=== PATIENT | female | born 1940 | race Two or more races ===

== ENCOUNTER → 2019-11-26 | Outpatient (CLI) | payer OTHER ==
[2019-11-26 07:41] LABS: Basophils # (auto) 0.1 10 ^3/uL (0-0.2); Basophils % (auto) 1.1 % (0.0-2.0); Eosinophils # (auto) 0.2 10 ^3/uL (0-0.8); Eosinophils % (auto) 2.4 % (0.0-7.0); Hematocrit 38.1 % (36.0-46.0); Hemoglobin 12.7 g/dL (12.2-16.2); Lymphocytes # (auto) 1.8 10 ^3/uL (0.4-5.4); Lymphocytes % (auto) 18.4 % (10.0-50.0); Mean Corpuscular Hemoglobin 31.4 pg (28.0-32.0); Mean Corpuscular Hgb Conc. 33.3 g/dL (32.0-36.0); Mean Corpuscular Volume 94.5 fL (80.0-100.0); Monocytes # (auto) 0.5 10 ^3/uL (0-1.3); Monocytes % (auto) 4.9 % (0.0-12.0); Neutrophils # (auto) 7.2 10 ^3/uL (1.6-8.6); Neutrophils % (auto) 73.2 % (37.0-80.0); Platelet Count (auto) 343 10^3/uL (140-450); Red Blood Cells 4.03 10^6/uL (4.0-5.20); Red Cell Distribution Width 13.4 % (11.8-14.3); White Blood Cell 9.9 10^3/uL (4.4-10.8)
[2019-11-26 08:39] LABS: Albumin 3.1 g/dL (3.4-5.0); Potassium 3.8 mmol/L (3.5-5.1)
[2019-11-26 08:46] LABS: BUN/Creatinine Ratio 20.6; Bilirubin, Total 0.3 mg/dL (0.2-1.0); Calcium 9.1 mg/dL (8.5-10.1); Total Protein 6.8 g/dL (6.4-8.2)
== END | disposition home or self-care (01) ==
LOC: LAB 07:09
PROVIDERS: ATTEND Internal Medicine
DX: Z00.00 Encounter for general adult medical examination without abnormal findings (principal); Z12.11 Encounter for screening for malignant neoplasm of colon; I10 Essential (primary) hypertension; E78.5 Hyperlipidemia, unspecified
CPT/HCPCS: 36415; 80053; 80061; 82043; 84439; 84443; 85025

== ENCOUNTER → 2020-10-31 | Outpatient (CLI) | payer OTHER ==
[2020-10-31 08:09] LABS: Basophils # (auto) 0.1 10 ^3/uL (0-0.2); Basophils % (auto) 0.9 % (0.0-2.0); Eosinophils # (auto) 0.5 10 ^3/uL (0-0.8); Eosinophils % (auto) 4.4 % (0.0-7.0); Hematocrit 38.8 % (36.0-46.0); Hemoglobin 12.8 g/dL (12.2-16.2); Lymphocytes # (auto) 2.3 10 ^3/uL (0.4-5.4); Lymphocytes % (auto) 20.1 % (10.0-50.0); Mean Corpuscular Hemoglobin 30.9 pg (28.0-32.0); Mean Corpuscular Volume 93.8 fL (80.0-100.0); Monocytes # (auto) 0.5 10 ^3/uL (0-1.3); Monocytes % (auto) 4.6 % (0.0-12.0); Neutrophils # (auto) 8.1 10 ^3/uL (1.6-8.6); Platelet Count (auto) 383 10^3/uL (140-450); Red Blood Cells 4.14 10^6/uL (4.0-5.20); Red Cell Distribution Width 14.3 % (11.8-14.3); White Blood Cell 11.6 10^3/uL (4.4-10.8)
[2020-10-31 09:30] LABS: Albumin 3.8 g/dL (3.4-5.0); Potassium 4.3 mmol/L (3.5-5.1)
[2020-10-31 09:37] LABS: BUN/Creatinine Ratio 24.2; Bilirubin, Total 0.4 mg/dL (0.2-1.0); Total Protein 7.6 g/dL (6.4-8.2)
== END | disposition home or self-care (01) ==
LOC: LAB 07:07
PROVIDERS: ATTEND Internal Medicine
DX: Z00.00 Encounter for general adult medical examination without abnormal findings (principal); Z12.11 Encounter for screening for malignant neoplasm of colon; I10 Essential (primary) hypertension; E78.5 Hyperlipidemia, unspecified; E55.9 Vitamin D deficiency, unspecified; R73.03 Prediabetes
CPT/HCPCS: 36415; 80053; 80061; 82306; 83036; 84439; 84443; 85025

== ENCOUNTER → 2020-11-22 | Outpatient (CLI) | payer OTHER ==
[~2020-11-22] MED LIST: ALBUTEROL SULF 2.5 MG/0.5ML(0.5%) NEB SOLN ONE
== END | disposition home or self-care (01) ==
LOC: RT 08:29
PROVIDERS: ATTEND Internal Medicine Pulmonary Disease
DX: Z01.812 Encounter for preprocedural laboratory examination (principal); Z20.822 Contact with and (suspected) exposure to COVID-19; J44.9 Chronic obstructive pulmonary disease, unspecified; J98.4 Other disorders of lung
CPT/HCPCS: 36415; 87426; 94060; 94727; 94729

== ENCOUNTER → 2020-12-14 | Outpatient (CLI) | payer OTHER ==
[2020-12-14 09:58] LABS: Basophils # (auto) 0.1 10 ^3/uL (0-0.2); Basophils % (auto) 1.1 % (0.0-2.0); Eosinophils # (auto) 0.9 10 ^3/uL (0-0.8); Eosinophils % (auto) 7.4 % (0.0-7.0); Hematocrit 38.4 % (36.0-46.0); Hemoglobin 12.9 g/dL (12.2-16.2); Lymphocytes # (auto) 2.5 10 ^3/uL (0.4-5.4); Lymphocytes % (auto) 21.6 % (10.0-50.0); Mean Corpuscular Hemoglobin 31.3 pg (28.0-32.0); Mean Corpuscular Hgb Conc. 33.7 g/dL (32.0-36.0); Mean Corpuscular Volume 93.1 fL (80.0-100.0); Monocytes # (auto) 0.6 10 ^3/uL (0-1.3); Monocytes % (auto) 5.4 % (0.0-12.0); Neutrophils # (auto) 7.6 10 ^3/uL (1.6-8.6); Neutrophils % (auto) 64.5 % (37.0-80.0); Platelet Count (auto) 386 10^3/uL (140-450); Red Blood Cells 4.13 10^6/uL (4.0-5.20); Red Cell Distribution Width 13.9 % (11.8-14.3); White Blood Cell 11.8 10^3/uL (4.4-10.8)
== END | disposition home or self-care (01) ==
LOC: LAB 09:31
PROVIDERS: ATTEND Internal Medicine
DX: Z12.11 Encounter for screening for malignant neoplasm of colon (principal); D72.829 Elevated white blood cell count, unspecified
CPT/HCPCS: 36415; 85025

== ENCOUNTER → 2021-01-11 | Outpatient (CLI) | payer OTHER ==
[2021-01-11 08:29] LABS: Albumin 3.4 g/dL (3.4-5.0); Calcium 9.2 mg/dL (8.5-10.1); Potassium 4.3 mmol/L (3.5-5.1)
[2021-01-11 08:33] LABS: BUN/Creatinine Ratio 24.5; Bilirubin, Total 0.4 mg/dL (0.2-1.0)
== END | disposition home or self-care (01) ==
LOC: LAB 07:15
PROVIDERS: ATTEND Internal Medicine
DX: I12.9 Hypertensive chronic kidney disease with stage 1 through stage 4 chronic kidney disease, or unspecified chronic kidney disease (principal); N18.2 Chronic kidney disease, stage 2 (mild); E78.5 Hyperlipidemia, unspecified; R73.03 Prediabetes
CPT/HCPCS: 36415; 80053; 85048

== ENCOUNTER → 2021-02-09 | Outpatient (CLI) | payer OTHER ==
[~2021-02-09] VITALS: Ht 160 cm; Wt 88.0 kg
[~2021-02-09] MED LIST changes: +ADENOSINE 74 MG in GIVE UN-DILUTED 0 ML IV STA; -ALBUTEROL SULF 2.5 MG/0.5ML(0.5%) NEB SOLN ONE
== END | disposition home or self-care (01) ==
LOC: XY 08:20
PROVIDERS: ATTEND Internal Medicine
DX: R07.9 Chest pain, unspecified (principal); K21.9 Gastro-esophageal reflux disease without esophagitis; I10 Essential (primary) hypertension; J45.909 Unspecified asthma, uncomplicated; E78.5 Hyperlipidemia, unspecified; Z82.49 Family history of ischemic heart disease and other diseases of the circulatory system
CPT/HCPCS: 78452; 93017; A9500; J0153

== ENCOUNTER → 2021-02-15 | Outpatient (CLI) | payer OTHER | END | disposition home or self-care (01) | LOC: XYW 13:28 | PROVIDERS: ATTEND Internal Medicine | DX: I08.8 Other rheumatic multiple valve diseases (principal); R07.9 Chest pain, unspecified | CPT/HCPCS: 93306 ==

== ENCOUNTER 2021-06-21 10:11 | Inpatient (IN) | payer OTHER ==
[~2021-06-21] VITALS: Ht 160 cm; Wt 95.6 kg
[2021-06-21 11:30] LABS: Urine Bacteria MOD /hpf (None Seen); Urine Blood Negative /uL (Negative); Urine Specific Gravity 1.012 (1.001-1.035); Urine WBC 11 /hpf (0 - 5)
[2021-06-21 11:44] LABS: Hematocrit 37.5 % (36.0-46.0); Hemoglobin 11.8 g/dL (12.2-16.2); Mean Corpuscular Hemoglobin 30.7 pg (28.0-32.0); Mean Corpuscular Hgb Conc. 31.6 g/dL (32.0-36.0); Mean Corpuscular Volume 97.2 fL (80.0-100.0); Red Blood Cells 3.85 10^6/uL (4.0-5.20); Red Cell Distribution Width 14.7 % (11.8-14.3); White Blood Cell 13.7 10^3/uL (4.4-10.8)
[2021-06-21 11:49] LABS: Basophils % (manual) 0 (0.0-2.0); Blast Cells 0; Eosinophils % (manual) 0 (0-7); Metamyelocytes % 0; Myelocytes % 0; Promyelocytes % 0; Reactive Lymphocytes 0
[2021-06-21 12:17] LABS: Albumin 2.3 g/dL (3.4-5.0); Calcium 8.3 mg/dL (8.5-10.1); Potassium 4.7 mmol/L (3.5-5.1)
[2021-06-21 12:20] LABS: BUN/Creatinine Ratio 48.5; Bilirubin, Total 0.4 mg/dL (0.2-1.0); Total Protein 5.7 g/dL (6.4-8.2)
[2021-06-21 12:24] LABS: Band Neutrophils % (manual) 15; Lymphocytes % (manual) 13 (10.0-50.0); Monocytes % (manual) 3 (0-12)
[2021-06-21] MEDS ORDERED: metroNIDAZOLE 500MG/100ML 100 ML IV ONE ×2 (13:00→18:50)
[2021-06-21] MEDS ORDERED: ONDANSETRON HCL 4 MG/2 ML VIAL IV ONE (13:15)
[2021-06-21] MEDS ORDERED: MORPHINE SULFATE 4 MG/ML SYR/VIAL IV ONE (13:15)
[2021-06-21] MEDS ORDERED: levoFLOXacin 500MG 100 ML IV ONE (13:30)
[2021-06-21] MEDS ORDERED: SODIUM CHLORIDE 0.9% 500 ML IV ONE (13:45)
[2021-06-21 14:16] LABS: INR 0.99 (0.9-1.15); Partial Thromboplastin Time 23.9 sec (23.6-33.0)
[2021-06-21] MEDS ORDERED: LACTATED RINGER'S 1,000 ML IV ONE (15:15)
[2021-06-21] MEDS ORDERED: MORPHINE SULFATE INJECTION 2 MG/ML SYRG IV PRN ×3 (15:15→18:15)
[2021-06-21] MEDS ORDERED: NITROGLYCERIN 0.4 MG SL TAB SL PRN ×3 (15:15→18:15)
[2021-06-21] MEDS ORDERED: SODIUM CHLORIDE 0.9% 1,000 ML IV SCH (18:15)
[2021-06-21] MEDS ORDERED: MORPHINE SULFATE 4 MG/ML SYR/VIAL IV PRN (18:15)
[2021-06-21] MEDS ORDERED: ONDANSETRON HCL 4 MG/2 ML VIAL IV PRN (18:15)
[2021-06-21] MEDS ORDERED: LORazepam 2MG/ML-1ML VIAL IV PRN (18:15)
[2021-06-21] MEDS ORDERED: HYDROcodone-ACET 5/325MG TAB PO PRN (18:15)
[2021-06-21] MEDS ORDERED: LORazepam 0.5 MG TAB PO PRN (18:15)
[2021-06-21] MEDS ORDERED: ALUM & MAG HYDROX-SIMETH LIQ(MAALOX) 30 ML PO PRN (18:15)
[2021-06-21] MEDS ORDERED: ACETAMINOPHEN 325 MG TAB PO PRN ×2 (18:15)
[2021-06-21] MEDS ORDERED: DOCUSATE SOD 100 MG CAP PO PRN (18:15)
[2021-06-21] MEDS ORDERED: hydrALAZINE HCL 20 MG/ML VL IV PRN (18:30)
[2021-06-21] MEDS ORDERED: IPRATROPIUM BROM 0.5 MG/2.5ML INH SOL NEB ONE (18:30)
[2021-06-21] MEDS ORDERED: IPRATROPIUM BROM 0.5 MG/2.5ML INH SOL NEB PRN (19:15)
[2021-06-21] MEDS: metroNIDAZOLE 500MG/100ML 100 ML IV SCH ×2 (19:20→19:38)
[2021-06-21 19:32] LABS: Alcohol, Urine < 3.0 mg/dL (0-10); Amphetamine Screen, Urine NEGATIVE (NEGATIVE); Barbiturate Scree,Urine NEGATIVE (NEGATIVE); Benzodiazephine Screen, Urine NEGATIVE (NEGATIVE); Cannabinoid Screen, Urine NEGATIVE (NEGATIVE); Cocaine Screen, Urine NEGATIVE (NEGATIVE); Opiate Scree,Urine NEGATIVE (NEGATIVE); Phencyclidine Screen, Urine NEGATIVE (NEGATIVE)
[2021-06-21] MEDS ORDERED: FAMOTIDINE (10MG/ML) 2ML VL IV ONE (19:45)
[2021-06-21] MEDS ORDERED: levoFLOXacin 250MG 50 ML IV ONE (20:00)
[2021-06-21] MEDS: MORPHINE SULFATE INJECTION 2 MG/ML SYRG IV PRN (20:07)
[2021-06-21 20:33] LABS: Cholesterol 134 mg/dL (< 200); Triglycerides 61 mg/dL (< 150)
[2021-06-21 20:35] LABS: HDL Cholesterol 67 mg/dL (40-59); LDL Cholesterol 57 mg/dL (< 100)
[2021-06-21] MEDS ORDERED: ATORVASTATIN 20 MG TAB PO SCH (22:00)
[2021-06-21] MEDS ORDERED: IPRATROPIUM BROM 0.5 MG/2.5ML INH SOL NEB SCH (22:00)
[2021-06-21 22:19] VITALS: BP 123/61
[2021-06-21 22:23] VITALS: BP 123/61
[2021-06-21] MEDS: MEROPENEM 1GM IVPB 100 ML IV SCH (22:25)
[2021-06-22] VITALS (36 sets, daily range): BP systolic 96–185; BP diastolic 37–74
[2021-06-22] MEDS: MORPHINE SULFATE INJECTION 2 MG/ML SYRG IV PRN ×3 (00:10→09:34)
[2021-06-22 05:49] LABS: Basophils # (auto) 0 10 ^3/uL (0-0.2); Basophils % (auto) 0.1 % (0.0-2.0); Eosinophils # (auto) 0 10 ^3/uL (0-0.8); Eosinophils % (auto) 0.2 % (0.0-7.0); Hematocrit 34.5 % (36.0-46.0); Hemoglobin 11.3 g/dL (12.2-16.2); Lymphocytes % (auto) 7.8 % (10.0-50.0); Mean Corpuscular Hemoglobin 31.8 pg (28.0-32.0); Mean Corpuscular Hgb Conc. 32.8 g/dL (32.0-36.0); Monocytes # (auto) 0.3 10 ^3/uL (0-1.3); Monocytes % (auto) 2.5 % (0.0-12.0); Neutrophils % (auto) 89.4 % (37.0-80.0); Nucleated Red Blood Cells % 0.1 %; Red Blood Cells 3.56 10^6/uL (4.0-5.20); Red Cell Distribution Width 15.2 % (11.8-14.3); White Blood Cell 12.3 10^3/uL (4.4-10.8)
[2021-06-22 06:15] LABS: Albumin 1.6 g/dL (3.4-5.0); Calcium 7.8 mg/dL (8.5-10.1); Magnesium 2.8 mg/dL (1.6-2.6); Potassium 4.7 mmol/L (3.5-5.1)
[2021-06-22 06:21] LABS: BUN/Creatinine Ratio 40.2; Bilirubin, Total 0.5 mg/dL (0.2-1.0); Phosphorus 2.8 mg/dL (2.5-4.90); Total Protein 4.6 g/dL (6.4-8.2); Uric Acid 8.3 mg/dL (2.6-6.0)
[2021-06-22 06:29] LABS: INR 1.25 (0.9-1.15); Partial Thromboplastin Time 37.4 sec (23.6-33.0)
[2021-06-22] MEDS: MEROPENEM 1GM IVPB 100 ML IV SCH ×2 (09:33→16:39)
[2021-06-22] MEDS ORDERED: ENOXAPARIN SOD 40 MG/0.4 ML SYRINGE SC SCH (10:00)
[2021-06-22] MEDS ORDERED: ASPirin 81 mg TAB PO SCH (10:00)
[2021-06-22] MEDS ORDERED: levoFLOXacin 250MG 50 ML IV SCH (10:00)
[2021-06-22] MEDS ORDERED: SOD CHL 0.45% 1,000 ML IV SCH (10:15)
[2021-06-22] MEDS ORDERED: HYDROmorphone HCL 2 MG/ML VL ONE ×2 (13:20→15:51)
[2021-06-22] MEDS ORDERED: ONDANSETRON HCL 4 MG/2 ML VIAL ONE (13:20)
[2021-06-22] MEDS ORDERED: MIDAZOLAM HCL 2MG/2ML 2ml VIAL (1mg/ml) ONE ×2 (13:20→15:51)
[2021-06-22] MEDS ORDERED: DexAMETHasone SOD PHOS 10MG/1ML VIAL INJ ONE (13:20)
[2021-06-22] MEDS ORDERED: PROPOFOL 10 MG/ML 20 ML IV ONE (13:20)
[2021-06-22] MEDS ORDERED: fentaNYL CITRATE 100 MCG/2 ML VL ONE (13:20)
[2021-06-22] MEDS ORDERED: ROCURONIUM 10MG/ML 10ML VIAL IV ONE ×3 (13:20→15:51)
[2021-06-22] MEDS: IPRATROPIUM BROM 0.5 MG/2.5ML INH SOL NEB SCH ×2 (13:50→23:14)
[2021-06-22] MEDS ORDERED: NOREPINEPHRINE 8 MG/250ML KIT 250 ML IV STA (14:00)
[2021-06-22] MEDS ORDERED: fentaNYL CITRATE 5 ML ONE (14:46)
[2021-06-22 15:18] LABS: Hepatitis A Ab IgM Negative
[2021-06-22 15:19] LABS: Hepatitis B Core IgM Negative; Hepatitis C Antibody Negative (Negative)
[2021-06-22] MEDS: D5W/SOD CHL 0.45%/KCL 20MEQ 1,000 ML IV SCH (15:45)
[2021-06-22] MEDS ORDERED: HYDROmorphone HCL 2 MG/ML VL IV PRN (15:45)
[2021-06-22] MEDS ORDERED: PROPOFOL 100 ML IV ONE (15:53)
[2021-06-22] MEDS ORDERED: TPN PER PHARMACY 0 ML IV SCH (16:30)
[2021-06-22] MEDS: MIDAZOLAM DRIP 50 mg/50mL 50 ML IV SCH (16:40)
[2021-06-22] MEDS ORDERED: AMINO ACID INFUSION IN D10W 1,000 ML IV NR (20:00)
[2021-06-22 20:39] LABS: Basophils # (auto) 0 10 ^3/uL (0-0.2); Basophils % (auto) 0.2 % (0.0-2.0); Eosinophils # (auto) 0.1 10 ^3/uL (0-0.8); Eosinophils % (auto) 0.9 % (0.0-7.0); Hematocrit 33.5 % (36.0-46.0); Hemoglobin 10.7 g/dL (12.2-16.2); Lymphocytes # (auto) 1.3 10 ^3/uL (0.4-5.4); Lymphocytes % (auto) 10.5 % (10.0-50.0); Mean Corpuscular Hemoglobin 31.4 pg (28.0-32.0); Mean Corpuscular Hgb Conc. 31.9 g/dL (32.0-36.0); Mean Corpuscular Volume 98.6 fL (80.0-100.0); Monocytes # (auto) 0.3 10 ^3/uL (0-1.3); Monocytes % (auto) 2.5 % (0.0-12.0); Neutrophils % (auto) 85.9 % (37.0-80.0); Nucleated Red Blood Cells % 0.1 %; Red Cell Distribution Width 15.7 % (11.8-14.3); White Blood Cell 12.8 10^3/uL (4.4-10.8)
[2021-06-22 20:57] LABS: BUN/Creatinine Ratio 36.3; Calcium 7.7 mg/dL (8.5-10.1); Potassium 4.9 mmol/L (3.5-5.1)
[2021-06-22] MEDS ORDERED: FAMOTIDINE (10MG/ML) 2ML VL IV SCH (22:00)
[2021-06-23] VITALS (106 sets, daily range): BP systolic 73–161; BP diastolic 30–90
[2021-06-23] MEDS ORDERED: DEXTROSE (50%) 50ML SYRG IV SCH
[2021-06-23] MEDS: InsuLIN REG 1unit/0.01ml Soln (100units/ml) SC SCH ×5 (00:21→23:43)
[2021-06-23] MEDS: ACCU-CHEK COMFORT CURVE STRIP VI SCH ×5 (00:22→23:45)
[2021-06-23] MEDS: D5W/SOD CHL 0.45%/KCL 20MEQ 1,000 ML IV SCH (00:23)
[2021-06-23] MEDS: MEROPENEM 1GM IVPB 100 ML IV SCH ×3 (00:59→20:07)
[2021-06-23 05:15] LABS: INR 1.2 (0.9-1.15); Partial Thromboplastin Time 38.4 sec (23.6-33.0)
[2021-06-23 05:18] LABS: Basophils # (auto) 0 10 ^3/uL (0-0.2); Basophils % (auto) 0.1 % (0.0-2.0); Eosinophils # (auto) 0.2 10 ^3/uL (0-0.8); Eosinophils % (auto) 1.3 % (0.0-7.0); Hematocrit 31.5 % (36.0-46.0); Hemoglobin 10.2 g/dL (12.2-16.2); Mean Corpuscular Hemoglobin 32.5 pg (28.0-32.0); Mean Corpuscular Hgb Conc. 32.3 g/dL (32.0-36.0); Mean Corpuscular Volume 100.6 fL (80.0-100.0); Monocytes # (auto) 0.3 10 ^3/uL (0-1.3); Monocytes % (auto) 2.2 % (0.0-12.0); Neutrophils # (auto) 12.1 10 ^3/uL (1.6-8.6); Neutrophils % (auto) 89.4 % (37.0-80.0); Nucleated Red Blood Cells % 0.1 %; Red Blood Cells 3.14 10^6/uL (4.0-5.20); Red Cell Distribution Width 16.2 % (11.8-14.3); White Blood Cell 13.5 10^3/uL (4.4-10.8)
[2021-06-23 05:29] LABS: Potassium 5.1 mmol/L (3.5-5.1)
[2021-06-23 05:39] LABS: Albumin 1.1 g/dL (3.4-5.0); BUN/Creatinine Ratio 31.5; Calcium 7.7 mg/dL (8.5-10.1); Magnesium 2.8 mg/dL (1.6-2.6); Phosphorus 3.8 mg/dL (2.5-4.90); Pre Albumin 11.2 mg/dL (20.0-40.0); Total Protein 4.1 g/dL (6.4-8.2)
[2021-06-23] MEDS: IPRATROPIUM BROM 0.5 MG/2.5ML INH SOL NEB SCH ×3 (06:32→18:17)
[2021-06-23] MEDS: PANTOPRAZOLE 40 MG/10 ML VIAL INJ IV SCH (09:08)
[2021-06-23] MEDS: MIDAZOLAM DRIP 50 mg/50mL 50 ML IV SCH (10:28)
[2021-06-23] MEDS ORDERED: D5W/SOD CHL 0.45% 1,000 ML IV SCH (10:45)
[2021-06-23] MEDS: fentaNYL Drip 2500mCg/250mlNS 250 ML IV SCH (12:43)
[2021-06-23] MEDS: D5W/SOD CHL 0.45% 1,000 ML IV SCH (12:43)
[2021-06-23] MEDS ORDERED: TPN PER PHARMACY IV NR ×6 (20:00)
[2021-06-24] VITALS (108 sets, daily range): BP systolic 94–184; BP diastolic 39–160
[2021-06-24 03:58] LABS: Basophils # (auto) 0 10 ^3/uL (0-0.2); Basophils % (auto) 0.2 % (0.0-2.0); Eosinophils # (auto) 0.4 10 ^3/uL (0-0.8); Eosinophils % (auto) 2.8 % (0.0-7.0); Hematocrit 26.8 % (36.0-46.0); Hemoglobin 8.5 g/dL (12.2-16.2); Lymphocytes # (auto) 0.7 10 ^3/uL (0.4-5.4); Lymphocytes % (auto) 5.4 % (10.0-50.0); Mean Corpuscular Hemoglobin 31.6 pg (28.0-32.0); Mean Corpuscular Hgb Conc. 31.7 g/dL (32.0-36.0); Mean Corpuscular Volume 99.7 fL (80.0-100.0); Monocytes # (auto) 0.3 10 ^3/uL (0-1.3); Monocytes % (auto) 2.8 % (0.0-12.0); Neutrophils # (auto) 11.1 10 ^3/uL (1.6-8.6); Neutrophils % (auto) 88.8 % (37.0-80.0); Nucleated Red Blood Cells % 0.1 %; Red Blood Cells 2.69 10^6/uL (4.0-5.20); Red Cell Distribution Width 15.6 % (11.8-14.3); White Blood Cell 12.5 10^3/uL (4.4-10.8)
[2021-06-24 04:13] LABS: Calcium 7.9 mg/dL (8.5-10.1); Magnesium 2.3 mg/dL (1.6-2.6); Potassium 3.8 mmol/L (3.5-5.1)
[2021-06-24 04:18] LABS: BUN/Creatinine Ratio 38.7; Bilirubin, Total 1.4 mg/dL (0.2-1.0); Phosphorus 3.9 mg/dL (2.5-4.90)
[2021-06-24 04:25] LABS: Albumin 0.9 g/dL (3.4-5.0)
[2021-06-24] MEDS: D5W/SOD CHL 0.45% 1,000 ML IV SCH ×2 (05:07→20:01)
[2021-06-24] MEDS: InsuLIN REG 1unit/0.01ml Soln (100units/ml) SC SCH ×3 (05:09→17:04)
[2021-06-24] MEDS: ACCU-CHEK COMFORT CURVE STRIP VI SCH ×3 (05:09→17:05)
[2021-06-24] MEDS: IPRATROPIUM BROM 0.5 MG/2.5ML INH SOL NEB SCH ×3 (06:25→20:39)
[2021-06-24] MEDS: NOREPINEPHRINE 8 MG/250ML KIT 250 ML IV SCH (07:30)
[2021-06-24] MEDS: MEROPENEM 1GM IVPB 100 ML IV SCH ×2 (09:42→20:01)
[2021-06-24] MEDS: PANTOPRAZOLE 40 MG/10 ML VIAL INJ IV SCH (09:43)
[2021-06-24 10:49] LABS: Hemoglobin 8.8 g/dL (12.2-16.2)
[2021-06-24] MEDS ORDERED: SODIUM BICARBONATE 8.4 % INJ 50ML VIAL IV ONE (11:15)
[2021-06-24] MEDS: fentaNYL Drip 2500mCg/250mlNS 250 ML IV SCH (12:30)
[2021-06-24] MEDS: MIDAZOLAM DRIP 50 mg/50mL 50 ML IV SCH (15:45)
[2021-06-24] MEDS ORDERED: TPN PER PHARMACY IV NR ×6 (20:00)
[2021-06-25] VITALS (78 sets, daily range): BP systolic 107–247; BP diastolic 43–96
[2021-06-25] MEDS: InsuLIN REG 1unit/0.01ml Soln (100units/ml) SC SCH ×5 (01:17→23:54)
[2021-06-25 04:02] LABS: Basophils # (auto) 0 10 ^3/uL (0-0.2); Basophils % (auto) 0.3 % (0.0-2.0); Eosinophils # (auto) 0.4 10 ^3/uL (0-0.8); Eosinophils % (auto) 3.2 % (0.0-7.0); Hematocrit 26.7 % (36.0-46.0); Hemoglobin 8.6 g/dL (12.2-16.2); Lymphocytes # (auto) 1.1 10 ^3/uL (0.4-5.4); Mean Corpuscular Hemoglobin 31.6 pg (28.0-32.0); Mean Corpuscular Hgb Conc. 32.3 g/dL (32.0-36.0); Mean Corpuscular Volume 97.8 fL (80.0-100.0); Monocytes # (auto) 0.5 10 ^3/uL (0-1.3); Monocytes % (auto) 4.5 % (0.0-12.0); Neutrophils # (auto) 9.3 10 ^3/uL (1.6-8.6); Nucleated Red Blood Cells % 0.2 %; Red Blood Cells 2.73 10^6/uL (4.0-5.20); Red Cell Distribution Width 14.7 % (11.8-14.3); White Blood Cell 11.3 10^3/uL (4.4-10.8)
[2021-06-25 04:25] LABS: Albumin 1.1 g/dL (3.4-5.0); Magnesium 2.2 mg/dL (1.6-2.6); Potassium 3.9 mmol/L (3.5-5.1)
[2021-06-25 04:29] LABS: BUN/Creatinine Ratio 43.4; Bilirubin, Total 1.7 mg/dL (0.2-1.0); Phosphorus 2.4 mg/dL (2.5-4.90); Total Protein 4.4 g/dL (6.4-8.2)
[2021-06-25] MEDS: ACCU-CHEK COMFORT CURVE STRIP VI SCH ×5 (06:00→23:53)
[2021-06-25] MEDS: NOREPINEPHRINE 8 MG/250ML KIT 250 ML IV SCH (06:20)
[2021-06-25] MEDS: IPRATROPIUM BROM 0.5 MG/2.5ML INH SOL NEB SCH ×3 (06:31→18:48)
[2021-06-25] MEDS ORDERED: POTASSIUM PHOSPHATE 22 MEQ in SODIUM CHL 0.9% 100 ML IV ONE (08:15)
[2021-06-25] MEDS: MEROPENEM 1GM IVPB 100 ML IV SCH ×2 (09:09→22:00)
[2021-06-25] MEDS: PANTOPRAZOLE 40 MG/10 ML VIAL INJ IV SCH (10:36)
[2021-06-25] MEDS ORDERED: FUROSEMIDE 20 MG/2 ML VIAL IV ONE (11:15)
[2021-06-25] MEDS: fentaNYL Drip 2500mCg/250mlNS 250 ML IV SCH (12:30)
[2021-06-25] MEDS: D5W/SOD CHL 0.45% 1,000 ML IV SCH (13:58)
[2021-06-25] MEDS: MIDAZOLAM DRIP 50 mg/50mL 50 ML IV SCH (15:45)
[2021-06-25] MEDS: TPN PER PHARMACY IV NR ×8 (19:38)
[2021-06-26] VITALS (63 sets, daily range): BP systolic 103–243; BP diastolic 49–234
[2021-06-26] MEDS: LABETALOL HCL 5 MG/ML 4ML SYRINGE IV PRN ×4 (02:27→22:43)
[2021-06-26 04:31] LABS: Basophils # (auto) 0 10 ^3/uL (0-0.2); Basophils % (auto) 0.5 % (0.0-2.0); Eosinophils # (auto) 0.2 10 ^3/uL (0-0.8); Eosinophils % (auto) 2.3 % (0.0-7.0); Hematocrit 25.5 % (36.0-46.0); Hemoglobin 8.4 g/dL (12.2-16.2); Lymphocytes # (auto) 0.9 10 ^3/uL (0.4-5.4); Lymphocytes % (auto) 8.4 % (10.0-50.0); Mean Corpuscular Hemoglobin 32.3 pg (28.0-32.0); Mean Corpuscular Hgb Conc. 32.9 g/dL (32.0-36.0); Mean Corpuscular Volume 98.1 fL (80.0-100.0); Monocytes # (auto) 0.5 10 ^3/uL (0-1.3); Monocytes % (auto) 4.9 % (0.0-12.0); Neutrophils # (auto) 9.1 10 ^3/uL (1.6-8.6); Neutrophils % (auto) 83.9 % (37.0-80.0); Nucleated Red Blood Cells % 0.1 %; White Blood Cell 10.8 10^3/uL (4.4-10.8)
[2021-06-26 04:36] LABS: Albumin 1.1 g/dL (3.4-5.0); Calcium 7.8 mg/dL (8.5-10.1); Magnesium 1.9 mg/dL (1.6-2.6); Potassium 4.1 mmol/L (3.5-5.1)
[2021-06-26 04:38] LABS: BUN/Creatinine Ratio 54.8
[2021-06-26 04:41] LABS: Bilirubin, Total 1.5 mg/dL (0.2-1.0); Phosphorus 2.1 mg/dL (2.5-4.90); Total Protein 4.2 g/dL (6.4-8.2)
[2021-06-26] MEDS: MEROPENEM 1GM IVPB 100 ML IV SCH ×3 (05:14→21:53)
[2021-06-26] MEDS: ACCU-CHEK COMFORT CURVE STRIP VI SCH ×4 (05:43→23:52)
[2021-06-26] MEDS: InsuLIN REG 1unit/0.01ml Soln (100units/ml) SC SCH ×4 (05:46→23:56)
[2021-06-26] MEDS: IPRATROPIUM BROM 0.5 MG/2.5ML INH SOL NEB SCH ×3 (06:21→18:19)
[2021-06-26] MEDS: NOREPINEPHRINE 8 MG/250ML KIT 250 ML IV SCH (07:30)
[2021-06-26] MEDS: PANTOPRAZOLE 40 MG/10 ML VIAL INJ IV SCH (09:15)
[2021-06-26] MEDS: D5W/SOD CHL 0.45% 1,000 ML IV SCH (09:16)
[2021-06-26] MEDS: fentaNYL Drip 2500mCg/250mlNS 250 ML IV SCH (12:30)
[2021-06-26] MEDS ORDERED: FUROSEMIDE 20 MG/2 ML VIAL IV ONE ×2 (13:15→15:15)
[2021-06-26] MEDS: MIDAZOLAM DRIP 50 mg/50mL 50 ML IV SCH (15:25)
[2021-06-26] MEDS: TPN PER PHARMACY IV NR ×8 (19:59)
[2021-06-26] MEDS ORDERED: TPN PER PHARMACY IV NR ×9 (20:00)
[2021-06-27] VITALS (22 sets, daily range): BP systolic 137–166; BP diastolic 48–70
[2021-06-27 02:57] LABS: White Blood Cell 11.4 10^3/uL (4.4-10.8)
[2021-06-27 02:59] LABS: Hematocrit 24.4 % (36.0-46.0); Mean Corpuscular Hemoglobin 31.5 pg (28.0-32.0); Mean Corpuscular Hgb Conc. 32.8 g/dL (32.0-36.0); Red Blood Cells 2.54 10^6/uL (4.0-5.20); Red Cell Distribution Width 14.6 % (11.8-14.3)
[2021-06-27 03:06] LABS: Albumin 1.1 g/dL (3.4-5.0); BUN/Creatinine Ratio 56.1; Calcium 7.7 mg/dL (8.5-10.1); Potassium 4.6 mmol/L (3.5-5.1)
[2021-06-27 03:08] LABS: Bilirubin, Total 1.2 mg/dL (0.2-1.0); Phosphorus 2.4 mg/dL (2.5-4.90); Total Protein 4.4 g/dL (6.4-8.2)
[2021-06-27 03:34] LABS: Basophils % (manual) 0 (0.0-2.0); Blast Cells 0; Metamyelocytes % 0; Myelocytes % 0; Promyelocytes % 0; Reactive Lymphocytes 0
[2021-06-27] MEDS: MEROPENEM 1GM IVPB 100 ML IV SCH ×3 (06:00→21:42)
[2021-06-27] MEDS: ACCU-CHEK COMFORT CURVE STRIP VI SCH ×3 (06:09→17:20)
[2021-06-27] MEDS: InsuLIN REG 1unit/0.01ml Soln (100units/ml) SC SCH ×3 (06:12→17:20)
[2021-06-27] MEDS: IPRATROPIUM BROM 0.5 MG/2.5ML INH SOL NEB SCH ×3 (06:17→18:59)
[2021-06-27 06:51] LABS: Band Neutrophils % (manual) 27; Eosinophils % (manual) 4 (0-7); Lymphocytes % (manual) 15 (10.0-50.0); Monocytes % (manual) 5 (0-12)
[2021-06-27] MEDS: NOREPINEPHRINE 8 MG/250ML KIT 250 ML IV SCH (07:30)
[2021-06-27] MEDS: PANTOPRAZOLE 40 MG/10 ML VIAL INJ IV SCH (10:30)
[2021-06-27] MEDS: LABETALOL HCL 5 MG/ML 4ML SYRINGE IV PRN (13:50)
[2021-06-27] MEDS: TPN PER PHARMACY IV NR ×8 (19:39)
[2021-06-28] VITALS (7 sets, daily range): BP systolic 118–153; BP diastolic 50–70
[2021-06-28] MEDS: ACCU-CHEK COMFORT CURVE STRIP VI SCH ×4 (00:03→17:47)
[2021-06-28] MEDS: InsuLIN REG 1unit/0.01ml Soln (100units/ml) SC SCH ×4 (00:04→17:54)
[2021-06-28] MEDS: MEROPENEM 1GM IVPB 100 ML IV SCH ×3 (05:55→22:01)
[2021-06-28] MEDS: LABETALOL HCL 5 MG/ML 4ML SYRINGE IV PRN (05:55)
[2021-06-28 06:04] LABS: Mean Corpuscular Volume 96.6 fL (80.0-100.0)
[2021-06-28 06:07] LABS: Hematocrit 25.6 % (36.0-46.0); Hemoglobin 8.4 g/dL (12.2-16.2); Mean Corpuscular Hemoglobin 31.6 pg (28.0-32.0); Mean Corpuscular Hgb Conc. 32.8 g/dL (32.0-36.0); Red Blood Cells 2.65 10^6/uL (4.0-5.20); Red Cell Distribution Width 14.5 % (11.8-14.3); White Blood Cell 12.2 10^3/uL (4.4-10.8)
[2021-06-28 06:20] LABS: Basophils % (manual) 0 (0.0-2.0); Blast Cells 0; Promyelocytes % 0; Reactive Lymphocytes 0
[2021-06-28 06:22] LABS: Albumin 1.2 g/dL (3.4-5.0); BUN/Creatinine Ratio 57.7; Calcium 7.6 mg/dL (8.5-10.1); Magnesium 2.3 mg/dL (1.6-2.6); Potassium 4.3 mmol/L (3.5-5.1)
[2021-06-28 06:25] LABS: Total Protein 4.7 g/dL (6.4-8.2)
[2021-06-28] MEDS: IPRATROPIUM BROM 0.5 MG/2.5ML INH SOL NEB SCH ×3 (06:36→19:38)
[2021-06-28 08:41] LABS: Band Neutrophils % (manual) 13; Eosinophils % (manual) 3 (0-7); Lymphocytes % (manual) 13 (10.0-50.0); Metamyelocytes % 2; Monocytes % (manual) 1 (0-12); Myelocytes % 1
[2021-06-28] MEDS ORDERED: FUROSEMIDE 40 MG/4 ML VIAL IV ONE (09:30)
[2021-06-28] MEDS: PANTOPRAZOLE 40 MG/10 ML VIAL INJ IV SCH (09:43)
[2021-06-28 15:34] LABS: INR 1.12 (0.9-1.15); Partial Thromboplastin Time 28.5 sec (23.6-33.0)
[2021-06-28] MEDS: HYDROmorphone HCL 2 MG/ML VL IV PRN ×2 (17:59→23:40)
[2021-06-28] MEDS: TPN PER PHARMACY IV NR ×8 (19:58)
[2021-06-28] MEDS ORDERED: TPN PER PHARMACY IV NR ×11 (20:00)
[2021-06-29] MEDS: InsuLIN REG 1unit/0.01ml Soln (100units/ml) SC SCH ×4 (00:32→17:56)
[2021-06-29 05:00] VITALS: BP 148/62
[2021-06-29] MEDS: HYDROmorphone HCL 2 MG/ML VL IV PRN ×4 (05:18→20:15)
[2021-06-29] MEDS: ACCU-CHEK COMFORT CURVE STRIP VI SCH ×4 (05:58→17:56)
[2021-06-29] MEDS: MEROPENEM 1GM IVPB 100 ML IV SCH ×3 (06:03→21:28)
[2021-06-29 06:54] LABS: Hemoglobin 8.5 g/dL (12.2-16.2); Mean Corpuscular Hemoglobin 31.8 pg (28.0-32.0); Mean Corpuscular Hgb Conc. 32.6 g/dL (32.0-36.0); Mean Corpuscular Volume 97.5 fL (80.0-100.0); Red Blood Cells 2.67 10^6/uL (4.0-5.20); Red Cell Distribution Width 14.6 % (11.8-14.3)
[2021-06-29 07:04] LABS: Basophils % (manual) 0 (0.0-2.0); Blast Cells 0; Promyelocytes % 0; Reactive Lymphocytes 0
[2021-06-29 07:06] LABS: Albumin 1.4 g/dL (3.4-5.0); Magnesium 2.1 mg/dL (1.6-2.6); Phosphorus 3.7 mg/dL (2.5-4.90); Potassium 3.8 mmol/L (3.5-5.1)
[2021-06-29 07:09] LABS: BUN/Creatinine Ratio 78.8; Bilirubin, Total 0.8 mg/dL (0.2-1.0)
[2021-06-29] MEDS: IPRATROPIUM BROM 0.5 MG/2.5ML INH SOL NEB SCH ×3 (07:36→18:50)
[2021-06-29 08:12] LABS: Band Neutrophils % (manual) 14; Eosinophils % (manual) 5 (0-7); Lymphocytes % (manual) 5 (10.0-50.0); Metamyelocytes % 2; Monocytes % (manual) 3 (0-12); Myelocytes % 2
[2021-06-29] MEDS: PANTOPRAZOLE 40 MG/10 ML VIAL INJ IV SCH (10:22)
[2021-06-29 10:28] LABS: Pre Albumin 12.5 mg/dL (20.0-40.0)
[2021-06-29] MEDS ORDERED: LIDOCAINE 1% (LOCAL ANESTH.) PF 5ml SDV ID ONE (15:00)
[2021-06-29] MEDS: TPN PER PHARMACY IV NR ×9 (20:08)
[2021-06-29] MEDS: SODIUM CHLOR 0.9% PF (SALINE LOCK) 10ML VIAL/SYR IV SCH (21:28)
[2021-06-29 22:21] VITALS: BP 138/75
[2021-06-30] MEDS: ACCU-CHEK COMFORT CURVE STRIP VI SCH ×4 (00:22→17:49)
[2021-06-30] MEDS: InsuLIN REG 1unit/0.01ml Soln (100units/ml) SC SCH ×4 (00:27→17:49)
[2021-06-30] MEDS: HYDROmorphone HCL 2 MG/ML VL IV PRN ×4 (00:28→14:29)
[2021-06-30] MEDS: LABETALOL HCL 5 MG/ML 4ML SYRINGE IV PRN (04:49)
[2021-06-30 05:31] VITALS: BP 150/80
[2021-06-30] MEDS: MEROPENEM 1GM IVPB 100 ML IV SCH ×3 (06:09→21:16)
[2021-06-30 06:53] LABS: Basophils # (auto) 0.1 10 ^3/uL (0-0.2); Basophils % (auto) 0.6 % (0.0-2.0); Eosinophils # (auto) 0.3 10 ^3/uL (0-0.8); Eosinophils % (auto) 2.1 % (0.0-7.0); Hemoglobin 7.7 g/dL (12.2-16.2); Lymphocytes # (auto) 1.5 10 ^3/uL (0.4-5.4); Lymphocytes % (auto) 11.8 % (10.0-50.0); Mean Corpuscular Hemoglobin 31.1 pg (28.0-32.0); Mean Corpuscular Hgb Conc. 32.2 g/dL (32.0-36.0); Mean Corpuscular Volume 96.5 fL (80.0-100.0); Monocytes # (auto) 0.5 10 ^3/uL (0-1.3); Monocytes % (auto) 3.8 % (0.0-12.0); Neutrophils # (auto) 10.6 10 ^3/uL (1.6-8.6); Neutrophils % (auto) 81.7 % (37.0-80.0); Nucleated Red Blood Cells % 0.2 %; Red Blood Cells 2.49 10^6/uL (4.0-5.20); Red Cell Distribution Width 14.4 % (11.8-14.3)
[2021-06-30] MEDS: IPRATROPIUM BROM 0.5 MG/2.5ML INH SOL NEB SCH ×3 (07:15→19:47)
[2021-06-30 07:31] LABS: Albumin 1.3 g/dL (3.4-5.0); Calcium 7.8 mg/dL (8.5-10.1); Magnesium 2.3 mg/dL (1.6-2.6); Potassium 3.8 mmol/L (3.5-5.1)
[2021-06-30 07:35] LABS: BUN/Creatinine Ratio 73.9; Bilirubin, Total 0.6 mg/dL (0.2-1.0); Phosphorus 2.8 mg/dL (2.5-4.90); Total Protein 4.9 g/dL (6.4-8.2)
[2021-06-30 09:00] VITALS: BP 141/69
[2021-06-30] MEDS: SODIUM CHLOR 0.9% PF (SALINE LOCK) 10ML VIAL/SYR IV SCH ×2 (09:32→21:17)
[2021-06-30] MEDS: PANTOPRAZOLE 40 MG/10 ML VIAL INJ IV SCH (09:32)
[2021-06-30] MEDS ORDERED: GASTROGRAFIN 120 ML SOL ONE (12:32)
[2021-06-30 13:00] VITALS: BP 146/71
[2021-06-30 17:00] VITALS: BP 153/72
[2021-06-30] MEDS: TPN PER PHARMACY IV NR ×19 (20:04→20:13)
[2021-06-30 22:00] VITALS: BP 137/62
[2021-07-01] MEDS: InsuLIN REG 1unit/0.01ml Soln (100units/ml) SC SCH ×5 (00:46→23:28)
[2021-07-01 05:00] VITALS: BP 140/62
[2021-07-01 05:49] LABS: Eosinophils # (auto) 0.3 10 ^3/uL (0-0.8); Hemoglobin 7.6 g/dL (12.2-16.2); Lymphocytes # (auto) 1.7 10 ^3/uL (0.4-5.4)
[2021-07-01 05:50] LABS: Albumin 1.3 g/dL (3.4-5.0); Basophils # (auto) 0.1 10 ^3/uL (0-0.2); Basophils % (auto) 0.5 % (0.0-2.0); Calcium 7.8 mg/dL (8.5-10.1); Eosinophils % (auto) 2.3 % (0.0-7.0); Hematocrit 23.8 % (36.0-46.0); Lymphocytes % (auto) 12.7 % (10.0-50.0); Magnesium 2.4 mg/dL (1.6-2.6); Mean Corpuscular Volume 96.7 fL (80.0-100.0); Monocytes # (auto) 0.6 10 ^3/uL (0-1.3); Monocytes % (auto) 4.2 % (0.0-12.0); Neutrophils # (auto) 10.9 10 ^3/uL (1.6-8.6); Neutrophils % (auto) 80.3 % (37.0-80.0); Potassium 3.8 mmol/L (3.5-5.1); Red Blood Cells 2.46 10^6/uL (4.0-5.20); Red Cell Distribution Width 14.1 % (11.8-14.3); White Blood Cell 13.5 10^3/uL (4.4-10.8)
[2021-07-01 05:52] LABS: BUN/Creatinine Ratio 71.1
[2021-07-01 05:55] LABS: Bilirubin, Total 0.6 mg/dL (0.2-1.0); Phosphorus 2.8 mg/dL (2.5-4.90); Total Protein 4.7 g/dL (6.4-8.2)
[2021-07-01] MEDS: ACCU-CHEK COMFORT CURVE STRIP VI SCH ×5 (06:04→23:26)
[2021-07-01] MEDS: MEROPENEM 1GM IVPB 100 ML IV SCH ×3 (06:07→22:01)
[2021-07-01] MEDS: IPRATROPIUM BROM 0.5 MG/2.5ML INH SOL NEB SCH ×3 (06:58→18:38)
[2021-07-01 08:00] VITALS: BP 116/77
[2021-07-01] MEDS: HYDROmorphone HCL 2 MG/ML VL IV PRN ×3 (08:51→18:50)
[2021-07-01 09:00] VITALS: BP 145/99
[2021-07-01] MEDS: PANTOPRAZOLE 40 MG/10 ML VIAL INJ IV SCH (09:38)
[2021-07-01] MEDS: SODIUM CHLOR 0.9% PF (SALINE LOCK) 10ML VIAL/SYR IV SCH ×2 (09:38→22:02)
[2021-07-01 13:00] VITALS: BP 116/77
[2021-07-01] MEDS ORDERED: ENOXAPARIN SOD 40 MG/0.4 ML SYRINGE SC ONE (13:45)
[2021-07-01 14:20] LABS: % Iron Saturation 8.2 % (15-50)
[2021-07-01 17:00] VITALS: BP 131/56
[2021-07-01] MEDS: TPN PER PHARMACY IV NR ×18 (20:12→20:21)
[2021-07-01 22:00] VITALS: BP 107/40
[2021-07-02] MEDS: HYDROmorphone HCL 2 MG/ML VL IV PRN ×5 (02:49→23:43)
[2021-07-02 05:00] VITALS: BP 136/75
[2021-07-02] MEDS: ACCU-CHEK COMFORT CURVE STRIP VI SCH ×4 (05:32→23:43)
[2021-07-02] MEDS: MEROPENEM 1GM IVPB 100 ML IV SCH ×3 (05:32→21:48)
[2021-07-02] MEDS: InsuLIN REG 1unit/0.01ml Soln (100units/ml) SC SCH ×4 (05:33→23:44)
[2021-07-02 06:05] LABS: Albumin 1.4 g/dL (3.4-5.0); Calcium 7.7 mg/dL (8.5-10.1); Magnesium 2.3 mg/dL (1.6-2.6); Potassium 3.9 mmol/L (3.5-5.1)
[2021-07-02 06:07] LABS: BUN/Creatinine Ratio 70.7
[2021-07-02 06:10] LABS: Bilirubin, Total 0.6 mg/dL (0.2-1.0); Phosphorus 2.5 mg/dL (2.5-4.90)
[2021-07-02] MEDS: IPRATROPIUM BROM 0.5 MG/2.5ML INH SOL NEB SCH ×3 (06:29→19:08)
[2021-07-02] MEDS: SODIUM CHLOR 0.9% PF (SALINE LOCK) 10ML VIAL/SYR IV SCH ×2 (08:42→21:48)
[2021-07-02] MEDS: PANTOPRAZOLE 40 MG/10 ML VIAL INJ IV SCH (08:42)
[2021-07-02] MEDS: ENOXAPARIN SOD 40 MG/0.4 ML SYRINGE SC SCH (08:42)
[2021-07-02 09:00] VITALS: BP 149/65
[2021-07-02 13:00] VITALS: BP 129/68
[2021-07-02] MEDS ORDERED: SODIUM FERR GLUC 62.5MG/5ML 125 MG in SODIUM CHL 0.9% 100 ML IV ONE (13:30)
[2021-07-02 17:00] VITALS: BP 144/65
[2021-07-02] MEDS ORDERED: TPN PER PHARMACY IV NR ×8 (20:00)
[2021-07-02] MEDS: TPN PER PHARMACY IV NR ×8 (20:07)
[2021-07-02 22:00] VITALS: BP 133/85
[2021-07-03] VITALS (11 sets, daily range): BP systolic 113–149; BP diastolic 52–90
[2021-07-03 05:21] LABS: Basophils # (auto) 0.1 10 ^3/uL (0-0.2); Basophils % (auto) 0.8 % (0.0-2.0); Eosinophils # (auto) 0.4 10 ^3/uL (0-0.8); Mean Corpuscular Hemoglobin 31.5 pg (28.0-32.0); Monocytes # (auto) 0.7 10 ^3/uL (0-1.3); Neutrophils # (auto) 8.8 10 ^3/uL (1.6-8.6); Red Blood Cells 2.23 10^6/uL (4.0-5.20)
[2021-07-03 05:27] LABS: Eosinophils % (auto) 3.3 % (0.0-7.0); Hematocrit 21.4 % (36.0-46.0); Lymphocytes # (auto) 1.8 10 ^3/uL (0.4-5.4); Lymphocytes % (auto) 15.2 % (10.0-50.0); Mean Corpuscular Hgb Conc. 32.8 g/dL (32.0-36.0); Neutrophils % (auto) 74.7 % (37.0-80.0); Nucleated Red Blood Cells % 0.5 %; Red Cell Distribution Width 14.6 % (11.8-14.3); White Blood Cell 11.8 10^3/uL (4.4-10.8)
[2021-07-03] MEDS: ACCU-CHEK COMFORT CURVE STRIP VI SCH (05:29)
[2021-07-03] MEDS: InsuLIN REG 1unit/0.01ml Soln (100units/ml) SC SCH (05:29)
[2021-07-03] MEDS: MEROPENEM 1GM IVPB 100 ML IV SCH (05:29)
[2021-07-03 05:42] LABS: Albumin 1.4 g/dL (3.4-5.0); Calcium 7.7 mg/dL (8.5-10.1); Potassium 4.2 mmol/L (3.5-5.1)
[2021-07-03 05:48] LABS: BUN/Creatinine Ratio 73.2; Bilirubin, Total 0.4 mg/dL (0.2-1.0); Magnesium 2.8 mg/dL (1.6-2.6); Phosphorus 3.2 mg/dL (2.5-4.90); Total Protein 4.8 g/dL (6.4-8.2)
[2021-07-03] MEDS: IPRATROPIUM BROM 0.5 MG/2.5ML INH SOL NEB SCH ×3 (05:59→19:39)
[2021-07-03] MEDS: ENOXAPARIN SOD 40 MG/0.4 ML SYRINGE SC SCH (09:11)
[2021-07-03] MEDS: SODIUM CHLOR 0.9% PF (SALINE LOCK) 10ML VIAL/SYR IV SCH ×2 (09:11→21:04)
[2021-07-03] MEDS: PANTOPRAZOLE 40 MG/10 ML VIAL INJ IV SCH (09:11)
[2021-07-03] MEDS: HYDROmorphone HCL 2 MG/ML VL IV PRN ×2 (09:13→18:43)
[2021-07-03] MEDS: ONDANSETRON HCL 4 MG/2 ML VIAL IV PRN ×2 (09:14→18:42)
[2021-07-03] MEDS: SODIUM FERR GLUC 62.5MG/5ML 125 MG in SODIUM CHL 0.9% 100 ML IV SCH (12:00)
[2021-07-03] MEDS: metroNIDAZOLE 500 MG TAB PO SCH ×2 (14:00→21:04)
[2021-07-03] MEDS ORDERED: TPN PER PHARMACY IV NR ×8 (20:00)
[2021-07-04 05:14] VITALS: BP 130/50
[2021-07-04] MEDS: metroNIDAZOLE 500 MG TAB PO SCH ×3 (05:32→22:13)
[2021-07-04 05:49] LABS: Basophils # (auto) 0.1 10 ^3/uL (0-0.2); Eosinophils # (auto) 0.4 10 ^3/uL (0-0.8); Hemoglobin 8.8 g/dL (12.2-16.2); Monocytes # (auto) 0.7 10 ^3/uL (0-1.3); Red Cell Distribution Width 16.5 % (11.8-14.3)
[2021-07-04 05:55] LABS: Lymphocytes # (auto) 1.6 10 ^3/uL (0.4-5.4); Lymphocytes % (auto) 15.7 % (10.0-50.0); Mean Corpuscular Hemoglobin 30.5 pg (28.0-32.0); Mean Corpuscular Hgb Conc. 32.6 g/dL (32.0-36.0); Mean Corpuscular Volume 93.6 fL (80.0-100.0); Monocytes % (auto) 6.6 % (0.0-12.0); Neutrophils # (auto) 7.3 10 ^3/uL (1.6-8.6); Neutrophils % (auto) 72.7 % (37.0-80.0); Nucleated Red Blood Cells % 0.2 %; Red Blood Cells 2.88 10^6/uL (4.0-5.20); White Blood Cell 10.1 10^3/uL (4.4-10.8)
[2021-07-04 06:08] LABS: Calcium 8.1 mg/dL (8.5-10.1); Potassium 4.9 mmol/L (3.5-5.1)
[2021-07-04 06:09] LABS: BUN/Creatinine Ratio 45.5
[2021-07-04] MEDS: IPRATROPIUM BROM 0.5 MG/2.5ML INH SOL NEB SCH ×3 (09:09→21:19)
[2021-07-04] MEDS: levoFLOXacin 500 MG TAB PO SCH (09:22)
[2021-07-04] MEDS: PANTOPRAZOLE 40 MG TAB PO SCH (09:22)
[2021-07-04] MEDS: ENOXAPARIN SOD 40 MG/0.4 ML SYRINGE SC SCH (09:23)
[2021-07-04 09:25] VITALS: BP 149/53
[2021-07-04] MEDS: HYDROcodone-ACET 5/325MG TAB PO PRN ×3 (09:28→22:18)
[2021-07-04] MEDS: SODIUM CHLOR 0.9% PF (SALINE LOCK) 10ML VIAL/SYR IV SCH ×2 (09:39→22:13)
[2021-07-04 13:47] VITALS: BP 148/68
[2021-07-04] MEDS: SODIUM FERR GLUC 62.5MG/5ML 125 MG in SODIUM CHL 0.9% 100 ML IV SCH (14:23)
[2021-07-04 17:08] VITALS: BP 146/63
[2021-07-04 22:00] VITALS: BP 135/72
[2021-07-05 05:00] VITALS: BP 136/78
[2021-07-05] MEDS: HYDROcodone-ACET 5/325MG TAB PO PRN ×2 (05:23→19:28)
[2021-07-05] MEDS: metroNIDAZOLE 500 MG TAB PO SCH ×3 (05:23→21:54)
[2021-07-05] MEDS: IPRATROPIUM BROM 0.5 MG/2.5ML INH SOL NEB SCH ×3 (06:27→18:56)
[2021-07-05 09:00] VITALS: BP 149/69
[2021-07-05] MEDS: HYDROmorphone HCL 2 MG/ML VL IV PRN (10:00)
[2021-07-05] MEDS: PANTOPRAZOLE 40 MG TAB PO SCH (10:02)
[2021-07-05] MEDS: levoFLOXacin 500 MG TAB PO SCH (10:02)
[2021-07-05] MEDS: ENOXAPARIN SOD 40 MG/0.4 ML SYRINGE SC SCH (10:02)
[2021-07-05] MEDS: SODIUM CHLOR 0.9% PF (SALINE LOCK) 10ML VIAL/SYR IV SCH ×2 (10:03→21:54)
[2021-07-05 12:42] VITALS: BP 155/70
[2021-07-05] MEDS: SODIUM FERR GLUC 62.5MG/5ML 125 MG in SODIUM CHL 0.9% 100 ML IV SCH (13:00)
[2021-07-05 15:00] VITALS: BP 147/72
[2021-07-05 22:00] VITALS: BP 136/74
[2021-07-06] MEDS: metroNIDAZOLE 500 MG TAB PO SCH ×3 (05:14→21:17)
[2021-07-06] MEDS: HYDROcodone-ACET 5/325MG TAB PO PRN (05:15)
[2021-07-06] MEDS: IPRATROPIUM BROM 0.5 MG/2.5ML INH SOL NEB SCH ×3 (08:00→18:57)
[2021-07-06 09:00] VITALS: BP 145/73
[2021-07-06] MEDS: SODIUM CHLOR 0.9% PF (SALINE LOCK) 10ML VIAL/SYR IV SCH ×2 (09:57→21:18)
[2021-07-06] MEDS: PANTOPRAZOLE 40 MG TAB PO SCH (09:57)
[2021-07-06] MEDS: ENOXAPARIN SOD 40 MG/0.4 ML SYRINGE SC SCH (09:57)
[2021-07-06] MEDS: levoFLOXacin 500 MG TAB PO SCH (09:57)
[2021-07-06 13:00] VITALS: BP 112/60
[2021-07-06 17:00] VITALS: BP 153/80
[2021-07-06 22:11] VITALS: BP 154/69
[2021-07-07 05:00] VITALS: BP 150/66
[2021-07-07] MEDS: metroNIDAZOLE 500 MG TAB PO SCH ×2 (05:19→14:00)
[2021-07-07] MEDS: IPRATROPIUM BROM 0.5 MG/2.5ML INH SOL NEB SCH ×2 (06:08→18:16)
[2021-07-07 09:00] VITALS: BP 159/70
[2021-07-07] MEDS: PANTOPRAZOLE 40 MG TAB PO SCH (10:00)
[2021-07-07] MEDS: levoFLOXacin 500 MG TAB PO SCH (10:00)
[2021-07-07] MEDS: ENOXAPARIN SOD 40 MG/0.4 ML SYRINGE SC SCH (10:00)
[2021-07-07] MEDS: SODIUM CHLOR 0.9% PF (SALINE LOCK) 10ML VIAL/SYR IV SCH (10:00)
[2021-07-07] MEDS: HYDROcodone-ACET 5/325MG TAB PO PRN (12:42)
[2021-07-07 13:00] VITALS: BP 146/66
[2021-07-07 17:00] VITALS: BP 131/56
== END 2021-07-07 19:56 | DRG 853 ==
LOC: ER 10:11 → TELE 15:15 → TELE-CENTR 21:08 → ICU WEST 06-22 15:57 → TELE-CENTR 06-27 14:57 → CENTRAL 07-03 23:43
PROVIDERS: ADMIT Hospitalist; ATTEND Internal Medicine
PROC: 0D1N0Z4 Bypass Sigmoid Colon to Cutaneous, Open Approach (ICD-10-PCS; 2021-06-22)
PROC: 02HV33Z Insertion of Infusion Device into Superior Vena Cava, Percutaneous Approach (ICD-10-PCS; 2021-06-22)
PROC: B548ZZA Ultrasonography of Superior Vena Cava, Guidance (ICD-10-PCS; 2021-06-22)
PROC: 5A1945Z Respiratory Ventilation, 24-96 Consecutive Hours (ICD-10-PCS; 2021-06-22)
PROC: 0BH17EZ Insertion of Endotracheal Airway into Trachea, Via Natural or Artificial Opening (ICD-10-PCS; 2021-06-22)
PROC: 0DTN0ZZ Resection of Sigmoid Colon, Open Approach (ICD-10-PCS; principal; 2021-06-22 13:33)
PROC: 30233N1 Transfusion of Nonautologous Red Blood Cells into Peripheral Vein, Percutaneous Approach (ICD-10-PCS; 2021-07-03)
DX: A41.9 Sepsis, unspecified organism (principal); N17.0 Acute kidney failure with tubular necrosis; E43 Unspecified severe protein-calorie malnutrition; K65.9 Peritonitis, unspecified; J96.01 Acute respiratory failure with hypoxia; I50.31 Acute diastolic (congestive) heart failure; R65.21 Severe sepsis with septic shock; K55.039 Acute (reversible) ischemia of large intestine, extent unspecified; K57.80 Diverticulitis of intestine, part unspecified, with perforation and abscess without bleeding; B19.9 Unspecified viral hepatitis without hepatic coma; E87.4 Mixed disorder of acid-base balance; N39.0 Urinary tract infection, site not specified; I13.0 Hypertensive heart and chronic kidney disease with heart failure and stage 1 through stage 4 chronic kidney disease, or unspecified chronic kidney disease; Z20.822 Contact with and (suspected) exposure to COVID-19; D64.9 Anemia, unspecified; N18.31 Chronic kidney disease, stage 3a; E66.01 Morbid (severe) obesity due to excess calories; K80.20 Calculus of gallbladder without cholecystitis without obstruction; J45.909 Unspecified asthma, uncomplicated; K75.81 Nonalcoholic steatohepatitis (NASH); E78.5 Hyperlipidemia, unspecified; Z88.0 Allergy status to penicillin; Z88.5 Allergy status to narcotic agent; Z83.3 Family history of diabetes mellitus; Z82.49 Family history of ischemic heart disease and other diseases of the circulatory system; Z87.891 Personal history of nicotine dependence; Z90.49 Acquired absence of other specified parts of digestive tract; Z90.710 Acquired absence of both cervix and uterus; Z93.3 Colostomy status; Z68.35 Body mass index [BMI] 35.0-35.9, adult
CPT/HCPCS: 36415; 36569; 36600; 71045; 71046; 74176; 74250; 80048; 80053; 80061; 80074; 80307; 81001; 82040; 82306; 82805; 82962; 83036; 83540; 83550; 83605; 83735; 83880; 84100; 84443; 84478; 84484; 84550; 85007; 85014; 85018; 85025; 85027; 85379; 85610; 85730; 86850; 86900; 86901; 86920; 87040; 87070; 87075; 87076; 87077; 87086; 87186; 87205; 87426; 93005; 94002; 94003; 94640; 96365; 96375; 97110; 97116; 97163; 97530; C9113; G0378; J1100; J1815; J1956; J2185; J2250; J2405; J2704; J3490; J7060; J7131

== ENCOUNTER 2021-07-11 17:10 | Inpatient (IN) | payer OTHER ==
[~2021-07-11] VITALS: Ht 190.5 cm; Wt 90.0 kg
[2021-07-11] MEDS ORDERED: MORPHINE SULFATE 4 MG/ML SYR/VIAL IV ONE (18:45)
[2021-07-11] MEDS ORDERED: ONDANSETRON HCL 4 MG/2 ML VIAL IV ONE (18:45)
[2021-07-11 19:25] LABS: Basophils # (auto) 0.1 10 ^3/uL (0-0.2); Eosinophils # (auto) 0.2 10 ^3/uL (0-0.8); Lymphocytes # (auto) 2.2 10 ^3/uL (0.4-5.4)
[2021-07-11 19:27] LABS: Basophils % (auto) 0.7 % (0.0-2.0); Hematocrit 31.9 % (36.0-46.0); Hemoglobin 10.5 g/dL (12.2-16.2); Mean Corpuscular Hgb Conc. 32.8 g/dL (32.0-36.0); Mean Corpuscular Volume 91.3 fL (80.0-100.0); Monocytes # (auto) 0.9 10 ^3/uL (0-1.3); Monocytes % (auto) 7.1 % (0.0-12.0); Neutrophils # (auto) 8.7 10 ^3/uL (1.6-8.6); Neutrophils % (auto) 72.2 % (37.0-80.0); Nucleated Red Blood Cells % 0.1 %; Red Cell Distribution Width 16.4 % (11.8-14.3); White Blood Cell 12.1 10^3/uL (4.4-10.8)
[2021-07-11 19:40] LABS: Calcium 8.5 mg/dL (8.5-10.1); Potassium 3.6 mmol/L (3.5-5.1)
[2021-07-11 19:50] LABS: Bilirubin, Total 0.4 mg/dL (0.2-1.0); Total Protein 5.6 g/dL (6.4-8.2)
[2021-07-11] MEDS ORDERED: ONDANSETRON HCL 4 MG/2 ML VIAL IV PRN (22:00)
[2021-07-11] MEDS ORDERED: ALBUTEROL SULF 2.5 MG/0.5ML(0.5%) NEB SOLN NEB PRN (22:00)
[2021-07-12] MEDS: SODIUM CHLORIDE 0.9% 1,000 ML IV SCH ×2 (00:28→10:44)
[2021-07-12] MEDS: CLINDAMYCIN 600MG IV 50 ML IV SCH ×4 (00:28→21:20)
[2021-07-12] MEDS ORDERED: MORPHINE SULFATE INJECTION 2 MG/ML SYRG IV PRN ×2 (07:00→12:30)
[2021-07-12 07:27] LABS: Basophils # (auto) 0.1 10 ^3/uL (0-0.2); Basophils % (auto) 0.7 % (0.0-2.0); Eosinophils # (auto) 0.1 10 ^3/uL (0-0.8); Hematocrit 30.5 % (36.0-46.0); Hemoglobin 9.9 g/dL (12.2-16.2); Lymphocytes # (auto) 1.8 10 ^3/uL (0.4-5.4); Lymphocytes % (auto) 15.8 % (10.0-50.0); Mean Corpuscular Hemoglobin 29.6 pg (28.0-32.0); Mean Corpuscular Hgb Conc. 32.3 g/dL (32.0-36.0); Mean Corpuscular Volume 91.6 fL (80.0-100.0); Monocytes # (auto) 0.7 10 ^3/uL (0-1.3); Monocytes % (auto) 6.2 % (0.0-12.0); Neutrophils # (auto) 8.5 10 ^3/uL (1.6-8.6); Neutrophils % (auto) 76.3 % (37.0-80.0); Red Blood Cells 3.33 10^6/uL (4.0-5.20); Red Cell Distribution Width 15.8 % (11.8-14.3); White Blood Cell 11.1 10^3/uL (4.4-10.8)
[2021-07-12 07:46] LABS: Albumin 1.8 g/dL (3.4-5.0); Calcium 8.2 mg/dL (8.5-10.1); Potassium 3.7 mmol/L (3.5-5.1)
[2021-07-12 07:52] LABS: BUN/Creatinine Ratio 17.9; Bilirubin, Total 0.4 mg/dL (0.2-1.0); Total Protein 5.9 g/dL (6.4-8.2)
[2021-07-12] MEDS ORDERED: traMADol HCL 50 MG TAB PO PRN (12:30)
[2021-07-12] MEDS ORDERED: levoFLOXacin 500MG 100 ML IV ONE (12:30)
[2021-07-12] MEDS ORDERED: cloNIDine HCL 0.1 MG TAB PO PRN (12:45)
[2021-07-12 14:11] LABS: Urine Bacteria FEW /hpf (None Seen); Urine Blood Negative /uL (Negative); Urine Budding Yeast MODERATE /hpf (None Seen); Urine Mucus FEW (None Seen); Urine Specific Gravity 1.019 (1.001-1.035); Urine WBC 7 /hpf (0 - 5)
[2021-07-12 17:44] VITALS: BP 170/68
[2021-07-12 22:00] VITALS: BP 154/70
[2021-07-13] MEDS: SODIUM CHLORIDE 0.9% 1,000 ML IV SCH (00:28)
[2021-07-13 02:08] LABS: Urine Bacteria FEW /hpf (None Seen); Urine Blood Negative /uL (Negative); Urine Budding Yeast OCCASIONAL /hpf (None Seen); Urine Hyaline Cast FEW /lpf (0 - 2); Urine Mucus FEW (None Seen); Urine Specific Gravity 1.019 (1.001-1.035); Urine WBC 1 /hpf (0 - 5)
[2021-07-13] MEDS: CLINDAMYCIN 600MG IV 50 ML IV SCH ×3 (05:22→22:23)
[2021-07-13 06:04] LABS: Basophils # (auto) 0.1 10 ^3/uL (0-0.2); Basophils % (auto) 0.6 % (0.0-2.0); Eosinophils # (auto) 0.2 10 ^3/uL (0-0.8); Eosinophils % (auto) 1.6 % (0.0-7.0); Hematocrit 30.2 % (36.0-46.0); Lymphocytes # (auto) 1.8 10 ^3/uL (0.4-5.4); Lymphocytes % (auto) 17.2 % (10.0-50.0); Mean Corpuscular Hemoglobin 30.4 pg (28.0-32.0); Mean Corpuscular Hgb Conc. 33.1 g/dL (32.0-36.0); Mean Corpuscular Volume 91.8 fL (80.0-100.0); Monocytes # (auto) 0.7 10 ^3/uL (0-1.3); Neutrophils # (auto) 7.8 10 ^3/uL (1.6-8.6); Neutrophils % (auto) 73.6 % (37.0-80.0); Nucleated Red Blood Cells % 0.1 %; Red Blood Cells 3.29 10^6/uL (4.0-5.20); Red Cell Distribution Width 16.3 % (11.8-14.3); White Blood Cell 10.6 10^3/uL (4.4-10.8)
[2021-07-13 06:16] LABS: BUN/Creatinine Ratio 13.5; Potassium 3.5 mmol/L (3.5-5.1)
[2021-07-13 09:00] VITALS: BP 143/82
[2021-07-13] MEDS: levoFLOXacin 500MG 100 ML IV SCH (10:00)
[2021-07-13 13:00] VITALS: BP 141/70
[2021-07-13 17:05] VITALS: BP 139/65
[2021-07-13 22:00] VITALS: BP 156/72
[2021-07-14 05:00] VITALS: BP 142/69
[2021-07-14] MEDS: CLINDAMYCIN 600MG IV 50 ML IV SCH ×2 (05:58→14:00)
[2021-07-14 09:00] VITALS: BP 135/68
[2021-07-14] MEDS: levoFLOXacin 500MG 100 ML IV SCH (10:00)
[2021-07-14 13:00] VITALS: BP 146/58
[2021-07-14 17:00] VITALS: BP 133/59
[2021-07-14 17:21] VITALS: BP 133/59
== END 2021-07-14 19:03 | disposition home health service (06) | DRG 871 ==
LOC: EDBD 17:10 → ER 17:10 → OVERFLOW 21:57 → CENTRAL 07-12 17:08
PROVIDERS: ADMIT Nurse Practitioner; ATTEND Internal Medicine
DX: A41.9 Sepsis, unspecified organism (principal); E43 Unspecified severe protein-calorie malnutrition; N17.0 Acute kidney failure with tubular necrosis; T81.41XA Infection following a procedure, superficial incisional surgical site, initial encounter; L03.311 Cellulitis of abdominal wall; B19.9 Unspecified viral hepatitis without hepatic coma; Z93.3 Colostomy status; N18.31 Chronic kidney disease, stage 3a; E66.01 Morbid (severe) obesity due to excess calories; K80.20 Calculus of gallbladder without cholecystitis without obstruction; E78.5 Hyperlipidemia, unspecified; Z20.822 Contact with and (suspected) exposure to COVID-19; Y83.8 Other surgical procedures as the cause of abnormal reaction of the patient, or of later complication, without mention of misadventure at the time of the procedure; K75.81 Nonalcoholic steatohepatitis (NASH); D64.9 Anemia, unspecified; I12.9 Hypertensive chronic kidney disease with stage 1 through stage 4 chronic kidney disease, or unspecified chronic kidney disease; J45.909 Unspecified asthma, uncomplicated; Z88.6 Allergy status to analgesic agent; Z88.0 Allergy status to penicillin; Z83.3 Family history of diabetes mellitus; Z87.891 Personal history of nicotine dependence; Z90.710 Acquired absence of both cervix and uterus; Z68.24 Body mass index [BMI] 24.0-24.9, adult; Y92.89 Other specified places as the place of occurrence of the external cause
CPT/HCPCS: 36415; 74176; 80048; 80053; 81001; 82150; 83605; 83690; 83735; 85025; 87040; 87081; 87205; 87426; 97116; 97530; G0378; J1956; J3490

== ENCOUNTER 2021-08-21 05:19 | Emergency (ER) | payer OTHER ==
[~2021-08-21] VITALS: Ht 160 cm; Wt 86.2 kg
[2021-08-21] MEDS ORDERED: metroNIDAZOLE 500MG/100ML 100 ML IV ONE (07:00)
[2021-08-21] MEDS ORDERED: cefTRIAXone 1GM/50ML D5W 50 ML IV ONE (07:00)
[2021-08-21] MEDS ORDERED: SODIUM CHLORIDE 0.9% 1,000 ML IV ONE (07:00)
[2021-08-21 08:05] LABS: Albumin 2.2 g/dL (3.4-5.0); BUN/Creatinine Ratio 11.5; Calcium 8.7 mg/dL (8.5-10.1); Potassium 3.4 mmol/L (3.5-5.1)
[2021-08-21 08:08] LABS: Basophils # (auto) 0.1 10 ^3/uL (0-0.2); Basophils % (auto) 0.5 % (0.0-2.0); Bilirubin, Total 0.4 mg/dL (0.2-1.0); Eosinophils # (auto) 0.1 10 ^3/uL (0-0.8); Eosinophils % (auto) 1.1 % (0.0-7.0); Hematocrit 31.8 % (36.0-46.0); Hemoglobin 10.2 g/dL (12.2-16.2); Lymphocytes # (auto) 2.6 10 ^3/uL (0.4-5.4); Lymphocytes % (auto) 20.9 % (10.0-50.0); Mean Corpuscular Hemoglobin 29.4 pg (28.0-32.0); Mean Corpuscular Hgb Conc. 32.1 g/dL (32.0-36.0); Mean Corpuscular Volume 91.7 fL (80.0-100.0); Monocytes # (auto) 0.6 10 ^3/uL (0-1.3); Monocytes % (auto) 4.8 % (0.0-12.0); Neutrophils % (auto) 72.7 % (37.0-80.0); Nucleated Red Blood Cells % 0.1 %; Red Blood Cells 3.47 10^6/uL (4.0-5.20); Red Cell Distribution Width 17.5 % (11.8-14.3); Total Protein 6.1 g/dL (6.4-8.2); White Blood Cell 12.5 10^3/uL (4.4-10.8)
[2021-08-21 09:00] VITALS: BP 134/53
[2021-08-21] MEDS ORDERED: CEPH-509 PO (09:46)
== END 2021-08-21 10:00 | disposition home or self-care (01) ==
LOC: ER 05:19
DX: L03.311 Cellulitis of abdominal wall (principal); I10 Essential (primary) hypertension; E78.5 Hyperlipidemia, unspecified; J45.909 Unspecified asthma, uncomplicated; Z90.710 Acquired absence of both cervix and uterus; Z90.89 Acquired absence of other organs; Z88.6 Allergy status to analgesic agent; Z88.0 Allergy status to penicillin; Z20.822 Contact with and (suspected) exposure to COVID-19
CPT/HCPCS: 36415; 71045; 74176; 80053; 83605; 85025; 87040; 87426; 96365; 96367; 99285; J0696; J3490; J7030

== ENCOUNTER → 2021-09-06 | Day surgery (SDC) | payer OTHER ==
[2021-09-05 09:58] LABS: Urine Bacteria FEW /hpf (None Seen); Urine Blood Negative /uL (Negative); Urine Hyaline Cast FEW /lpf (0 - 2); Urine Mucus FEW (None Seen); Urine Specific Gravity 1.024 (1.001-1.035); Urine WBC 12 /hpf (0 - 5)
[2021-09-05 10:19] LABS: INR 1.05 (0.9-1.15); Partial Thromboplastin Time 26.8 sec (23.6-33.0)
[2021-09-05 12:35] LABS: Basophils # (auto) 0.1 10 ^3/uL (0-0.2); Eosinophils # (auto) 0.3 10 ^3/uL (0-0.8); Hemoglobin 11.5 g/dL (12.2-16.2); Lymphocytes # (auto) 3.4 10 ^3/uL (0.4-5.4); Neutrophils # (auto) 7.1 10 ^3/uL (1.6-8.6); Nucleated Red Blood Cells % 0.1 %
[2021-09-05 12:37] LABS: Basophils % (auto) 0.7 % (0.0-2.0); Eosinophils % (auto) 2.4 % (0.0-7.0); Hematocrit 35.6 % (36.0-46.0); Lymphocytes % (auto) 29.7 % (10.0-50.0); Mean Corpuscular Hemoglobin 29.7 pg (28.0-32.0); Mean Corpuscular Hgb Conc. 32.3 g/dL (32.0-36.0); Mean Corpuscular Volume 92.2 fL (80.0-100.0); Monocytes # (auto) 0.6 10 ^3/uL (0-1.3); Neutrophils % (auto) 62.2 % (37.0-80.0); Red Blood Cells 3.87 10^6/uL (4.0-5.20); Red Cell Distribution Width 17.2 % (11.8-14.3); White Blood Cell 11.3 10^3/uL (4.4-10.8)
[2021-09-05 12:41] LABS: Albumin 2.8 g/dL (3.4-5.0); Calcium 9.3 mg/dL (8.5-10.1); Potassium 3.2 mmol/L (3.5-5.1)
[2021-09-05 12:44] LABS: BUN/Creatinine Ratio 13.6
[2021-09-05 12:46] LABS: Bilirubin, Total 0.2 mg/dL (0.2-1.0); Total Protein 7.1 g/dL (6.4-8.2)
[~2021-09-06] VITALS: Ht 160 cm; Wt 83.0 kg
[~2021-09-06] MED LIST changes: -ADENOSINE 74 MG in GIVE UN-DILUTED 0 ML IV STA; +ASPI1TAB20 PO; +ATOR10TA PO; +BUPIVACAINE W/ EPINEPH 0.25% INJ 50ML MDV ONE; +CEPH-509 PO; +DILT240C59 PO; +DexAMETHasone SOD PHOS 10MG/1ML VIAL INJ ONE; +FLAXOIL OR; +FURO20TA3 PO; +HYDROmorphone HCL 2 MG/ML VL IV PRN; +LABETALOL HCL 5 MG/ML 4ML SYRINGE IV PRN; +LIDOCAINE 1% HCL (LOCAL ANESTH.) INJ 20ML MDV ONE; +LISI20TA28 PO; +MET50T PO; +MIDAZOLAM HCL 2MG/2ML 2ml VIAL (1mg/ml) IV PRN; +MIDAZOLAM HCL 2MG/2ML 2ml VIAL (1mg/ml) ONE; +MONT10TA23 PO; +MORPHINE SULFATE INJECTION 2 MG/ML SYRG IV PRN; +OMEP20TA PO; +ONDANSETRON HCL 4 MG/2 ML VIAL IV PRN; +[UNRECOGNIZED DRUG - CODE] PO; +diphenhdrAMINE HCL 50 MG/1 ML VL ONE; +ePHEDrine SULFATE 50 MG/ML AMP IV PRN; +fentaNYL CITRATE 100 MCG/2 ML VL ONE
[2021-09-06 10:45] VITALS: BP 120/70
== END | disposition home or self-care (01) ==
LOC: SUR 07:02
PROVIDERS: ATTEND Surgery
DX: K94.03 Colostomy malfunction (principal); I10 Essential (primary) hypertension; E78.5 Hyperlipidemia, unspecified; J45.909 Unspecified asthma, uncomplicated; I25.10 Atherosclerotic heart disease of native coronary artery without angina pectoris; E66.9 Obesity, unspecified; Z90.49 Acquired absence of other specified parts of digestive tract; Z90.710 Acquired absence of both cervix and uterus; Z88.0 Allergy status to penicillin; Z88.5 Allergy status to narcotic agent; Z68.32 Body mass index [BMI] 32.0-32.9, adult; Z20.822 Contact with and (suspected) exposure to COVID-19; Z87.891 Personal history of nicotine dependence; Z86.2 Personal history of diseases of the blood and blood-forming organs and certain disorders involving the immune mechanism; Z82.49 Family history of ischemic heart disease and other diseases of the circulatory system; Z83.3 Family history of diabetes mellitus
CPT/HCPCS: 36415; 45399; 80053; 81001; 85025; 85610; 85730; J1100; J2001; J2250; J3010; U0003

== ENCOUNTER 2021-10-18 07:10 | Inpatient (IN) | payer OTHER ==
[2021-10-16 10:52] LABS: Basophils # (auto) 0.1 10 ^3/uL (0-0.2); Basophils % (auto) 0.7 % (0.0-2.0); Eosinophils # (auto) 0.4 10 ^3/uL (0-0.8); Eosinophils % (auto) 2.8 % (0.0-7.0); Hematocrit 37.8 % (36.0-46.0); Hemoglobin 12.5 g/dL (12.2-16.2); Lymphocytes # (auto) 3.8 10 ^3/uL (0.4-5.4); Lymphocytes % (auto) 26.8 % (10.0-50.0); Mean Corpuscular Hemoglobin 30.3 pg (28.0-32.0); Mean Corpuscular Volume 91.8 fL (80.0-100.0); Monocytes # (auto) 0.8 10 ^3/uL (0-1.3); Monocytes % (auto) 5.9 % (0.0-12.0); Neutrophils % (auto) 63.8 % (37.0-80.0); Red Blood Cells 4.12 10^6/uL (4.0-5.20); Red Cell Distribution Width 16.4 % (11.8-14.3); White Blood Cell 14.2 10^3/uL (4.4-10.8)
[2021-10-16 11:11] LABS: Urine Bacteria NONE SEEN /hpf (None Seen); Urine Blood Negative /uL (Negative); Urine Hyaline Cast MANY /lpf (0 - 2); Urine Mucus FEW (None Seen); Urine Specific Gravity 1.012 (1.001-1.035); Urine WBC 6 /hpf (0 - 5)
[2021-10-16 11:36] LABS: INR 1.06 (0.9-1.15); Partial Thromboplastin Time 27.3 sec (23.6-33.0)
[2021-10-16 11:39] LABS: Potassium 4.1 mmol/L (3.5-5.1)
[2021-10-16 11:54] LABS: Albumin 3.4 g/dL (3.4-5.0); BUN/Creatinine Ratio 19.6; Bilirubin, Total 0.8 mg/dL (0.2-1.0); Calcium 9.7 mg/dL (8.5-10.1); Total Protein 7.4 g/dL (6.4-8.2)
[2021-10-18] VITALS (42 sets, daily range): BP systolic 88–211; BP diastolic 44–84
[~2021-10-18] VITALS: Ht 160 cm; Wt 84.7 kg
[~2021-10-18 07:10] MED LIST changes: -BUPIVACAINE W/ EPINEPH 0.25% INJ 50ML MDV ONE; -DexAMETHasone SOD PHOS 10MG/1ML VIAL INJ ONE; -HYDROmorphone HCL 2 MG/ML VL IV PRN; -LABETALOL HCL 5 MG/ML 4ML SYRINGE IV PRN; -LIDOCAINE 1% HCL (LOCAL ANESTH.) INJ 20ML MDV ONE; -MIDAZOLAM HCL 2MG/2ML 2ml VIAL (1mg/ml) IV PRN; -MIDAZOLAM HCL 2MG/2ML 2ml VIAL (1mg/ml) ONE; -MORPHINE SULFATE INJECTION 2 MG/ML SYRG IV PRN; +MULT-1018 PO; -ONDANSETRON HCL 4 MG/2 ML VIAL IV PRN; -diphenhdrAMINE HCL 50 MG/1 ML VL ONE; -ePHEDrine SULFATE 50 MG/ML AMP IV PRN; -fentaNYL CITRATE 100 MCG/2 ML VL ONE
[2021-10-18] MEDS ORDERED: ONDANSETRON HCL 4 MG/2 ML VIAL ONE (08:08)
[2021-10-18] MEDS ORDERED: GLYCOPYRROLATE 0.2 MG/ML 1ML VIAL ONE (08:08)
[2021-10-18] MEDS ORDERED: ROCURONIUM 10MG/ML 10ML VIAL IV ONE ×3 (08:08→12:17)
[2021-10-18] MEDS ORDERED: fentaNYL CITRATE 100 MCG/2 ML VL ONE ×3 (08:08→11:36)
[2021-10-18] MEDS ORDERED: DexAMETHasone SOD PHOS 10MG/1ML VIAL INJ ONE (08:08)
[2021-10-18] MEDS ORDERED: MORPHINE SULF PF 5 MG/10 ML VIAL ONE (08:08)
[2021-10-18] MEDS ORDERED: MIDAZOLAM HCL 2MG/2ML 2ml VIAL (1mg/ml) ONE ×2 (08:08→12:19)
[2021-10-18] MEDS ORDERED: NEOSTIGMINE 1 MG/ML INJ (10mg/10ML VIAL) ONE (08:08)
[2021-10-18] MEDS ORDERED: SODIUM CHLORIDE LOCK 10 ML ONE (08:08)
[2021-10-18] MEDS ORDERED: PROPOFOL 10 MG/ML 20 ML IV ONE (08:08)
[2021-10-18] MEDS ORDERED: cefTRIAXone 1GM/50ML D5W 100 ML IV ONE (08:31)
[2021-10-18] MEDS ORDERED: POVIDONE IODINE 10 % TOPICAL OINT 30GM TOP ONE (08:38)
[2021-10-18] MEDS ORDERED: HYDROmorphone HCL 2 MG/ML VL IV PRN (08:45)
[2021-10-18] MEDS ORDERED: MORPHINE SULFATE 4 MG/ML SYR/VIAL IV PRN (08:45)
[2021-10-18] MEDS ORDERED: HYDROmorphone HCL 2 MG/ML VL ONE ×2 (11:23→12:19)
[2021-10-18] MEDS ORDERED: NOREPINEPHRINE 8 MG/250ML KIT 250 ML IV ONE (12:17)
[2021-10-18] MEDS ORDERED: fentaNYL CITRATE 100 MCG/2 ML VL IV ONE ×2 (12:30→23:30)
[2021-10-18] MEDS ORDERED: MIDAZOLAM DRIP 50 mg/50mL 50 ML IV SCH (12:30)
[2021-10-18] MEDS ORDERED: NITROGLYCERIN 0.4 MG SL TAB SL PRN (13:15)
[2021-10-18] MEDS: fentaNYL Drip 2500mCg/250mlNS 250 ML IV SCH (14:00)
[2021-10-18] MEDS ORDERED: levoFLOXacin 500MG 100 ML IV ONE (14:00)
[2021-10-18] MEDS: PROPOFOL 100 ML IV SCH (14:38)
[2021-10-18] MEDS: metroNIDAZOLE 500MG/100ML 100 ML IV SCH ×2 (14:38→22:08)
[2021-10-18] MEDS: NOREPINEPHRINE 8 MG/250ML KIT 250 ML IV SCH (14:49)
[2021-10-18] MEDS: SODIUM CHLORIDE 0.9% 1,000 ML IV SCH (15:41)
[2021-10-18] MEDS ORDERED: LIDOCAINE 1% (LOCAL ANESTH.) PF 5ml SDV ID ONE (16:00)
[2021-10-18] MEDS ORDERED: SUCCINYLCHOLINE CHLORIDE 20 MG/ML 10ML VIAL IV ONE (16:41)
[2021-10-18] MEDS: SODIUM CHLOR 0.9% PF (SALINE LOCK) 10ML VIAL/SYR IV SCH (22:08)
[2021-10-19] VITALS (52 sets, daily range): BP systolic 92–138; BP diastolic 42–83
[2021-10-19] MEDS: fentaNYL Drip 2500mCg/250mlNS 250 ML IV SCH (03:30)
[2021-10-19] MEDS: SODIUM CHLORIDE 0.9% 1,000 ML IV SCH ×2 (04:12→16:18)
[2021-10-19 05:08] LABS: Albumin 2.4 g/dL (3.4-5.0); Calcium 8.2 mg/dL (8.5-10.1); Potassium 4.2 mmol/L (3.5-5.1)
[2021-10-19 05:11] LABS: BUN/Creatinine Ratio 16.4
[2021-10-19 05:12] LABS: Basophils # (auto) 0 10 ^3/uL (0-0.2); Basophils % (auto) 0.1 % (0.0-2.0); Eosinophils # (auto) 0 10 ^3/uL (0-0.8); Hematocrit 32.1 % (36.0-46.0); Hemoglobin 10.6 g/dL (12.2-16.2); Lymphocytes # (auto) 1.2 10 ^3/uL (0.4-5.4); Mean Corpuscular Hemoglobin 30.8 pg (28.0-32.0); Mean Corpuscular Hgb Conc. 32.9 g/dL (32.0-36.0); Mean Corpuscular Volume 93.4 fL (80.0-100.0); Monocytes # (auto) 1.2 10 ^3/uL (0-1.3); Monocytes % (auto) 5.1 % (0.0-12.0); Neutrophils # (auto) 21.4 10 ^3/uL (1.6-8.6); Neutrophils % (auto) 89.8 % (37.0-80.0); Red Blood Cells 3.44 10^6/uL (4.0-5.20); Red Cell Distribution Width 16.4 % (11.8-14.3); White Blood Cell 23.8 10^3/uL (4.4-10.8)
[2021-10-19 05:14] LABS: Bilirubin, Total 0.2 mg/dL (0.2-1.0); Total Protein 5.7 g/dL (6.4-8.2)
[2021-10-19] MEDS: metroNIDAZOLE 500MG/100ML 100 ML IV SCH ×3 (05:57→22:00)
[2021-10-19] MEDS: SODIUM CHLOR 0.9% PF (SALINE LOCK) 10ML VIAL/SYR IV SCH ×2 (09:03→21:29)
[2021-10-19] MEDS: FAMOTIDINE (10MG/ML) 2ML VL IV SCH (09:03)
[2021-10-19] MEDS: levoFLOXacin 250MG 50 ML IV SCH (09:03)
[2021-10-19] MEDS ORDERED: levoFLOXacin 500MG 100 ML IV SCH (10:00)
[2021-10-19] MEDS ORDERED: DEXTROSE (50%) 50ML SYRG IV PRN (11:30)
[2021-10-19] MEDS: NOREPINEPHRINE 8 MG/250ML KIT 250 ML IV SCH (11:46)
[2021-10-19] MEDS: InsuLIN REG 1unit/0.01ml Soln (100units/ml) SC SCH ×2 (11:57→17:56)
[2021-10-19] MEDS: ACCU-CHEK COMFORT CURVE STRIP VI SCH ×2 (11:58→17:56)
[2021-10-19] MEDS: PROPOFOL 100 ML IV SCH (12:52)
[2021-10-19] MEDS: MORPHINE SULFATE INJECTION 2 MG/ML SYRG IV PRN ×2 (17:42→21:28)
[2021-10-20] VITALS (15 sets, daily range): BP systolic 127–169; BP diastolic 46–71
[2021-10-20] MEDS: ACCU-CHEK COMFORT CURVE STRIP VI SCH ×4 (00:12→17:45)
[2021-10-20] MEDS: SODIUM CHLORIDE 0.9% 1,000 ML IV SCH (01:35)
[2021-10-20] MEDS: MORPHINE SULFATE INJECTION 2 MG/ML SYRG IV PRN ×6 (01:35→21:54)
[2021-10-20 05:03] LABS: Eosinophils # (auto) 0 10 ^3/uL (0-0.8); Hemoglobin 8.4 g/dL (12.2-16.2); Red Cell Distribution Width 16.7 % (11.8-14.3)
[2021-10-20 05:05] LABS: Basophils # (auto) 0.1 10 ^3/uL (0-0.2); Basophils % (auto) 0.4 % (0.0-2.0); Eosinophils % (auto) 0.1 % (0.0-7.0); Hematocrit 25.1 % (36.0-46.0); Lymphocytes # (auto) 1.8 10 ^3/uL (0.4-5.4); Lymphocytes % (auto) 9.4 % (10.0-50.0); Mean Corpuscular Hemoglobin 31.3 pg (28.0-32.0); Mean Corpuscular Hgb Conc. 33.7 g/dL (32.0-36.0); Monocytes # (auto) 1.1 10 ^3/uL (0-1.3); Monocytes % (auto) 5.8 % (0.0-12.0); Neutrophils % (auto) 84.3 % (37.0-80.0); Nucleated Red Blood Cells % 0.1 %
[2021-10-20 05:20] LABS: Calcium 8.6 mg/dL (8.5-10.1); Potassium 3.9 mmol/L (3.5-5.1)
[2021-10-20] MEDS: metroNIDAZOLE 500MG/100ML 100 ML IV SCH ×3 (05:29→21:40)
[2021-10-20] MEDS: InsuLIN REG 1unit/0.01ml Soln (100units/ml) SC SCH ×4 (05:30→17:45)
[2021-10-20] MEDS: SODIUM CHLOR 0.9% PF (SALINE LOCK) 10ML VIAL/SYR IV SCH ×2 (09:14→21:30)
[2021-10-20] MEDS: FAMOTIDINE (10MG/ML) 2ML VL IV SCH (09:14)
[2021-10-20] MEDS: levoFLOXacin 250MG 50 ML IV SCH (09:14)
[2021-10-20] MEDS ORDERED: levoFLOXacin 250MG 50 ML IV ONE (10:00)
[2021-10-20] MEDS: SOD CHL 0.45% 1,000 ML IV SCH (11:41)
[2021-10-21] MEDS: ACCU-CHEK COMFORT CURVE STRIP VI SCH ×5 (00:11→23:05)
[2021-10-21] MEDS: MORPHINE SULFATE INJECTION 2 MG/ML SYRG IV PRN ×5 (02:47→23:07)
[2021-10-21] MEDS: SOD CHL 0.45% 1,000 ML IV SCH ×2 (04:12→18:26)
[2021-10-21 05:00] VITALS: BP 152/74
[2021-10-21] MEDS: InsuLIN REG 1unit/0.01ml Soln (100units/ml) SC SCH ×4 (06:00→17:44)
[2021-10-21] MEDS: metroNIDAZOLE 500MG/100ML 100 ML IV SCH ×3 (06:04→21:08)
[2021-10-21 06:19] LABS: Basophils # (auto) 0.1 10 ^3/uL (0-0.2); Basophils % (auto) 0.8 % (0.0-2.0); Eosinophils # (auto) 0.4 10 ^3/uL (0-0.8); Eosinophils % (auto) 2.7 % (0.0-7.0); Hematocrit 25.6 % (36.0-46.0); Hemoglobin 8.5 g/dL (12.2-16.2); Lymphocytes # (auto) 1.9 10 ^3/uL (0.4-5.4); Lymphocytes % (auto) 12.9 % (10.0-50.0); Mean Corpuscular Hemoglobin 31.2 pg (28.0-32.0); Mean Corpuscular Hgb Conc. 33.4 g/dL (32.0-36.0); Mean Corpuscular Volume 93.4 fL (80.0-100.0); Monocytes # (auto) 0.6 10 ^3/uL (0-1.3); Monocytes % (auto) 4.3 % (0.0-12.0); Neutrophils # (auto) 11.4 10 ^3/uL (1.6-8.6); Neutrophils % (auto) 79.3 % (37.0-80.0); Red Blood Cells 2.74 10^6/uL (4.0-5.20); Red Cell Distribution Width 16.2 % (11.8-14.3); White Blood Cell 14.4 10^3/uL (4.4-10.8)
[2021-10-21 06:42] LABS: Calcium 8.5 mg/dL (8.5-10.1); Potassium 3.3 mmol/L (3.5-5.1)
[2021-10-21 06:47] LABS: BUN/Creatinine Ratio 19.4; Bilirubin, Total 0.4 mg/dL (0.2-1.0); Total Protein 5.5 g/dL (6.4-8.2)
[2021-10-21] MEDS ORDERED: hydrALAZINE HCL 20 MG/ML VL IV PRN (07:00)
[2021-10-21 08:00] VITALS: BP 166/76
[2021-10-21 09:00] VITALS: BP 166/76
[2021-10-21] MEDS: levoFLOXacin 500MG 100 ML IV SCH (11:36)
[2021-10-21] MEDS: FAMOTIDINE (10MG/ML) 2ML VL IV SCH (11:36)
[2021-10-21] MEDS: SODIUM CHLOR 0.9% PF (SALINE LOCK) 10ML VIAL/SYR IV SCH ×2 (11:37→21:08)
[2021-10-21 13:00] VITALS: BP 161/71
[2021-10-21] MEDS: POTASSIUM CHL 20MEQ/100ML 100 ML IV SCH ×2 (13:11→15:52)
[2021-10-21] MEDS: hydrALAZINE HCL 20 MG/ML VL IV PRN ×2 (13:14→18:52)
[2021-10-21 16:00] VITALS: BP 157/65
[2021-10-22] MEDS: MORPHINE SULFATE INJECTION 2 MG/ML SYRG IV PRN ×3 (02:34→11:38)
[2021-10-22] MEDS: SOD CHL 0.45% 1,000 ML IV SCH ×2 (03:15→16:55)
[2021-10-22 05:00] VITALS: BP 177/68
[2021-10-22] MEDS: metroNIDAZOLE 500MG/100ML 100 ML IV SCH ×3 (05:19→22:07)
[2021-10-22] MEDS: ACCU-CHEK COMFORT CURVE STRIP VI SCH ×3 (05:19→17:17)
[2021-10-22] MEDS: hydrALAZINE HCL 20 MG/ML VL IV PRN (05:20)
[2021-10-22] MEDS: InsuLIN REG 1unit/0.01ml Soln (100units/ml) SC SCH ×4 (05:34→17:17)
[2021-10-22 06:09] LABS: Hematocrit 26.2 % (36.0-46.0); Hemoglobin 9.1 g/dL (12.2-16.2); Mean Corpuscular Hemoglobin 32.2 pg (28.0-32.0); Mean Corpuscular Hgb Conc. 34.8 g/dL (32.0-36.0); Mean Corpuscular Volume 92.6 fL (80.0-100.0); Red Blood Cells 2.83 10^6/uL (4.0-5.20); Red Cell Distribution Width 15.7 % (11.8-14.3); White Blood Cell 13.5 10^3/uL (4.4-10.8)
[2021-10-22 06:24] LABS: BUN/Creatinine Ratio 23.4; Calcium 8.6 mg/dL (8.5-10.1); Magnesium 2.1 mg/dL (1.6-2.6); Potassium 3.6 mmol/L (3.5-5.1)
[2021-10-22 06:59] LABS: Basophils % (manual) 0 (0.0-2.0); Blast Cells 0; Metamyelocytes % 0; Myelocytes % 0; Promyelocytes % 0; Reactive Lymphocytes 0
[2021-10-22 08:05] LABS: Band Neutrophils % (manual) 15; Eosinophils % (manual) 5 (0-7); Lymphocytes % (manual) 16 (10.0-50.0); Monocytes % (manual) 4 (0-12)
[2021-10-22] MEDS: SODIUM CHLOR 0.9% PF (SALINE LOCK) 10ML VIAL/SYR IV SCH ×2 (11:05→22:07)
[2021-10-22] MEDS: levoFLOXacin 500MG 100 ML IV SCH (11:05)
[2021-10-22] MEDS: FAMOTIDINE (10MG/ML) 2ML VL IV SCH (11:05)
[2021-10-22] MEDS: KETOROLAC TROMETH 30 MG/ML 1ML VIAL IV PRN (14:55)
[2021-10-22 22:00] VITALS: BP 166/63
[2021-10-23] MEDS: ACCU-CHEK COMFORT CURVE STRIP VI SCH ×4 (00:13→16:43)
[2021-10-23] MEDS: hydrALAZINE HCL 20 MG/ML VL IV PRN ×3 (01:48→22:50)
[2021-10-23 02:47] VITALS: BP 150/62
[2021-10-23] MEDS: KETOROLAC TROMETH 30 MG/ML 1ML VIAL IV PRN ×2 (02:52→10:09)
[2021-10-23 05:00] VITALS: BP 152/57
[2021-10-23] MEDS: InsuLIN REG 1unit/0.01ml Soln (100units/ml) SC SCH ×4 (06:00→16:43)
[2021-10-23] MEDS: metroNIDAZOLE 500MG/100ML 100 ML IV SCH ×3 (06:03→21:40)
[2021-10-23] MEDS: SOD CHL 0.45% 1,000 ML IV SCH ×2 (06:03→19:15)
[2021-10-23 09:00] VITALS: BP 134/52
[2021-10-23] MEDS: levoFLOXacin 500MG 100 ML IV SCH (10:08)
[2021-10-23] MEDS: SODIUM CHLOR 0.9% PF (SALINE LOCK) 10ML VIAL/SYR IV SCH ×2 (10:09→21:40)
[2021-10-23] MEDS: FAMOTIDINE (10MG/ML) 2ML VL IV SCH (10:09)
[2021-10-23 12:50] VITALS: BP 179/70
[2021-10-23 16:43] VITALS: BP 174/54
[2021-10-23 21:50] VITALS: BP 163/61
[2021-10-24] MEDS: ACCU-CHEK COMFORT CURVE STRIP VI SCH ×5 (00:17→18:10)
[2021-10-24] MEDS: SOD CHL 0.45% 1,000 ML IV SCH (00:18)
[2021-10-24 05:00] VITALS: BP 167/65
[2021-10-24 05:23] LABS: Basophils # (auto) 0.1 10 ^3/uL (0-0.2); Basophils % (auto) 0.6 % (0.0-2.0); Eosinophils # (auto) 0.5 10 ^3/uL (0-0.8); Eosinophils % (auto) 5.2 % (0.0-7.0); Hematocrit 26.7 % (36.0-46.0); Hemoglobin 9.4 g/dL (12.2-16.2); Lymphocytes # (auto) 1.7 10 ^3/uL (0.4-5.4); Lymphocytes % (auto) 16.6 % (10.0-50.0); Mean Corpuscular Hgb Conc. 35.1 g/dL (32.0-36.0); Mean Corpuscular Volume 91.2 fL (80.0-100.0); Monocytes # (auto) 0.6 10 ^3/uL (0-1.3); Neutrophils # (auto) 7.3 10 ^3/uL (1.6-8.6); Neutrophils % (auto) 71.6 % (37.0-80.0); Nucleated Red Blood Cells % 0.1 %; Red Blood Cells 2.93 10^6/uL (4.0-5.20); Red Cell Distribution Width 16.1 % (11.8-14.3); White Blood Cell 10.2 10^3/uL (4.4-10.8)
[2021-10-24 05:41] LABS: Potassium 3.2 mmol/L (3.5-5.1)
[2021-10-24] MEDS: hydrALAZINE HCL 20 MG/ML VL IV PRN ×2 (05:48→11:09)
[2021-10-24] MEDS: metroNIDAZOLE 500MG/100ML 100 ML IV SCH ×3 (05:48→21:33)
[2021-10-24 05:55] LABS: Albumin 2.1 g/dL (3.4-5.0); BUN/Creatinine Ratio 27.7; Bilirubin, Total 0.5 mg/dL (0.2-1.0); Calcium 8.7 mg/dL (8.5-10.1); Total Protein 5.7 g/dL (6.4-8.2)
[2021-10-24] MEDS: InsuLIN REG 1unit/0.01ml Soln (100units/ml) SC SCH ×5 (06:00→18:00)
[2021-10-24 09:42] VITALS: BP 161/67
[2021-10-24] MEDS: levoFLOXacin 500MG 100 ML IV SCH (09:53)
[2021-10-24] MEDS: SODIUM CHLOR 0.9% PF (SALINE LOCK) 10ML VIAL/SYR IV SCH ×2 (09:54→21:33)
[2021-10-24] MEDS: FAMOTIDINE (10MG/ML) 2ML VL IV SCH (09:54)
[2021-10-24] MEDS: KETOROLAC TROMETH 30 MG/ML 1ML VIAL IV PRN ×2 (09:54→18:12)
[2021-10-24 12:45] VITALS: BP 135/96
[2021-10-24 13:31] LABS: Phosphorus 2.4 mg/dL (2.5-4.90)
[2021-10-24] MEDS ORDERED: TPN PER PHARMACY 0 ML IV SCH (15:45)
[2021-10-24] MEDS ORDERED: POTASSIUM PHOSPHATE 44 MEQ in D5W 5% 250 ML IV ONE (16:00)
[2021-10-24 17:15] VITALS: BP 171/66
[2021-10-24] MEDS ORDERED: DEXTROSE (50%) 50ML SYRG IV SCH (18:00)
[2021-10-24] MEDS ORDERED: AMINO ACID INFUSION IN D10W 1,000 ML IV NR (20:00)
[2021-10-24 22:00] VITALS: BP 177/69
[2021-10-25 00:13] VITALS: BP 150/59
[2021-10-25] MEDS: InsuLIN REG 1unit/0.01ml Soln (100units/ml) SC SCH ×6 (00:30→17:05)
[2021-10-25] MEDS: ACCU-CHEK COMFORT CURVE STRIP VI SCH ×6 (00:30→17:05)
[2021-10-25 05:00] VITALS: BP 161/60
[2021-10-25 06:00] LABS: Potassium 3.7 mmol/L (3.5-5.1)
[2021-10-25] MEDS: metroNIDAZOLE 500MG/100ML 100 ML IV SCH ×3 (06:04→20:50)
[2021-10-25] MEDS: KETOROLAC TROMETH 30 MG/ML 1ML VIAL IV PRN ×2 (06:06→12:56)
[2021-10-25 06:19] LABS: Albumin 1.9 g/dL (3.4-5.0); BUN/Creatinine Ratio 27.1; Bilirubin, Total 0.6 mg/dL (0.2-1.0); Calcium 8.7 mg/dL (8.5-10.1); Magnesium 1.8 mg/dL (1.6-2.6); Total Protein 5.4 g/dL (6.4-8.2)
[2021-10-25 09:00] VITALS: BP 166/61
[2021-10-25] MEDS: SODIUM CHLOR 0.9% PF (SALINE LOCK) 10ML VIAL/SYR IV SCH ×2 (10:45→20:50)
[2021-10-25] MEDS: levoFLOXacin 500MG 100 ML IV SCH (10:45)
[2021-10-25] MEDS: FAMOTIDINE (10MG/ML) 2ML VL IV SCH (10:45)
[2021-10-25] MEDS: hydrALAZINE HCL 20 MG/ML VL IV PRN (11:16)
[2021-10-25 13:00] VITALS: BP 152/105
[2021-10-25] MEDS ORDERED: TPN PER PHARMACY IV NR ×8 (20:00)
[2021-10-25 22:00] VITALS: BP 145/67
[2021-10-26] MEDS: ACCU-CHEK COMFORT CURVE STRIP VI SCH ×5 (00:32→23:50)
[2021-10-26] MEDS: InsuLIN REG 1unit/0.01ml Soln (100units/ml) SC SCH ×5 (00:32→23:52)
[2021-10-26] MEDS: KETOROLAC TROMETH 30 MG/ML 1ML VIAL IV PRN ×2 (02:46→23:50)
[2021-10-26 05:00] VITALS: BP 156/68
[2021-10-26 05:40] LABS: Basophils # (auto) 0.1 10 ^3/uL (0-0.2); Basophils % (auto) 0.6 % (0.0-2.0); Eosinophils # (auto) 0.5 10 ^3/uL (0-0.8); Eosinophils % (auto) 5.6 % (0.0-7.0); Hematocrit 24.5 % (36.0-46.0); Hemoglobin 8.3 g/dL (12.2-16.2); Lymphocytes # (auto) 1.2 10 ^3/uL (0.4-5.4); Lymphocytes % (auto) 12.6 % (10.0-50.0); Mean Corpuscular Hemoglobin 30.7 pg (28.0-32.0); Mean Corpuscular Hgb Conc. 33.8 g/dL (32.0-36.0); Mean Corpuscular Volume 90.6 fL (80.0-100.0); Monocytes # (auto) 0.5 10 ^3/uL (0-1.3); Monocytes % (auto) 5.2 % (0.0-12.0); Neutrophils # (auto) 7.4 10 ^3/uL (1.6-8.6); Red Blood Cells 2.71 10^6/uL (4.0-5.20); Red Cell Distribution Width 16.4 % (11.8-14.3); White Blood Cell 9.8 10^3/uL (4.4-10.8)
[2021-10-26 06:00] LABS: Potassium 3.5 mmol/L (3.5-5.1)
[2021-10-26 06:07] LABS: Albumin 1.9 g/dL (3.4-5.0); BUN/Creatinine Ratio 29.5; Bilirubin, Total 0.4 mg/dL (0.2-1.0); Calcium 8.5 mg/dL (8.5-10.1); Magnesium 1.9 mg/dL (1.6-2.6); Phosphorus 2.2 mg/dL (2.5-4.90); Total Protein 5.2 g/dL (6.4-8.2)
[2021-10-26] MEDS: metroNIDAZOLE 500MG/100ML 100 ML IV SCH ×3 (06:13→22:36)
[2021-10-26 09:00] VITALS: BP 158/62
[2021-10-26] MEDS ORDERED: POTASSIUM PHOSP 22MEQ(15MMOLE) in NS 100 ML IV ONE (11:15)
[2021-10-26] MEDS: FAMOTIDINE (10MG/ML) 2ML VL IV SCH (11:16)
[2021-10-26] MEDS: levoFLOXacin 500MG 100 ML IV SCH (11:16)
[2021-10-26] MEDS: SODIUM CHLOR 0.9% PF (SALINE LOCK) 10ML VIAL/SYR IV SCH ×2 (11:16→22:36)
[2021-10-26] MEDS ORDERED: amLODIPine BESYLATE 5 MG TAB PO ONE (12:00)
[2021-10-26 13:00] VITALS: BP 184/63
[2021-10-26] MEDS: hydrALAZINE HCL 20 MG/ML VL IV PRN (15:55)
[2021-10-26 17:00] VITALS: BP 154/66
[2021-10-26] MEDS ORDERED: TPN PER PHARMACY IV NR ×8 (20:00)
[2021-10-26 22:00] VITALS: BP 126/63
[2021-10-27 05:47] LABS: Calcium 8.7 mg/dL (8.5-10.1); Potassium 3.7 mmol/L (3.5-5.1)
[2021-10-27 05:49] LABS: Albumin 1.9 g/dL (3.4-5.0); BUN/Creatinine Ratio 20.4; Magnesium 1.8 mg/dL (1.6-2.6)
[2021-10-27 06:00] LABS: Bilirubin, Total 0.2 mg/dL (0.2-1.0); Phosphorus 3.2 mg/dL (2.5-4.90); Total Protein 5.2 g/dL (6.4-8.2)
[2021-10-27] MEDS: metroNIDAZOLE 500MG/100ML 100 ML IV SCH ×3 (06:41→21:20)
[2021-10-27] MEDS: ACCU-CHEK COMFORT CURVE STRIP VI SCH ×3 (06:42→17:42)
[2021-10-27] MEDS: InsuLIN REG 1unit/0.01ml Soln (100units/ml) SC SCH ×3 (06:42→17:42)
[2021-10-27 09:00] VITALS: BP 162/63
[2021-10-27] MEDS: levoFLOXacin 500MG 100 ML IV SCH (09:18)
[2021-10-27] MEDS: FAMOTIDINE (10MG/ML) 2ML VL IV SCH (09:19)
[2021-10-27] MEDS: SODIUM CHLOR 0.9% PF (SALINE LOCK) 10ML VIAL/SYR IV SCH ×2 (09:19→21:20)
[2021-10-27] MEDS: amLODIPine BESYLATE 5 MG TAB PO SCH (09:20)
[2021-10-27 13:00] VITALS: BP 168/71
[2021-10-27] MEDS: HYDROcodone-ACET 5/325MG TAB PO PRN (15:48)
[2021-10-27 17:00] VITALS: BP 138/79
[2021-10-27] MEDS ORDERED: TPN PER PHARMACY IV NR ×9 (20:00)
[2021-10-27 22:00] VITALS: BP 137/64
[2021-10-28] MEDS: HYDROcodone-ACET 5/325MG TAB PO PRN (00:45)
[2021-10-28] MEDS: ACCU-CHEK COMFORT CURVE STRIP VI SCH ×4 (00:45→16:49)
[2021-10-28] MEDS: InsuLIN REG 1unit/0.01ml Soln (100units/ml) SC SCH ×4 (00:47→16:55)
[2021-10-28 05:43] LABS: Potassium 3.8 mmol/L (3.5-5.1)
[2021-10-28 05:47] LABS: Albumin 2.1 g/dL (3.4-5.0); BUN/Creatinine Ratio 24.1; Calcium 8.7 mg/dL (8.5-10.1); Phosphorus 3.1 mg/dL (2.5-4.90)
[2021-10-28] MEDS: metroNIDAZOLE 500MG/100ML 100 ML IV SCH ×3 (05:47→23:28)
[2021-10-28 08:57] VITALS: BP 143/70
[2021-10-28] MEDS: levoFLOXacin 500MG 100 ML IV SCH (09:11)
[2021-10-28] MEDS: SODIUM CHLOR 0.9% PF (SALINE LOCK) 10ML VIAL/SYR IV SCH ×2 (09:11→23:29)
[2021-10-28] MEDS: FAMOTIDINE (10MG/ML) 2ML VL IV SCH (09:11)
[2021-10-28] MEDS: amLODIPine BESYLATE 5 MG TAB PO SCH ×2 (09:12→09:31)
[2021-10-28] MEDS: FLUCONAZOLE 200MG/100ML 100 ML IV SCH (11:00)
[2021-10-28] MEDS ORDERED: GASTROGRAFIN 120 ML SOL ONE (12:08)
[2021-10-28 13:50] VITALS: BP 161/82
[2021-10-28] MEDS: hydrALAZINE HCL 20 MG/ML VL IV PRN (14:29)
[2021-10-28 17:00] VITALS: BP 149/76
[2021-10-28] MEDS ORDERED: TPN PER PHARMACY IV NR ×9 (20:00)
[2021-10-28 22:00] VITALS: BP 119/51
[2021-10-29] MEDS: ACCU-CHEK COMFORT CURVE STRIP VI SCH ×5 (01:15→23:58)
[2021-10-29 05:00] VITALS: BP 106/61
[2021-10-29 05:48] LABS: Potassium 3.5 mmol/L (3.5-5.1)
[2021-10-29 06:13] LABS: Albumin 2.1 g/dL (3.4-5.0); BUN/Creatinine Ratio 26.9; Calcium 8.7 mg/dL (8.5-10.1)
[2021-10-29 06:16] LABS: Bilirubin, Total 0.3 mg/dL (0.2-1.0); Phosphorus 2.6 mg/dL (2.5-4.90); Total Protein 5.5 g/dL (6.4-8.2)
[2021-10-29] MEDS: metroNIDAZOLE 500MG/100ML 100 ML IV SCH ×3 (06:38→21:27)
[2021-10-29] MEDS: InsuLIN REG 1unit/0.01ml Soln (100units/ml) SC SCH ×5 (06:46→23:59)
[2021-10-29 09:00] VITALS: BP_SYST 111; BP_SYST 137; BP_DIAS 71; BP_DIAS 75
[2021-10-29] MEDS: amLODIPine BESYLATE 5 MG TAB PO SCH (10:00)
[2021-10-29] MEDS: SODIUM CHLOR 0.9% PF (SALINE LOCK) 10ML VIAL/SYR IV SCH ×2 (10:00→21:27)
[2021-10-29] MEDS: FAMOTIDINE (10MG/ML) 2ML VL IV SCH (10:00)
[2021-10-29] MEDS: FLUCONAZOLE 200MG/100ML 100 ML IV SCH ×2 (10:00→12:52)
[2021-10-29] MEDS: levoFLOXacin 500MG 100 ML IV SCH (10:00)
[2021-10-29] MEDS ORDERED: FUROSEMIDE 20 MG/2 ML VIAL IV ONE (12:15)
[2021-10-29 17:00] VITALS: BP 146/61
[2021-10-29] MEDS ORDERED: TPN PER PHARMACY IV NR ×9 (20:00)
[2021-10-29 21:57] VITALS: BP 151/71
[2021-10-30 05:00] VITALS: BP 155/61
[2021-10-30] MEDS: ACCU-CHEK COMFORT CURVE STRIP VI SCH (05:37)
[2021-10-30] MEDS: InsuLIN REG 1unit/0.01ml Soln (100units/ml) SC SCH (05:42)
[2021-10-30 05:45] LABS: Albumin 2.2 g/dL (3.4-5.0); Calcium 8.7 mg/dL (8.5-10.1); Magnesium 2.1 mg/dL (1.6-2.6); Potassium 3.8 mmol/L (3.5-5.1)
[2021-10-30 05:47] LABS: BUN/Creatinine Ratio 29.6
[2021-10-30 05:50] LABS: Bilirubin, Total 0.2 mg/dL (0.2-1.0); Phosphorus 3.3 mg/dL (2.5-4.90); Total Protein 5.7 g/dL (6.4-8.2)
[2021-10-30] MEDS: metroNIDAZOLE 500MG/100ML 100 ML IV SCH ×3 (06:07→21:22)
[2021-10-30 09:00] VITALS: BP 124/61
[2021-10-30] MEDS: FLUCONAZOLE 200MG/100ML 100 ML IV SCH ×3 (10:00→11:00)
[2021-10-30] MEDS ORDERED: FUROSEMIDE 20 MG/2 ML VIAL IV SCH (10:00)
[2021-10-30] MEDS: levoFLOXacin 500MG 100 ML IV SCH (10:32)
[2021-10-30] MEDS: amLODIPine BESYLATE 5 MG TAB PO SCH (10:32)
[2021-10-30] MEDS: FAMOTIDINE (10MG/ML) 2ML VL IV SCH (10:32)
[2021-10-30] MEDS: SODIUM CHLOR 0.9% PF (SALINE LOCK) 10ML VIAL/SYR IV SCH ×2 (10:32→22:21)
[2021-10-30] MEDS ORDERED: ONDANSETRON HCL 4 MG/2 ML VIAL IV PRN (12:15)
[2021-10-30 13:00] VITALS: BP 143/63
[2021-10-30 17:00] VITALS: BP 148/71
[2021-10-30] MEDS: HYDROcodone-ACET 5/325MG TAB PO PRN (18:34)
[2021-10-30] MEDS ORDERED: TPN PER PHARMACY IV NR ×9 (20:00)
[2021-10-30 22:00] VITALS: BP 143/61
[2021-10-31] MEDS: HYDROcodone-ACET 5/325MG TAB PO PRN (04:24)
[2021-10-31 05:00] VITALS: BP 156/67
[2021-10-31] MEDS: metroNIDAZOLE 500MG/100ML 100 ML IV SCH ×3 (05:40→22:47)
[2021-10-31 06:27] LABS: Basophils # (auto) 0.1 10 ^3/uL (0-0.2); Lymphocytes # (auto) 1.9 10 ^3/uL (0.4-5.4); Mean Corpuscular Volume 89.5 fL (80.0-100.0)
[2021-10-31 06:30] LABS: Basophils % (auto) 0.7 % (0.0-2.0); Eosinophils # (auto) 0.8 10 ^3/uL (0-0.8); Eosinophils % (auto) 6.9 % (0.0-7.0); Hematocrit 24.8 % (36.0-46.0); Hemoglobin 8.6 g/dL (12.2-16.2); Lymphocytes % (auto) 17.2 % (10.0-50.0); Mean Corpuscular Hemoglobin 31.1 pg (28.0-32.0); Mean Corpuscular Hgb Conc. 34.7 g/dL (32.0-36.0); Monocytes # (auto) 0.7 10 ^3/uL (0-1.3); Monocytes % (auto) 6.6 % (0.0-12.0); Neutrophils # (auto) 7.6 10 ^3/uL (1.6-8.6); Neutrophils % (auto) 68.6 % (37.0-80.0); Red Blood Cells 2.78 10^6/uL (4.0-5.20); Red Cell Distribution Width 16.6 % (11.8-14.3)
[2021-10-31 06:53] LABS: Potassium 3.9 mmol/L (3.5-5.1)
[2021-10-31 07:00] LABS: Albumin 2.2 g/dL (3.4-5.0); BUN/Creatinine Ratio 22.4; Bilirubin, Total 0.2 mg/dL (0.2-1.0); Calcium 8.9 mg/dL (8.5-10.1); Total Protein 5.7 g/dL (6.4-8.2)
[2021-10-31 08:49] VITALS: BP 130/55
[2021-10-31] MEDS: FAMOTIDINE (10MG/ML) 2ML VL IV SCH (10:34)
[2021-10-31] MEDS: amLODIPine BESYLATE 5 MG TAB PO SCH (10:34)
[2021-10-31] MEDS: SODIUM CHLOR 0.9% PF (SALINE LOCK) 10ML VIAL/SYR IV SCH ×2 (10:34→22:47)
[2021-10-31] MEDS: FLUCONAZOLE 200MG/100ML 100 ML IV SCH (10:34)
[2021-10-31] MEDS: levoFLOXacin 500MG 100 ML IV SCH (10:34)
[2021-10-31 13:00] VITALS: BP 136/60
[2021-10-31 22:00] VITALS: BP 145/58
[2021-11-01 05:00] VITALS: BP 144/55
[2021-11-01] MEDS: metroNIDAZOLE 500MG/100ML 100 ML IV SCH ×2 (05:44→14:53)
[2021-11-01 09:16] VITALS: BP 114/57
[2021-11-01] MEDS: levoFLOXacin 500MG 100 ML IV SCH (10:24)
[2021-11-01] MEDS: SODIUM CHLOR 0.9% PF (SALINE LOCK) 10ML VIAL/SYR IV SCH (10:27)
[2021-11-01] MEDS: amLODIPine BESYLATE 5 MG TAB PO SCH (10:27)
[2021-11-01] MEDS ORDERED: LEVO500T31 PO (11:44)
[2021-11-01] MEDS ORDERED: METR500T PO (11:44)
[2021-11-01 12:45] VITALS: BP 149/63
[2021-11-01 13:38] VITALS: BP 149/63
== END 2021-11-01 16:50 | disposition home or self-care (01) | DRG 335 ==
LOC: SUR 07:10 → TELE 13:09 → ICU CENTRL 13:53 → TELE-WESTW 10-20 15:34 → WEST WING 10-25 07:04
PROVIDERS: ADMIT Internal Medicine; ATTEND Internal Medicine
PROC: 0DNW0ZZ Release Peritoneum, Open Approach (ICD-10-PCS; 2021-10-18)
PROC: 5A1935Z Respiratory Ventilation, Less than 24 Consecutive Hours (ICD-10-PCS; 2021-10-18)
PROC: 0BH17EZ Insertion of Endotracheal Airway into Trachea, Via Natural or Artificial Opening (ICD-10-PCS; 2021-10-18)
PROC: 05HY33Z Insertion of Infusion Device into Upper Vein, Percutaneous Approach (ICD-10-PCS; 2021-10-18)
PROC: B54MZZA Ultrasonography of Right Upper Extremity Veins, Guidance (ICD-10-PCS; 2021-10-18)
PROC: 0DSN0ZZ Reposition Sigmoid Colon, Open Approach (ICD-10-PCS; principal; 2021-10-18 08:57)
PROC: 0D9670Z Drainage of Stomach with Drainage Device, Via Natural or Artificial Opening (ICD-10-PCS; 2021-10-21)
DX: K94.03 Colostomy malfunction (principal); R57.8 Other shock; J96.00 Acute respiratory failure, unspecified whether with hypoxia or hypercapnia; K65.1 Peritoneal abscess; N39.0 Urinary tract infection, site not specified; R65.10 Systemic inflammatory response syndrome (SIRS) of non-infectious origin without acute organ dysfunction; J45.909 Unspecified asthma, uncomplicated; E66.9 Obesity, unspecified; E78.5 Hyperlipidemia, unspecified; K66.0 Peritoneal adhesions (postprocedural) (postinfection); E87.6 Hypokalemia; E11.9 Type 2 diabetes mellitus without complications; I95.9 Hypotension, unspecified; I10 Essential (primary) hypertension; Y83.8 Other surgical procedures as the cause of abnormal reaction of the patient, or of later complication, without mention of misadventure at the time of the procedure; Y73.8 Miscellaneous gastroenterology and urology devices associated with adverse incidents, not elsewhere classified; Z88.0 Allergy status to penicillin; Z88.5 Allergy status to narcotic agent; Z68.33 Body mass index [BMI] 33.0-33.9, adult
CPT/HCPCS: 36415; 36569; 36600; 71045; 74250; 80048; 80053; 80069; 81001; 82805; 82962; 83735; 84100; 84478; 85007; 85025; 85027; 85610; 85730; 86850; 86900; 86901; 87070; 87075; 87076; 87081; 87086; 87088; 87205; 94002; 94003; 97110; 97116; 97163; 97530; G0378; J0330; J0696; J1100; J1450; J1815; J1885; J1956; J2250; J2405; J2704; J3480; J3490; J7060

== ENCOUNTER → 2022-04-03 | Outpatient (CLI) | payer OTHER ==
[~2022-04-03] MED LIST changes: +LEVO500T31 PO; +METR500T PO
[2022-04-03 15:02] LABS: Basophils # (auto) 0.1 10 ^3/uL (0-0.2); Basophils % (auto) 1.1 % (0.0-2.0); Eosinophils # (auto) 0.5 10 ^3/uL (0-0.8); Eosinophils % (auto) 4.1 % (0.0-7.0); Hematocrit 38.4 % (36.0-46.0); Hemoglobin 12.2 g/dL (12.2-16.2); Lymphocytes # (auto) 3.3 10 ^3/uL (0.4-5.4); Lymphocytes % (auto) 29.5 % (10.0-50.0); Mean Corpuscular Hemoglobin 28.8 pg (28.0-32.0); Mean Corpuscular Hgb Conc. 31.8 g/dL (32.0-36.0); Mean Corpuscular Volume 90.6 fL (80.0-100.0); Monocytes # (auto) 0.6 10 ^3/uL (0-1.3); Monocytes % (auto) 5.8 % (0.0-12.0); Neutrophils # (auto) 6.7 10 ^3/uL (1.6-8.6); Neutrophils % (auto) 59.5 % (37.0-80.0); Red Blood Cells 4.23 10^6/uL (4.0-5.20); Red Cell Distribution Width 14.7 % (11.8-14.3); White Blood Cell 11.2 10^3/uL (4.4-10.8)
[2022-04-03 15:25] LABS: Albumin 3.5 g/dL (3.4-5.0); BUN/Creatinine Ratio 26.3; Calcium 9.1 mg/dL (8.5-10.1)
[2022-04-03 15:28] LABS: Bilirubin, Total 0.2 mg/dL (0.2-1.0); Total Protein 6.9 g/dL (6.4-8.2)
[2022-04-03 15:30] LABS: Urine Blood Negative /uL (Negative); Urine Specific Gravity 1.014 (1.001-1.035)
[2022-04-03 15:40] LABS: INR 0.97 (0.9-1.15); Partial Thromboplastin Time 27.1 sec (24.6-33.4)
== END | disposition home or self-care (01) ==
LOC: LAB 14:40
PROVIDERS: ATTEND Ophthalmology
DX: Z01.812 Encounter for preprocedural laboratory examination (principal); Z79.01 Long term (current) use of anticoagulants; H25.11 Age-related nuclear cataract, right eye; D68.311 Acquired hemophilia
CPT/HCPCS: 36415; 80053; 81003; 85025; 85610; 85730

== ENCOUNTER → 2022-05-11 | Outpatient (CLI) | payer OTHER ==
[2022-05-11 10:13] LABS: Basophils # (auto) 0.1 10 ^3/uL (0-0.2); Basophils % (auto) 0.8 % (0.0-2.0); Eosinophils # (auto) 0.5 10 ^3/uL (0-0.8); Eosinophils % (auto) 4.4 % (0.0-7.0); Hematocrit 41.7 % (36.0-46.0); Hemoglobin 13.7 g/dL (12.2-16.2); Lymphocytes # (auto) 2.6 10 ^3/uL (0.4-5.4); Mean Corpuscular Hemoglobin 30.9 pg (28.0-32.0); Mean Corpuscular Volume 93.6 fL (80.0-100.0); Monocytes # (auto) 0.6 10 ^3/uL (0-1.3); Monocytes % (auto) 5.6 % (0.0-12.0); Neutrophils # (auto) 6.4 10 ^3/uL (1.6-8.6); Neutrophils % (auto) 63.2 % (37.0-80.0); Red Blood Cells 4.45 10^6/uL (4.0-5.20); Red Cell Distribution Width 14.6 % (11.8-14.3); Urine Blood Negative /uL (Negative); Urine Specific Gravity 1.012 (1.001-1.035); White Blood Cell 10.1 10^3/uL (4.4-10.8)
[2022-05-11 10:28] LABS: INR 0.97 (0.9-1.15); Partial Thromboplastin Time 26.5 sec (24.6-33.4)
[2022-05-11 10:37] LABS: Albumin 3.4 g/dL (3.4-5.0); Calcium 9.5 mg/dL (8.5-10.1); Potassium 4.2 mmol/L (3.5-5.1)
[2022-05-11 10:41] LABS: BUN/Creatinine Ratio 27.9; Bilirubin, Total 0.4 mg/dL (0.2-1.0); Total Protein 7.1 g/dL (6.4-8.2)
== END | disposition home or self-care (01) ==
LOC: LAB 09:50
PROVIDERS: ATTEND Ophthalmology
DX: Z01.812 Encounter for preprocedural laboratory examination (principal); Z79.01 Long term (current) use of anticoagulants; D68.311 Acquired hemophilia; H25.11 Age-related nuclear cataract, right eye
CPT/HCPCS: 36415; 80053; 81003; 85025; 85610; 85730

== ENCOUNTER → 2022-09-25 | Outpatient (CLI) | payer OTHER | END | disposition home or self-care (01) | LOC: XYW 14:27 | PROVIDERS: ATTEND Internal Medicine | DX: I08.2 Rheumatic disorders of both aortic and tricuspid valves (principal); I70.0 Atherosclerosis of aorta | CPT/HCPCS: 93306 ==

== ENCOUNTER → 2023-02-19 | Outpatient (CLI) | payer OTHER ==
[~2023-02-19] MED LIST changes: -LISI20TA28 PO; +LISI20TA56 PO
[2023-02-19 08:23] LABS: Basophils # (auto) 0.1 10 ^3/uL (0-0.2); Basophils % (auto) 0.9 % (0.0-2.0); Eosinophils # (auto) 0.7 10 ^3/uL (0-0.8); Eosinophils % (auto) 7.5 % (0.0-7.0); Hematocrit 42.2 % (36.0-46.0); Hemoglobin 14.2 g/dL (12.2-16.2); Lymphocytes # (auto) 2.1 10 ^3/uL (0.4-5.4); Lymphocytes % (auto) 23.3 % (10.0-50.0); Mean Corpuscular Hemoglobin 32.7 pg (28.0-32.0); Mean Corpuscular Hgb Conc. 33.6 g/dL (32.0-36.0); Mean Corpuscular Volume 97.4 fL (80.0-100.0); Monocytes # (auto) 0.5 10 ^3/uL (0-1.3); Monocytes % (auto) 5.6 % (0.0-12.0); Neutrophils # (auto) 5.6 10 ^3/uL (1.6-8.6); Neutrophils % (auto) 62.7 % (37.0-80.0); Nucleated Red Blood Cells % 0.2 %; Red Blood Cells 4.33 10^6/uL (4.0-5.20); Red Cell Distribution Width 13.7 % (11.8-14.3); White Blood Cell 8.9 10^3/uL (4.4-10.8)
[2023-02-19 08:43] LABS: Urine Bacteria NONE SEEN /hpf (None Seen); Urine Blood Negative /uL (Negative); Urine Hyaline Cast FEW /lpf (0 - 2); Urine Specific Gravity 1.008 (1.001-1.035); Urine WBC <1 /hpf (0 - 5)
[2023-02-19 09:16] LABS: Albumin 3.6 g/dL (3.4-5.0); Anion Gap 6 (5-15); Blood Urea Nitrogen 22 mg/dL (7-18); Calcium 9.8 mg/dL (8.5-10.1); Carbon Dioxide 24 mmol/L (21-32); Chloride 116 mmol/L (98-107); Glucose 137 mg/dL (74-106); Potassium 3.9 mmol/L (3.5-5.1); Sodium 146 mmol/L (136-145)
[2023-02-19 09:21] LABS: Alanine Aminotransferase 18 U/L (13-56); Alkaline Phosphatase 81 U/L (45-117); Aspartate Aminotransferase 12 U/L (15-37); BUN/Creatinine Ratio 22.9 (10.0-20.0); Bilirubin, Direct < 0.1 mg/dL (0-0.2); Bilirubin, Total 0.3 mg/dL (0.2-1.0); Cholesterol 183 mg/dL (< 200); GFR African American 71 mL/min; GFR Non-African American 59 mL/min; HDL Cholesterol 49 mg/dL (40-59); LDL Cholesterol 109 mg/dL (< 100); Total Protein 7.5 g/dL (6.4-8.2); Triglycerides 158 mg/dL (< 150)
[2023-02-19 09:28] LABS: Micro Albumin 8.71 mg/L (0-30.0)
== END | disposition home or self-care (01) ==
LOC: LAB 07:56
PROVIDERS: ATTEND Internal Medicine
DX: E11.22 Type 2 diabetes mellitus with diabetic chronic kidney disease (principal); I12.9 Hypertensive chronic kidney disease with stage 1 through stage 4 chronic kidney disease, or unspecified chronic kidney disease; N18.2 Chronic kidney disease, stage 2 (mild); I70.0 Atherosclerosis of aorta
CPT/HCPCS: 36415; 80048; 80061; 80076; 81001; 82043; 82306; 82570; 83036; 84439; 84443; 85025

== ENCOUNTER → 2023-03-01 | Outpatient (CLI) | payer OTHER ==
[2023-03-01 08:00] LABS: BUN/Creatinine Ratio 23.9 (10.0-20.0); Calcium 9.5 mg/dL (8.5-10.1); Potassium 4.1 mmol/L (3.5-5.1)
== END | disposition home or self-care (01) ==
LOC: LAB 07:21
PROVIDERS: ATTEND Internal Medicine
DX: I10 Essential (primary) hypertension (principal); Z79.899 Other long term (current) drug therapy
CPT/HCPCS: 36415; 80048

== ENCOUNTER → 2023-05-21 | Outpatient (CLI) | payer MEDICARE, OTHER ==
[2023-05-21 09:01] LABS: Chloride 111 mmol/L (98-107); Potassium 4.1 mmol/L (3.5-5.1); Sodium 145 mmol/L (136-145)
[2023-05-21 09:02] LABS: Calcium 9.6 mg/dL (8.5-10.1)
[2023-05-21 09:07] LABS: BUN/Creatinine Ratio 16.3 (10.0-20.0); Blood Urea Nitrogen 13 mg/dL (9-23); Glucose 146 mg/dL (74-106)
[2023-05-21 12:01] LABS: Anion Gap 10 (5-15); Carbon Dioxide 24 mmol/L (20-30)
== END | disposition home or self-care (01) ==
LOC: LAB 08:37
PROVIDERS: ATTEND Internal Medicine
DX: I12.9 Hypertensive chronic kidney disease with stage 1 through stage 4 chronic kidney disease, or unspecified chronic kidney disease (principal); E11.22 Type 2 diabetes mellitus with diabetic chronic kidney disease; N18.31 Chronic kidney disease, stage 3a
CPT/HCPCS: 36415; 80048

== ENCOUNTER → 2023-07-18 | Outpatient (CLI) | payer OTHER ==
[2023-07-18 15:17] LABS: Basophils # (auto) 0.1 10 ^3/uL (0-0.2); Eosinophils # (auto) 0.8 10 ^3/uL (0-0.8); Hematocrit 41.2 % (36.0-46.0); Hemoglobin 13.6 g/dL (12.2-16.2); Lymphocytes # (auto) 3.6 10 ^3/uL (0.4-5.4); Lymphocytes % (auto) 28.8 % (10.0-50.0); Mean Corpuscular Volume 97.1 fL (80.0-100.0); Monocytes # (auto) 0.6 10 ^3/uL (0-1.3); Neutrophils # (auto) 7.4 10 ^3/uL (1.6-8.6); Neutrophils % (auto) 59.2 % (37.0-80.0); Nucleated Red Blood Cells % 0.1 %; Red Blood Cells 4.25 10^6/uL (4.0-5.20); Red Cell Distribution Width 13.5 % (11.8-14.3); White Blood Cell 12.5 10^3/uL (4.4-10.8)
[2023-07-18 15:24] LABS: Urine Bacteria NONE SEEN /hpf (None Seen); Urine Blood Negative /uL (Negative); Urine Clarity Clear (Clear); Urine Color Yellow (Yellow); Urine Hyaline Cast FEW /lpf (0 - 2); Urine Mucus FEW (None Seen); Urine Protein, UAD 1+ (Negative); Urine Specific Gravity 1.019 (1.001-1.035); Urine Urobilinogen Normal (Negative); Urine WBC 1 /hpf (0 - 5); Urine pH 5.5 (5.0-8.0)
[2023-07-18 15:41] LABS: Potassium 4.2 mmol/L (3.5-5.1)
[2023-07-18 15:42] LABS: Calcium 9.4 mg/dL (8.5-10.1)
[2023-07-18 15:44] LABS: Protein, Urine 59.6 mg/dL (0.0-11.9)
[2023-07-18 15:47] LABS: BUN/Creatinine Ratio 19.8 (10.0-20.0); Creatinine, Urine 120.93 mg/dL (30.0-125.0); Urine Protein/Creatinine Ratio 0.49
[2023-07-18 15:49] LABS: Albumin 4.3 g/dL (3.2-4.8)
[2023-07-18 16:29] LABS: Uric Acid 6.8 mg/dL (3.1-7.8)
== END | disposition home or self-care (01) ==
LOC: LAB 15:03
PROVIDERS: ATTEND Internal Medicine
DX: N18.31 Chronic kidney disease, stage 3a (principal); D63.1 Anemia in chronic kidney disease; E78.5 Hyperlipidemia, unspecified; E21.3 Hyperparathyroidism, unspecified; M10.9 Gout, unspecified; R80.9 Proteinuria, unspecified; R82.90 Unspecified abnormal findings in urine
CPT/HCPCS: 36415; 80069; 81001; 82306; 82570; 83036; 83970; 84156; 84550; 85025

== ENCOUNTER → 2023-08-27 | Outpatient (CLI) | payer OTHER ==
[2023-08-27 07:19] LABS: Urine Bacteria FEW /hpf (None Seen); Urine Blood Negative /uL (Negative); Urine Clarity Clear (Clear); Urine Color Yellow (Yellow); Urine Protein, UAD 1+ (Negative); Urine Specific Gravity 1.023 (1.001-1.035); Urine Urobilinogen Normal (Negative); Urine WBC 3 /hpf (0 - 5); Urine pH 5.5 (5.0-8.0)
[2023-08-27 07:24] LABS: Basophils # (auto) 0.1 10 ^3/uL (0-0.2); Basophils % (auto) 0.8 % (0.0-2.0); Eosinophils # (auto) 0.8 10 ^3/uL (0-0.8); Eosinophils % (auto) 7.6 % (0.0-7.0); Hematocrit 41.2 % (36.0-46.0); Hemoglobin 13.5 g/dL (12.2-16.2); Lymphocytes # (auto) 2.2 10 ^3/uL (0.4-5.4); Mean Corpuscular Hemoglobin 31.8 pg (28.0-32.0); Mean Corpuscular Hgb Conc. 32.8 g/dL (32.0-36.0); Mean Corpuscular Volume 96.7 fL (80.0-100.0); Monocytes # (auto) 0.5 10 ^3/uL (0-1.3); Monocytes % (auto) 4.3 % (0.0-12.0); Neutrophils # (auto) 7.1 10 ^3/uL (1.6-8.6); Neutrophils % (auto) 66.3 % (37.0-80.0); Nucleated Red Blood Cells % 0.1 %; Red Blood Cells 4.26 10^6/uL (4.0-5.20); Red Cell Distribution Width 13.5 % (11.8-14.3); White Blood Cell 10.7 10^3/uL (4.4-10.8)
[2023-08-27 07:53] LABS: Alanine Aminotransferase 15 U/L (7-40); Albumin 4.2 g/dL (3.2-4.8); Alkaline Phosphatase 79 U/L (46-116); Anion Gap 7 (5-15); Aspartate Aminotransferase 16 U/L (13-40); BUN/Creatinine Ratio 14.9 (10.0-20.0); Blood Urea Nitrogen 11 mg/dL (9-23); Calcium 9.8 mg/dL (8.5-10.1); Carbon Dioxide 27 mmol/L (20-30); Chloride 111 mmol/L (98-107); Glucose 121 mg/dL (74-106); LDL Cholesterol 107 mg/dL (< 100); Potassium 4.1 mmol/L (3.5-5.1); Sodium 145 mmol/L (136-145); Triglycerides 223 mg/dL (< 150)
[2023-08-27 07:54] LABS: Bilirubin, Total 0.4 mg/dL (0.2-1.0); Cholesterol 172 mg/dL (< 200); HDL Cholesterol 40 mg/dL (40-59); Total Protein 6.9 g/dL (5.7-8.2)
== END | disposition home or self-care (01) ==
LOC: LAB 06:54
PROVIDERS: ATTEND Internal Medicine
DX: E11.22 Type 2 diabetes mellitus with diabetic chronic kidney disease (principal); N18.9 Chronic kidney disease, unspecified; E78.5 Hyperlipidemia, unspecified
CPT/HCPCS: 36415; 80053; 80061; 81001; 83036; 84439; 84443; 85025

== ENCOUNTER 2023-10-07 10:47 | Inpatient (IN) | payer OTHER ==
[~2023-10-07] VITALS: Ht 160 cm; Wt 90.2 kg
[2023-10-07 11:42] LABS: Basophils # (auto) 0.1 10 ^3/uL (0-0.2); Eosinophils # (auto) 1.4 10 ^3/uL (0-0.8); Eosinophils % (auto) 11.6 % (0.0-7.0); Hematocrit 42.2 % (36.0-46.0); Hemoglobin 14.1 g/dL (12.2-16.2); Lymphocytes # (auto) 2.2 10 ^3/uL (0.4-5.4); Lymphocytes % (auto) 18.6 % (10.0-50.0); Mean Corpuscular Hemoglobin 31.8 pg (28.0-32.0); Mean Corpuscular Hgb Conc. 33.4 g/dL (32.0-36.0); Mean Corpuscular Volume 95.2 fL (80.0-100.0); Monocytes # (auto) 0.6 10 ^3/uL (0-1.3); Neutrophils # (auto) 7.6 10 ^3/uL (1.6-8.6); Neutrophils % (auto) 63.8 % (37.0-80.0); Red Blood Cells 4.43 10^6/uL (4.0-5.20); Red Cell Distribution Width 13.6 % (11.8-14.3)
[2023-10-07 11:44] LABS: INR 1.01 (0.9-1.15); Prothrombin Time 10.6 sec (9.3-11.8)
[2023-10-07] MEDS: IPRATROPIUM BROM 0.5 MG/2.5ML INH SOL NEB ONE (12:03)
[2023-10-07] MEDS: ALBUTEROL SULF 2.5 MG/0.5ML(0.5%) NEB SOLN NEB ONE (12:03)
[2023-10-07] MEDS: DexAMETHasone SOD PHOS 10MG/1ML VIAL INJ IV ONE (12:07)
[2023-10-07 12:14] LABS: Alanine Aminotransferase 20 U/L (7-40); Albumin 4.6 g/dL (3.2-4.8); Alkaline Phosphatase 93 U/L (46-116); Anion Gap 7 (5-15); Aspartate Aminotransferase 16 U/L (13-40); BUN/Creatinine Ratio 19.8 (10.0-20.0); Blood Urea Nitrogen 16 mg/dL (9-23); Calcium 10.2 mg/dL (8.7-10.4); Carbon Dioxide 28 mmol/L (20-30); Chloride 109 mmol/L (98-107); Glucose 115 mg/dL (74-106); Lipase 32 U/L (12-53); Potassium 4.7 mmol/L (3.5-5.1); Sodium 144 mmol/L (136-145)
[2023-10-07 12:15] LABS: Bilirubin, Total 0.4 mg/dL (0.2-1.0); Total Protein 7.1 g/dL (5.7-8.2)
[2023-10-07] MEDS: IOHEXOL 350 MG/ML 100ML IJ ONE (13:26)
[2023-10-07] MEDS ORDERED: AMLO1TAB21 PO (13:34)
[2023-10-07] MEDS ORDERED: LOS25T PO (13:34)
[2023-10-07] MEDS ORDERED: NIFE1TAB30 PO (13:34)
[2023-10-07] MEDS ORDERED: ATOR10TA52 PO (13:34)
[2023-10-07] MEDS: FUROSEMIDE 40 MG/4 ML VIAL IV ONE (13:41)
[2023-10-07 13:46] VITALS: RESP 22; O2SAT 97
[2023-10-07] MEDS ORDERED: NITROGLYCERIN 0.4 MG SL TAB SL PRN (15:00)
[2023-10-07] MEDS ORDERED: ACETAMINOPHEN 325 MG TAB PO PRN (15:00)
[2023-10-07] MEDS ORDERED: HYDROcodone-ACET 5/325MG TAB PO PRN (15:00)
[2023-10-07] MEDS ORDERED: MORPHINE SULFATE INJ 2 MG/ml SYRG IV PRN (15:00)
[2023-10-07] MEDS ORDERED: ONDANSETRON HCL 4 MG/2 ML VIAL IV PRN (15:00)
[2023-10-07 18:56] VITALS: PULSE 98; RESP 20; O2SAT 95
[2023-10-07] MEDS: IPRATROPIUM BROM 0.5 MG/2.5ML INH SOL NEB SCH (18:56)
[2023-10-07] MEDS: ALBUTEROL SULF 2.5 MG/0.5ML(0.5%) NEB SOLN NEB SCH (18:56)
[2023-10-07 19:06] VITALS: PULSE 100; RESP 20; O2SAT 99
[2023-10-07] MEDS: SODIUM CHLOR 0.9% PF (SALINE LOCK) 10ML VIAL/SYR IV SCH (23:03)
[2023-10-07] MEDS: ATORVASTATIN 20 MG TAB PO SCH (23:17)
[2023-10-07] MEDS: methylPREDNISolone SOD SUCC 40 MG/ML VL IV SCH (23:18)
[2023-10-07] MEDS: METOPROLOL TARTRATE 50 MG TAB PO SCH (23:24)
[2023-10-08] VITALS (22 sets, daily range): BP systolic 113–157; BP diastolic 43–72; PULSE 65–107; RESP 14–24; TEMP 98–99.1; O2SAT 90–98
[2023-10-08 07:09] LABS: Alanine Aminotransferase 17 U/L (7-40); Albumin 4.3 g/dL (3.2-4.8); Alkaline Phosphatase 83 U/L (46-116); Anion Gap 8 (5-15); Aspartate Aminotransferase 12 U/L (13-40); BUN/Creatinine Ratio 21.3 (10.0-20.0); Blood Urea Nitrogen 19 mg/dL (9-23); Calcium 9.9 mg/dL (8.7-10.4); Carbon Dioxide 26 mmol/L (20-30); Chloride 108 mmol/L (98-107); Glucose 175 mg/dL (74-106); Potassium 4.2 mmol/L (3.5-5.1); Sodium 142 mmol/L (136-145)
[2023-10-08 07:10] LABS: Bilirubin, Total 0.3 mg/dL (0.2-1.0)
[2023-10-08 07:18] LABS: Basophils # (auto) 0 10 ^3/uL (0-0.2); Basophils % (auto) 0.2 % (0.0-2.0); Eosinophils # (auto) 0 10 ^3/uL (0-0.8); Hematocrit 40.8 % (36.0-46.0); Hemoglobin 13.4 g/dL (12.2-16.2); Lymphocytes # (auto) 1.6 10 ^3/uL (0.4-5.4); Lymphocytes % (auto) 12.5 % (10.0-50.0); Mean Corpuscular Hemoglobin 31.3 pg (28.0-32.0); Mean Corpuscular Hgb Conc. 32.7 g/dL (32.0-36.0); Mean Corpuscular Volume 95.5 fL (80.0-100.0); Monocytes # (auto) 0.2 10 ^3/uL (0-1.3); Monocytes % (auto) 1.6 % (0.0-12.0); Neutrophils # (auto) 11.4 10 ^3/uL (1.6-8.6); Neutrophils % (auto) 85.7 % (37.0-80.0); Nucleated Red Blood Cells % 0.2 %; Red Blood Cells 4.27 10^6/uL (4.0-5.20); Red Cell Distribution Width 13.2 % (11.8-14.3); White Blood Cell 13.2 10^3/uL (4.4-10.8)
[2023-10-08 08:56] LABS: CRP High Sensitivity 0.44 mg/dL (<1.0)
[2023-10-08] MEDS: cefTRIAXone 1GM/50ML D5W 50 ML IV SCH (09:00)
[2023-10-08] MEDS ORDERED: hydrALAZINE HCL 20 MG/ML VL IV PRN (09:00)
[2023-10-08] MEDS: AZITHROMYCIN 500MG/ 250ML 250 ML IV SCH (09:52)
[2023-10-08] MEDS: NIFEdipine ER 30 MG TAB PO SCH (09:53)
[2023-10-08] MEDS: LOSARTAN POTASSIUM 25 MG TAB PO SCH (09:53)
[2023-10-08] MEDS: ASPirin 81 mg TAB PO SCH (09:54)
[2023-10-08] MEDS: guaiFENesin-DM 100/10mg/5ml SYR PO PRN (09:59)
[2023-10-08] MEDS ORDERED: amLODIPine BESYLATE 5 MG TAB PO SCH (10:00)
[2023-10-08] MEDS: MAGNESIUM SULFATE 1GM/100ML 100 ML IV ONE (10:39)
[2023-10-08] MEDS: LEVALBUTEROL HCL 1.25 MG/3 ML NEB NEB SCH (10:44)
[2023-10-08] MEDS: IPRATROPIUM BROM 0.5 MG/2.5ML INH SOL NEB SCH (10:44)
[2023-10-08 11:01] LABS: COVID19 ANTIGEN SOFIA FIA NEGATIVE (NEGATIVE); Rapid Influenza A Negative (Negative); Rapid Influenza B Negative (Negative)
[2023-10-08] MEDS: SODIUM CHLORIDE 0.9% 1,000 ML IV ONE (12:29)
[2023-10-08] MEDS: CEFEPIME 1GM/ 50ML 50 ML IV SCH (13:30)
[2023-10-08] MEDS ORDERED: [UNRECOGNIZED DRUG - CODE] PO (16:41)
[2023-10-08 17:20] LABS: Urine Bacteria NONE SEEN /hpf (None Seen); Urine Blood Negative /uL (Negative); Urine Clarity Clear (Clear); Urine Color Colorless (Yellow); Urine Protein, UAD Negative (Negative); Urine Specific Gravity 1.012 (1.001-1.035); Urine Urobilinogen Normal (Negative); Urine WBC <1 /hpf (0 - 5); Urine pH 5.5 (5.0-8.0)
[2023-10-08 19:31] LABS: Lactic Acid w/Reflex 2.1 mmol/L (0.4-2.0)
[2023-10-09] VITALS (21 sets, daily range): BP systolic 110–168; BP diastolic 52–75; PULSE 62–94; RESP 18–24; TEMP 97.7–98.2; O2SAT 90–100
[2023-10-09 06:15] LABS: Basophils # (auto) 0 10 ^3/uL (0-0.2); Basophils % (auto) 0.2 % (0.0-2.0); Eosinophils # (auto) 0 10 ^3/uL (0-0.8); Hematocrit 40.9 % (36.0-46.0); Hemoglobin 13.2 g/dL (12.2-16.2); Lymphocytes # (auto) 1.7 10 ^3/uL (0.4-5.4); Lymphocytes % (auto) 9.4 % (10.0-50.0); Mean Corpuscular Hgb Conc. 32.2 g/dL (32.0-36.0); Mean Corpuscular Volume 96.2 fL (80.0-100.0); Monocytes # (auto) 0.3 10 ^3/uL (0-1.3); Monocytes % (auto) 1.8 % (0.0-12.0); Neutrophils # (auto) 16.4 10 ^3/uL (1.6-8.6); Neutrophils % (auto) 88.6 % (37.0-80.0); Red Blood Cells 4.25 10^6/uL (4.0-5.20); Red Cell Distribution Width 13.5 % (11.8-14.3); White Blood Cell 18.5 10^3/uL (4.4-10.8)
[2023-10-09 06:25] LABS: Alanine Aminotransferase 20 U/L (7-40); Albumin 4.5 g/dL (3.2-4.8); Alkaline Phosphatase 82 U/L (46-116); Anion Gap 6 (5-15); Aspartate Aminotransferase 15 U/L (13-40); BUN/Creatinine Ratio 25.6 (10.0-20.0); Blood Urea Nitrogen 21 mg/dL (9-23); Carbon Dioxide 28 mmol/L (20-30); Chloride 108 mmol/L (98-107); Glucose 148 mg/dL (74-106); Magnesium 2.3 mg/dL (1.6-2.6); Potassium 4.8 mmol/L (3.5-5.1); Sodium 142 mmol/L (136-145)
[2023-10-09 06:26] LABS: Bilirubin, Total 0.3 mg/dL (0.2-1.0); Total Protein 7.4 g/dL (5.7-8.2)
[2023-10-09 06:44] LABS: Lactic Acid w/Reflex 2.1 mmol/L (0.4-2.0)
[2023-10-09] MEDS: FUROSEMIDE 40 MG/4 ML VIAL IV ONE (12:54)
[2023-10-09] MEDS: levoFLOXacin 750MG 150 ML IV ONE (13:00)
[2023-10-09] MEDS: ATORVASTATIN 20 MG TAB PO SCH (22:00)
[2023-10-10] VITALS (19 sets, daily range): BP systolic 138–151; BP diastolic 48–77; PULSE 60–88; RESP 18–24; TEMP 97.7–98.6; O2SAT 92–98
[2023-10-10 06:53] LABS: Basophils # (auto) 0 10 ^3/uL (0-0.2); Basophils % (auto) 0.1 % (0.0-2.0); Eosinophils # (auto) 0 10 ^3/uL (0-0.8); Hematocrit 38.8 % (36.0-46.0); Hemoglobin 12.6 g/dL (12.2-16.2); Lymphocytes # (auto) 1.4 10 ^3/uL (0.4-5.4); Lymphocytes % (auto) 9.4 % (10.0-50.0); Mean Corpuscular Hemoglobin 31.4 pg (28.0-32.0); Mean Corpuscular Hgb Conc. 32.4 g/dL (32.0-36.0); Mean Corpuscular Volume 96.8 fL (80.0-100.0); Monocytes # (auto) 0.5 10 ^3/uL (0-1.3); Monocytes % (auto) 3.4 % (0.0-12.0); Neutrophils # (auto) 12.6 10 ^3/uL (1.6-8.6); Neutrophils % (auto) 87.1 % (37.0-80.0); Red Blood Cells 4.01 10^6/uL (4.0-5.20); Red Cell Distribution Width 13.3 % (11.8-14.3); White Blood Cell 14.4 10^3/uL (4.4-10.8)
[2023-10-10 07:33] LABS: Anion Gap 7 (5-15); Calcium 9.6 mg/dL (8.5-10.1); Carbon Dioxide 30 mmol/L (20-30); Chloride 105 mmol/L (98-107); Potassium 4.9 mmol/L (3.5-5.1); Sodium 142 mmol/L (136-145)
[2023-10-10 07:39] LABS: BUN/Creatinine Ratio 27.3 (10.0-20.0); Blood Urea Nitrogen 24 mg/dL (9-23); Glucose 161 mg/dL (74-106)
[2023-10-10 07:40] LABS: CRP High Sensitivity 0.09 mg/dL (<1.0)
[2023-10-10] MEDS: levoFLOXacin 750MG 150 ML IV SCH (09:44)
[2023-10-10] MEDS: DOCUSATE SOD 100 MG CAP PO PRN (09:46)
[2023-10-10] MEDS: PANTOPRAZOLE 40 MG TAB PO SCH (09:46)
[2023-10-10] MEDS: ENOXAPARIN SOD 40 MG/0.4 ML SYRINGE SC SCH (09:49)
[2023-10-10 12:27] LABS: Rapid Strep A Screen-Throat Negative
[2023-10-10] MEDS: FUROSEMIDE 40 MG/4 ML VIAL IV ONE (13:12)
[2023-10-10] MEDS: ACETYLCYSTEINE 10 %(100MG/ML) SOL 4ML NEB SCH (14:24)
[2023-10-11] VITALS (20 sets, daily range): BP systolic 122–152; BP diastolic 44–73; PULSE 64–92; RESP 18–24; TEMP 97.3–98; O2SAT 84–96
[2023-10-11 04:49] LABS: Basophils # (auto) 0 10 ^3/uL (0-0.2); Basophils % (auto) 0.1 % (0.0-2.0); Eosinophils # (auto) 0 10 ^3/uL (0-0.8); Eosinophils % (auto) 0.1 % (0.0-7.0); Hematocrit 40.1 % (36.0-46.0); Lymphocytes # (auto) 1.3 10 ^3/uL (0.4-5.4); Lymphocytes % (auto) 7.8 % (10.0-50.0); Mean Corpuscular Hgb Conc. 32.5 g/dL (32.0-36.0); Mean Corpuscular Volume 95.3 fL (80.0-100.0); Monocytes # (auto) 0.4 10 ^3/uL (0-1.3); Monocytes % (auto) 2.2 % (0.0-12.0); Neutrophils # (auto) 15.3 10 ^3/uL (1.6-8.6); Neutrophils % (auto) 89.8 % (37.0-80.0); Red Blood Cells 4.21 10^6/uL (4.0-5.20); Red Cell Distribution Width 13.1 % (11.8-14.3)
[2023-10-11 04:54] LABS: Anion Gap 5 (5-15); Calcium 10.3 mg/dL (8.7-10.4); Carbon Dioxide 31 mmol/L (20-30); Chloride 102 mmol/L (98-107); Potassium 4.5 mmol/L (3.5-5.1); Sodium 138 mmol/L (136-145)
[2023-10-11 05:00] LABS: BUN/Creatinine Ratio 28.3 (10.0-20.0); Blood Urea Nitrogen 30 mg/dL (9-23); Glucose 197 mg/dL (74-106)
[2023-10-11] MEDS: FUROSEMIDE 40 MG/4 ML VIAL IV SCH (05:47)
[2023-10-11 07:42] LABS: CRP High Sensitivity 0.06 mg/dL (<1.0)
[2023-10-11 08:25] LABS: Magnesium 2.3 mg/dL (1.6-2.6)
[2023-10-11] MEDS: methylPREDNISolone SOD SUCC 40 MG/ML VL IV SCH (09:59)
[2023-10-11 11:08] LABS: Base Excess 7.7 mmol/L (-2.0-2.0)
[2023-10-11] MEDS: methylPREDNISolone SOD SUCC 40 MG/ML VL IV ONE (13:15)
[2023-10-12] VITALS (16 sets, daily range): BP systolic 115–149; BP diastolic 54–73; PULSE 57–90; RESP 16–22; TEMP 97.5–98.2; O2SAT 88–95
[2023-10-12 05:42] LABS: Basophils # (auto) 0 10 ^3/uL (0-0.2); Basophils % (auto) 0.1 % (0.0-2.0); Eosinophils # (auto) 0.1 10 ^3/uL (0-0.8); Eosinophils % (auto) 0.3 % (0.0-7.0); Hematocrit 43.2 % (36.0-46.0); Hemoglobin 13.9 g/dL (12.2-16.2); Lymphocytes % (auto) 13.9 % (10.0-50.0); Mean Corpuscular Hemoglobin 30.6 pg (28.0-32.0); Mean Corpuscular Hgb Conc. 32.1 g/dL (32.0-36.0); Mean Corpuscular Volume 95.5 fL (80.0-100.0); Monocytes # (auto) 1.4 10 ^3/uL (0-1.3); Monocytes % (auto) 6.3 % (0.0-12.0); Neutrophils # (auto) 17.5 10 ^3/uL (1.6-8.6); Neutrophils % (auto) 79.4 % (37.0-80.0); Red Blood Cells 4.52 10^6/uL (4.0-5.20)
[2023-10-12 05:43] LABS: Anion Gap 5 (5-15); Carbon Dioxide 32 mmol/L (20-30); Chloride 101 mmol/L (98-107); Sodium 138 mmol/L (136-145)
[2023-10-12 05:45] LABS: Calcium 10.2 mg/dL (8.7-10.4)
[2023-10-12 05:49] LABS: Glucose 161 mg/dL (74-106)
[2023-10-12 05:50] LABS: BUN/Creatinine Ratio 27.5 (10.0-20.0); Blood Urea Nitrogen 30 mg/dL (9-23); Magnesium 2.3 mg/dL (1.6-2.6)
[2023-10-12] MEDS: FUROSEMIDE 40 MG/4 ML VIAL IV SCH (09:38)
[2023-10-12] MEDS: methylPREDNISolone SOD SUCC 40 MG/ML VL IV ONE ×2 (17:00→17:06)
[2023-10-13] VITALS (21 sets, daily range): BP systolic 115–156; BP diastolic 42–79; PULSE 62–104; RESP 14–20; TEMP 97.5–98.7; O2SAT 90–96
[2023-10-13 05:33] LABS: Basophils # (auto) 0 10 ^3/uL (0-0.2); Basophils % (auto) 0.1 % (0.0-2.0); Eosinophils # (auto) 0 10 ^3/uL (0-0.8); Eosinophils % (auto) 0.1 % (0.0-7.0); Hematocrit 42.6 % (36.0-46.0); Lymphocytes # (auto) 2.1 10 ^3/uL (0.4-5.4); Lymphocytes % (auto) 10.4 % (10.0-50.0); Mean Corpuscular Hemoglobin 31.2 pg (28.0-32.0); Mean Corpuscular Hgb Conc. 32.9 g/dL (32.0-36.0); Mean Corpuscular Volume 94.8 fL (80.0-100.0); Monocytes # (auto) 0.8 10 ^3/uL (0-1.3); Monocytes % (auto) 4.3 % (0.0-12.0); Neutrophils # (auto) 16.8 10 ^3/uL (1.6-8.6); Neutrophils % (auto) 85.1 % (37.0-80.0); Red Cell Distribution Width 13.1 % (11.8-14.3); White Blood Cell 19.7 10^3/uL (4.4-10.8)
[2023-10-13 05:51] LABS: Alanine Aminotransferase 15 U/L (7-40); Albumin 4.1 g/dL (3.2-4.8); Alkaline Phosphatase 72 U/L (46-116); Anion Gap 4 (5-15); Aspartate Aminotransferase < 8 U/L (13-40); BUN/Creatinine Ratio 36.7 (10.0-20.0); Bilirubin, Total 0.3 mg/dL (0.2-1.0); Blood Urea Nitrogen 36 mg/dL (9-23); Calcium 10.1 mg/dL (8.7-10.4); Carbon Dioxide 33 mmol/L (20-30); Chloride 100 mmol/L (98-107); Glucose 159 mg/dL (74-106); Magnesium 2.4 mg/dL (1.6-2.6); Potassium 4.3 mmol/L (3.5-5.1); Sodium 137 mmol/L (136-145); Total Protein 6.7 g/dL (5.7-8.2)
[2023-10-13] MEDS: levoFLOXacin 750MG 150 ML IV SCH (09:52)
[2023-10-13] MEDS: methylPREDNISolone SOD SUCC 40 MG/ML VL IV SCH (13:12)
[2023-10-14] VITALS (20 sets, daily range): BP systolic 119–148; BP diastolic 46–72; PULSE 60–82; RESP 16–20; TEMP 97.6–98.9; O2SAT 91–97
[2023-10-14] MEDS: ALBUTEROL SULF 2.5 MG/0.5ML(0.5%) NEB SOLN NEB PRN (02:54)
[2023-10-14 06:06] LABS: Basophils # (auto) 0 10 ^3/uL (0-0.2); Eosinophils # (auto) 0 10 ^3/uL (0-0.8); Hematocrit 40.9 % (36.0-46.0); Hemoglobin 13.4 g/dL (12.2-16.2); Lymphocytes # (auto) 1.5 10 ^3/uL (0.4-5.4); Lymphocytes % (auto) 6.6 % (10.0-50.0); Mean Corpuscular Hemoglobin 31.3 pg (28.0-32.0); Mean Corpuscular Hgb Conc. 32.8 g/dL (32.0-36.0); Mean Corpuscular Volume 95.5 fL (80.0-100.0); Monocytes # (auto) 0.6 10 ^3/uL (0-1.3); Monocytes % (auto) 2.6 % (0.0-12.0); Neutrophils # (auto) 20.3 10 ^3/uL (1.6-8.6); Neutrophils % (auto) 90.8 % (37.0-80.0); Red Blood Cells 4.28 10^6/uL (4.0-5.20); Red Cell Distribution Width 12.9 % (11.8-14.3); White Blood Cell 22.4 10^3/uL (4.4-10.8)
[2023-10-14 06:19] LABS: Alanine Aminotransferase 16 U/L (7-40); Albumin 3.9 g/dL (3.2-4.8); Alkaline Phosphatase 72 U/L (46-116); Anion Gap 7 (5-15); Aspartate Aminotransferase 10 U/L (13-40); BUN/Creatinine Ratio 37.4 (10.0-20.0); Bilirubin, Total 0.3 mg/dL (0.2-1.0); Blood Urea Nitrogen 37 mg/dL (9-23); Calcium 9.6 mg/dL (8.5-10.1); Carbon Dioxide 30 mmol/L (20-30); Chloride 101 mmol/L (98-107); Glucose 206 mg/dL (74-106); Potassium 4.4 mmol/L (3.5-5.1); Sodium 138 mmol/L (136-145); Total Protein 6.4 g/dL (5.7-8.2)
[2023-10-15] VITALS (19 sets, daily range): BP systolic 121–150; BP diastolic 48–64; PULSE 56–71; RESP 16–20; TEMP 97.6–98.7; O2SAT 91–98
[2023-10-15 06:12] LABS: Basophils # (auto) 0 10 ^3/uL (0-0.2); Basophils % (auto) 0.1 % (0.0-2.0); Eosinophils # (auto) 0 10 ^3/uL (0-0.8); Hematocrit 41.4 % (36.0-46.0); Hemoglobin 13.4 g/dL (12.2-16.2); Lymphocytes # (auto) 1.7 10 ^3/uL (0.4-5.4); Lymphocytes % (auto) 7.6 % (10.0-50.0); Mean Corpuscular Hemoglobin 30.8 pg (28.0-32.0); Mean Corpuscular Hgb Conc. 32.4 g/dL (32.0-36.0); Monocytes # (auto) 0.7 10 ^3/uL (0-1.3); Monocytes % (auto) 3.1 % (0.0-12.0); Neutrophils # (auto) 20.5 10 ^3/uL (1.6-8.6); Neutrophils % (auto) 89.2 % (37.0-80.0); Red Blood Cells 4.36 10^6/uL (4.0-5.20); Red Cell Distribution Width 13.2 % (11.8-14.3)
[2023-10-15 06:24] LABS: Anion Gap 4 (5-15); Carbon Dioxide 30 mmol/L (20-30); Chloride 102 mmol/L (98-107); Potassium 4.4 mmol/L (3.5-5.1); Sodium 136 mmol/L (136-145)
[2023-10-15 06:25] LABS: Calcium 9.5 mg/dL (8.7-10.4)
[2023-10-15 06:30] LABS: Blood Urea Nitrogen 37 mg/dL (9-23); Glucose 213 mg/dL (74-106)
[2023-10-15 06:31] LABS: Magnesium 2.3 mg/dL (1.6-2.6)
[2023-10-15] MEDS: INSULIN LANTUS (GLARGINE) 1 /0.01ml (100units/ml) SC SCH (10:10)
[2023-10-15] MEDS ORDERED: diphenhdrAMINE HCL 50 MG/1 ML VL IV ONE (12:00)
[2023-10-16] VITALS (10 sets, daily range): BP systolic 129–155; BP diastolic 48–84; PULSE 51–81; RESP 16–22; TEMP 97.5–98; O2SAT 91–99
[2023-10-16 05:53] LABS: Basophils # (auto) 0 10 ^3/uL (0-0.2); Basophils % (auto) 0.1 % (0.0-2.0); Eosinophils # (auto) 0.1 10 ^3/uL (0-0.8); Eosinophils % (auto) 0.5 % (0.0-7.0); Hematocrit 41.4 % (36.0-46.0); Hemoglobin 13.3 g/dL (12.2-16.2); Lymphocytes # (auto) 3.5 10 ^3/uL (0.4-5.4); Lymphocytes % (auto) 17.3 % (10.0-50.0); Mean Corpuscular Hemoglobin 30.8 pg (28.0-32.0); Mean Corpuscular Hgb Conc. 32.2 g/dL (32.0-36.0); Mean Corpuscular Volume 95.6 fL (80.0-100.0); Monocytes # (auto) 1.3 10 ^3/uL (0-1.3); Monocytes % (auto) 6.5 % (0.0-12.0); Neutrophils # (auto) 15.5 10 ^3/uL (1.6-8.6); Neutrophils % (auto) 75.6 % (37.0-80.0); Nucleated Red Blood Cells % 0.1 %; Red Blood Cells 4.33 10^6/uL (4.0-5.20); Red Cell Distribution Width 13.3 % (11.8-14.3); White Blood Cell 20.5 10^3/uL (4.4-10.8)
[2023-10-16 06:01] LABS: Chloride 102 mmol/L (98-107); Potassium 4.2 mmol/L (3.5-5.1); Sodium 139 mmol/L (136-145)
[2023-10-16 06:02] LABS: Anion Gap 6 (5-15); Calcium 9.4 mg/dL (8.5-10.1); Carbon Dioxide 31 mmol/L (20-30)
[2023-10-16 06:07] LABS: BUN/Creatinine Ratio 47.7 (10.0-20.0); Blood Urea Nitrogen 41 mg/dL (9-23); Glucose 163 mg/dL (74-106)
[2023-10-16] MEDS ORDERED: ATOR20TA50 PO (07:02)
[2023-10-16] MEDS ORDERED: PRED20TA2 PO ×2 (07:02→10:35)
[2023-10-16] MEDS ORDERED: DEXT1SYP9 PO (07:02)
[2023-10-16] MEDS: methylPREDNISolone SOD SUCC 40 MG/ML VL IV SCH (09:37)
[2023-10-16] MEDS ORDERED: FLUT1AER3 IN (10:35)
[2023-10-16] MEDS ORDERED: ALBUAER3 IN (10:35)
[2023-10-16 10:43] LABS: Base Excess 3.6 mmol/L (-2.0-2.0)
== END 2023-10-16 20:03 | disposition home or self-care (01) | DRG 871 ==
LOC: ER 10:47 → TELE 15:03 → TELE-EAST 10-08 02:39
PROVIDERS: ADMIT Internal Medicine; ATTEND Internal Medicine
PROC: 05HD33Z Insertion of Infusion Device into Right Cephalic Vein, Percutaneous Approach (ICD-10-PCS; principal; 2023-10-13)
PROC: B54MZZA Ultrasonography of Right Upper Extremity Veins, Guidance (ICD-10-PCS; 2023-10-13)
DX: A41.89 Other specified sepsis (principal); J12.9 Viral pneumonia, unspecified; J96.01 Acute respiratory failure with hypoxia; J15.69 Pneumonia due to other Gram-negative bacteria; J45.901 Unspecified asthma with (acute) exacerbation; J44.0 Chronic obstructive pulmonary disease with (acute) lower respiratory infection; J44.1 Chronic obstructive pulmonary disease with (acute) exacerbation; E87.3 Alkalosis; J98.11 Atelectasis; E87.20 Acidosis, unspecified; A41.59 Other Gram-negative sepsis; R91.1 Solitary pulmonary nodule; Z20.822 Contact with and (suspected) exposure to COVID-19; I11.0 Hypertensive heart disease with heart failure; I50.9 Heart failure, unspecified; J20.9 Acute bronchitis, unspecified; E66.01 Morbid (severe) obesity due to excess calories; K44.9 Diaphragmatic hernia without obstruction or gangrene; E78.5 Hyperlipidemia, unspecified; R73.03 Prediabetes; L27.1 Localized skin eruption due to drugs and medicaments taken internally; T36.1X5A Adverse effect of cephalosporins and other beta-lactam antibiotics, initial encounter; T36.3X5A Adverse effect of macrolides, initial encounter; Y92.238 Other place in hospital as the place of occurrence of the external cause; Z88.5 Allergy status to narcotic agent; Z88.0 Allergy status to penicillin; Z68.35 Body mass index [BMI] 35.0-35.9, adult; Z90.710 Acquired absence of both cervix and uterus; Z71.3 Dietary counseling and surveillance; Z87.891 Personal history of nicotine dependence; Z83.3 Family history of diabetes mellitus; Z82.49 Family history of ischemic heart disease and other diseases of the circulatory system
CPT/HCPCS: 36415; 36600; 71045; 71250; 71275; 80048; 80053; 80061; 81001; 82805; 82962; 83036; 83605; 83690; 83735; 83880; 84439; 84443; 84484; 85025; 85379; 85610; 86141; 87070; 87077; 87081; 87205; 87426; 87804; 87880; 93005; 93306; 93970; 94640; 96374; 96375; 97110; 97116; 97163; 97530; G0378; J1100; J1815; J1956

== ENCOUNTER 2023-10-27 14:06 | Inpatient (IN) | payer OTHER ==
[~2023-10-27] VITALS: Ht 160 cm; Wt 89.7 kg
[2023-10-27] VITALS (7 sets, daily range): BP systolic 129; BP diastolic 46; PULSE 44–82; RESP 14–21; TEMP 97.5; O2SAT 92–99
[~2023-10-27 14:06] MED LIST changes: +ALBUAER3 IN; +AMLO1TAB21 PO; -ATOR10TA PO; +ATOR20TA50 PO; -CEPH-509 PO; +DEXT1SYP9 PO; -DILT240C59 PO; -FLAXOIL OR; +FLUT1AER3 IN; -FURO20TA3 PO; -LEVO500T31 PO; -LISI20TA56 PO; +LOS25T PO; -METR500T PO; -MULT-1018 PO; +NIFE1TAB30 PO; +PRED20TA2 PO; +[UNRECOGNIZED DRUG - CODE] PO
[2023-10-27 14:50] LABS: Basophils # (auto) 0.1 10 ^3/uL (0-0.2); Basophils % (auto) 0.3 % (0.0-2.0); Eosinophils # (auto) 0 10 ^3/uL (0-0.8); Hematocrit 39.2 % (36.0-46.0); Hemoglobin 12.5 g/dL (12.2-16.2); Lymphocytes # (auto) 1.1 10 ^3/uL (0.4-5.4); Lymphocytes % (auto) 6.2 % (10.0-50.0); Mean Corpuscular Hemoglobin 31.4 pg (28.0-32.0); Mean Corpuscular Volume 98.1 fL (80.0-100.0); Monocytes # (auto) 0.3 10 ^3/uL (0-1.3); Monocytes % (auto) 1.6 % (0.0-12.0); Neutrophils # (auto) 16.4 10 ^3/uL (1.6-8.6); Neutrophils % (auto) 91.9 % (37.0-80.0); Red Blood Cells 3.99 10^6/uL (4.0-5.20); Red Cell Distribution Width 14.1 % (11.8-14.3); White Blood Cell 17.9 10^3/uL (4.4-10.8)
[2023-10-27 15:13] LABS: Alanine Aminotransferase 24 U/L (7-40); Albumin 3.9 g/dL (3.2-4.8); Alkaline Phosphatase 65 U/L (46-116); Anion Gap 7 (5-15); Aspartate Aminotransferase 12 U/L (13-40); Blood Urea Nitrogen 27 mg/dL (9-23); Calcium 9.5 mg/dL (8.7-10.4); Carbon Dioxide 23 mmol/L (20-30); Chloride 107 mmol/L (98-107); Glucose 291 mg/dL (74-106); Lipase 45 U/L (12-53); Potassium 5.5 mmol/L (3.5-5.1); Sodium 137 mmol/L (136-145)
[2023-10-27 15:14] LABS: Bilirubin, Total 0.4 mg/dL (0.2-1.0); Total Protein 6.4 g/dL (5.7-8.2)
[2023-10-27 15:15] LABS: Lactic Acid w/Reflex 2.9 mmol/L (0.4-2.0)
[2023-10-27] MEDS: SODIUM CHLORIDE 0.9% 1,000 ML IV ONE ×2 (15:26→15:29)
[2023-10-27] MEDS: ALBUTEROL SULF 2.5 MG/0.5ML(0.5%) NEB SOLN NEB ONE (15:34)
[2023-10-27] MEDS: DEXTROSE (50%) 50ML SYRG IV ONE (15:36)
[2023-10-27 15:37] LABS: Urine Bacteria None Seen /hpf (None Seen)
[2023-10-27] MEDS: InsuLIN REG 1unit/0.01ml Soln (100units/ml) IV ONE (15:37)
[2023-10-27 15:48] LABS: Urine Blood Negative /uL (Negative); Urine Clarity Turbid (Clear); Urine Color Yellow (Yellow); Urine Hyaline Cast MANY /lpf (0 - 2); Urine Mucus FEW (None Seen); Urine Protein, UAD 1+ (Negative); Urine Specific Gravity 1.022 (1.001-1.035); Urine Urobilinogen 2 mg/dL (Negative); Urine WBC 3 /hpf (0 - 5)
[2023-10-27] MEDS: levoFLOXacin 500MG 100 ML IV ONE (16:11)
[2023-10-27] MEDS: GLUCAGON EMERG KIT 1mg/1ml IV ONE (16:15)
[2023-10-27] MEDS ORDERED: NITROGLYCERIN 0.4 MG SL TAB SL PRN (17:15)
[2023-10-27] MEDS ORDERED: ALBUTEROL SULF 2.5 MG/0.5ML(0.5%) NEB SOLN NEB PRN (17:15)
[2023-10-27] MEDS ORDERED: ACETAMINOPHEN 325 MG TAB PO PRN (17:15)
[2023-10-27] MEDS ORDERED: MORPHINE SULFATE INJ 2 MG/ml SYRG IV PRN (17:15)
[2023-10-27] MEDS ORDERED: guaiFENesin-DM 100/10mg/5ml SYR PO PRN (17:30)
[2023-10-27] MEDS ORDERED: DEXTROSE (50%) 50ML SYRG IV PRN (17:30)
[2023-10-27] MEDS: SODIUM CHLORIDE 0.9% 1,000 ML IV SCH (18:12)
[2023-10-27] MEDS: CEFEPIME 1GM/ 50ML 50 ML IV ONE (18:12)
[2023-10-27] MEDS: ALBUTEROL SULF 2.5 MG/0.5ML(0.5%) NEB SOLN NEB SCH (18:30)
[2023-10-27] MEDS: IPRATROPIUM BROM 0.5 MG/2.5ML INH SOL NEB SCH (18:30)
[2023-10-27] MEDS: MONTELUKAST SODIUM 10 MG TAB PO SCH (21:22)
[2023-10-27] MEDS: ATORVASTATIN 20 MG TAB PO SCH (21:22)
[2023-10-27] MEDS: METHYLSULFONYLMETHANE 1500 MG PO SCH (21:27)
[2023-10-27] MEDS: ACCU-CHEK COMFORT CURVE STRIP VI SCH (21:50)
[2023-10-27] MEDS: LINEZOLID 600MG/300ML 300 ML IV SCH (21:50)
[2023-10-27] MEDS: InsuLIN REG 1unit/0.01ml Soln (100units/ml) SC SCH (21:54)
[2023-10-27] MEDS: IPRATROPIUM BROM 0.5 MG/2.5ML INH SOL ONE (22:00)
[2023-10-27] MEDS: ALBUTEROL SULF 2.5 MG/0.5ML(0.5%) NEB SOLN ONE (22:00)
[2023-10-28] VITALS (22 sets, daily range): BP systolic 116–150; BP diastolic 41–64; PULSE 57–89; RESP 16–20; TEMP 97.8–98.4; O2SAT 86–100
[2023-10-28] MEDS: IPRATROPIUM BROM 0.5 MG/2.5ML INH SOL ONE (03:04)
[2023-10-28] MEDS: ALBUTEROL SULF 2.5 MG/0.5ML(0.5%) NEB SOLN ONE (03:04)
[2023-10-28 05:26] LABS: Basophils # (auto) 0 10 ^3/uL (0-0.2); Basophils % (auto) 0.1 % (0.0-2.0); Eosinophils # (auto) 0.1 10 ^3/uL (0-0.8); Eosinophils % (auto) 0.4 % (0.0-7.0); Hematocrit 33.6 % (36.0-46.0); Lymphocytes # (auto) 3.2 10 ^3/uL (0.4-5.4); Lymphocytes % (auto) 17.2 % (10.0-50.0); Mean Corpuscular Hemoglobin 31.9 pg (28.0-32.0); Mean Corpuscular Hgb Conc. 32.7 g/dL (32.0-36.0); Mean Corpuscular Volume 97.4 fL (80.0-100.0); Monocytes # (auto) 0.7 10 ^3/uL (0-1.3); Monocytes % (auto) 3.8 % (0.0-12.0); Neutrophils # (auto) 14.4 10 ^3/uL (1.6-8.6); Neutrophils % (auto) 78.5 % (37.0-80.0); Red Blood Cells 3.45 10^6/uL (4.0-5.20); Red Cell Distribution Width 14.1 % (11.8-14.3); White Blood Cell 18.4 10^3/uL (4.4-10.8)
[2023-10-28 05:47] LABS: Alanine Aminotransferase 18 U/L (7-40); Alkaline Phosphatase 53 U/L (46-116)
[2023-10-28 05:48] LABS: Albumin 3.4 g/dL (3.2-4.8); Anion Gap 5 (5-15); Aspartate Aminotransferase 12 U/L (13-40); BUN/Creatinine Ratio 18.2 (10.0-20.0); Bilirubin, Total 0.4 mg/dL (0.2-1.0); Blood Urea Nitrogen 20 mg/dL (9-23); Calcium 9.2 mg/dL (8.7-10.4); Carbon Dioxide 25 mmol/L (20-30); Chloride 110 mmol/L (98-107); Glucose 144 mg/dL (74-106); Potassium 4.3 mmol/L (3.5-5.1); Sodium 140 mmol/L (136-145); Total Protein 5.5 g/dL (5.7-8.2)
[2023-10-28] MEDS ORDERED: [UNRECOGNIZED DRUG - CODE] PO (08:32)
[2023-10-28] MEDS ORDERED: ZOFR4T PO (08:32)
[2023-10-28] MEDS ORDERED: FURO20TA3 PO (08:32)
[2023-10-28] MEDS ORDERED: CETI10TA2 PO (08:32)
[2023-10-28] MEDS ORDERED: DILT60TA PO (08:32)
[2023-10-28] MEDS: ENOXAPARIN SOD 30 MG/0.3 ML SYRINGE ONE (09:04)
[2023-10-28] MEDS: ASPirin 81 mg TAB ONE (09:04)
[2023-10-28] MEDS: CEFEPIME 1GM/ 50ML 50 ML IV SCH (09:30)
[2023-10-28] MEDS: ENOXAPARIN SOD 30 MG/0.3 ML SYRINGE SC SCH (09:30)
[2023-10-28] MEDS: ASPirin-EC 81 mg tab PO SCH (09:32)
[2023-10-28] MEDS: InsuLIN REG 1unit/0.01ml Soln (100units/ml) ONE (16:56)
[2023-10-28] MEDS ORDERED: ALBU108A5 INH (17:06)
[2023-10-29] VITALS (19 sets, daily range): BP systolic 130–147; BP diastolic 49–66; PULSE 74–97; RESP 14–22; TEMP 97.6–98.6; O2SAT 94–100
[2023-10-29 05:51] LABS: Basophils # (auto) 0.1 10 ^3/uL (0-0.2); Basophils % (auto) 0.4 % (0.0-2.0); Eosinophils # (auto) 1.1 10 ^3/uL (0-0.8); Eosinophils % (auto) 7.8 % (0.0-7.0); Hematocrit 37.4 % (36.0-46.0); Lymphocytes # (auto) 2.7 10 ^3/uL (0.4-5.4); Lymphocytes % (auto) 19.5 % (10.0-50.0); Mean Corpuscular Hemoglobin 31.5 pg (28.0-32.0); Mean Corpuscular Volume 98.4 fL (80.0-100.0); Monocytes # (auto) 0.6 10 ^3/uL (0-1.3); Neutrophils # (auto) 9.4 10 ^3/uL (1.6-8.6); Neutrophils % (auto) 68.3 % (37.0-80.0); Red Blood Cells 3.81 10^6/uL (4.0-5.20); Red Cell Distribution Width 14.5 % (11.8-14.3); White Blood Cell 13.8 10^3/uL (4.4-10.8)
[2023-10-29 06:02] LABS: Chloride 110 mmol/L (98-107); Potassium 4.3 mmol/L (3.5-5.1); Sodium 142 mmol/L (136-145)
[2023-10-29 06:03] LABS: Anion Gap 7 (5-15); Calcium 9.3 mg/dL (8.5-10.1); Carbon Dioxide 25 mmol/L (20-30)
[2023-10-29 06:08] LABS: Blood Urea Nitrogen 16 mg/dL (9-23); Glucose 146 mg/dL (74-106)
[2023-10-29] MEDS: FUROSEMIDE 20 MG TAB PO SCH (12:54)
[2023-10-29] MEDS: amLODIPine BESYLATE 5 MG TAB PO SCH (12:54)
[2023-10-30] VITALS (11 sets, daily range): BP systolic 140–155; BP diastolic 65–84; PULSE 84–98; RESP 14–22; TEMP 97.7–98.1; O2SAT 83–98
[2023-10-30 05:12] LABS: Basophils # (auto) 0.1 10 ^3/uL (0-0.2); Basophils % (auto) 0.5 % (0.0-2.0); Eosinophils # (auto) 1.2 10 ^3/uL (0-0.8); Eosinophils % (auto) 9.4 % (0.0-7.0); Hematocrit 36.5 % (36.0-46.0); Hemoglobin 11.6 g/dL (12.2-16.2); Lymphocytes # (auto) 2.1 10 ^3/uL (0.4-5.4); Mean Corpuscular Hemoglobin 30.6 pg (28.0-32.0); Mean Corpuscular Hgb Conc. 31.7 g/dL (32.0-36.0); Mean Corpuscular Volume 96.6 fL (80.0-100.0); Monocytes # (auto) 0.6 10 ^3/uL (0-1.3); Monocytes % (auto) 4.7 % (0.0-12.0); Neutrophils # (auto) 9.1 10 ^3/uL (1.6-8.6); Neutrophils % (auto) 69.4 % (37.0-80.0); Red Blood Cells 3.77 10^6/uL (4.0-5.20); Red Cell Distribution Width 14.4 % (11.8-14.3); White Blood Cell 13.1 10^3/uL (4.4-10.8)
[2023-10-30 05:27] LABS: Anion Gap 9 (5-15); Carbon Dioxide 26 mmol/L (20-30); Chloride 104 mmol/L (98-107); Potassium 3.7 mmol/L (3.5-5.1); Sodium 139 mmol/L (136-145)
[2023-10-30 05:28] LABS: Calcium 9.7 mg/dL (8.7-10.4)
[2023-10-30 05:33] LABS: BUN/Creatinine Ratio 16.5 (10.0-20.0); Blood Urea Nitrogen 16 mg/dL (9-23); Glucose 131 mg/dL (74-106)
[2023-10-30] MEDS: ENOXAPARIN SOD 40 MG/0.4 ML SYRINGE SC SCH (08:41)
[2023-10-30] MEDS ORDERED: IPR002IS HHN ×2 (12:02→12:11)
[2023-10-30] MEDS ORDERED: DOXY-448 PO (12:11)
[2023-10-30] MEDS ORDERED: PRED20TA2 PO (12:11)
== END 2023-10-30 13:00 | disposition home or self-care (01) | DRG 871 ==
LOC: ER 14:06 → TELE 17:22 → TELE-WESTW 17:22
PROVIDERS: ADMIT Nurse Practitioner Family; ATTEND Internal Medicine Pulmonary Disease
DX: A41.9 Sepsis, unspecified organism (principal); I50.33 Acute on chronic diastolic (congestive) heart failure; J18.9 Pneumonia, unspecified organism; J96.21 Acute and chronic respiratory failure with hypoxia; N17.9 Acute kidney failure, unspecified; J44.0 Chronic obstructive pulmonary disease with (acute) lower respiratory infection; E66.01 Morbid (severe) obesity due to excess calories; E78.5 Hyperlipidemia, unspecified; T50.995A Adverse effect of other drugs, medicaments and biological substances, initial encounter; E87.5 Hyperkalemia; R73.9 Hyperglycemia, unspecified; K21.9 Gastro-esophageal reflux disease without esophagitis; I11.0 Hypertensive heart disease with heart failure; F17.200 Nicotine dependence, unspecified, uncomplicated; Z68.35 Body mass index [BMI] 35.0-35.9, adult; Z82.49 Family history of ischemic heart disease and other diseases of the circulatory system; Z83.3 Family history of diabetes mellitus; Z88.0 Allergy status to penicillin; Z90.710 Acquired absence of both cervix and uterus; Y92.89 Other specified places as the place of occurrence of the external cause
CPT/HCPCS: 36415; 71045; 78582; 80048; 80053; 81001; 82962; 83605; 83690; 83880; 83930; 84132; 84484; 85025; 85379; 87040; 87081; 93005; 93970; 94640; 96365; 96375; 97163; G0378; J1815; J1956

== ENCOUNTER → 2023-11-27 | Outpatient (CLI) | payer OTHER ==
[~2023-11-27] MED LIST changes: +ALBU108A5 INH; -ALBUAER3 IN; +CETI10TA2 PO; +DILT60TA PO; +DOXY-448 PO; +FURO20TA3 PO; +IPR002IS HHN; +ZOFR4T PO
[2023-11-27 11:10] LABS: Basophils # (auto) 0.1 10 ^3/uL (0-0.2); Basophils % (auto) 0.9 % (0.0-2.0); Eosinophils # (auto) 0.4 10 ^3/uL (0-0.8); Hematocrit 40.8 % (36.0-46.0); Hemoglobin 13.2 g/dL (12.2-16.2); Lymphocytes # (auto) 3.7 10 ^3/uL (0.4-5.4); Lymphocytes % (auto) 28.1 % (10.0-50.0); Mean Corpuscular Hemoglobin 30.1 pg (28.0-32.0); Mean Corpuscular Hgb Conc. 32.5 g/dL (32.0-36.0); Mean Corpuscular Volume 92.7 fL (80.0-100.0); Monocytes # (auto) 0.9 10 ^3/uL (0-1.3); Monocytes % (auto) 6.6 % (0.0-12.0); Neutrophils % (auto) 61.4 % (37.0-80.0); Nucleated Red Blood Cells % 0.1 %; Red Cell Distribution Width 14.6 % (11.8-14.3); White Blood Cell 13.1 10^3/uL (4.4-10.8)
[2023-11-27 12:21] LABS: Alanine Aminotransferase 17 U/L (7-40); Alkaline Phosphatase 98 U/L (46-116); Anion Gap 11 (5-15); Carbon Dioxide 22 mmol/L (20-30); Chloride 108 mmol/L (98-107); Potassium 4.1 mmol/L (3.5-5.1); Sodium 141 mmol/L (136-145)
[2023-11-27 12:22] LABS: Blood Urea Nitrogen 19 mg/dL (9-23); Glucose 120 mg/dL (74-106)
[2023-11-27 12:24] LABS: Aspartate Aminotransferase 16 U/L (13-40); Bilirubin, Total 0.4 mg/dL (0.2-1.0)
[2023-11-27 12:25] LABS: Albumin 4.4 g/dL (3.2-4.8)
== END | disposition home or self-care (01) ==
LOC: LAB 11:00
PROVIDERS: ATTEND Internal Medicine
DX: I13.0 Hypertensive heart and chronic kidney disease with heart failure and stage 1 through stage 4 chronic kidney disease, or unspecified chronic kidney disease (principal); N18.32 Chronic kidney disease, stage 3b; I50.9 Heart failure, unspecified
CPT/HCPCS: 36415; 80053; 85025

== ENCOUNTER → 2024-01-15 | Outpatient (CLI) | payer OTHER ==
[2024-01-15 10:28] LABS: Urine Bacteria None Seen /hpf (None Seen)
[2024-01-15 10:39] LABS: Basophils # (auto) 0.1 10 ^3/uL (0-0.2); Basophils % (auto) 0.8 % (0.0-2.0); Eosinophils # (auto) 0.8 10 ^3/uL (0-0.8); Eosinophils % (auto) 6.5 % (0.0-7.0); Hematocrit 41.6 % (36.0-46.0); Hemoglobin 13.8 g/dL (12.2-16.2); Lymphocytes # (auto) 2.9 10 ^3/uL (0.4-5.4); Lymphocytes % (auto) 23.9 % (10.0-50.0); Mean Corpuscular Hgb Conc. 33.1 g/dL (32.0-36.0); Mean Corpuscular Volume 90.8 fL (80.0-100.0); Monocytes # (auto) 0.6 10 ^3/uL (0-1.3); Monocytes % (auto) 4.8 % (0.0-12.0); Neutrophils # (auto) 7.8 10 ^3/uL (1.6-8.6); Red Blood Cells 4.59 10^6/uL (4.0-5.20); Red Cell Distribution Width 14.9 % (11.8-14.3); White Blood Cell 12.2 10^3/uL (4.4-10.8)
[2024-01-15 10:40] LABS: Urine Blood Negative /uL (Negative); Urine Clarity Clear (Clear); Urine Color Light-Yellow (Yellow); Urine Hyaline Cast FEW /lpf (0 - 2); Urine Protein, UAD Negative (Negative); Urine Specific Gravity 1.012 (1.001-1.035); Urine Urobilinogen Normal (Negative); Urine WBC 1 /hpf (0 - 5)
[2024-01-15 10:56] LABS: Potassium 4.5 mmol/L (3.5-5.1)
[2024-01-15 10:57] LABS: Calcium 10.1 mg/dL (8.5-10.1)
[2024-01-15 10:58] LABS: Creatinine, Urine 63.43 mg/dL (30.0-125.0)
[2024-01-15 11:02] LABS: BUN/Creatinine Ratio 21.6 (10.0-20.0); Creatinine, Urine 63.33 mg/dL (30.0-125.0); Urine Protein/Creatinine Ratio 0.17
[2024-01-15 11:03] LABS: Albumin 4.5 g/dL (3.2-4.8)
[2024-01-15 11:04] LABS: Phosphorus 3.1 mg/dL (2.4-5.1)
[2024-01-15 12:56] LABS: Uric Acid 7.7 mg/dL (3.1-7.8)
== END | disposition home or self-care (01) ==
LOC: LAB 10:02
PROVIDERS: ATTEND Internal Medicine
DX: E11.22 Type 2 diabetes mellitus with diabetic chronic kidney disease (principal); N18.31 Chronic kidney disease, stage 3a; D63.1 Anemia in chronic kidney disease; E21.3 Hyperparathyroidism, unspecified; E78.5 Hyperlipidemia, unspecified; M10.9 Gout, unspecified; R80.9 Proteinuria, unspecified; R82.90 Unspecified abnormal findings in urine
CPT/HCPCS: 36415; 80069; 81001; 82043; 82306; 82570; 83036; 84156; 84550; 85025

== ENCOUNTER → 2024-06-02 | Outpatient (CLI) | payer OTHER ==
[~2024-06-02] MED LIST changes: -DOXY-448 PO; +DOXY100C79 PO
[2024-06-02 07:35] LABS: Urine Bacteria None Seen /hpf (None Seen)
[2024-06-02 07:50] LABS: Basophils # (auto) 0.1 10 ^3/uL (0-0.2); Basophils % (auto) 1.2 % (0.0-2.0); Eosinophils # (auto) 0.7 10 ^3/uL (0-0.8); Eosinophils % (auto) 7.4 % (0.0-7.0); Hematocrit 42.7 % (36.0-46.0); Hemoglobin 13.8 g/dL (12.2-16.2); Lymphocytes # (auto) 2.4 10 ^3/uL (0.4-5.4); Lymphocytes % (auto) 24.5 % (10.0-50.0); Mean Corpuscular Hemoglobin 30.1 pg (28.0-32.0); Mean Corpuscular Hgb Conc. 32.3 g/dL (32.0-36.0); Mean Corpuscular Volume 93.1 fL (80.0-100.0); Monocytes # (auto) 0.5 10 ^3/uL (0-1.3); Monocytes % (auto) 4.7 % (0.0-12.0); Neutrophils # (auto) 6.2 10 ^3/uL (1.6-8.6); Neutrophils % (auto) 62.2 % (37.0-80.0); Platelet Count (auto) 380 10^3/uL (140-450); Red Blood Cells 4.59 10^6/uL (4.0-5.20); Red Cell Distribution Width 14.5 % (11.8-14.3)
[2024-06-02 08:01] LABS: Urine Blood Negative /uL (Negative); Urine Clarity Clear (Clear); Urine Color Colorless (Yellow); Urine Hyaline Cast FEW /lpf (0 - 2); Urine Protein, UAD Negative (Negative); Urine Specific Gravity 1.009 (1.001-1.035); Urine Urobilinogen Normal (Negative); Urine WBC 21 /hpf (0 - 5)
[2024-06-02 08:04] LABS: Potassium 4.5 mmol/L (3.5-5.1)
[2024-06-02 08:05] LABS: Calcium 10.2 mg/dL (8.7-10.4)
[2024-06-02 08:10] LABS: BUN/Creatinine Ratio 20.6 (10.0-20.0)
[2024-06-02 08:11] LABS: Albumin 4.4 g/dL (3.2-4.8)
[2024-06-02 08:13] LABS: Phosphorus 3.2 mg/dL (2.4-5.1)
[2024-06-02 08:25] LABS: Protein, Urine < 6.0 mg/dL (1-14)
[2024-06-02 08:28] LABS: Creatinine, Urine 30.26 mg/dL (30.0-125.0)
[2024-06-02 08:49] LABS: Uric Acid 8.4 mg/dL (3.1-7.8)
== END | disposition home or self-care (01) ==
LOC: LAB 07:08
PROVIDERS: ATTEND Internal Medicine
DX: E11.22 Type 2 diabetes mellitus with diabetic chronic kidney disease (principal); E11.21 Type 2 diabetes mellitus with diabetic nephropathy; N18.30 Chronic kidney disease, stage 3 unspecified; D63.1 Anemia in chronic kidney disease; N39.0 Urinary tract infection, site not specified; R80.9 Proteinuria, unspecified; E21.3 Hyperparathyroidism, unspecified; M10.9 Gout, unspecified; E55.9 Vitamin D deficiency, unspecified
CPT/HCPCS: 36415; 80069; 81001; 82306; 82570; 83970; 84156; 84550; 85025

== ENCOUNTER 2024-07-18 18:03 | Inpatient (IN) | payer OTHER ==
[~2024-07-18] VITALS: Ht 160 cm; Wt 87.1 kg
[~2024-07-18 18:03] MED LIST changes: +AMLO1TAB22 PO; +ATOR-507 PO; +FURO40TA4 PO; +METO25TA5 PO; +OMEP-448 PO; +ONDA-180 PO
--- NOTE | 2024-07-18 18:36 | ED.PDOC ---
SOB-HPI HPI Comments An 84 year old female presents to the ED with a chief complaint of shortness of breath onset yesterday. Patient states she began experiencing shortness of breath, cough, chills, generalized weakness yesterday but worsen today. Patient was seen at urgent care, med neb treatment and steroids were given but O2 sat was still low, patient is not on oxygen at home, Chest XY was also done. Upon triage O2 sat was 92% on 4L. Past medical history of asthma, HTN, HLD. Denies chest pain, headache, dizziness, abdominal pain, diarrhea, nausea, vomiting. No other symptoms or modifying factors present at this time. 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 History Family History Family History: Reviewed,noncontributory to illness, No family hx of Cancer, No family hx of DM, No family hx of Heart janell, No family hx of HTN, No family hx ofKidney janell, No family hx of Liver janell, No family hx of Lung janell, No family hx of Stroke Social History Smoker: Non-Smoker Alcohol: Denies ETOH Use Drugs: Denies Drug Use Lives In: Home Constitutional: reports: chills, weakness; denies: diaphoresis, fatigue, fever, malaise, sweats, others EENTM: denies: blurred vision, double vision, ear bleeding, ear discharge, ear drainage, ear pain, ear ringing, eye pain, eye redness, hearing loss, mouth pain, mouth swelling, nasal discharge, nose bleeding, nose congestion, nose pain, photophobia, tearing, throat pain, throat swelling, voice changes, others Respiratory: reports: cough, shortness of breath; denies: hemoptysis, orthopnea, SOB at rest, SOB with excertion, stridor, wheezing, others Cardiovascular: denies: chest pain, dizzy spells, diaphoresis, Dyspnea on exertion, edema, irregular heart beat, left arm pain, lightheadedness, palpitations, PND, syncope, others Gastrointestinal: denies: abdomen distended, abdominal pain, blood streaked bowels, constipated, diarrhea, dysphagia, difficulty swallowing, hematemesis, melena, nausea, poor appetite, poor fluid intake, rectal bleeding, rectal pain, vomiting, others Genitourinary: denies: abnormal vagina bleeding, burning, dyspareunia, dysuria, flank pain, frequency, hematuria, incontinence, pain, , vagina discharge, urgency, others Neurological: denies: dizziness, fainting, headache, left sided numbness, left sided weakness, numbness, paresthesia, pre-existing deficit, right sided numbness, right sided weakness, seizure, speech problems, tingling, tremors, weakness, others Musculoskeletal: denies: back pain, gout, joint pain, joint swelling, muscle pain, muscle stiffness, neck pain, others Integumetry: denies: bruises, change in color, change in hair/nails, dryness, laceration, lesions, lumps, rash, wounds, others Allergic/Immunocompromised: denies: Difficulty Healing, Frequent Infections, Hives, Itching, others Hematologic/Lymphatic: denies: anemia, blood clots, easy bleeding, easy bruising, swollen glands, others Endocrine: denies: excessive hunger, excessive sweating, excessive thirst, excessive urination, flushing, intolerance to cold, intolerance to heat, unexplained weight gain, unexplained weight loss, others Psychiatric: denies: anxiety, bipolar disorder, depression, hopeless, panic disorder, schizophrenia, sleepless, suicidal, others All Other Systems: Reviewed and Negative Physical Exam General Appearance: Moderate Distress HEENT: Normal ENT Inspection, Pharynx Normal, TMs Normal Neck: Full Range of Motion, Non-Tender, Normal, Normal Inspection Respiratory: Crackles, Respiratory Distress, Wheezing Cardiovascular: No Edema, No JVD, No Murmur, No Gallop, Normal Peripheral Pulses, Regular Rate/Rhythm Breast Exam: Deferred Gastrointestinal: No Organomegaly, Non Tender, No Pulsatile Mass, Normal Bowel Sounds, Soft Genitalia: Deferred Pelvic: Deferred Rectal: Deferred Extremities: No calf tenderness, Normal capillary refill, Normal inspection, Normal range of motion, Non-tender, No pedal edema Musculoskeletal : Apperance: Normal Neurologic: Alert, spot man II-XII nml as Tested, No Motor Deficits, Normal Affect, Normal Mood, No Sensory Deficits Cerebellar Function: Normal Reflexes: Normal Skin: Dry, Normal Color, Warm Lymphatic: No Adenopathy Was a procedure done? Was a procedure done?: No Differential Dx Differential Diagnosis: Asthma, Bronchitis, CHF, COPD, Pneumothorax, Pulmonary Embolism, Other X-Ray, Labs, Meds, VS Vital Signs Date Time Temp Pulse Resp B/P (MAP) Pulse Ox O2 Delivery O2 Flow Rate FiO2 07/18/24 21:27 87 07/18/24 21:00 98.2 91 16 121/64 (83) 93 98.2 07/18/24 21:00 16 93 Nasal Cannula* 4 36 07/18/24 18:53 91 Nasal Cannula* 6 44 07/18/24 18:53 18 91 Nasal Cannula* 6 44 07/18/24 18:27 98.8 96 18 143/103 (116) 92 Lab Test 07/18/24 21:10 07/18/24 19:39 07/18/24 18:40 Range/Units Troponin I High Sensitivity 3 L 4 </=34 ng/L White Blood Count 11.5 H 4.4-10.8 10^3/uL Red Blood Count 4.40 4.0-5.20 10^6/uL Hemoglobin 13.0 12.2-16.2 g/dL Hematocrit 41.1 36.0-46.0 % Mean Corpuscular Volume 93.4 80.0-100.0 fL Mean Corpuscular Hemoglobin 29.6 28.0-32.0 pg Mean Corpuscular Hemoglobin Concent 31.7 L 32.0-36.0 g/dL Red Cell Distribution Width 14.9 H 11.8-14.3 % Platelet Count 301 140-450 10^3/uL Mean Platelet Volume 8.2 6.9-10.8 fL Neutrophils (%) (Auto) 82.7 H 37.0-80.0 % Lymphocytes (%) (Auto) 12.8 10.0-50.0 % Monocytes (%) (Auto) 3.4 0.0-12.0 % Eosinophils (%) (Auto) 0.5 0.0-7.0 % Basophils (%) (Auto) 0.6 0.0-2.0 % Neutrophils # (Auto) 9.5 H 1.6-8.6 10 ^3/uL Lymphocytes # (Auto) 1.5 0.4-5.4 10 ^3/uL Monocytes # (Auto) 0.4 0-1.3 10 ^3/uL Eosinophils # (Auto) 0.1 0-0.8 10 ^3/uL Basophils # (Auto) 0.1 0-0.2 10 ^3/uL Nucleated Red Blood Cells 0.0 % Sodium Level 139 136-145 mmol/L Potassium Level 4.1 3.5-5.1 mmol/L Chloride Level 104 98-107 mmol/L Carbon Dioxide Level 25 20-31 mmol/L Anion Gap 10 5-15 Blood Urea Nitrogen 23 9-23 mg/dL Creatinine 1.54 H 0.550-1.02 mg/dL Glomerular Filtration Rate Calc 33 >90 mL/min BUN/Creatinine Ratio 14.9 10.0-20.0 Serum Glucose 208 H 74-106 mg/dL Lactic Acid Level 1.5 0.4-2.0 mmol/L Calcium Level 10.0 8.7-10.4 mg/dL Total Bilirubin 0.2 0.2-1.0 mg/dL Aspartate Amino Transferase (AST) 18 13-40 U/L Alanine Aminotransferase (ALT) 17 7-40 U/L Alkaline Phosphatase 93 46-116 U/L B-Type Natriuretic Peptide 83.89 0-100 pg/mL Total Protein 7.1 5.7-8.2 g/dL Albumin 4.6 3.2-4.8 g/dL Blood Gas Specimen Type Venous Blood Gas Sample Site Vbg - n/a Blood Gas Patient Temperature 37.0 Arterial Blood Date Drawn [id number] Juaquin Test N/a Venous Blood pH 7.432 H 7.320-7.430 Venous Blood pCO2 at Patient Temp 40.7 38.0-54.0 mmHg Venous Blood pO2 at Patient Temp < 36.5 23.0-48.0 mmHg Venous Blood HCO3 26.5 22.0-29.0 mmol/L Venous Blood Base Excess 2.1 -2.0-3.0 mmol/L Blood Gas Liter Flow 4.00 Blood Gas Modality Nasal cannula FiO2 % 36.0 Current Medications Medications (Trade) Dose Ordered Sig/Mary [place] Route Start Time Stop Time Status Last Admin Prednisone 40 mg ONCE ONCE PO 07/18/24 18:30 07/18/24 18:32 DC 07/18/24 21:05 Albuterol (Ventolin Medneb) 5 mg ONCE ONCE NEB 07/18/24 18:30 07/18/24 18:32 DC 07/18/24 18:53 Ipratropium [place] (Atrovent Medneb) 0.5 mg ONCE ONCE NEB 07/18/24 18:30 07/18/24 18:32 DC 07/18/24 18:53 Time of 1ST Reevaluation: 18:56 Reevaluation 1ST: Unchanged Time of 2ND Reevaluation: 00:30 Reevaluation 2ND: Unchanged Patient Education/Counseling: Diagnosis, Treatment, Prognosis Family Education/Counseling: Diagnosis, Treatment, Prognosis Additional Information I reviewed the following notes from patient's past medical encounters: The following tests were ordered, and results were reviewed by me: TROP, CBC, CMP, BNP, EKG, TROP, RAPID INFLUENZA A&B, LA W/ REFLEX, BLOOD CULTURE, VBG Additional Information was gathered from interviewing the following independent historians: daughter I discussed treatment and results with medical personnel and: patient, daughter Departure 1 Departure Time of Disposition: 00:30 Impression: Primary Impression: COPD with acute exacerbation Additional Impression: Respiratory failure with hypoxia Disposition: ADMITTED INPATIENT Admit to: Med Surg Condition: Guarded e-Prescriptions Albuterol Sulfate (Albuterol Sulfate Hfa) 108 Mcg/Act Aer 108 MCG IN Q6HP PRN, #1 AER Prov: STEPHANIE COREA MD 07/18/24 Albuterol Sulfate (Albuterol Sulfate) 0.083 % Neb 1 VIAL NEB Q4HPRN for 100 Days, #100 VIAL Prov: STEPHANIE COREA MD 07/18/24 Prednisone (Prednisone) 20 Mg Tab 20 MG PO BID for 5 Days, #10 MG Prov: STEPHANIE COREA MD 07/18/24 Critical Care Note Critical Care Time?: No Stability Stability form required: No Heart Score Heart Score: Heart Score Response (Comments) Value History Slightly Suspicious 0 EKG Normal 0 Age >65 2 Risk Factors 1 or 2 risk factors 1 Troponin Normal limit 0 Total 3 I personally scribed for STEPHANIE COREA MD ([email or web address]) on 07/18/24 at 18:36. Electronically submitted by Stephanie Jameson ([email or web address]). I personally scribed for STEPHANIE COREA MD ([email or web address]) on 07/18/24 at 18:45. Electronically submitted by Stephanie Jameson ([email or web address]). I personally scribed for STEPHANIE COREA MD ([email or web address]) on 07/18/24 at 18:46. Electronically submitted by Stephanie Jameson ([email or web address]). STEPHANIE COREA MD Jul 18, 2024 18:36
[2024-07-18] MEDS: ALBUTEROL SULF 2.5 MG/0.5ML(0.5%) NEB SOLN NEB ONE (18:53)
[2024-07-18] MEDS: IPRATROPIUM BROM 0.5 MG/2.5ML INH SOL NEB ONE (18:53)
[2024-07-18 19:58] LABS: Basophils # (auto) 0.1 10 ^3/uL (0-0.2); Basophils % (auto) 0.6 % (0.0-2.0); Eosinophils # (auto) 0.1 10 ^3/uL (0-0.8); Eosinophils % (auto) 0.5 % (0.0-7.0); Hematocrit 41.1 % (36.0-46.0); Lymphocytes # (auto) 1.5 10 ^3/uL (0.4-5.4); Lymphocytes % (auto) 12.8 % (10.0-50.0); Mean Corpuscular Hemoglobin 29.6 pg (28.0-32.0); Mean Corpuscular Hgb Conc. 31.7 g/dL (32.0-36.0); Mean Corpuscular Volume 93.4 fL (80.0-100.0); Monocytes # (auto) 0.4 10 ^3/uL (0-1.3); Monocytes % (auto) 3.4 % (0.0-12.0); Neutrophils # (auto) 9.5 10 ^3/uL (1.6-8.6); Neutrophils % (auto) 82.7 % (37.0-80.0); Platelet Count (auto) 301 10^3/uL (140-450); Red Cell Distribution Width 14.9 % (11.8-14.3); White Blood Cell 11.5 10^3/uL (4.4-10.8)
[2024-07-18 20:12] LABS: Alanine Aminotransferase 17 U/L (7-40); Albumin 4.6 g/dL (3.2-4.8); Alkaline Phosphatase 93 U/L (46-116); Anion Gap 10 (5-15); Aspartate Aminotransferase 18 U/L (13-40); BUN/Creatinine Ratio 14.9 (10.0-20.0); Blood Urea Nitrogen 23 mg/dL (9-23); Carbon Dioxide 25 mmol/L (20-31); Chloride 104 mmol/L (98-107); Potassium 4.1 mmol/L (3.5-5.1); Sodium 139 mmol/L (136-145)
[2024-07-18 20:13] LABS: Bilirubin, Total 0.2 mg/dL (0.2-1.0); Glucose 208 mg/dL (74-106); Total Protein 7.1 g/dL (5.7-8.2)
[2024-07-18] MEDS: predniSONE 20 MG TAB PO ONE (21:05)
--- NOTE | 2024-07-18 21:29 | ECG ---
[facility] Test Date: 2024-07-18 Test Time: 21:27:23 Pat Name: ROSALIO SMILEY Department: ER Room: [address] [place] [address] Gender: F Personnel Security Specialist: ROCIO : 1940 Requested By: STEPHANIE COREA Order Number: [id number] Reading MD: Rodrigo De La Cruz Measurements Intervals [place] Rate: 87 P: 56 [place]: 164 QRS: 31 QRSD: 86 T: 34 QT: 394 QTc: 474 Interpretive Statements Sinus rhythm Low voltage, precordial leads Abnormal inferior Q waves Electronically Signed On 07-19-2024 14:17:47 PST by Rodrigo De La Cruz Please click the below link to view image of tracing.
--- NOTE | 2024-07-18 21:59 | DVH ---
CHEST RADIOGRAPH Indication: SOB Technique: Single frontal view of the chest was obtained Comparison: XY CHEST PORTABLE on DOS: 10/27/23, XY CHEST PORTABLE on DOS: 10/14/23, XY CHEST PORTABLE on DOS: 10/11/23 FINDINGS: Lines and Tubes: None Lungs: Mild interstitial prominence with bibasilar opacities Pleura: No effusion. No pneumothorax. Cardiomediastinal contours: [id number] cardiomegaly with mild atherosclerotic calcification and uncoiling of the aorta. Bones: No acute osseous abnormality. IMPRESSION: Pulmonary vascular congestion with bibasilar atelectasis.
[2024-07-18] MEDS ORDERED: ALBU0.084 NEB (22:14)
[2024-07-18] MEDS ORDERED: PRED20TA2 PO (22:14)
[2024-07-18] MEDS ORDERED: ALBU108A5 IN (22:14)
[2024-07-19] MEDS ORDERED: DEXTROSE (50%) 50ML SYRG IV PRN (00:45)
[2024-07-19] MEDS ORDERED: ONDANSETRON HCL 4 MG/2 ML VIAL IV PRN (00:45)
[2024-07-19] MEDS ORDERED: DOCUSATE SOD 100 MG CAP PO PRN (00:45)
[2024-07-19 01:05] VITALS: BP 121/64; PULSE 91; RESP 16; TEMP 98.2; O2SAT 93
[2024-07-19] MEDS: SODIUM CHLORIDE 0.9% 1,000 ML IV SCH (01:32)
--- NOTE | 2024-07-19 04:52 | DVHHP2 ---
History of Present Illness Reason for Visit: COPD with acute exacerbation History of Present Illness The patient is a 84-year-old female with past medical history of asthma, COPD, hyperlipidemia, and hypertension who presented to [facility] ED with complaint of shortness of breaths. Patient reports symptoms progressively get worse with cough, generalized weakness, chills, hypoxia, getting worse that prompted this visit. Patient was seen and evaluated in the ED, laboratory data shows WBC 11.5, platelets 301, sodium 139, potassium 4.1, BUN 23, creatinine 1.54, GFR 33, glucose 208, hemoglobin A1c 6.6, troponin 4, BNP 83.89, blood pressure 121/64, heart rate 87, temperature 98.2 F, O2 saturation 93% on oxygen. Chest x-ray revealing pulmonary vascular congestion with bibasilar atelectasis. Patient was started on IV Lasix, please see medication orders section in the computer. On my assessment, patient denies chest pain, no headache, no dizziness, no diaphoresis, no palpitation, no abdominal pain, no diarrhea, no nausea, no vomiting, no fever, no chills. Patient was admitted for further evaluation and medical management. Past Medical History Asthma, COPD, High Lipids, HTN Past Surgical History Appendectomy, Hysterectomy Family History Reviewed, noncontributory to the management of this case. Past Social History The patient lives at home, denies smoking, alcohol or illicit drugs abuse. Review of Systems Constitutional: Yes: Chills, Weakness; No: Fever, Sweats, Malaise, Other Eyes: No: Pain, Vision change, Conjunctivae inflammation, Eyelid inflammation, Other, Redness ENT: No: Ear pain, Ear discharge, Nose pain, Nose discharge, Nose congestion, Mouth pain, Mouth swelling, Throat pain, Throat swelling, Other Respiratory: Cough, Shortness of breath, SOB with excertion; No: Dry, Wheezing, Hemoptysis, Pleuritic Pain, Sputum, Wheezing, Other Cardiovascular: No: Chest Pain, Palpitations, Orthopnea, Paroxysmal Noc. Dyspnea, Edema, Lt Headedness, Other Gastrointestinal: No: Nausea, Vomiting, Abdominal Pain, Diarrhea, Constipation, Melena, Hematochezia, Other Genitourinary: No Dysuria, No Frequency, No Incontinence, No Hematuria, No Re tention, No Other Musculoskeletal: No: other, neck pain, shoulder pain, arm pain, back pain, hand pain, leg pain, foot pain Skin: No: Rash, Lesions, Jaundice, Bruising, Other Neurological: No: Weakness, Numbness, Incoordination, Change in speech, Confusion, Seizures, Other Allergies: Coded Allergies: Codeine (Verified Allergy, Mild, 05/20/23) Penicillins (Verified Allergy, Unknown, 05/20/23) Medications Current Medications Medications Dose Ordered Sig/Mary Anne Route Start Time Stop Time Status Last Admin Dose Admin Albuterol 2.5 mg Q4HPRN PRN NEB 07/19/24 00:45 Ipratropium [place] 0.5 mg Q4HPRN PRN NEB 07/19/24 00:45 Methylprednisolone Sodium Succinate 40 mg Q8HR IV 07/19/24 06:00 Famotidine 20 mg Q12HR IV 07/19/24 10:00 Aspirin 81 mg DAILY PO 07/19/24 10:00 Atorvastatin Calcium 20 mg HS PO 07/19/24 22:00 Diagnostic Test (Pha) 1 strip ACHS 07/19/24 07:00 Insulin Human Regular ACHS SC 07/19/24 07:00 Dextrose 50 ml UD PRN IV 07/19/24 00:45 Sodium Chloride 1,000 ml @ 60 mls/hr [id number] IV 07/19/24 00:45 Ondansetron HCl 4 mg Q4HP PRN IV 07/19/24 00:45 Docusate Sodium 100 mg BIDPRN PRN PO 07/19/24 00:45 Acetaminophen 650 mg Q6HP PRN PO 07/19/24 00:45 Exam Vital Signs Vital Signs Date Time Temp Pulse Resp B/P (MAP) Pulse Ox O2 Delivery O2 Flow Rate FiO2 07/18/24 21:27 87 07/18/24 21:00 98.2 16 121/64 (83) 93 98.2 07/18/24 21:00 Nasal Cannula* 4 36 General Appearance: Alert, Oriented X3, Cooperative, No acute distress HEENT: Atraumatic, PERRLA, EOMI, Mucous membr. moist/pink Respiratory: Normal air movement, Other (Diminished breath sounds) Cardiovascular: Regular rate, Normal S1, Normal S2, No murmurs Abdominal: Normal bowel sounds, Soft, No tenderness, No hepatospenomegaly, No masses Extremities: No clubbing, No cyanosis, No edema, Normal pulses, No tenderness/swelling Skin: No rashes, No breakdown, No significant lesion Neuro: Normal speech, Normal tone, Sensation intact, Cranial nerves 3-12 NL, Reflexes 2+, Other (Generalized weakness) Psych/Mental Status: Mental status NL, Mood NL Labs/Xrays Labs Test 07/18/24 21:10 07/18/24 19:39 07/18/24 18:40 Range/Units Troponin I High Sensitivity 3 L </=34 ng/L White Blood Count 11.5 H 4.4-10.8 10^3/uL Red Blood Count 4.40 4.0-5.20 10^6/uL Hemoglobin 13.0 12.2-16.2 g/dL Hematocrit 41.1 36.0-46.0 % Mean Corpuscular Volume 93.4 80.0-100.0 fL Mean Corpuscular Hemoglobin 29.6 28.0-32.0 pg Mean Corpuscular Hemoglobin Concent 31.7 L 32.0-36.0 g/dL Red Cell Distribution Width 14.9 H 11.8-14.3 % Platelet Count 301 140-450 10^3/uL Mean Platelet Volume 8.2 6.9-10.8 fL Neutrophils (%) (Auto) 82.7 H 37.0-80.0 % Lymphocytes (%) (Auto) 12.8 10.0-50.0 % Monocytes (%) (Auto) 3.4 0.0-12.0 % Eosinophils (%) (Auto) 0.5 0.0-7.0 % Basophils (%) (Auto) 0.6 0.0-2.0 % Neutrophils # (Auto) 9.5 H 1.6-8.6 10 ^3/uL Lymphocytes # (Auto) 1.5 0.4-5.4 10 ^3/uL Monocytes # (Auto) 0.4 0-1.3 10 ^3/uL Eosinophils # (Auto) 0.1 0-0.8 10 ^3/uL Basophils # (Auto) 0.1 0-0.2 10 ^3/uL Nucleated Red Blood Cells 0.0 % Sodium Level 139 136-145 mmol/L Potassium Level 4.1 3.5-5.1 mmol/L Chloride Level 104 98-107 mmol/L Carbon Dioxide Level 25 20-31 mmol/L Anion Gap 10 5-15 Blood Urea Nitrogen 23 9-23 mg/dL Creatinine 1.54 H 0.550-1.02 mg/dL Glomerular Filtration Rate Calc 33 >90 mL/min BUN/Creatinine Ratio 14.9 10.0-20.0 Serum Glucose 208 H 74-106 mg/dL Lactic Acid Level 1.5 0.4-2.0 mmol/L Calcium Level 10.0 8.7-10.4 mg/dL Total Bilirubin 0.2 0.2-1.0 mg/dL Aspartate Amino Transferase (AST) 18 13-40 U/L Alanine Aminotransferase (ALT) 17 7-40 U/L Alkaline Phosphatase 93 46-116 U/L B-Type Natriuretic Peptide 83.89 0-100 pg/mL Total Protein 7.1 5.7-8.2 g/dL Albumin 4.6 3.2-4.8 g/dL Blood Gas Specimen Type Venous Blood Gas Sample Site Vbg - n/a Blood Gas Patient Temperature 37.0 Arterial Blood Date Drawn [id number] Juaquin Test N/a Venous Blood pH 7.432 H 7.320-7.430 Venous Blood pCO2 at Patient Temp 40.7 38.0-54.0 mmHg Venous Blood pO2 at Patient Temp < 36.5 23.0-48.0 mmHg Venous Blood HCO3 26.5 22.0-29.0 mmol/L Venous Blood Base Excess 2.1 -2.0-3.0 mmol/L Blood Gas Liter Flow 4.00 Blood Gas Modality Nasal cannula FiO2 % 36.0 PATIENT: ROSALIO SMILEY FACCT: [id number] UNIT: [id number] : 1940 LOC: ER ROOM / BED: / AGE / SEX: 84 / F ADM STATUS: REG ER SERVICE 35 ORDERING PHYSICIAN: STEPHANIE COREA MD PROCEDURE(s): CXR1 - CHEST XRAY 1 VIEW REASON: SOB ORDER NUMBER(s): [id number], ACCESSION NUMBER(s): [id number] CHEST RADIOGRAPH Indication: SOB Technique: Single frontal view of the chest was obtained Comparison: XY CHEST PORTABLE on DOS: 10/27/23, XY CHEST PORTABLE on DOS: 10/14/23, XY CHEST PORTABLE on DOS: 10/11/23 FINDINGS: Lines and Tubes: None Lungs: Mild interstitial prominence with bibasilar opacities Pleura: No effusion. No pneumothorax. Cardiomediastinal contours: [id number] cardiomegaly with mild atherosclerotic calcification and uncoiling of the aorta. Bones: No acute osseous abnormality. IMPRESSION: Pulmonary vascular congestion with bibasilar atelectasis. Assessment/Plan Assessment/Plan COPD with acute exacerbation Generalized weakness Respiratory failure with hypoxia Pulmonary vascular congestion Diabetes mellitus with hyperglycemia Plan 1. Admit to telemetry unit 2. Breathing treatment 3. Pain control management 4. Management of fluids and electrolytes 5. Consultation for pulmonology 6. Diagnostic tests chest x-ray 7. DVT prophylaxis-on aspirin 8. Repeat labs CBC, CMP in a.m. 9. Continue with current medical management 10. Treatment plan discussed with patient and RN. Patient verbalized understa nding. Plan discussed with: Patient, Other (RN) My Orders Orders - MELL OCONNOR DNP Procedure Category Date Status Time Complete Blood Count LAB 07/19/24 Logged 04:00 Comprehensive LAB 07/19/24 Logged Metabolic Panel 04:00 Albuterol Medneb PHA 07/19/24 In Process (Ventolin Medneb) 00:45 Ipratropium Medneb PHA 07/19/24 In Process (Atrovent Medneb) 00:45 Methylprednisolone PHA 07/19/24 In Process Sod Succ (Solu Medrol 06:00 Famotidine Injection PHA 07/19/24 In Process (Pepcid Injection) 10:00 Hemoglobin A1c LAB 07/19/24 Logged 00:45 Aspirin Tablet PHA 07/19/24 In Process 10:00 Atorvastatin (Lipitor) PHA 07/19/24 In Process 22:00 Glucose Blood PHA 07/19/24 In Process (Accu-Chek Comfort 07:00 Insulin R (Human) PHA 07/19/24 In Process (Insulin R) 07:00 Dextrose 50% Syringe PHA 07/19/24 In Process 00:45 Allergies JOSE ALEJANDRO 07/19/24 In Process 00:38 Code Status CODE 07/19/24 Transmitted 00:38 Sodium Chloride 0.9% PHA 07/19/24 In Process 00:45 Oxygen Per Hour RT 07/19/24 Transmitted 00:38 Ondansetron Hcl PHA 07/19/24 In Process (Zofran) 00:45 Docusate Sodium PHA 07/19/24 In Process Capsule (Colace 00:45 Fall Risk Precautions JOSE ALEJANDRO 07/19/[address] 00:38 Complete Blood Count LAB 07/20/24 Verified 04:00 Comprehensive LAB 07/20/24 Verified Metabolic Panel 04:00 Cardiac DIET 07/19/24 Transmitted Diet-2gna,Lofat,Lochol Breakfast Condition: Serious JOSE ALEJANDRO 07/19/24 In Process 00:38 Acetaminophen Tablet PHA 07/19/24 In Process (Tylenol Tablet) 00:45 Sequential JOSE ALEJANDRO 07/19/24 In Process Compression Device Problem List: (1) COPD with acute exacerbation (2) Generalized weakness (3) Respiratory failure with hypoxia (4) Pulmonary vascular congestion (5) Diabetes mellitus with hyperglycemia Date of Service: Jul 19, 2024 Billing Provider: MELL OCONNOR DNP Common Visit Codes: 60856-[id number] INP/OBS CARE (HIGH) MELL OCONNOR DNP Jul 19, 2024 04:52
[2024-07-19] MEDS ORDERED: NITROGLYCERIN 0.4 MG SL TAB SL PRN (05:00)
[2024-07-19] MEDS ORDERED: MORPHINE SULFATE INJ 2 MG/ml SYRG IV PRN (05:00)
[2024-07-19 05:23] LABS: Basophils # (auto) 0 10 ^3/uL (0-0.2); Basophils % (auto) 0.7 % (0.0-2.0); Eosinophils # (auto) 0 10 ^3/uL (0-0.8); Hematocrit 39.8 % (36.0-46.0); Lymphocytes # (auto) 0.9 10 ^3/uL (0.4-5.4); Lymphocytes % (auto) 13.7 % (10.0-50.0); Mean Corpuscular Hgb Conc. 32.7 g/dL (32.0-36.0); Mean Corpuscular Volume 91.8 fL (80.0-100.0); Monocytes # (auto) 0.1 10 ^3/uL (0-1.3); Monocytes % (auto) 2.1 % (0.0-12.0); Neutrophils # (auto) 5.6 10 ^3/uL (1.6-8.6); Neutrophils % (auto) 83.5 % (37.0-80.0); Platelet Count (auto) 308 10^3/uL (140-450); Red Blood Cells 4.33 10^6/uL (4.0-5.20); Red Cell Distribution Width 14.3 % (11.8-14.3); White Blood Cell 6.7 10^3/uL (4.4-10.8)
[2024-07-19 05:48] LABS: Alanine Aminotransferase 17 U/L (7-40); Albumin 4.7 g/dL (3.2-4.8); Alkaline Phosphatase 90 U/L (46-116); Anion Gap 9 (5-15); Aspartate Aminotransferase 18 U/L (13-40); BUN/Creatinine Ratio 17.4 (10.0-20.0); Calcium 10.4 mg/dL (8.7-10.4); Carbon Dioxide 28 mmol/L (20-31); Chloride 102 mmol/L (98-107); Potassium 4.3 mmol/L (3.5-5.1); Sodium 139 mmol/L (136-145)
[2024-07-19 05:49] LABS: Total Protein 7.7 g/dL (5.7-8.2)
[2024-07-19 06:00] VITALS: BP 125/75; PULSE 80; RESP 20; TEMP 97.7; O2SAT 94
[2024-07-19 06:18] LABS: Blood Urea Nitrogen 26 mg/dL (9-23); Glucose 202 mg/dL (74-106)
[2024-07-19 06:19] LABS: Bilirubin, Total 0.2 mg/dL (0.2-1.0)
[2024-07-19] MEDS: ACCU-CHEK COMFORT CURVE STRIP VI SCH (07:00)
[2024-07-19] MEDS: FUROSEMIDE 20 MG/2 ML VIAL IV ONE ×2 (08:44→12:38)
[2024-07-19] MEDS: InsuLIN REG 1unit/0.01ml Soln (100units/ml) SC SCH (08:49)
[2024-07-19] MEDS: methylPREDNISolone SOD SUCC 40 MG/ML VL IV SCH (08:52)
--- NOTE | 2024-07-19 09:59 | DVHINCON2 ---
Date of service: Jul 19, 2024 Referring Physician LANA Shen Reason for Consultation AE COPD History of Present Illness 84-year-old woman history of asthma, hyperlipidemia, hypertension who presented with a chief complaint of shortness of breath that was onset yesterday. She was experiencing shortness of breath and cough. She notes chills and generalized weakness. Her symptoms continued to worsen social presented to the ED for evaluation. She was recently seen in urgent Care. She received bronchodilators and steroids. Her O2 saturation was low and she was sent to the ED for evaluation. She was initiated on supplemental oxygen of 4 liters/minute via nasal cannula. Pulmonary consultation is called for evaluation of acute exacerbation of COPD and acute hypoxic respiratory failure. Review of systems: 14 point review of systems is negative unless otherwise noted above. Past medical history: Asthma, hyperlipidemia, hypertension Past surgical history: Appendectomy, hysterectomy Medications: Reviewed Allergies: penicillins, codeine Family history: No family history of premature CAD. No family history of lung disease Social history: Nonsmoker. No alcohol or illicit drug use. Lives at home. Family History: Diabetes mellitus G8 MOTHER G8 FATHER Hypertension G8 MOTHER G8 FATHER Allergies: Coded Allergies: Codeine (Verified Allergy, Mild, 05/20/23) Penicillins (Verified Allergy, Unknown, 05/20/23) Home Meds Active Scripts Albuterol Sulfate (Albuterol Sulfate Hfa) 108 Mcg/Act Aer, 108 MCG IN Q6HP PRN, #1 AER Prov:TSEPHANIE COREA MD 07/18/24 Albuterol Sulfate (Albuterol Sulfate) 0.083 % Neb, 1 VIAL NEB Q4HPRN for 100 Days, #100 VIAL Prov:STEPHANIE COREA MD 07/18/24 Prednisone (Prednisone) 20 Mg Tab, 20 MG PO BID for 5 Days, #10 MG Prov:STEPHANIE COREA MD 07/18/24 Doxycycline (Monohydrate) (Doxycycline) 100 Mg Cap, 100 MG PO BID for 5 Days, #10 CAP Prov:EVONNE VILLEDA MD 10/30/23 Prednisone (Prednisone) 20 Mg Tab, 20 MG PO DAILY for 5 Days, #5 TAB Prov:EVONNE VILLEDA MD 10/30/23 Ipratropium Ray[place] (Ipratropium Rayne) 0.02 % Myla, 0.5 % HHN Q6HPRN PRN for 30 Days, #120 ML Prov:EVONNE VILLEDA MD 10/30/23 Nezsixdnxta-Klvwkjdhcccz-Czdbo (Trelegy Ellipta 100-62.5-25 Mcg/INH) 1 Aer Aer, 1 AER IN DAILY for 30 Days, #1 AER 2 Refills Prov:PROSPER MORABRE LEONG RESIDENT 10/16/23 Prednisone (Prednisone) 20 Mg Tab, 20 MG PO DAILY for 5 Days, #5 MG Prov:BRE CHAPA RESIDENT 10/16/23 Dextromethorphan-Guaifenesin (Robitussin-Dm) 10 Ml Sr, 10 ML PO Q4HP PRN for 15 Days, #1 SYP Prov:BRE CHAPA [facility] 10/16/23 Atorvastatin Calcium (ATORVASTATIN CALCIUM) 20 Mg Tab, 40 MG PO HS for 30 Days, #60 TAB 2 Refills Prov:BRE CHAPA [facility] 10/16/23 Reported Medications Albuterol Sulfate (Albuterol Sulfate Hfa) 108 Mcg/Act Aer, 2 PUFF INH Q4-6HR PRN 10/28/23 Diltiazem Hcl (Diltiazem Hcl) 60 Mg Tab, 240 MG PO DAILY for 30 Days, MG 10/28/23 Cetirizine Hcl (Kls Aller-Fabian) 10 Mg Tab, 10 MG PO DAILY, TAB 10/28/23 Ergocalciferol (Drisdol) 50,000 Unit Cap, 31035 UNIT PO QWEEKLY, CAP 10/28/23 Ondansetron Odt 4MG Tab (ZOFRAN PO) 4 Mg Tb, 8 MG PO BID, TAB ODT TAB-DISSOLVE IN MOUTH, THEN SWALLOW 10/28/23 Furosemide (Furosemide) 20 Mg Tab, 20 MG PO DAILY for 30 Days, MG 10/28/23 Losartan Potassium (Losartan Potassium) 25 Mg Tab, 1 TAB PO BID 10/07/23 Amlodipine Besylate (Amlodipine Besylate) 2.5 Mg Tab, 1 TAB PO DAILY 10/07/23 Nifedipine (Nifedipine Er) 60 Mg Tab, 60 MG PO DAILY 10/07/23 Methylsulfonylmethane (Msm) 1,500 Mg Tab, 1500 MG PO BID, TAB 09/05/21 Montelukast Sodium (Singulair) 10 Mg Tab, 10 MG PO, TAB 09/05/21 Aspirin (Aspir-81) 81 Mg Tab, 81 MG PO, TAB 09/05/21 Metoprolol Tartrate (LOPRESSOR TABLET) 50 Mg Tb, 50 MG PO BID, TAB 09/05/21 Omeprazole (Gnp Omeprazole) 20 Mg Tab, 20 MG PO, TAB 09/05/21 Current Medications Current Medications Medications (Trade) Dose Ordered Sig/Mary Anne Route PRN Reason Start Time Stop Time Status Last Admin Albuterol (Ventolin Medneb) 2.5 mg Q4HPRN PRN NEB SHORTNESS OF BREATH 07/19/24 00:45 Ipratropium [place] (Atrovent Medneb) 0.5 mg Q4HPRN PRN NEB SHORTNESS OF BREATH 07/19/24 00:45 Methylprednisolone Sodium Succinate (Solu Medrol) 40 mg Q8HR IV 07/19/24 06:00 Famotidine (Pepcid Injection) 20 mg Q12HR IV 07/19/24 10:00 Aspirin 81 mg DAILY PO 07/19/24 10:00 Atorvastatin Calcium (Lipitor) 20 mg HS PO 07/19/24 22:00 Diagnostic Test (Pha) (Accu-Chek Comfort Curve T) 1 strip ACHS 07/19/24 07:00 07/19/24 07:00 Insulin Human Regular (InsuLIN R) ACHS SC 07/19/24 07:00 07/19/24 08:49 Dextrose 50 ml UD PRN IV Blood Sugar LESS THAN 60 07/19/24 00:45 Sodium Chloride 1,000 ml @ 60 mls/hr [id number] IV 07/19/24 00:45 Ondansetron HCl (Zofran) 4 mg Q4HP PRN IV NAUSEA / VOMITING 07/19/24 00:45 Docusate Sodium (Colace Capsule) 100 mg BIDPRN PRN PO FOR CONSTIPATION 07/19/24 00:45 Acetaminophen (Tylenol Tablet) 650 mg Q6HP PRN PO PAIN SCALE 1-3 OR TEMP>100.4 07/19/24 00:45 Nitroglycerin (Ntrostat Sublingual) 0.4 mg Q5MINP PRN SL FOR CHEST PAIN 07/19/24 05:00 Morphine Sulfate 2 mg Q30M PRN IV FOR CHEST PAIN 07/19/24 05:00 Furosemide (Lasix Injection) 20 mg DAILY IV 07/19/24 10:00 07/19/24 05:40 DC Furosemide (Lasix Injection) 20 mg DAILY IV 07/20/24 10:00 Vital Signs Vital Signs Date Time Temp Pulse Resp B/P (MAP) Pulse Ox O2 Delivery O2 Flow Rate FiO2 07/19/24 06:03 98.8 84 12 125/55 (78) 95 98.8 07/19/24 01:05 4.0 36 07/18/24 21:00 Nasal Cannula* Physical Exam Gen.: Patient lying in bed in no apparent distress. On supplemental oxygen. Head: Normocephalic, atraumatic Eyes: EOMI/PERRLA. Ears: Normal hearing. Normal anatomy. Neck/trachea: Trachea midline, supple. Nose: Normal external anatomy. Mouth: Moist mucous membranes. Chest: Decreased air entry bilaterally. Bilateral wheezing . No rhonchi. Cardio vascular: Positive S1, positive S2. Regular rate and rhythm. Abdomen: Positive bowel sounds in all 4 quadrants. Soft, non-tender, non- distended. : Deferred. Rectal: Deferred Skin: Warm, dry. Extremities: 2+ radial pulses bilaterally. No lower extremity edema. Neuro: Awake, alert, oriented x3. No gross motor or sensory deficits. Cranial nerves II through XII intact. Gait not assessed. Labs/Diagnostic Data Labs Test 07/19/24 08:34 07/19/24 04:40 07/18/24 21:10 07/18/24 19:39 Range/Units POC Glucose 164 H 70-106 mg/dl White Blood Count 6.7 # 4.4-10.8 10^3/uL Red Blood Count 4.33 4.0-5.20 10^6/uL Hemoglobin 13.0 12.2-16.2 g/dL Hematocrit 39.8 36.0-46.0 % Mean Corpuscular Volume 91.8 80.0-100.0 fL Mean Corpuscular Hemoglobin 30.0 28.0-32.0 pg Mean Corpuscular Hemoglobin Concent 32.7 32.0-36.0 g/dL Red Cell Distribution Width 14.3 11.8-14.3 % Platelet Count 308 140-450 10^3/uL Mean Platelet Volume 8.2 6.9-10.8 fL Neutrophils (%) (Auto) 83.5 H 37.0-80.0 % Lymphocytes (%) (Auto) 13.7 10.0-50.0 % Monocytes (%) (Auto) 2.1 0.0-12.0 % Eosinophils (%) (Auto) 0.0 0.0-7.0 % Basophils (%) (Auto) 0.7 0.0-2.0 % Neutrophils # (Auto) 5.6 1.6-8.6 10 ^3/uL Lymphocytes # (Auto) 0.9 0.4-5.4 10 ^3/uL Monocytes # (Auto) 0.1 0-1.3 10 ^3/uL Eosinophils # (Auto) 0 0-0.8 10 ^3/uL Basophils # (Auto) 0 0-0.2 10 ^3/uL Nucleated Red Blood Cells 0.0 % Sodium Level 139 136-145 mmol/L Potassium Level 4.3 3.5-5.1 mmol/L Chloride Level 102 98-107 mmol/L Carbon Dioxide Level 28 20-31 mmol/L Anion Gap 9 5-15 Blood Urea Nitrogen 26 H 9-23 mg/dL Creatinine 1.49 H 0.550-1.02 mg/dL Glomerular Filtration Rate Calc 34 >90 mL/min BUN/Creatinine Ratio 17.4 10.0-20.0 Serum Glucose 202 H 74-106 mg/dL Hemoglobin A1c 6.6 H <5.7 % A1C Calcium Level 10.4 8.7-10.4 mg/dL Total Bilirubin 0.2 0.2-1.0 mg/dL Aspartate Amino Transferase (AST) 18 13-40 U/L Alanine Aminotransferase (ALT) 17 7-40 U/L Alkaline Phosphatase 90 46-116 U/L Total Protein 7.7 5.7-8.2 g/dL Albumin 4.7 3.2-4.8 g/dL Troponin I High Sensitivity 3 L </=34 ng/L Lactic Acid Level 1.5 0.4-2.0 mmol/L B-Type Natriuretic Peptide 83.89 0-100 pg/mL Test 07/18/24 18:40 Range/Units Blood Gas Specimen Type Venous Blood Gas Sample Site Vbg - n/a Blood Gas Patient Temperature 37.0 Arterial Blood Date Drawn [id number] Juaquin Test N/a Venous Blood pH 7.432 H 7.320-7.430 Venous Blood pCO2 at Patient Temp 40.7 38.0-54.0 mmHg Venous Blood pO2 at Patient Temp < 36.5 23.0-48.0 mmHg Venous Blood HCO3 26.5 22.0-29.0 mmol/L Venous Blood Base Excess 2.1 -2.0-3.0 mmol/L Blood Gas Liter Flow 4.00 Blood Gas Modality Nasal cannula FiO2 % 36.0 Assessment Impression: Acute hypoxic respiratory failure secondary to acute exacerbation of asthma Acute exacerbation of asthma Pulmonary edema Atelectasis Obesity with a BMI of 35.1 Generalized weakness Plan: Supplemental oxygen On 4 liters/minute via nasal cannula. Improving O2 requirements. Keep O2 saturation above 92%. Continue bronchodilators Continue steroid course. Incentive spirometry due to atelectasis. Diuresis with Lasix to maintain euvolemia. Monitor ins and outs. Monitor electrolytes Supplement as necessary. Monitor renal function. Accu-Cheks, insulin sliding scale. Diet and lifestyle modifications for weight reduction given morbid obesity. GI prophylaxis Prognosis: Poor given multiple comorbidities. Rest of plan per hospitalist and other consultants. Thank you LANA Shen for allowing me to participate in this patient's care. Further recommendations will depend on patient's clinical course. Please do not hesitate to contact me if you have any questions or concerns. This medical document was created using an electronic medical record system with [employer] dictation system. Although this document has been carefully reviewed, there may still be some phonetic and typographical errors. These areas are purely typographical due to imperfections of the software programs, and do not reflect any compromise in the patient's medical care. Plan discussed with: Patient, Other (RN, MD) TREE ORTEGA MD Jul 19, 2024 09:59
[2024-07-19 10:00] VITALS: O2SAT 94
[2024-07-19] MEDS ORDERED: FUROSEMIDE 20 MG/2 ML VIAL IV SCH (10:00)
[2024-07-19] MEDS: ASPirin 81 mg TAB PO SCH (11:25)
--- NOTE | 2024-07-19 11:36 | DVHPNRES ---
Progress Note Date Seen: Jul 19, 2024 Resident Creating Document: ANUJA CORDOVA RESIDENT Medical Necessity Reason Pt with a Central, PICC or Fol: No Subjective Review of Systems pt seen and examined at bedside, mentions no new complaints. currenlty on 4l o2 through nasal canula Objective vital signs Vital Sign Date Time Temp Pulse Resp B/P (MAP) Pulse Ox O2 Delivery O2 Flow Rate FiO2 07/19/24 06:03 98.8 84 12 125/55 (78) 95 98.8 07/19/24 01:05 4.0 36 07/18/24 21:00 Nasal Cannula* medications Current Medications Medications Dose Ordered Sig/Mary Anne Route Start Time Stop Time Status Last Admin Dose Admin Albuterol 2.5 mg Q4HPRN PRN NEB 07/19/24 00:45 Ipratropium [place] 0.5 mg Q4HPRN PRN NEB 07/19/24 00:45 Methylprednisolone Sodium Succinate 40 mg Q8HR IV 07/19/24 06:00 Famotidine 20 mg Q12HR IV 07/19/24 10:00 Aspirin 81 mg DAILY PO 07/19/24 10:00 07/19/24 11:25 81 MG Atorvastatin Calcium 20 mg HS PO 07/19/24 22:00 Diagnostic Test (Pha) 1 strip ACHS 07/19/24 07:00 07/19/24 11:25 1 STRIP Insulin Human Regular ACHS SC 07/19/24 07:00 07/19/24 08:49 3 UNITS Dextrose 50 ml UD PRN IV 07/19/24 00:45 Sodium Chloride 1,000 ml @ 60 mls/hr [id number] IV 07/19/24 00:45 Ondansetron HCl 4 mg Q4HP PRN IV 07/19/24 00:45 Docusate Sodium 100 mg BIDPRN PRN PO 07/19/24 00:45 Acetaminophen 650 mg Q6HP PRN PO 07/19/24 00:45 Nitroglycerin 0.4 mg Q5MINP PRN SL 07/19/24 05:00 Morphine Sulfate 2 mg Q30M PRN IV 07/19/24 05:00 Furosemide 20 mg DAILY IV 07/20/24 10:00 Examination General Appearance: Alert, Oriented X3, Cooperative, No acute distress HEENT: Atraumatic, PERRLA, EOMI, Mucous membr. moist/pink Respiratory: Normal air movement, bilateral crackles Cardiovascular: Regular rate, Normal S1, Normal S2, No murmurs, bilateral pedal pitting edema Abdominal: Normal bowel sounds, Soft, No tenderness, No hepatospenomegaly, No masses Extremities: No clubbing, No cyanosis, No edema, Normal pulses, No tenderness/swelling Skin: No rashes, No breakdown, No significant lesion Neuro: Normal speech, Normal tone laboratory and microbiology Laboratory Tests 07/19/24 04:40 Test 07/19/24 04:40 Range/Units Serum Glucose 202 H 74-106 mg/dL Labs and/or images reviewed: Labs reviewed by me, Image(s) reviewed by me Problem List/Assessment/Plan Problem List/Assessment/Plan Assessment/plan #acute hypoxic resp failure due to CHF/Influenza -currently on 4l #acute HFpEF exacerbation -iV lasix #influenza pneumonia -tamiflu -azithromycin #asthma/copd ?acute exacerbation -IV methylprednisone -neb with ipratropium/albuterol #DENIS -improving #DM2 -sliding scale insulin #hyperlipidemia -statins #hypertension -will resume home meds Code status discussed with the patient for >21min , FULL CODE Case discussion with Dr Gonzalez Plan discussed with: Patient, Other My Orders My Orders Orders - ANUJA CORDOVA RESIDENT Procedure Category Date Status Time Furosemide Injection PHA 07/19/24 Logged (Lasix Injection) 11:45 Furosemide Injection PHA 07/20/24 Verified (Lasix Injection) 10:00 Date of Service: Jul 19, 2024 Billing Provider: HUSSAIN GONZALEZ MD Common Visit Codes: [id number] INP/OBS CARE(HIGH) ANUJA CORDOVA RESIDENT Jul 19, 2024 11:36 HUSSAIN GONZALEZ MD Jul 21, 2024 10:58
[2024-07-19] MEDS: FAMOTIDINE (10MG/ML) 2ML VL IV SCH (12:33)
[2024-07-19 16:01] VITALS: BP 147/54; PULSE 76; RESP 20; TEMP 98.3; O2SAT 94
[2024-07-19 16:04] LABS: Rapid Influenza A Positive (Negative); Rapid Influenza B Negative (Negative)
[2024-07-19 18:20] VITALS: PULSE 71; RESP 16; O2SAT 95
[2024-07-19] MEDS: ATORVASTATIN 20 MG TAB PO SCH (21:34)
[2024-07-20] VITALS (12 sets, daily range): BP systolic 138–161; BP diastolic 45–70; PULSE 61–82; RESP 14–24; TEMP 97.5–98; O2SAT 89–95
[2024-07-20] MEDS: OSELTAMIVIR 75 MG CAP PO ONE (00:21)
[2024-07-20] MEDS: AZITHROMYCIN 250 MG TAB PO ONE (00:22)
[2024-07-20 06:58] LABS: Basophils # (auto) 0 10 ^3/uL (0-0.2); Basophils % (auto) 0.1 % (0.0-2.0); Eosinophils # (auto) 0 10 ^3/uL (0-0.8); Hematocrit 38.3 % (36.0-46.0); Hemoglobin 12.6 g/dL (12.2-16.2); Lymphocytes # (auto) 1.1 10 ^3/uL (0.4-5.4); Lymphocytes % (auto) 12.3 % (10.0-50.0); Mean Corpuscular Hemoglobin 30.1 pg (28.0-32.0); Mean Corpuscular Hgb Conc. 32.8 g/dL (32.0-36.0); Mean Corpuscular Volume 91.7 fL (80.0-100.0); Monocytes # (auto) 0.5 10 ^3/uL (0-1.3); Monocytes % (auto) 5.8 % (0.0-12.0); Neutrophils # (auto) 7.4 10 ^3/uL (1.6-8.6); Neutrophils % (auto) 81.8 % (37.0-80.0); Nucleated Red Blood Cells % 0.1 %; Platelet Count (auto) 298 10^3/uL (140-450); Red Blood Cells 4.18 10^6/uL (4.0-5.20); Red Cell Distribution Width 14.5 % (11.8-14.3); White Blood Cell 9.1 10^3/uL (4.4-10.8)
[2024-07-20 07:22] LABS: Alanine Aminotransferase 16 U/L (7-40); Alkaline Phosphatase 73 U/L (46-116); Anion Gap 8 (5-15); BUN/Creatinine Ratio 27.3 (10.0-20.0); Calcium 10.1 mg/dL (8.7-10.4); Carbon Dioxide 28 mmol/L (20-31); Magnesium 2.1 mg/dL (1.6-2.6); Potassium 4.6 mmol/L (3.5-5.1); Sodium 144 mmol/L (136-145)
[2024-07-20 07:23] LABS: Albumin 4.1 g/dL (3.2-4.8); Aspartate Aminotransferase 16 U/L (13-40); Blood Urea Nitrogen 30 mg/dL (9-23); Chloride 108 mmol/L (98-107); Glucose 159 mg/dL (74-106); Total Protein 6.6 g/dL (5.7-8.2)
[2024-07-20 07:28] LABS: Bilirubin, Total 0.2 mg/dL (0.2-1.0)
[2024-07-20] MEDS ORDERED: FUROSEMIDE 20 MG/2 ML VIAL IV SCH (10:00)
[2024-07-20] MEDS: OSELTAMIVIR 30 MG CAP PO SCH (10:13)
[2024-07-20] MEDS: FUROSEMIDE 40 MG/4 ML VIAL IV SCH (10:14)
--- NOTE | 2024-07-20 14:27 | DVHPNRES ---
Progress Note Date Seen: Jul 20, 2024 Resident Creating Document: ANUJA CORDOVA RESIDENT Medical Necessity Reason Pt with a Central, PICC or Fol: No Subjective Review of Systems pt seen and examined at bedside, mentioning improvement in the symptoms she is currently on 2l oxygen through nasal canula Objective vital signs Vital Sign Date Time Temp Pulse Resp B/P (MAP) Pulse Ox O2 Delivery O2 Flow Rate FiO2 07/20/24 13:00 97.8 79 18 139/62 (87) 91 97.8 07/20/24 07:30 Nasal Cannula* 3 32 Total Intake and Output 07/19/24 07/19/24 07/20/24 15:00 23:00 07:00 Intake Total 150 ml Balance 150 ml medications Current Medications Medications Dose Ordered Sig/Mary Anne Route Start Time Stop Time Status Last Admin Dose Admin Albuterol 2.5 mg Q4HPRN PRN NEB 07/19/24 00:45 Ipratropium [place] 0.5 mg Q4HPRN PRN NEB 07/19/24 00:45 Methylprednisolone Sodium Succinate 40 mg Q8HR IV 07/19/24 06:00 07/20/24 06:09 40 MG Famotidine 20 mg Q12HR IV 07/19/24 10:00 07/20/24 10:14 20 MG Aspirin 81 mg DAILY PO 07/19/24 10:00 07/20/24 10:14 81 MG Atorvastatin Calcium 20 mg HS PO 07/19/24 22:00 07/19/24 21:34 20 MG Diagnostic Test (Pha) 1 strip ACHS 07/19/24 07:00 07/20/24 12:26 1 STRIP Insulin Human Regular ACHS SC 07/19/24 07:00 07/20/24 06:16 2 UNITS Dextrose 50 ml UD PRN IV 07/19/24 00:45 Ondansetron HCl 4 mg Q4HP PRN IV 07/19/24 00:45 Docusate Sodium 100 mg BIDPRN PRN PO 07/19/24 00:45 Acetaminophen 650 mg Q6HP PRN PO 07/19/24 00:45 Nitroglycerin 0.4 mg Q5MINP PRN SL 07/19/24 05:00 Morphine Sulfate 2 mg Q30M PRN IV 07/19/24 05:00 Furosemide 40 mg DAILY IV 07/20/24 10:00 07/20/24 10:14 40 MG Oseltamivir Phosphate 30 mg Q12HR PO 07/20/24 10:00 07/25/24 09:59 07/20/24 10:13 30 MG Azithromycin 250 mg Q24H PO 07/20/24 21:00 Examination General Appearance: Alert, Oriented X3, Cooperative, No acute distress HEENT: Atraumatic, PERRLA, EOMI, Mucous membr. moist/pink Respiratory: Normal air movement, bilateral crackles, improved Cardiovascular: Regular rate, Normal S1, Normal S2, No murmurs, bilateral pedal pitting edema, improved Abdominal: Normal bowel sounds, Soft, No tenderness, No hepatospenomegaly, No masses Extremities: No clubbing, No cyanosis, No edema, Normal pulses, No tenderness/swelling Skin: No rashes, No breakdown, No significant lesion Neuro: Normal speech, Normal tone laboratory and microbiology Laboratory Tests 07/20/24 06:15 Test 07/20/24 06:15 Range/Units Serum Glucose 159 H 74-106 mg/dL Microbiology Date/Time Source Procedure Growth Status 07/18/24 21:10 Blood Blood Culture - Preliminary NO GROWTH AFTER 24 HOURS OF INCUBATION. Resulted Labs and/or images reviewed: Labs reviewed by me, Image(s) reviewed by me Problem List/Assessment/Plan Problem List/Assessment/Plan Assessment/plan #acute hypoxic resp failure due to CHF/Influenza -currently on 4l -neb with albuterol, ipratropium #acute HFpEF exacerbation -IV lasix -last echo showed Hyperdynamic left ventricle with medical fraction 65%. There is a grade 1 diastolic dysfunction. #influenza pneumonia -tamiflu -azithromycin #asthma/copd ?acute exacerbation -neb with ipratropium/albuterol #DENIS -improving #DM2 -sliding scale insulin #hyperlipidemia -statins #hypertension -will resume home meds Code status discussed with the patient for >21min , FULL CODE Case discussion with Dr Gonzalez Plan discussed with: Patient, Other My Orders My Orders Orders - ANUJA CORDOVA RESIDENT Procedure Category Date Status Time Urinalysis LAB 07/20/24 Logged 08:33 Covid19 Antigen Padmini LAB 07/20/24 Verified Date of Service: Jul 20, 2024 Billing Provider: HUSSAIN GONZALEZ MD Common Visit Codes: [id number] INP/OBS CARE(HIGH) ANUJA CORDOVA RESIDENT Jul 20, 2024 14:27 HUSSAIN GONZALEZ MD Jul 21, 2024 11:01
[2024-07-20] MEDS: ENOXAPARIN SOD 40 MG/0.4 ML SYRINGE SC ONE (18:01)
[2024-07-20] MEDS: AZITHROMYCIN 250 MG TAB PO SCH (21:17)
[2024-07-20 22:13] LABS: COVID19 ANTIGEN SOFIA FIA NEGATIVE (NEGATIVE)
[2024-07-21] VITALS (14 sets, daily range): BP systolic 105–152; BP diastolic 51–111; PULSE 62–98; RESP 16–18; TEMP 97.5–100.2; O2SAT 92–99
[2024-07-21] MEDS: ACETAMINOPHEN 325 MG TAB PO PRN (02:00)
[2024-07-21] MEDS: ALBUTEROL SULF 2.5 MG/0.5ML(0.5%) NEB SOLN NEB PRN (02:13)
[2024-07-21] MEDS: IPRATROPIUM BROM 0.5 MG/2.5ML INH SOL NEB PRN (02:13)
[2024-07-21 08:07] LABS: Anion Gap 10 (5-15); Carbon Dioxide 28 mmol/L (20-31); Chloride 103 mmol/L (98-107); Potassium 3.9 mmol/L (3.5-5.1); Sodium 141 mmol/L (136-145)
[2024-07-21 08:08] LABS: Calcium 9.7 mg/dL (8.7-10.4)
[2024-07-21 08:12] LABS: Basophils # (auto) 0 10 ^3/uL (0-0.2); Basophils % (auto) 0.2 % (0.0-2.0); Eosinophils # (auto) 0 10 ^3/uL (0-0.8); Hematocrit 38.7 % (36.0-46.0); Hemoglobin 12.5 g/dL (12.2-16.2); Lymphocytes % (auto) 18.5 % (10.0-50.0); Mean Corpuscular Hemoglobin 29.8 pg (28.0-32.0); Mean Corpuscular Hgb Conc. 32.4 g/dL (32.0-36.0); Mean Corpuscular Volume 91.9 fL (80.0-100.0); Monocytes # (auto) 0.8 10 ^3/uL (0-1.3); Monocytes % (auto) 7.4 % (0.0-12.0); Neutrophils # (auto) 8.1 10 ^3/uL (1.6-8.6); Neutrophils % (auto) 73.9 % (37.0-80.0); Nucleated Red Blood Cells % 0.2 %; Platelet Count (auto) 292 10^3/uL (140-450); Red Blood Cells 4.21 10^6/uL (4.0-5.20); Red Cell Distribution Width 14.5 % (11.8-14.3)
[2024-07-21 08:13] LABS: BUN/Creatinine Ratio 28.8 (10.0-20.0)
[2024-07-21 08:18] LABS: Blood Urea Nitrogen 32 mg/dL (9-23); Glucose 139 mg/dL (74-106)
[2024-07-21] MEDS: FUROSEMIDE 20 MG TAB PO SCH (09:52)
[2024-07-21] MEDS: ENOXAPARIN SOD 40 MG/0.4 ML SYRINGE SC SCH (09:53)
[2024-07-21] MEDS: predniSONE 20 MG TAB PO ONE (10:22)
--- NOTE | 2024-07-21 15:10 | DVHPNRES ---
Progress Note Date Seen: Jul 21, 2024 Resident Creating Document: ANUJA CORDOVA RESIDENT Medical Necessity Reason Pt with a Central, PICC or Fol: No Subjective Review of Systems pt seen and examined at bedside, pt is currently on 2l oxygen through nasal canula as per the nurse in the night, patient had an episode of mild confusion that got resolved later Objective vital signs Vital Sign Date Time Temp Pulse Resp B/P (MAP) Pulse Ox O2 Delivery O2 Flow Rate FiO2 07/21/24 11:22 97.9 07/21/24 09:52 144/92 07/21/24 09:00 92 17 97 07/21/24 06:53 Nasal Cannula* 3 32 Total Intake and Output 07/20/24 07/20/24 07/21/24 15:00 23:00 07:00 Intake Total 1120 ml 500 ml Balance 1120 ml 500 ml medications Current Medications Medications Dose Ordered Sig/Mary Anne Route Start Time Stop Time Status Last Admin Dose Admin Albuterol 2.5 mg Q4HPRN PRN NEB 07/19/24 00:45 07/21/24 06:53 2.5 MG Ipratropium [place] 0.5 mg Q4HPRN PRN NEB 07/19/24 00:45 07/21/24 06:53 0.5 MG Aspirin 81 mg DAILY PO 07/19/24 10:00 07/21/24 09:52 81 MG Atorvastatin Calcium 20 mg HS PO 07/19/24 22:00 07/20/24 21:35 20 MG Diagnostic Test (Pha) 1 strip ACHS 07/19/24 07:00 07/21/24 11:41 1 STRIP Insulin Human Regular ACHS SC 07/19/24 07:00 07/21/24 11:40 2 UNITS Dextrose 50 ml UD PRN IV 07/19/24 00:45 Acetaminophen 650 mg Q6HP PRN PO 07/19/24 00:45 07/21/24 10:22 650 MG Oseltamivir Phosphate 30 mg Q12HR PO 07/20/24 10:00 07/25/24 09:59 07/21/24 09:52 30 MG Azithromycin 250 mg Q24H PO 07/20/24 21:00 07/20/24 21:17 250 MG Enoxaparin Sodium 40 mg DAILY SC 07/21/24 10:00 07/21/24 09:53 40 MG Prednisone 40 mg DAILY PO 07/22/24 10:00 Furosemide 20 mg DAILY PO 07/21/24 10:00 07/21/24 09:52 20 MG Examination General Appearance: Alert, Oriented X3, Cooperative, No acute distress HEENT: Atraumatic, PERRLA, EOMI, Mucous membr. moist/pink Respiratory: Normal air movement, bilateral crackles, improved, wheezing Cardiovascular: Regular rate, Normal S1, Normal S2, No murmurs, bilateral pedal pitting edema, improved Abdominal: Normal bowel sounds, Soft, No tenderness, No hepatospenomegaly, No masses Extremities: No clubbing, No cyanosis, No edema, Normal pulses, No tenderness/swelling Skin: No rashes, No breakdown, No significant lesion Neuro: Normal speech, Normal tone laboratory and microbiology Laboratory Tests 07/21/24 06:12 Test 07/21/24 06:12 Range/Units Serum Glucose 139 H 74-106 mg/dL Microbiology Date/Time Source Procedure Growth Status 07/18/24 21:10 Blood Blood Culture - Preliminary NO GROWTH AFTER 48 HOURS OF INCUBATION. Resulted Labs and/or images reviewed: Labs reviewed by me, Image(s) reviewed by me Problem List/Assessment/Plan Problem List/Assessment/Plan Assessment/plan #acute hypoxic Resp failure due to CHF/Influenza -currently on 4l -neb with albuterol, ipratropium #?metabolic encephalopathy due to infection(likely pneumonia) -ordered [facility] #acute HFpEF exacerbation -IV Lasix -last echo showed Hyperdynamic left ventricle with medical fraction 65%. There is a grade 1 diastolic dysfunction. #influenza pneumonia -Tamiflu -azithromycin #asthma/COPD ?acute exacerbation -neb with ipratropium/albuterol -prednisone 40mg daily #DENIS -improving #DM2 -sliding scale insulin #hyperlipidemia -statins #hypertension -will resume home meds #DVT prophylaxis -Lovenox 40mg SC daily Code status discussed with the patient for >21min , FULL CODE Case discussion with Dr Gonzalez Plan discussed with: Patient, Other My Orders My Orders Orders - ANUJA CORDOVA Procedure Category Date Status Time Prednisone Tablet PHA 07/22/24 In Process 10:00 Furosemide Tablet PHA 07/21/24 In Process (Lasix Tablet) 10:00 Communication Order ORDERS 07/21/24 Transmitted 09:37 Communication Order ORDERS 07/21/24 Transmitted 13:42 Date of Service: Jul 21, 2024 Billing Provider: HUSSAIN GONZALEZ MD Common Visit Codes: [id number] INP/OBS CARE(HIGH) ARTANUJA RESIDENT Jul 21, 2024 15:10 HUSSAIN GONZALEZ MD Jul 21, 2024 15:41
--- NOTE | 2024-07-21 15:36 | DVH ---
CHEST RADIOGRAPH Indication: pna Technique: Frontal and lateral view of the chest was obtained Comparison: None FINDINGS: Lines and Tubes: None Lungs: Bilateral irregular opacities may reflect atelectasis or mild pneumonia Pleura: No effusion. No pneumothorax. Cardiomediastinal contours: Unremarkable Bones: Unremarkable IMPRESSION: 1. Bilateral irregular opacities may reflect atelectasis or mild pneumonia
[2024-07-21] MEDS: FUROSEMIDE 20 MG/2 ML VIAL IV SCH (17:41)
[2024-07-21 18:14] LABS: Urine Bacteria FEW /hpf (None Seen); Urine Blood Negative /uL (Negative); Urine Clarity Clear (Clear); Urine Color Light-Yellow (Yellow); Urine Protein, UAD Negative (Negative); Urine Specific Gravity 1.007 (1.001-1.035); Urine Squamous Epithelial Cell None Seen /hpf (<5); Urine Urobilinogen Normal (Negative); Urine WBC 5 /hpf (0 - 5)
[2024-07-22] VITALS (19 sets, daily range): BP systolic 108–170; BP diastolic 51–69; PULSE 63–99; RESP 16–26; TEMP 97.8–98.3; O2SAT 92–100
[2024-07-22 07:27] LABS: Basophils # (auto) 0 10 ^3/uL (0-0.2); Basophils % (auto) 0.1 % (0.0-2.0); Eosinophils # (auto) 0 10 ^3/uL (0-0.8); Hematocrit 39.6 % (36.0-46.0); Hemoglobin 13.2 g/dL (12.2-16.2); Lymphocytes # (auto) 2.5 10 ^3/uL (0.4-5.4); Lymphocytes % (auto) 21.4 % (10.0-50.0); Mean Corpuscular Hemoglobin 30.2 pg (28.0-32.0); Mean Corpuscular Hgb Conc. 33.2 g/dL (32.0-36.0); Monocytes # (auto) 0.9 10 ^3/uL (0-1.3); Monocytes % (auto) 7.7 % (0.0-12.0); Neutrophils # (auto) 8.4 10 ^3/uL (1.6-8.6); Neutrophils % (auto) 70.8 % (37.0-80.0); Nucleated Red Blood Cells % 0.1 %; Platelet Count (auto) 301 10^3/uL (140-450); Red Blood Cells 4.35 10^6/uL (4.0-5.20); Red Cell Distribution Width 14.6 % (11.8-14.3); White Blood Cell 11.9 10^3/uL (4.4-10.8)
[2024-07-22 07:42] LABS: Anion Gap 8 (5-15); Calcium 10.1 mg/dL (8.7-10.4); Carbon Dioxide 31 mmol/L (20-31); Chloride 102 mmol/L (98-107); Potassium 3.9 mmol/L (3.5-5.1); Sodium 141 mmol/L (136-145)
[2024-07-22 07:48] LABS: Glucose 105 mg/dL (74-106)
[2024-07-22 07:49] LABS: BUN/Creatinine Ratio 25.3 (10.0-20.0); Magnesium 2.1 mg/dL (1.6-2.6)
[2024-07-22 07:56] LABS: Blood Urea Nitrogen 24 mg/dL (9-23)
[2024-07-22] MEDS ORDERED: ALBUTEROL SULF 2.5 MG/0.5ML(0.5%) NEB SOLN NEB PRN (08:45)
[2024-07-22] MEDS ORDERED: IPRATROPIUM BROM 0.5 MG/2.5ML INH SOL NEB PRN (08:45)
[2024-07-22] MEDS ORDERED: IPRATROPIUM BROM 0.5 MG/2.5ML INH SOL NEB SCH (08:45)
[2024-07-22] MEDS ORDERED: guaiFENesin-DM 100/10mg/5ml SYR PO PRN (08:45)
[2024-07-22] MEDS ORDERED: ALBUTEROL SULF 2.5 MG/0.5ML(0.5%) NEB SOLN NEB SCH (08:45)
[2024-07-22] MEDS: predniSONE 20 MG TAB PO SCH (09:34)
[2024-07-22] MEDS: guaiFENesin-DM 100/10mg/5ml SYR PO PRN (09:34)
[2024-07-22] MEDS: ALBUTEROL SULF 2.5 MG/0.5ML(0.5%) NEB SOLN NEB SCH (09:40)
--- NOTE | 2024-07-22 09:40 | DVH ---
EXAM: CT CHEST WITHOUT CONTRAST HISTORY: hemoptysis COMPARISON: CT CHEST WITHOUT CONTRAST on DOS: 10/11/23 TECHNIQUE: Axial images were obtained and reformatted in coronal and sagittal planes. All CT scans at this medical facility are performed using dose modulation techniques as appropriate to a performed exam including the following: Automated exposure control was utilized; adjustment of the MA and/or K V according to patient size; and use of iterative reconstruction technique. CT Dose: CTDI volume is 14.9 mGy. Dose-length product is 534 mGy*cm FINDINGS: Lower neck: Unremarkable. Cardiomediastinal: The heart is normal in size. Coronary artery calcification noted. Aorta is peggy l in caliber diffuse atherosclerotic calcification. Prominent pulmonary arterial trunk measuring 3.4 cm in caliber suggestive of underlying pulmonary arterial hypertension. Mild mediastinal lymphadenopa thy measuring up to 2 x 1 cm likely reactive in nature. Lungs: Pulmonary opacities are seen in the medial segment of the right middle lobe. Small opacities are seen in the superior posterior basal segments of the left lower lobe mostly with centrilobular/tr ee-in-bud pattern. A 7 mm nodule noted in the superior segment of the left lower lobe. Bilateral per ibronchial cuffing noted Bones and Soft Tissues: No acute abnormality. Multilevel degenerative changes of the thoracic spine are noted. Upper Abdomen: No acute abnormality. Cholelithiasis. Other: None. IMPRESSION: 1. Bilateral multifocal pulmonary opacities likely atypical pneumonia. A 7 mm nodule is seen in the s uperior segment of the left lower lobe should be followed up after treatment of presumed pneumonia to ensure regression and benignity. 2. Diffuse atherosclerotic disease. 3. Suggestion of pulmonary arterial hypertension. 4. Visualized upper abdomen shows cholelithiasis without CT evidence of cholecystitis.
[2024-07-22] MEDS: IPRATROPIUM BROM 0.5 MG/2.5ML INH SOL NEB SCH (09:41)
[2024-07-22] MEDS: DOXYCYCLINE 100MG/250ML 250 ML IV ONE (10:56)
--- NOTE | 2024-07-22 11:22 | DVHPNRES ---
Progress Note Date Seen: Jul 22, 2024 Resident Creating Document: ANUJA CORDOVA RESIDENT Medical Necessity Reason Pt with a Central, PICC or Fol: No Subjective Review of Systems pt seen and examined at bedside, mentions cough with mild blood in the sputum, is currently on 2L oxygen through nasal canula. as per nurse, she got an episode of mild confusion in the night , which got resolved. Objective vital signs Vital Sign Date Time Temp Pulse Resp B/P (MAP) Pulse Ox O2 Delivery O2 Flow Rate FiO2 07/22/24 09:49 88 18 100 07/22/24 09:46 Nasal Cannula* 3 32 07/22/24 05:46 147/52 07/21/24 17:00 97.5 97.5 Total Intake and Output 07/21/24 07/21/24 07/22/24 15:00 23:00 07:00 Intake Total 1600 ml 850 ml Balance 1600 ml 850 ml medications Current Medications Medications Dose Ordered Sig/Mary Anne Route Start Time Stop Time Status Last Admin Dose Admin Aspirin 81 mg DAILY PO 07/19/24 10:00 07/22/24 09:34 81 MG Atorvastatin Calcium 20 mg HS PO 07/19/24 22:00 07/21/24 21:34 20 MG Diagnostic Test (Pha) 1 strip ACHS 07/19/24 07:00 07/22/24 06:00 1 STRIP Insulin Human Regular ACHS SC 07/19/24 07:00 07/21/24 21:42 3 UNITS Dextrose 50 ml UD PRN IV 07/19/24 00:45 Acetaminophen 650 mg Q6HP PRN PO 07/19/24 00:45 07/21/24 10:22 650 MG Oseltamivir Phosphate 30 mg Q12HR PO 07/20/24 10:00 07/25/24 09:59 07/22/24 09:34 30 MG Enoxaparin Sodium 40 mg DAILY SC 07/21/24 10:00 07/22/24 09:35 40 MG Prednisone 40 mg DAILY PO 07/22/24 10:00 07/22/24 09:34 40 MG Furosemide 20 mg BIDD IV 07/21/24 18:00 07/22/24 05:46 20 MG Ipratropium [employer] 0.5 mg Q2HPRN PRN NEB 07/22/24 08:45 Albuterol 2.5 mg Q2HPRN PRN NEB 07/22/24 08:45 Ipratropium [employer] 0.5 mg Q4HR NEB 07/22/24 10:00 07/22/24 09:41 0.5 MG Albuterol 2.5 mg Q4HR NEB 07/22/24 10:00 07/22/24 09:40 2.5 MG Guaifenesin/ Dextromethorphan 10 ml Q4HP PRN PO 07/22/24 09:00 07/22/24 09:34 10 ML Ceftriaxone Sodium 50 ml @ 100 mls/hr DAILY@09 IV 07/23/24 09:00 UNV Doxycycline Hyclate 250 ml @ 125 mls/hr Q12HR IV 07/22/24 22:00 Examination General Appearance: Alert, Oriented X3, Cooperative, No acute distress HEENT: Atraumatic, PERRLA, EOMI, Mucous membr. moist/pink Respiratory: Normal air movement, bilateral crackles, improved, wheezing Cardiovascular: Regular rate, Normal S1, Normal S2, No murmurs, bilateral pedal pitting edema, improved Abdominal: Normal bowel sounds, Soft, No tenderness, No hepatospenomegaly, No masses Extremities: No clubbing, No cyanosis, No edema, Normal pulses, No tenderness/swelling Skin: No rashes, No breakdown, No significant lesion Neuro: Normal speech, Normal tone laboratory and microbiology Laboratory Tests 07/22/24 06:05 Test 07/22/24 06:05 Range/Units Serum Glucose 105 74-106 mg/dL Microbiology Date/Time Source Procedure Growth Status 07/18/24 21:10 Blood Blood Culture - Preliminary NO GROWTH AFTER 72 HOURS OF INCUBATION. Resulted Labs and/or images reviewed: Labs reviewed by me, Image(s) reviewed by me Problem List/Assessment/Plan Problem List/Assessment/Plan Assessment/plan #acute hypoxic Resp failure due to CHF/Influenza -currently on 4l -neb with albuterol, ipratropium -CT chest ordered -echo ordered #?metabolic encephalopathy due to infection(likely pneumonia) -ordered UACOM #acute HFpEF exacerbation -IV Lasix -last echo showed Hyperdynamic left ventricle with medical fraction 65%. There is a grade 1 diastolic dysfunction. #atypical pneumonia seen on CT, likely due to influenza, CAP not ruled out -Tamiflu -Ceftriaxone plus doxy -sputum culture #asthma/COPD ?acute exacerbation -neb with ipratropium/albuterol -prednisone 40mg daily #7 mm nodule is seen in the superior segment of the left lower lobe -repeat imaging after resolution of the pneumonia #DENIS -improving #DM2 -sliding scale insulin #hyperlipidemia -statins #hypertension -will resume home meds #DVT prophylaxis -Lovenox 40mg SC daily Code status discussed with the patient for >21min , FULL CODE Case discussion with Dr Gonzalez Plan discussed with: Patient, Other My Orders My Orders Orders - ANUJA CORDOVA RESIDENT Procedure Category Date Status Time Communication Order ORDERS 07/21/24 Transmitted 13:42 Furosemide Injection PHA 07/21/24 In Process (Lasix Injection) 18:00 Straightcath If ORDERS 07/21/24 Transmitted Unable To Void 15:15 Communication Order ORDERS 07/22/24 Transmitted 07:24 Ipratropium Medneb PHA 07/22/24 In Process (Atrovent Medneb) 08:45 Albuterol Medneb PHA 07/22/24 In Process (Ventolin Medneb) 08:[address] 07/22/24 Resulted 08:42 Ipratropium Medneb PHA 07/22/24 In Process (Atrovent Medneb) 10:00 Albuterol Medneb PHA 07/22/24 In Process (Ventolin Medneb) 10:00 Guaifenesin-Dextromet PHA 07/22/24 In Process Liquid (Robitussin 09:00 Ceftriaxone 1gm/50ml PHA 07/22/24 Logged D5w (Rocephin) 09:30 Ceftriaxone 1gm/50ml PHA 07/23/24 Logged D5w (Rocephin) 09:00 Doxycycline PHA 07/22/24 In Process 100mg/250ml 09:30 Doxycycline PHA 07/22/24 In Process 100mg/250ml 22:00 Mrsa Screen KARL 07/22/24 Logged 09:27 Respiratory Culture KARL 07/22/24 Logged W/ Gs 09:27 Sputum Induction RT 07/22/24 Logged 09:27 Electrocardigram EKG 07/22/24 Logged 09:27 Date of Service: Jul 22, 2024 Billing Provider: HUSSAIN GONZALEZ MD Common Visit Codes: [id number] INP/OBS CARE(HIGH) ANUJA CORDOVA RESIDENT Jul 22, 2024 11:22 HUSSAIN GONZALEZ MD Jul 23, 2024 16:46
--- NOTE | 2024-07-22 14:58 | DVHSR ---
APPROVED REPORT EXAM: Two-dimensional and M-mode echocardiogram with Doppler and color Doppler. Blood Pressure: 147/52 mmHg INDICATION Pulm HTN RISK FACTORS Height: 63, Weight: 192 DIMENSIONS LVDd (3.8-5.7cm)LA (2D)3.8 (1.9-4.0cm)Aortic Root3.1 (2.0-3.7cm) EF (%) 72.0 (55-70%)Rt. Atrium3.3 (1.9-4.0cm)Asc. Aorta cm Mitral Valve MitralMitral Stenosis E wave0.55m/sMV Mean GR.mmHg A wave1.12m/sMV Peak GR.mmHg E/A ratio0.52D MVAcm2 DECEL [id number] 1/2 [id number] IVRTmsDop MVA3.39cm2 Aortic Valve Aortic ValveAortic Stenosis V11.37m/Ganga Mean GR.4mmHg V21.45m/[place]anga Peak GR.8mmHg LVOT Diameter2.1 (1.8-2.4cm)Doppler AVA3.27cm2 AI P 1/2 Aksi037.90ms Pulmonic Valve V21.15m/s Other Information Technically limited study due to body habitus. Conclusion LV EJECTION FRACTION IS 72% MODERATELY CALCIFIED AORTIC LEAFLETS NORMAL MV,TV AND PV NO EFFUSION NORMAL RV FUNCTION
--- NOTE | 2024-07-22 15:19 | DVH ---
Bilateral lower extremity venous duplex Clinical History: rule out DVY Comparison: US BILAT LOWER DVT on DOS: 10/27/23, US BILAT LOWER DVT on DOS: 10/08/23 Technique: Duplex doppler evaluation of the deep venous systems of both lower extremities from the common femora l veins to the popliteal veins including color doppler and spectral/pulsed waveform analysis was perf ormed. Findings: RIGHT SIDE: The common femoral vein demonstrates appropriate compressibility and waveform variability. There is compressibility/patency of the great saphenous vein at the proximal thigh. The femoral vein demonstrates appropriate compressibility and waveform variability. The deep femoral vein demonstrates appropriate compressibility and waveform variability. The popliteal vein demonstrates appropriate compressibility and waveform variability. There is normal compressibility at the tibioperoneal trunk. LEFT SIDE: The common femoral vein demonstrates appropriate compressibility and waveform variability. There is compressibility/patency of the great saphenous vein at the proximal thigh. The femoral vein demonstrates appropriate compressibility and waveform variability. The deep femoral vein demonstrates appropriate compressibility and waveform variability. The popliteal vein demonstrates appropriate compressibility and waveform variability. There is normal compressibility at the tibioperoneal trunk. Impression: 1. No right or left femoropopliteal venous thrombosis.
[2024-07-22] MEDS: cefTRIAXone 1GM/50ML D5W 50 ML IV ONE (16:31)
[2024-07-22] MEDS: FUROSEMIDE 20 MG/2 ML VIAL IV SCH (17:35)
[2024-07-22] MEDS: DOXYCYCLINE 100MG/250ML 250 ML IV SCH (22:35)
[2024-07-23] VITALS (20 sets, daily range): BP systolic 120–180; BP diastolic 52–76; PULSE 70–92; RESP 15–24; TEMP 97.5–98.6; O2SAT 91–100
[2024-07-23 07:40] LABS: Anion Gap 10 (5-15); Chloride 103 mmol/L (98-107); Sodium 144 mmol/L (136-145)
[2024-07-23 07:42] LABS: Calcium 10.2 mg/dL (8.7-10.4)
[2024-07-23 07:46] LABS: BUN/Creatinine Ratio 28.9 (10.0-20.0)
[2024-07-23 07:50] LABS: Blood Urea Nitrogen 26 mg/dL (9-23); Carbon Dioxide 31 mmol/L (20-31); Glucose 120 mg/dL (74-106); Potassium 3.5 mmol/L (3.5-5.1)
[2024-07-23 07:56] LABS: Basophils # (auto) 0 10 ^3/uL (0-0.2); Basophils % (auto) 0.1 % (0.0-2.0); Eosinophils # (auto) 0 10 ^3/uL (0-0.8); Eosinophils % (auto) 0.2 % (0.0-7.0); Hematocrit 38.5 % (36.0-46.0); Hemoglobin 12.5 g/dL (12.2-16.2); Lymphocytes # (auto) 2.4 10 ^3/uL (0.4-5.4); Lymphocytes % (auto) 22.8 % (10.0-50.0); Mean Corpuscular Hemoglobin 29.5 pg (28.0-32.0); Mean Corpuscular Hgb Conc. 32.3 g/dL (32.0-36.0); Mean Corpuscular Volume 91.3 fL (80.0-100.0); Monocytes # (auto) 0.8 10 ^3/uL (0-1.3); Monocytes % (auto) 7.2 % (0.0-12.0); Neutrophils # (auto) 7.4 10 ^3/uL (1.6-8.6); Neutrophils % (auto) 69.7 % (37.0-80.0); Nucleated Red Blood Cells % 0.1 %; Platelet Count (auto) 279 10^3/uL (140-450); Red Blood Cells 4.22 10^6/uL (4.0-5.20); Red Cell Distribution Width 14.3 % (11.8-14.3); White Blood Cell 10.6 10^3/uL (4.4-10.8)
[2024-07-23] MEDS: cefTRIAXone 1GM/50ML D5W 50 ML IV SCH (10:01)
--- NOTE | 2024-07-23 19:14 | DVHPNRES ---
Progress Note Date Seen: Jul 23, 2024 Resident Creating Document: ANUJA CORDOVA RESIDENT Medical Necessity Reason Pt with a Central, PICC or Fol: No Subjective Review of Systems pt seen and examined at bedside, mentions cough with mild blood in the sputum, is currently on 2L oxygen through nasal canula. Objective vital signs Vital Sign Date Time Temp Pulse Resp B/P (MAP) Pulse Ox O2 Delivery O2 Flow Rate FiO2 07/23/24 18:00 120/69 07/23/24 16:55 98.3 77 18 93 98.3 07/23/24 14:09 Room Air 0.0 07/23/24 14:09 21 Total Intake and Output 07/22/24 07/22/24 07/23/24 15:00 23:00 07:00 Intake Total 800 ml 600 ml Balance 800 ml 600 ml medications Current Medications Medications Dose Ordered Sig/Mary Anne Route Start Time Stop Time Status Last Admin Dose Admin Aspirin 81 mg DAILY PO 07/19/24 10:00 07/23/24 10:02 81 MG Atorvastatin Calcium 20 mg HS PO 07/19/24 22:00 07/22/24 22:18 20 MG Diagnostic Test (Pha) 1 strip ACHS 07/19/24 07:00 07/23/24 18:43 1 STRIP Insulin Human Regular ACHS SC 07/19/24 07:00 07/23/24 18:45 3 UNITS Dextrose 50 ml UD PRN IV 07/19/24 00:45 Acetaminophen 650 mg Q6HP PRN PO 07/19/24 00:45 07/21/24 10:22 650 MG Oseltamivir Phosphate 30 mg Q12HR PO 07/20/24 10:00 07/25/24 09:59 07/23/24 10:02 30 MG Enoxaparin Sodium 40 mg DAILY SC 07/21/24 10:00 07/23/24 10:03 40 MG Prednisone 40 mg DAILY PO 07/22/24 10:00 07/23/24 10:02 40 MG Ipratropium [place] 0.5 mg Q2HPRN PRN NEB 07/22/24 08:45 Albuterol 2.5 mg Q2HPRN PRN NEB 07/22/24 08:45 Ipratropium [place] 0.5 mg Q4HR NEB 07/22/24 10:00 07/23/24 18:56 0.5 MG Albuterol 2.5 mg Q4HR NEB 07/22/24 10:00 07/23/24 18:56 2.5 MG Guaifenesin/ Dextromethorphan 10 ml Q4HP PRN PO 07/22/24 09:00 07/22/24 22:35 10 ML Ceftriaxone Sodium 50 ml @ 100 mls/hr DAILY@09 IV 07/23/24 09:00 07/23/24 10:01 100 MLS/HR Doxycycline Hyclate 250 ml @ 125 mls/hr Q12HR IV 07/22/24 22:00 07/23/24 10:02 125 MLS/HR Furosemide 40 mg BIDD IV 07/22/24 18:00 07/23/24 05:36 40 MG Examination General Appearance: Alert, Oriented X3, Cooperative, No acute distress HEENT: Atraumatic, PERRLA, EOMI, Mucous membr. moist/pink Respiratory: Normal air movement, bilateral crackles, improved, wheezing, improved Cardiovascular: Regular rate, Normal S1, Normal S2, No murmurs, bilateral pedal pitting edema, improved Abdominal: Normal bowel sounds, Soft, No tenderness, No hepatospenomegaly, No masses Extremities: No clubbing, No cyanosis, No edema, Normal pulses, No tenderness/swelling Skin: No rashes, No breakdown, No significant lesion Neuro: Normal speech, Normal tone laboratory and microbiology Laboratory Tests 07/23/24 06:54 Test 07/23/24 06:54 Range/Units Serum Glucose 120 H 74-106 mg/dL Microbiology Date/Time Source Procedure Growth Status 07/22/24 12:00 Sputum Gram Stain - Final Resulted 07/22/24 12:00 Sputum Respiratory Culture - Preliminary Resulted 07/22/24 09:27 Nose MRSA Screen - Final Complete 07/18/24 21:10 Blood Blood Culture - Preliminary NO GROWTH AFTER 72 HOURS OF INCUBATION. Resulted Labs and/or images reviewed: Labs reviewed by me, Image(s) reviewed by me Problem List/Assessment/Plan Problem List/Assessment/Plan Assessment/plan #acute hypoxic Resp failure due to CHF/Influenza -currently on 1L -neb with albuterol, ipratropium -CT chest ordered -echo ordered #?metabolic encephalopathy due to infection(likely pneumonia) -ordered UACOM #acute HFpEF exacerbation -IV Lasix -last echo showed Hyperdynamic left ventricle with medical fraction 65%. There is a grade 1 diastolic dysfunction. #atypical pneumonia seen on CT, likely due to influenza, CAP not ruled out -Tamiflu -sputum culture shows few gram negative rods -started on levofloxacin #asthma/COPD ?acute exacerbation -neb with ipratropium/albuterol -prednisone 40mg daily #7 mm nodule is seen in the superior segment of the left lower lobe -repeat imaging after resolution of the pneumonia #DENIS -improving #DM2 -sliding scale insulin #hyperlipidemia -statins #hypertension -will resume home meds #DVT prophylaxis -Lovenox 40mg SC daily Code status discussed with the patient for >21min , FULL CODE DISCHARGE planning within next 24-48 hrs Case discussion with Dr Gonzalez Plan discussed with: Patient, Other My Orders My Orders Orders - ANUJA CORDOVA RESIDENT Procedure Category Date Status Time Levofloxacin Tablet PHA 07/23/24 Verified (Levaquin Tablet) 19:15 Levofloxacin Tablet PHA 07/24/24 Verified (Levaquin Tablet) 10:00 Dietary Evaluation Review Recommendations by RD: Dietary education by RD Comments: 1) Add 45g CCHO to cardiac diet order. 2) Refer to outpatient RD/CD[facility] for weight management. 2) F/u w/ pulmonology and cardiology. 4) Continue to monitor PO intake and nutrition-related labs. 5) Continue plan of care. Expected Outcomes/Goals: 1) appetite and labs to improve 2) f/u in 2-3 days Date of Service: Jul 23, 2024 Billing Provider: HUSSAIN GONZALEZ MD Common Visit Codes: [id number] INP/OBS CARE(HIGH) ANUJA CORDOVA RESIDENT Jul 23, 2024 19:14 HUSSAIN GONZALEZ MD Jul 27, 2024 19:48
[2024-07-23] MEDS: levoFLOXacin 500 MG TAB PO ONE (21:17)
[2024-07-24] VITALS (15 sets, daily range): BP systolic 144–174; BP diastolic 69–72; PULSE 67–93; RESP 16–28; TEMP 97.3–97.9; O2SAT 2–98
[2024-07-24 07:24] LABS: Chloride 103 mmol/L (98-107); Potassium 3.6 mmol/L (3.5-5.1); Sodium 142 mmol/L (136-145)
[2024-07-24 07:25] LABS: Anion Gap 10 (5-15); Calcium 10.1 mg/dL (8.7-10.4); Carbon Dioxide 29 mmol/L (20-31)
[2024-07-24 07:28] LABS: Basophils # (auto) 0 10 ^3/uL (0-0.2); Basophils % (auto) 0.1 % (0.0-2.0); Eosinophils # (auto) 0 10 ^3/uL (0-0.8); Eosinophils % (auto) 0.2 % (0.0-7.0); Hematocrit 36.9 % (36.0-46.0); Hemoglobin 12.1 g/dL (12.2-16.2); Lymphocytes # (auto) 2.9 10 ^3/uL (0.4-5.4); Lymphocytes % (auto) 21.5 % (10.0-50.0); Mean Corpuscular Hemoglobin 30.1 pg (28.0-32.0); Mean Corpuscular Hgb Conc. 32.7 g/dL (32.0-36.0); Mean Corpuscular Volume 91.9 fL (80.0-100.0); Monocytes % (auto) 7.5 % (0.0-12.0); Neutrophils # (auto) 9.4 10 ^3/uL (1.6-8.6); Neutrophils % (auto) 70.7 % (37.0-80.0); Platelet Count (auto) 312 10^3/uL (140-450); Red Blood Cells 4.02 10^6/uL (4.0-5.20); Red Cell Distribution Width 14.4 % (11.8-14.3); White Blood Cell 13.3 10^3/uL (4.4-10.8)
[2024-07-24 07:30] LABS: BUN/Creatinine Ratio 34.4 (10.0-20.0)
[2024-07-24 07:31] LABS: Magnesium 1.9 mg/dL (1.6-2.6)
[2024-07-24 07:32] LABS: Blood Urea Nitrogen 31 mg/dL (9-23); Glucose 117 mg/dL (74-106)
[2024-07-24] MEDS: amLODIPine BESYLATE 5 MG TAB PO ONE (12:22)
[2024-07-24] MEDS ORDERED: LEVO500T91 PO (13:32)
[2024-07-24] MEDS ORDERED: LINE1TAB10 PO (13:32)
[2024-07-24] MEDS ORDERED: PRED20TA2 PO (13:32)
--- NOTE | 2024-07-24 14:39 | DVHDSRES ---
Discharge Summary Date of Admission Resident Creating Document: ANUJA CORDOVA RESIDENT Jul 19, 2024 at 04:50 Date of Discharge: Jul 24, 2024 Admitting Diagnosis Dyspnea with Cough Labs/Diagnostic Data: Laboratory Results Test 07/24/24 06:42 07/23/24 12:13 07/21/24 18:00 07/20/24 20:48 White Blood Count 13.3 10^3/uL (4.4-10.8) Red Blood Count 4.02 10^6/uL (4.0-5.20) Hemoglobin 12.1 g/dL (12.2-16.2) Hematocrit 36.9 % (36.0-46.0) Mean Corpuscular Volume 91.9 fL (80.0-100.0) Mean Corpuscular Hemoglobin 30.1 pg (28.0-32.0) Mean Corpuscular Hemoglobin Concent 32.7 g/dL (32.0-36.0) Red Cell Distribution Width 14.4 % (11.8-14.3) Platelet Count 312 10^3/uL (140-450) Mean Platelet Volume 8.1 fL (6.9-10.8) Neutrophils (%) (Auto) 70.7 % (37.0-80.0) Lymphocytes (%) (Auto) 21.5 % (10.0-50.0) Monocytes (%) (Auto) 7.5 % (0.0-12.0) Eosinophils (%) (Auto) 0.2 % (0.0-7.0) Basophils (%) (Auto) 0.1 % (0.0-2.0) Neutrophils # (Auto) 9.4 10 ^3/uL (1.6-8.6) Lymphocytes # (Auto) 2.9 10 ^3/uL (0.4-5.4) Monocytes # (Auto) 1.0 10 ^3/uL (0-1.3) Eosinophils # (Auto) 0 10 ^3/uL (0-0.8) Basophils # (Auto) 0 10 ^3/uL (0-0.2) Nucleated Red Blood Cells 0.0 % Sodium Level 142 mmol/L (136-145) Potassium Level 3.6 mmol/L (3.5-5.1) Chloride Level 103 mmol/L (98-107) Carbon Dioxide Level 29 mmol/L (20-31) Anion Gap 10 (5-15) Blood Urea Nitrogen 31 mg/dL (9-23) Creatinine 0.90 mg/dL (0.550-1.02) Glomerular Filtration Rate Calc 62 mL/min (>90) BUN/Creatinine Ratio 34.4 (10.0-20.0) Serum Glucose 117 mg/dL (74-106) Calcium Level 10.1 mg/dL (8.7-10.4) Magnesium Level 1.9 mg/dL (1.6-2.6) POC Glucose 143 mg/dl (70-106) Urine Color Light-yellow (Yellow) Urine Clarity Clear (Clear) Urine pH 5.0 (5.0-9.0) Urine Specific [place] 1.007 (1.001-1.035) Urine Protein Negative (Negative) Urine Ketones Negative (Negative) Urine Blood Negative /uL (Negative) Urine Nitrite Negative (Negative) Urine Bilirubin Negative (Negative) Urine Urobilinogen Normal mg/dL (Negative) Urine Leukocyte Esterase Negative /uL (Negative) Urine RBC 1 /hpf (0 - 4) Urine WBC 5 /hpf (0 - 5) Urine Squamous Epithelial Cells None seen /hpf (<5) Urine Bacteria Few /hpf (None Seen) Urine Glucose Normal mg/dL (Normal) SARS-CoV-2 Antigen (Rapid) Negative (NEGATIVE) Test 07/20/24 06:15 07/19/24 13:44 07/19/24 04:40 07/18/24 21:10 Total Bilirubin 0.2 mg/dL (0.2-1.0) Aspartate Amino Transferase (AST) 16 U/L (13-40) Alanine Aminotransferase (ALT) 16 U/L (7-40) Alkaline Phosphatase 73 U/L (46-116) Total Protein 6.6 g/dL (5.7-8.2) Albumin 4.1 g/dL (3.2-4.8) Influenza Type A Antigen Positive (Negative) Influenza Type B Antigen Negative (Negative) Hemoglobin A1c 6.6 % A1C (<5.7) Troponin I High Sensitivity 3 ng/L (</=34) Test 07/18/24 19:39 07/18/24 18:40 Lactic Acid Level 1.5 mmol/L (0.4-2.0) B-Type Natriuretic Peptide 83.89 pg/mL (0-100) Blood Gas Specimen Type Venous Blood Gas Sample Site Vbg - n/a Blood Gas Patient Temperature 37.0 Arterial Blood Date Drawn [id number] Juaquin Test N/a Venous Blood pH 7.432 (7.320-7.430) Venous Blood pCO2 at Patient Temp 40.7 mmHg (38.0-54.0) Venous Blood pO2 at Patient Temp < 36.5 mmHg (23.0-48.0) Venous Blood HCO3 26.5 mmol/L (22.0-29.0) Venous Blood Base Excess 2.1 mmol/L (-2.0-3.0) Blood Gas Liter Flow 4.00 Blood Gas Modality Nasal cannula FiO2 % 36.0 Other Laboratory Tests 07/24/24 06:42 Brief Hx & Hospital Course: 84-year-old female with past medical history of asthma/COPD, hypertension, hyperlipidemia presented with complaints of shortness of breath associated with cough. She was Started on oxygen, was initially on 4 L of oxygen. She was started on nebulization with ipratropium and albuterol, was started on prednisone for COPD exacerbation. Patient's influenza test came out to be positive after which she was started on Tamiflu. Patient was also started on azithromycin, which was later discontinued. Patient was started on ceftriaxone and doxycycline for pneumonia. CT chest showed 1. Bilateral multifocal pulmonary opacities likely atypical pneumonia. A 7 mm nodule is seen in the superior segment of the left lower lobe should be followed up after treatment of presumed pneumonia to ensure regression and benignity. 2. Diffuse atherosclerotic disease. 3. Suggestion of pulmonary arterial hypertension. 4. Visualized upper abdomen shows cholelithiasis without CT evidence of cholecystitis. Echo was done, revealed LV EJECTION FRACTION IS 72% MODERATELY CALCIFIED AORTIC LEAFLETS NORMAL MV,TV AND PV NO EFFUSION NORMAL RV FUNCTION Sputum culture later revealed E coli and MRSA. Patient was later on room air and we will mentioning improvement in the symptoms At the time of discharge, patient had stable vitals, no new complaints. Discharge plan was discussed with the patient and the Chrissie she was advised to follow up with PCP within 1-2 weeks. Patient was discharged on linezolid, levofloxacin and prednisone. Examination on the day of discharge: General Appearance: Alert, Oriented X3, Cooperative, No acute distress HEENT: EOMI Respiratory: Clear to auscultation, Normal air movement, mild scattered wheezing improving Cardiovascular: Regular rate, Normal S1, Normal S2 Abdominal: Normal bowel sounds Extremities: No cyanosis, No edema, Normal pulses, No tenderness/swelling Skin: No rashes, No breakdown Neuro: Normal Speech and tone Discussed with Dr. Wilder Operations or Procedures PATIENT: ROSALIO SMILEY FACCT: [id number] UNIT: [id number] : 1940 LOC: CENTRAL ROOM / BED: [facility] B AGE / SEX: 84 / F ADM STATUS: ADM IN SERVICE 1334 ORDERING PHYSICIAN: ANUJA CORDOVA RESIDENT PROCEDURE(s): ECIDC - ECHO 2D MODE CARDIAC DOP REASON: pulm hypertension ORDER NUMBER(s): [id number], ACCESSION NUMBER(s): [id number] APPROVED REPORT EXAM: Two-dimensional and M-mode echocardiogram with Doppler and color Doppler. Blood Pressure: 147/52 mmHg INDICATION Pulm HTN RISK FACTORS Height: 63, Weight: 192 DIMENSIONS LVDd (3.8-5.7cm) LA (2D) 3.8 (1.9-4.0cm) Aortic Root 3.1 (2.0- 3.7cm) EF (%) 72.0 (55-70%) Rt. Atrium 3.3 (1.9-4.0cm) Asc. Aorta cm Mitral Valve Mitral Mitral Stenosis E wave 0.55m/s MV Mean GR. mmHg A wave 1.12m/s MV Peak GR. mmHg E/A ratio 0.5 2D MVA cm2 DECEL Time 295ms PRESS 1/2 Time 65ms IVRT ms Dop MVA 3.39cm2 Aortic Valve Aortic Valve Aortic Stenosis V1 1.37m/s AO Mean GR. 4mmHg V2 1.45m/s AO Peak GR. 8mmHg LVOT Diameter 2.1 (1.8-2.4cm) Doppler DARRELL 3.27cm2 AI P 1/2 Time 388.90ms Pulmonic Valve V2 1.15m/s Other Information Technically limited study due to body habitus. Conclusion LV EJECTION FRACTION IS 72% MODERATELY CALCIFIED AORTIC LEAFLETS NORMAL MV,TV AND PV NO EFFUSION NORMAL RV FUNCTION SIGNED BY: JOSE R RIOS MD SIGNED DATE/TIME: 07/22/24 3284 PATIENT: ROSALIO SMILEY FACCT: [id number] UNIT: [id number] : 1940 LOC: CENTRAL ROOM / BED: 0222 / B AGE / SEX: 84 / F ADM STATUS: ADM IN SERVICE 0842 ORDERING PHYSICIAN: ANUJA CORDOVA PROCEDURE(s): CX2CT - CHEST WITHOUT CONTRAST REASON: hemoptysis ORDER NUMBER(s): [id number], ACCESSION NUMBER(s): [id number] EXAM: CT CHEST WITHOUT CONTRAST HISTORY: hemoptysis COMPARISON: CT CHEST WITHOUT CONTRAST on DOS: 10/11/23 TECHNIQUE: Axial images were obtained and reformatted in coronal and sagittal planes. All CT scans at this medical facility are performed using dose modulation techniques as appropriate to a performed exam including the following: Automated exposure control was utilized; adjustment of the MA and/or KV according to patient size; and use of iterative reconstruction technique. CT Dose: CTDI volume is 14.9 mGy. Dose-length product is 534 mGy*cm FINDINGS: Lower neck: Unremarkable. Cardiomediastinal: The heart is normal in size. Coronary artery calcification noted. Aorta is normal in caliber diffuse atherosclerotic calcification. Prominent pulmonary arterial trunk measuring 3.4 cm in caliber suggestive of underlying pulmonary arterial hypertension. Mild mediastinal lymphadenopathy measuring up to 2 x 1 cm likely reactive in nature. Lungs: Pulmonary opacities are seen in the medial segment of the right middle lobe. Small opacities are seen in the superior posterior basal segments of the left lower lobe mostly with centrilobular/tree-in-bud pattern. A 7 mm nodule noted in the superior segment of the left lower lobe. Bilateral peribronchial cuffing noted Bones and Soft Tissues: No acute abnormality. Multilevel degenerative changes of the thoracic spine are noted. Upper Abdomen: No acute abnormality. Cholelithiasis. Other: None. IMPRESSION: 1. Bilateral multifocal pulmonary opacities likely atypical pneumonia. A 7 mm nodule is seen in the superior segment of the left lower lobe should be followed up after treatment of presumed pneumonia to ensure regression and benignity. 2. Diffuse atherosclerotic disease. 3. Suggestion of pulmonary arterial hypertension. 4. Visualized upper abdomen shows cholelithiasis without CT evidence of cholecystitis. ATED BY: ADELE DE MD DICTATED DATE/TIME: 07/22/24937 SIGNED BY: ADELE DE MD SIGNED DATE/TIME: 07/22/24937 Condition at Discharge: Stable Final Diagnosis/Problems List Acute hypoxic respiratory failure due to CHF exacerbation Community-acquired pneumonia, both Gram-positive and Gram-negative, MRSA pneumonia, E coli pneumonia influenza A pneumonia COPD exacerbation DENIS DM2 HLD Metabolic encephalopathy likely due to pneumonia acute HFpEF 7 mm nodule is seen in the superior segment of the left lower lobe Hypertension MODERATELY CALCIFIED AORTIC LEAFLETS Discharge Disposition: Home Discharge Instruct/Medications Diet: Cardiac 2g Na,low cholest Activity: No Restrictions, As Tolerated Follow Up/Referral: f/u with PCP within 1-2 weeks Medications: linezolid, levofloxacin and prednisone Discharge Statement: "Patient was advised to return to the ER or call 911 if any headaches, dizziness, shortness of breath, chest pain, abdominal pain, bleeding, fevers, or worsening of medical condition. Patient was counseled about treatment plan, medications, possible side effects, patientverbalized understanding. All questions were answered to the best of my ability. This discharge took greater then 30 minutes in planning, reviewing documentation, counseling the patient, and discussing with other team members." ASSESSMENT ASSESSMENT Assessment MRSA pneumonia E coli pneumonia influenza pneumonia copd exacerbation Addendum Addendum Addendum I was physically present for the jose portions of the service provided to patient by THE RESIDENT. I have reviewed the documentation, discussed the case with resident and agree with the resident's documentation except as noted. Also the patient's clinical case was discussed with the patient's nurse. This medical document was created using an electronic medical record system with computerized dictation system. Although this document has been carefully reviewed, there might still be some phonetic and typographical errors. These areas are purely typographical due to imperfections of the software programs, and do not reflect any compromise in the patient's medical care. Late signature. Date of Service: Jul 24, 2024 Billing Provider: TAMRA WILDER MD Common Visit Codes: [id number] DISCH DAY >30min ANUJA CORDOVA Jul 24, 2024 14:39 TAMRA WILDER MD Jul 25, 2024 06:07
[2024-07-24] MEDS ORDERED: levoFLOXacin 500 MG TAB PO SCH (18:00)
--- NOTE | 2024-07-27 14:58 | ECG ---
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
== END 2024-07-24 17:20 | disposition home or self-care (01) | DRG 177 ==
LOC: ER 18:03 → TELE 07-19 04:50 → CENTRAL 07-19 04:52 → TELE-CENTR 07-19 23:59 → CENTRAL 07-21 02:12
PROVIDERS: ADMIT Internal Medicine; ATTEND Internal Medicine
DX: J15.5 Pneumonia due to Escherichia coli (principal); G93.41 Metabolic encephalopathy; J96.01 Acute respiratory failure with hypoxia; I50.31 Acute diastolic (congestive) heart failure; J44.1 Chronic obstructive pulmonary disease with (acute) exacerbation; J45.901 Unspecified asthma with (acute) exacerbation; J81.1 Chronic pulmonary edema; J98.11 Atelectasis; N17.9 Acute kidney failure, unspecified; J44.0 Chronic obstructive pulmonary disease with (acute) lower respiratory infection; Z20.822 Contact with and (suspected) exposure to COVID-19; I11.0 Hypertensive heart disease with heart failure; J15.212 Pneumonia due to Methicillin resistant Staphylococcus aureus; J15.69 Pneumonia due to other Gram-negative bacteria; J15.9 Unspecified bacterial pneumonia; E11.65 Type 2 diabetes mellitus with hyperglycemia; E66.9 Obesity, unspecified; E78.5 Hyperlipidemia, unspecified; J10.08 Influenza due to other identified influenza virus with other specified pneumonia; Z68.35 Body mass index [BMI] 35.0-35.9, adult; Z90.710 Acquired absence of both cervix and uterus; Z90.49 Acquired absence of other specified parts of digestive tract; Z88.0 Allergy status to penicillin; Z88.5 Allergy status to narcotic agent; Z83.3 Family history of diabetes mellitus; Z82.49 Family history of ischemic heart disease and other diseases of the circulatory system
CPT/HCPCS: 36415; 36600; 71045; 71046; 71250; 80048; 80053; 81001; 82805; 82962; 83036; 83605; 83735; 83880; 84484; 85025; 87040; 87070; 87077; 87081; 87186; 87205; 87426; 87804; 93005; 93306; 93970; 94640; 97163; G0378; G9035; J1815; J3490

== ENCOUNTER → 2024-08-26 | Outpatient (CLI) | payer OTHER ==
[~2024-08-26] MED LIST changes: +ALBU0.084 NEB; +ALBU108A5 IN; -AMLO1TAB21 PO; -ATOR20TA50 PO; -DEXT1SYP9 PO; -DOXY100C79 PO; -FURO20TA3 PO; +LEVO500T91 PO; +LINE1TAB10 PO; -MET50T PO; -OMEP20TA PO; -ZOFR4T PO
[2024-08-26 08:02] LABS: Basophils # (auto) 0.1 10 ^3/uL (0-0.2); Basophils % (auto) 1.3 % (0.0-2.0); Eosinophils # (auto) 0.3 10 ^3/uL (0-0.8); Eosinophils % (auto) 4.3 % (0.0-7.0); Hematocrit 40.3 % (36.0-46.0); Hemoglobin 13.3 g/dL (12.2-16.2); Lymphocytes # (auto) 2.4 10 ^3/uL (0.4-5.4); Lymphocytes % (auto) 30.1 % (10.0-50.0); Mean Corpuscular Hemoglobin 29.7 pg (28.0-32.0); Mean Corpuscular Hgb Conc. 32.9 g/dL (32.0-36.0); Mean Corpuscular Volume 90.2 fL (80.0-100.0); Monocytes # (auto) 0.5 10 ^3/uL (0-1.3); Monocytes % (auto) 5.9 % (0.0-12.0); Neutrophils # (auto) 4.6 10 ^3/uL (1.6-8.6); Neutrophils % (auto) 58.4 % (37.0-80.0); Platelet Count (auto) 429 10^3/uL (140-450); Red Blood Cells 4.46 10^6/uL (4.0-5.20); Red Cell Distribution Width 15.1 % (11.8-14.3); White Blood Cell 7.9 10^3/uL (4.4-10.8)
[2024-08-26 08:31] LABS: % Iron Saturation 20.2 % (15-50); Alanine Aminotransferase 18 U/L (7-40); Albumin 4.5 g/dL (3.2-4.8); Alkaline Phosphatase 85 U/L (46-116); Anion Gap 11 (5-15); Aspartate Aminotransferase 17 U/L (13-40); Bilirubin, Total 0.4 mg/dL (0.2-1.0); Blood Urea Nitrogen 13 mg/dL (9-23); Carbon Dioxide 24 mmol/L (20-31); Cholesterol 189 mg/dL (< 200); Potassium 3.8 mmol/L (3.5-5.1); Total Protein 7.1 g/dL (5.7-8.2)
[2024-08-26 08:32] LABS: Calcium 10.4 mg/dL (8.7-10.4); Chloride 111 mmol/L (98-107); Glucose 135 mg/dL (74-106); HDL Cholesterol 39 mg/dL (40-59); LDL Cholesterol 115 mg/dL (< 100); Sodium 146 mmol/L (136-145); Triglycerides 260 mg/dL (< 150)
[2024-08-26 08:33] LABS: Urine Bacteria FEW /hpf (None Seen); Urine Blood Negative /uL (Negative); Urine Clarity Turbid (Clear); Urine Color Light-Yellow (Yellow); Urine Mucus FEW (None Seen); Urine Protein, UAD Negative (Negative); Urine Specific Gravity 1.015 (1.001-1.035); Urine Squamous Epithelial Cell FEW /hpf (<5); Urine Urobilinogen Normal (Negative); Urine WBC 39 /HPF (0-5); Urine WBC Clumps PRESENT /hpf (None Seen); Urine pH 5.5 (5.0-9.0)
== END | disposition home or self-care (01) ==
LOC: LAB 07:02
PROVIDERS: ATTEND Internal Medicine
DX: Z00.01 Encounter for general adult medical examination with abnormal findings (principal); I13.0 Hypertensive heart and chronic kidney disease with heart failure and stage 1 through stage 4 chronic kidney disease, or unspecified chronic kidney disease; N18.31 Chronic kidney disease, stage 3a; I50.9 Heart failure, unspecified; D72.829 Elevated white blood cell count, unspecified; R00.2 Palpitations
CPT/HCPCS: 36415; 80053; 80061; 81001; 83036; 83540; 83550; 84439; 84443; 85025; 87086

== ENCOUNTER 2024-11-21 11:59 | Inpatient (IN) | payer OTHER ==
[~2024-11-21] VITALS: Ht 160 cm; Wt 91.5 kg
--- NOTE | 2024-11-21 12:19 | ED.PDOC ---
SOB-HPI HPI Comments sob Comments sob, wheezes pt has had an URI for 2 weeks, progressively worsened till this morning with severe wheezes, unresponsive to at home nebulizer. In UC, she improved with med neb, but still hypoxic and wheezing. remote history of smoking but no tobacco, noxious fume, or sick exposures. no cp, no orthopnea, no fever or chills Time Seen by MD: 12:07 Reviewed notes: Nurses Notes, Medications, Allergies Information Source: Patient, Relative, Dr. 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 History: No Pertinent DRY KILN OPERATOR History Family History Family History: Reviewed,noncontributory to illness, No family hx of Cancer, No family hx of DM, No family hx of Heart janell, No family hx of HTN, No family hx ofKidney janell, No family hx of Liver janell, No family hx of Lung janell, No family hx of Stroke Social History Smoker: Non-Smoker Alcohol: Denies ETOH Use Drugs: Denies Drug Use Lives In: Home Constitutional: denies: chills, diaphoresis, fatigue, fever, malaise, sweats, weakness, others EENTM: denies: blurred vision, double vision, ear bleeding, ear discharge, ear drainage, ear pain, ear ringing, eye pain, eye redness, hearing loss, mouth pain, mouth swelling, nasal discharge, nose bleeding, nose congestion, nose pain, photophobia, tearing, throat pain, throat swelling, voice changes, others Respiratory: reports: cough, SOB at rest, wheezing; denies: hemoptysis, orthopnea, shortness of breath, SOB with excertion, stridor, others Cardiovascular: reports: edema; denies: chest pain, dizzy spells, diaphoresis, Dyspnea on exertion, irregular heart beat, left arm pain, lightheadedness, palpitations, PND, syncope, others Gastrointestinal: denies: abdomen distended, abdominal pain, blood streaked bowels, constipated, diarrhea, dysphagia, difficulty swallowing, hematemesis, melena, nausea, poor appetite, poor fluid intake, rectal bleeding, rectal pain, vomiting, others Genitourinary: denies: abnormal vagina bleeding, burning, dyspareunia, dysuria, flank pain, frequency, hematuria, incontinence, pain, , vagina d ischarge, urgency, others Neurological: denies: dizziness, fainting, headache, left sided numbness, left sided weakness, numbness, paresthesia, pre-existing deficit, right sided numbness, right sided weakness, seizure, speech problems, tingling, tremors, weakness, others Musculoskeletal: denies: back pain, gout, joint pain, joint swelling, muscle pain, muscle stiffness, neck pain, others Integumetry: denies: bruises, change in color, change in hair/nails, dryness, laceration, lesions, lumps, rash, wounds, others Allergic/Immunocompromised: denies: Difficulty Healing, Frequent Infections, Hives, Itching, others Hematologic/Lymphatic: denies: anemia, blood clots, easy bleeding, easy bruising, swollen glands, others Psychiatric: denies: anxiety, bipolar disorder, depression, hopeless, panic disorder, schizophrenia, sleepless, suicidal, others All Other Systems: Reviewed and Negative Physical Exam General Appearance: No Apparent Distress, Normal HEENT: Normal ENT Inspection, Pharynx Normal, TMs Normal Neck: Full Range of Motion, Non-Tender, Normal, Normal Inspection Respiratory: Chest Non-Tender, No Accessory Muscle Use, No Respiratory Dist ress, Wheezing Cardiovascular: No JVD, No Murmur, No Gallop, Normal Peripheral Pulses, Regular Rate/Rhythm, Other (bilateral 2+ pedal edema, no calf tenderness no asymmetry) Breast Exam: Deferred Gastrointestinal: No Organomegaly, Non Tender, No Pulsatile Mass, Normal Bowel Sounds, Soft Genitalia: Deferred Pelvic: Deferred Rectal: Deferred Extremities: No calf tenderness, Normal capillary refill, Normal inspection, Normal range of motion, Non-tender, No pedal edema Musculoskeletal : Apperance: Normal Neurologic: Alert, branner machine tender II-XII nml as Tested, No Motor Deficits, Normal Affect, Normal Mood, No Sensory Deficits Cerebellar Function: Normal Reflexes: Normal Skin: Dry, Normal Color, Warm Lymphatic: No Adenopathy Was a procedure done? Was a procedure done?: No Differential Dx Differential Diagnosis: Anxiety, Asthma, Bronchitis, CHF, COPD, Hyperventilation, Myocardial infarction, Pneumonia, Pneumothorax, Pulmonary Embolism, Respiratory Distress, URI X-Ray, Labs, Meds, VS Vital Signs Date Time Temp Pulse Resp B/P (MAP) Pulse Ox O2 Delivery O2 Flow Rate FiO2 11/21/24 12:38 14 92 Nasal Cannula* 2 28 11/21/24 12:20 74 11/21/24 12:16 97.1 78 20 144/53 (83) 88 97.1 11/21/24 12:16 20 92 Nasal Cannula 2.0 Lab Test 11/21/24 12:43 Range/Units White Blood Count 12.5 H 4.4-10.8 10^3/uL Red Blood Count 4.59 4.0-5.20 10^6/uL Hemoglobin 13.0 12.2-16.2 g/dL Hematocrit 40.2 36.0-46.0 % Mean Corpuscular Volume 87.6 80.0-100.0 fL Mean Corpuscular Hemoglobin 28.2 28.0-32.0 pg Mean Corpuscular Hemoglobin Concent 32.2 32.0-36.0 g/dL Red Cell Distribution Width 15.8 H 11.8-14.3 % Platelet Count 401 140-450 10^3/uL Mean Platelet Volume 7.4 6.9-10.8 fL Neutrophils (%) (Auto) 71.1 37.0-80.0 % Lymphocytes (%) (Auto) 15.4 10.0-50.0 % Monocytes (%) (Auto) 2.2 0.0-12.0 % Eosinophils (%) (Auto) 10.4 H 0.0-7.0 % Basophils (%) (Auto) 0.9 0.0-2.0 % Neutrophils # (Auto) 8.9 H 1.6-8.6 10 ^3/uL Lymphocytes # (Auto) 1.9 0.4-5.4 10 ^3/uL Monocytes # (Auto) 0.3 0-1.3 10 ^3/uL Eosinophils # (Auto) 1.3 H 0-0.8 10 ^3/uL Basophils # (Auto) 0.1 0-0.2 10 ^3/uL Nucleated Red Blood Cells 0.1 % Sodium Level 145 136-145 mmol/L Potassium Level 4.0 3.5-5.1 mmol/L Chloride Level 110 H 98-107 mmol/L Carbon Dioxide Level 23 20-31 mmol/L Anion Gap 12 5-15 Blood Urea Nitrogen 10 9-23 mg/dL Creatinine 0.89 0.550-1.02 mg/dL Glomerular Filtration Rate Calc 63 >90 mL/min BUN/Creatinine Ratio 11.2 10.0-20.0 Serum Glucose 139 H 74-106 mg/dL Calcium Level 10.2 8.7-10.4 mg/dL Troponin I High Sensitivity 3 L </=34 ng/L Current Medications Medications (Trade) Dose Ordered Sig/Mary Anne Route Start Time Stop Time Status Last Admin Albuterol (Ventolin Medneb) 10 mg ONCE ONCE NEB 11/21/24 12:15 11/21/24 12:16 DC 11/21/24 12:38 Ipratropium [place] (Atrovent Medneb) 0.5 mg ONCE ONCE NEB 11/21/24 12:15 11/21/24 12:16 DC 11/21/24 12:38 Time of 1ST Reevaluation: 13:07 Reevaluation 1ST: Unchanged Time of 2ND Reevaluation: 13:28 Reevaluation 2ND: Improved Patient Education/Counseling: Diagnosis, Treatment, Prognosis, Need For Follow Up Family Education/Counseling: Diagnosis, Treatment Additional Information Previous visits: COPD Exacerbation 07/19/24 The following tests were ordered, and results were reviewed by me: CBC, BMP, Troponin, EKG, Flu, COVID, Chest XR Additional Information was gathered from interviewing the following independent historians: Family I reviewed and agreed with the following test results read by other providers: Chest XR I discussed treatment and results with medical personnel and: patient and family Comprehensive systems review obtained and negative except for what is stated in the HPI. Departure 1 Departure Time of Disposition: 13:28 Impression: Primary Impression: COPD with acute exacerbation Additional Impression: Hypoxia Disposition: ADMITTED INPATIENT Admit to: Tele Condition: Stable Discharged With: Self, Relative Critical Care Note Critical Care Time?: Yes (55 min-critical care time only) Critical care comment: Due to concerns for patients condition deteriorating, the care required my highest level of attention and readiness to intervene. I assessed the patient, reviewed the medical records, ordered the appropriate tests and treatments, then reassessed for results and responsiveness. I communicated with medical personnel and consultants and formulated a plan of care. Total critical care time excludes any procedures Stability Stability form required: No Heart Score Heart Score: Heart Score Response (Comments) Value History N/A 0 EKG N/A 0 Age N/A 0 Risk Factors N/A 0 Troponin N/A 0 Total 0 I personally scribed for SUMIT ERAZO MD ([email or web address]) on 11/21/24 at 12:43. Electronically submitted by David Monroe ([email or web address]). SUMIT ERAZO MD November 21, 2024 12:19
--- NOTE | 2024-11-21 12:22 | ECG ---
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
[2024-11-21] MEDS: IPRATROPIUM BROM 0.5 MG/2.5ML INH SOL NEB ONE (12:38)
[2024-11-21] MEDS: ALBUTEROL SULF 2.5 MG/0.5ML(0.5%) NEB SOLN NEB ONE (12:38)
[2024-11-21 12:58] LABS: Basophils # (auto) 0.1 10 ^3/uL (0-0.2); Basophils % (auto) 0.9 % (0.0-2.0); Eosinophils # (auto) 1.3 10 ^3/uL (0-0.8); Eosinophils % (auto) 10.4 % (0.0-7.0); Hematocrit 40.2 % (36.0-46.0); Lymphocytes # (auto) 1.9 10 ^3/uL (0.4-5.4); Lymphocytes % (auto) 15.4 % (10.0-50.0); Mean Corpuscular Hemoglobin 28.2 pg (28.0-32.0); Mean Corpuscular Hgb Conc. 32.2 g/dL (32.0-36.0); Mean Corpuscular Volume 87.6 fL (80.0-100.0); Monocytes # (auto) 0.3 10 ^3/uL (0-1.3); Monocytes % (auto) 2.2 % (0.0-12.0); Neutrophils # (auto) 8.9 10 ^3/uL (1.6-8.6); Neutrophils % (auto) 71.1 % (37.0-80.0); Nucleated Red Blood Cells % 0.1 %; Platelet Count (auto) 401 10^3/uL (140-450); Red Blood Cells 4.59 10^6/uL (4.0-5.20); Red Cell Distribution Width 15.8 % (11.8-14.3); White Blood Cell 12.5 10^3/uL (4.4-10.8)
[2024-11-21 13:02] LABS: Sodium 145 mmol/L (136-145)
[2024-11-21 13:03] LABS: Anion Gap 12 (5-15); Calcium 10.2 mg/dL (8.7-10.4); Carbon Dioxide 23 mmol/L (20-31)
[2024-11-21 13:04] LABS: Chloride 110 mmol/L (98-107)
[2024-11-21 13:08] LABS: BUN/Creatinine Ratio 11.2 (10.0-20.0); Blood Urea Nitrogen 10 mg/dL (9-23)
[2024-11-21 13:13] LABS: Glucose 139 mg/dL (74-106)
[2024-11-21] MEDS: MAGNESIUM SULFATE 1GM/100ML 100 ML IV ONE (14:33)
[2024-11-21] MEDS: methylPREDNISolone SOD SUCC 125 MG/2 ML VL IV ONE (14:33)
[2024-11-21 14:36] VITALS: PULSE 82; RESP 22; O2SAT 93
[2024-11-21] MEDS ORDERED: ALBUTEROL SULF 2.5 MG/0.5ML(0.5%) NEB SOLN NEB PRN (18:45)
[2024-11-21] MEDS ORDERED: ERGOCALCIFEROL 50,000 UNIT(1.25MG) CAP PO SCH (19:00)
[2024-11-21] MEDS ORDERED: ACETAMINOPHEN 325 MG TAB PO PRN (19:00)
--- NOTE | 2024-11-21 19:09 | DVHHP2 ---
History of Present Illness Reason for Visit: Asthma exacerbation History of Present Illness This is a 84-year-old female who presents to ED with chief complaint of shortness of breaths x2 weeks progressively worse this morning with severe wheezes unresponsive to home nebulizer. Upon evaluating the patient she notes that she had given for med neb treatments at home and noticed that her SpO2 was 87% on room air and notable wheezing which prompted her to seek further medical attention. Her daughter is accompanied with her and stated that she looked weak and pale during the episode at home. The patient denies using oxygen at home. She states that she does have an upcoming appointment with her new business management consultant Dr. Guy. The patient is in no respiratory distress at this time, no audible wheezes have been noted, is currently on 3 L nasal cannula oxygen. She did receive Solu-Medrol 125 mg and med neb treatment while in the ER with improvement. The patient and her daughter is concerned about her symptoms and would like to be further evaluated and treated. The patient denies fever, chills, dizziness, shortness of breath, chest pain, nausea, vomiting, diarrhea, constipation, abdominal pain and other associated symptoms. The plan has been discussed with the patient and daughter in which all questions concerns have been addressed. Cardiovascular: HTN, hyperipidemia Pulmonary: Asthma Past Surgical History: Appendectomy, Hysterectomy Family History: None Smoke: No ALCOHOL: none Drugs: None Lives: with Family Domestic Violence: Neg Review of Systems Respiratory: Shortness of breath, Wheezing Allergies: Coded Allergies: Codeine (Verified Allergy, Mild, 05/20/23) Penicillins (Verified Allergy, Unknown, 05/20/23) Medications Current Medications Medications Dose Ordered Sig/Mary Anne Route Start Time Stop Time Status Last Admin Dose Admin Albuterol 2.5 mg Q2HPRN PRN NEB 11/21/24 18:45 Albuterol 2.5 mg Q4HR NEB 11/21/24 22:00 Ipratropium [place] 0.5 mg Q4HR NEB 11/21/24 22:00 Methylprednisolone Sodium Succinate 40 mg BID IV 11/21/24 22:00 Enoxaparin Sodium 40 mg DAILY SC 11/22/24 10:00 UNV Acetaminophen 650 mg Q6HP PRN PO 11/21/24 19:00 UNV Exam Vital Signs Vital Signs Date Time Temp Pulse Resp B/P (MAP) Pulse Ox O2 Delivery O2 Flow Rate FiO2 5/3/25 14:36 82 22 93 Nasal Cannula* 2 28 11/21/24 14:23 98.7 136/58 (84) 98.7 General Appearance: Alert, Oriented X3, Cooperative, No acute distress HEENT: Atraumatic, PERRLA, Mucous membr. moist/pink Respiratory: Normal air movement, Other (Wheezing) Cardiovascular: Normal S1, Normal S2, No murmurs Abdominal: Normal bowel sounds, Soft, No tenderness, No hepatospenomegaly, No masses Extremities: No clubbing, No cyanosis, No edema, Normal pulses, No tenderness/swelling Skin: No rashes, No breakdown Neuro: Normal gait, Normal speech, Strength at 5/5 X4 ext, Normal tone, Sensation intact, Cranial nerves 3-12 NL, Reflexes 2+ Psych/Mental Status: Mental status NL Labs/Xrays Labs Test 11/21/24 18:23 11/21/24 12:43 Range/Units White Blood Count 12.5 H 4.4-10.8 10^3/uL Red Blood Count 4.59 4.0-5.20 10^6/uL Hemoglobin 13.0 12.2-16.2 g/dL Hematocrit 40.2 36.0-46.0 % Mean Corpuscular Volume 87.6 80.0-100.0 fL Mean Corpuscular Hemoglobin 28.2 28.0-32.0 pg Mean Corpuscular Hemoglobin Concent 32.2 32.0-36.0 g/dL Red Cell Distribution Width 15.8 H 11.8-14.3 % Platelet Count 401 140-450 10^3/uL Mean Platelet Volume 7.4 6.9-10.8 fL Neutrophils (%) (Auto) 71.1 37.0-80.0 % Lymphocytes (%) (Auto) 15.4 10.0-50.0 % Monocytes (%) (Auto) 2.2 0.0-12.0 % Eosinophils (%) (Auto) 10.4 H 0.0-7.0 % Basophils (%) (Auto) 0.9 0.0-2.0 % Neutrophils # (Auto) 8.9 H 1.6-8.6 10 ^3/uL Lymphocytes # (Auto) 1.9 0.4-5.4 10 ^3/uL Monocytes # (Auto) 0.3 0-1.3 10 ^3/uL Eosinophils # (Auto) 1.3 H 0-0.8 10 ^3/uL Basophils # (Auto) 0.1 0-0.2 10 ^3/uL Nucleated Red Blood Cells 0.1 % Sodium Level 145 136-145 mmol/L Potassium Level 4.0 3.5-5.1 mmol/L Chloride Level 110 H 98-107 mmol/L Carbon Dioxide Level 23 20-31 mmol/L Anion Gap 12 5-15 Blood Urea Nitrogen 10 9-23 mg/dL Creatinine 0.89 0.550-1.02 mg/dL Glomerular Filtration Rate Calc 63 >90 mL/min BUN/Creatinine Ratio 11.2 10.0-20.0 Serum Glucose 139 H 74-106 mg/dL Calcium Level 10.2 8.7-10.4 mg/dL Assessment/Plan Assessment/Plan Asthma exacerbation---patient with chief complaint of shortness of breath associated with severe wheezing unresponsive to home nebulizer that occurred this morning Upper respiratory infection x2 weeks progressively worse today Patient had med neb treatment x4 with no improvement Oxygen has been placed on patient 3 L nasal cannula In the ER patient received Solu-Medrol and med neb treatment with improvement Admit to med surge unit Reviewed CBC shows elevated white blood cell count Reviewed BMP which is normal Cardiac enzyme negative x2 DuoNeb q.4 hours Albuterol q.2h p.r.n. shortness of breath IV Solu-Medrol b.i.d. IV piggyback magnesium x1 given in the ER Continue to titrate FiO2 up or down via nasal cannula Consider to consult business management consultant if further evaluation is needed Hypertension controlled Continue antihypertensive agents Continue to monitor Reconcile home medication DVT prophylaxis PUD prophylaxis not indicated no history of GERD Labs in a.m. 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 Procedure Category Date Status Time Albuterol Medneb PHA 11/21/24 In Process (Ventolin Medneb) 18:45 Albuterol Medneb PHA 11/21/24 In Process (Ventolin Medneb) 22:00 Ipratropium Medneb PHA 11/21/24 In Process (Atrovent Medneb) 22:00 Methylprednisolone PHA 11/21/24 In Process Sod Succ (Solu Medrol 22:00 Admit ADMIT 11/21/24 Transmitted 18:56 2 Gm Sodium Diet DIET 11/22/24 Transmitted Breakfast Enoxaparin Sodium PHA 11/22/24 Logged (Lovenox) 10:00 Complete Blood Count LAB 11/22/24 Verified 04:00 Comprehensive LAB 11/22/24 Verified Metabolic Panel 04:00 Condition: Fair JOSE ALEJANDRO 11/21/24 In Process 18:56 Acetaminophen Tablet PHA 11/21/24 Logged (Tylenol Tablet) 19:00 Bedrest With Bathroom JOSE ALEJANDRO 11/21/24 In Process Privileg 18:56 Amlodipine Tablet PHA 11/22/24 Transmitted (Norvasc Tablet) 10:00 Aspirin Enteric PHA 11/22/24 Transmitted Coated Tablet 10:00 Diltiazem Immediate PHA 11/22/24 Transmitted Releas Tab (Cardizem 10:00 Ergocalciferol PHA 11/21/24 Transmitted (Vitamin D 50,000 19:00 Furosemide Tablet PHA 11/22/24 Transmitted (Lasix Tablet) 10:00 Losartan Tablet PHA 11/21/24 Transmitted (Cozaar Tablet) 22:00 Metoprolol Tartrate PHA 11/21/24 Transmitted Tablet (Lopressor Ta 22:00 Montelukast Tablet PHA 11/22/24 Transmitted (Singulair Tablet) 10:00 (Nf) Atorvastatin PHA 11/22/24 Transmitted Calcium (Lipitor) 10:00 (Nf) Cetirizine Hcl PHA 11/22/24 Transmitted (Kls Aller-Fabian) 10:00 (NF) PHA 11/21/24 Transmitted Methylsulfonylmethane 22:00 (Nf) Omeprazole PHA 11/21/24 Transmitted (Omeprazole Dr) 22:00 Date of Service: November 21, 2024 Billing Provider: PATEL REYES Common Visit Codes: [id number] INP/OBS CARE (HIGH) PATEL REYES November 21, 2024 19:09
[2024-11-21 20:31] LABS: COVID19 ANTIGEN SOFIA FIA NEGATIVE (NEGATIVE)
[2024-11-21 20:32] LABS: Rapid Influenza A Negative (Negative); Rapid Influenza B Negative (Negative)
[2024-11-21 21:00] VITALS: BP 130/70; PULSE 99; RESP 16; TEMP 97.6; O2SAT 94
[2024-11-21] MEDS: ALBUTEROL SULF 2.5 MG/0.5ML(0.5%) NEB SOLN NEB SCH (21:19)
[2024-11-21] MEDS: IPRATROPIUM BROM 0.5 MG/2.5ML INH SOL NEB SCH (21:19)
[2024-11-21 21:21] VITALS: PULSE 87; RESP 18; O2SAT 96; O2SAT 98
[2024-11-21 21:27] VITALS: PULSE 88; RESP 18; O2SAT 99
[2024-11-21 21:32] VITALS: BP 130/70; PULSE 99; RESP 16; TEMP 97.6; O2SAT 96
[2024-11-21 21:35] VITALS: BP 112/72; PULSE 87; RESP 18; TEMP 98.3; O2SAT 96
[2024-11-21] MEDS: LOSARTAN POTASSIUM 25 MG TAB PO SCH (22:37)
[2024-11-21] MEDS: METOPROLOL TARTRATE 25 MG TAB PO SCH (22:38)
[2024-11-21] MEDS: methylPREDNISolone SOD SUCC 40 MG/ML VL IV SCH (22:39)
[2024-11-22] VITALS (24 sets, daily range): BP systolic 129–148; BP diastolic 52–72; PULSE 82–99; RESP 16–24; TEMP 96.6–97.9; O2SAT 90–99
[2024-11-22 06:05] LABS: Basophils # (auto) 0 10 ^3/uL (0-0.2); Basophils % (auto) 0.3 % (0.0-2.0); Eosinophils # (auto) 0 10 ^3/uL (0-0.8); Hematocrit 36.3 % (36.0-46.0); Hemoglobin 11.6 g/dL (12.2-16.2); Lymphocytes % (auto) 8.3 % (10.0-50.0); Mean Corpuscular Hemoglobin 28.2 pg (28.0-32.0); Monocytes # (auto) 0.2 10 ^3/uL (0-1.3); Monocytes % (auto) 1.7 % (0.0-12.0); Neutrophils # (auto) 11.1 10 ^3/uL (1.6-8.6); Neutrophils % (auto) 89.7 % (37.0-80.0); Platelet Count (auto) 378 10^3/uL (140-450); Red Blood Cells 4.13 10^6/uL (4.0-5.20); Red Cell Distribution Width 15.2 % (11.8-14.3); White Blood Cell 12.4 10^3/uL (4.4-10.8)
[2024-11-22 06:23] LABS: Alanine Aminotransferase 10 U/L (7-40); Albumin 4.2 g/dL (3.2-4.8); Alkaline Phosphatase 86 U/L (46-116); Anion Gap 12 (5-15); BUN/Creatinine Ratio 20.7 (10.0-20.0); Blood Urea Nitrogen 17 mg/dL (9-23); Calcium 10.4 mg/dL (8.7-10.4); Carbon Dioxide 22 mmol/L (20-31); Potassium 4.1 mmol/L (3.5-5.1); Sodium 144 mmol/L (136-145); Total Protein 6.7 g/dL (5.7-8.2)
[2024-11-22 06:32] LABS: Aspartate Aminotransferase 10 U/L (13-40); Bilirubin, Total 0.2 mg/dL (0.2-1.0); Chloride 110 mmol/L (98-107); Glucose 207 mg/dL (74-106)
--- NOTE | 2024-11-22 07:55 | DVHPN2 ---
Subjective Decreasing shortness of breath and wheezing Reviewed: Care Plan, H&P, Labs, Medications, Previous Orders, Radiology Changes from previous H/P or p: Changes Objective Vitals Vital Signs Date Time Temp Pulse Resp B/P (MAP) Pulse Ox O2 Delivery O2 Flow Rate FiO2 11/22/24 05:53 96 16 99 11/22/24 05:45 Nasal Cannula* 2 28 11/22/24 05:00 97.5 135/72 (93) 97.5 Intake/Output Intake and Output 11/22/24 07:00 Output Total 0 ml Balance 0 ml Output Urine Total 0 ml General Appearance: Alert, Oriented X3, Cooperative, mild distress HEENT: Atraumatic Lungs: Other (Diffuse expiratory wheezing with decreased air entry bilateral) Cardiovascular: Regular rate, Normal S1, Normal S2, No murmurs Abdomen: Normal bowel sounds, Soft, No tenderness Neuro: Normal speech, Cranial nerves 3-12 NL Psych/Mental Status: Mental status NL, Mood NL Medications Current Medications Medications Dose Ordered Sig/[place] Route Start Time Stop Time Status Last Admin Dose Admin Albuterol 2.5 mg Q2HPRN PRN NEB 11/21/24 18:45 Albuterol 2.5 mg Q4HR NEB 11/21/24 22:00 11/22/24 05:43 2.5 MG Ipratropium [place] 0.5 mg Q4HR NEB 11/21/24 22:00 11/22/24 05:43 0.5 MG Methylprednisolone Sodium Succinate 40 mg BID IV 11/21/24 22:00 11/21/24 22:39 40 MG Enoxaparin Sodium 40 mg DAILY SC 11/22/24 10:00 Acetaminophen 650 mg Q6HP PRN PO 11/21/24 19:00 Amlodipine Besylate 5 mg DAILY PO 11/22/24 10:00 Aspirin 81 mg DAILY PO 11/22/24 10:00 Diltiazem HCl 240 mg DAILY PO 11/22/24 10:00 Ergocalciferol 50,000 unit QWEEKLY PO 11/21/24 19:00 Furosemide 40 mg DAILY PO 11/22/24 10:00 Losartan Potassium 25 mg BID PO 11/21/24 22:00 11/21/24 22:37 25 MG Metoprolol Tartrate 25 mg BID PO 11/21/24 22:00 11/21/24 22:38 25 MG Montelukast Sodium 10 mg DAILY PO 11/22/24 10:00 Atorvastatin Calcium 40 mg DAILY PO 11/22/24 10:00 Loratadine 10 mg DAILY PO 11/22/24 10:00 Patient Own Medication 1,500 mg BID PO 11/21/24 22:00 Pantoprazole Sodium 40 mg BIDAC PO 11/22/24 07:38 Laboratory Results Laboratory Tests 11/22/24 04:31 Chemistry Test 11/21/24 12:43 11/22/24 04:31 Calcium Level 10.2 mg/dL (8.7-10.4) 10.4 mg/dL (8.7-10.4) Albumin 4.2 g/dL (3.2-4.8) Total Protein 6.7 g/dL (5.7-8.2) LFT Test 11/22/24 04:31 Alanine Aminotransferase (ALT) 10 U/L (7-40) Alkaline Phosphatase 86 U/L (46-116) Aspartate Amino Transferase (AST) 10 U/L (13-40) L Total Bilirubin 0.2 mg/dL (0.2-1.0) Labs and/or images reviewed: Labs reviewed by me, Image(s) reviewed by me Assessment/Plan Assessment/Plan An 84-year-old female patient; with multiple comorbidities; who presented to emergency department with shortness of breath and wheezing. Acute hypoxic respiratory failure due to asthma/COPD exacerbation Asthma/COPD exacerbation due to acute bronchitis Sepsis due to acute bronchitis Hypertensive kidney disease and heart disease with chronic diastolic heart failure; not in exacerbation Metabolic syndrome with dyslipidemia Diabetes mellitus type 2 Vitamin-D deficiency Morbid obesity Reviewed lab work including testing negative for COVID-19 and influenza A and B Reviewed chest x-ray from November 21, 2024 Continue oxygen therapy as needed Continue IV steroids and nebulizers Started on IV azithromycin Continue antihypertensive medications and adjust accordingly Continue aspirin and statin Started on insulin sliding scale with hypoglycemia protocol Counseled the patient on the importance of adopting healthy lifestyle with diet and exercise in order to lose weight Continue vitamin-D supplements Continue monitoring Goals of care discussed with the patient and her daughter for 20 minutes; full code Late Entry. This medical document was created using an electronic medical record system with computerized dictation system. Although this document has been carefully reviewed, there might still be some phonetic and typographical errors. These areas are purely typographical due to imperfections of the software programs, and do not reflect any compromise in the patient's medical care. Plan discussed with: Patient, Daughter, Other (Nurse) Date of Service: November 22, 2024 Billing Provider: TAMRA WILDER MD Common Visit Codes: [id number] INP/OBS CARE(HIGH) Secondary Visit Codes: [id number] CARE PLAN 30 MINUTES (20 minutes) TAMRA WILDER MD November 22, 2024 07:55
[2024-11-22] MEDS: PANTOPRAZOLE 40 MG TAB PO SCH (08:45)
[2024-11-22] MEDS: dilTIAZem HCL 60 MG TAB PO SCH (10:00)
[2024-11-22] MEDS: ENOXAPARIN SOD 40 MG/0.4 ML SYRINGE SC SCH (10:00)
[2024-11-22] MEDS: METHYLSULFONYLMETHANE 1500 MG PO SCH (10:00)
[2024-11-22] MEDS: LORATADINE 10 MG TAB PO SCH (10:00)
[2024-11-22] MEDS: amLODIPine BESYLATE 5 MG TAB PO SCH (10:36)
[2024-11-22] MEDS: MONTELUKAST SODIUM 10 MG TAB PO SCH (10:37)
[2024-11-22] MEDS: FUROSEMIDE 40 MG TAB PO SCH (10:38)
[2024-11-22] MEDS: ASPirin-EC 81 mg tab PO SCH (10:38)
[2024-11-22] MEDS: ATORVASTATIN 20 MG TAB PO SCH (10:39)
[2024-11-22] MEDS ORDERED: DEXTROSE (50%) 50ML SYRG IV PRN (13:15)
[2024-11-22] MEDS: AZITHROMYCIN 500MG/ 250ML 250 ML IV ONE (14:31)
[2024-11-22] MEDS: ACCU-CHEK COMFORT CURVE STRIP VI SCH (17:02)
[2024-11-22] MEDS: InsuLIN REG 1unit/0.01ml Soln (100units/ml) SC SCH (17:55)
[2024-11-23] VITALS (20 sets, daily range): BP systolic 104–156; BP diastolic 53–112; PULSE 68–87; RESP 16–24; TEMP 96.7–98.2; O2SAT 90–99
[2024-11-23 05:23] LABS: Potassium 4.9 mmol/L (3.5-5.1)
[2024-11-23 05:24] LABS: Anion Gap 8 (5-15); Calcium 10.4 mg/dL (8.7-10.4); Carbon Dioxide 26 mmol/L (20-31); Chloride 111 mmol/L (98-107); Sodium 145 mmol/L (136-145)
[2024-11-23 05:28] LABS: Basophils # (auto) 0 10 ^3/uL (0-0.2); Basophils % (auto) 0.2 % (0.0-2.0); Eosinophils # (auto) 0 10 ^3/uL (0-0.8); Hematocrit 36.3 % (36.0-46.0); Hemoglobin 11.5 g/dL (12.2-16.2); Lymphocytes # (auto) 1.1 10 ^3/uL (0.4-5.4); Lymphocytes % (auto) 6.4 % (10.0-50.0); Mean Corpuscular Hemoglobin 28.3 pg (28.0-32.0); Mean Corpuscular Hgb Conc. 31.8 g/dL (32.0-36.0); Mean Corpuscular Volume 89.1 fL (80.0-100.0); Monocytes # (auto) 0.3 10 ^3/uL (0-1.3); Monocytes % (auto) 1.5 % (0.0-12.0); Neutrophils # (auto) 16.3 10 ^3/uL (1.6-8.6); Neutrophils % (auto) 91.9 % (37.0-80.0); Nucleated Red Blood Cells % 0.1 %; Platelet Count (auto) 409 10^3/uL (140-450); Red Blood Cells 4.07 10^6/uL (4.0-5.20); Red Cell Distribution Width 15.9 % (11.8-14.3); White Blood Cell 17.7 10^3/uL (4.4-10.8)
[2024-11-23 05:29] LABS: BUN/Creatinine Ratio 22.1 (10.0-20.0)
[2024-11-23 05:31] LABS: Blood Urea Nitrogen 23 mg/dL (9-23); Glucose 195 mg/dL (74-106)
[2024-11-23] MEDS: AZITHROMYCIN 500MG/ 250ML 250 ML IV SCH (09:51)
[2024-11-23] MEDS ORDERED: FUROSEMIDE 20 MG/2 ML VIAL IV ONE (11:15)
[2024-11-23 12:11] LABS: Base Excess 0.8 mmol/L (-2.0-3.0)
[2024-11-23] MEDS: FUROSEMIDE 20 MG/2 ML VIAL IV ONE (13:17)
--- NOTE | 2024-11-23 14:13 | DVHPN2 ---
Subjective Seen and examined at bedside, on 2L home oxygen. Will get CT Chest. Possible DC Tomorrow with home O2. Reviewed: Care Plan, H&P, Labs, Medications, Previous Orders, Radiology Changes from previous H/P or p: No Changes Objective Vitals Vital Signs Date Time Temp Pulse Resp B/P (MAP) Pulse Ox O2 Delivery O2 Flow Rate FiO2 11/23/24 10:02 85 152/51 11/23/24 09:42 18 99 11/23/24 09:35 Nasal Cannula* 2 28 11/23/24 09:13 97.8 97.8 Intake/Output Intake and Output 11/23/24 07:00 Intake Total 1280 ml Balance 1280 ml Intake Oral 1280 ml # Voids 5 General Appearance: Alert, Oriented X3, Cooperative HEENT: Atraumatic Lungs: Other (diminished) Cardiovascular: Regular rate, Normal S1, Normal S2, No murmurs Abdomen: Normal bowel sounds, Soft, No tenderness Neuro: Normal speech, Cranial nerves 3-12 NL Psych/Mental Status: Mental status NL, Mood NL Medications Current Medications Medications Dose Ordered Sig/Mary Anne Route Start Time Stop Time Status Last Admin Dose Admin Albuterol 2.5 mg Q2HPRN PRN NEB 11/21/24 18:45 Albuterol 2.5 mg Q4HR NEB 11/21/24 22:00 11/23/24 09:35 2.5 MG Ipratropium [place] 0.5 mg Q4HR NEB 11/21/24 22:00 11/23/24 09:35 0.5 MG Methylprednisolone Sodium Succinate 40 mg BID IV 11/21/24 22:00 11/23/24 09:51 40 MG Enoxaparin Sodium 40 mg DAILY SC 11/22/24 10:00 11/23/24 10:03 40 MG Acetaminophen 650 mg Q6HP PRN PO 11/21/24 19:00 Amlodipine Besylate 5 mg DAILY PO 11/22/24 10:00 11/23/24 10:01 5 MG Aspirin 81 mg DAILY PO 11/22/24 10:00 11/23/24 09:52 81 MG Diltiazem HCl 240 mg DAILY PO 11/22/24 10:00 Ergocalciferol 50,000 unit QWEEKLY PO 11/21/24 19:00 Losartan Potassium 25 mg BID PO 11/21/24 22:00 11/23/24 10:02 25 MG Metoprolol Tartrate 25 mg BID PO 11/21/24 22:00 11/23/24 10:02 25 MG Montelukast Sodium 10 mg DAILY PO 11/22/24 10:00 11/23/24 10:01 10 MG Atorvastatin Calcium 40 mg DAILY PO 11/22/24 10:00 11/23/24 10:01 40 MG Loratadine 10 mg DAILY PO 11/22/24 10:00 11/23/24 10:01 10 MG Patient Own Medication 1,500 mg BID PO 11/21/24 22:00 Pantoprazole Sodium 40 mg BIDAC PO 11/22/24 07:38 11/23/24 05:57 40 MG Diagnostic Test (Pha) 1 strip ACHS 11/22/24 17:00 11/23/24 11:30 1 STRIP Insulin Human Regular ACHS SC 11/22/24 17:00 11/23/24 12:42 2 UNITS Dextrose 50 ml UD PRN IV 11/22/24 13:15 Azithromycin 500 mg DAILY PO 11/24/24 10:00 11/27/24 09:59 UNV Furosemide 40 mg DAILY IV 11/24/24 06:00 UNV Laboratory Results Laboratory Tests 11/23/24 05:03 Chemistry Test 11/23/24 05:03 Calcium Level 10.4 mg/dL (8.7-10.4) Blood Gas Results Test 11/23/24 11:59 Arterial Blood pH 7.452 (7.350-7.450) FiO2 % 21.0 Microbiology Microbiology Date/Time Source Procedure Growth Status 11/22/24 05:23 Nose MRSA Screen - Final Complete Assessment/Plan Assessment/Plan Acute hypoxic respiratory failure due to asthma/COPD exacerbation Asthma/COPD exacerbation due to acute bronchitis Hypertensive kidney disease and heart disease with chronic diastolic heart failure; not in exacerbation Metabolic syndrome with dyslipidemia Plan: Cont Zithromax GET CT chest Solumedrol Home Oxygen Plan discussed with: Patient, Daughter My Orders Orders - HUSSAIN GONZALEZ MD Procedure Category Date Status Time Chest Without Contrast CT 11/23/24 Taken 11:32 Abg W/ Co-Ox RT 11/23/24 Logged 11:44 * Supervisor Cell Room CONS 11/23/24 Transmitted Consult Azithromycin Tablet PHA 11/24/24 In Process (Zithromax Tablet) 10:00 Furosemide Injection PHA 11/24/24 In Process (Lasix Injection) 06:00 Basic Metabolic Panel LAB 11/24/24 Verified 04:00 B-Type Natriuretic LAB 11/24/24 Verified Peptide 04:00 Magnesium LAB 11/24/24 Verified 04:00 Complete Blood Count LAB 11/24/24 Verified 04:00 Urinalysis LAB 11/23/24 Logged 12:50 Incentive Spirometry ORDERS 11/23/24 Transmitted Q 1hr 12:55 Nifedipine Er PHA 11/24/24 Verified (Procardia Xl 10:00 Get List Of Home ORDERS 11/23/24 Verified Medications 14:10 Pharmacy To Reconcile ORDERS 11/23/24 Verified Home Med 14:10 Date of Service: November 23, 2024 Billing Provider: HUSSAIN GONZALEZ MD Common Visit Codes: [id number] INP/OBS CARE(HIGH) HUSSAIN GONZALEZ MD November 23, 2024 14:13
--- NOTE | 2024-11-23 14:14 | DVH ---
Procedure: CT CHEST WITHOUT CONTRAST Reason for study/Clinical History: pna Comparison Study: CT CHEST WITHOUT CONTRAST on DOS: 07/22/24, CT CHEST WITHOUT CONTRAST on DOS: 10/11/23 None TECHNIQUE: Multidetector CT of the chest was performed from the lung apices to the upper abdomen with out the use of intravenous contract. Axial, coronal and sagittal multiplanar reformats were performed . Radiation Dose Information: CT Dose: CTDI volume is 16.85 mGy. Dose-length product is 614.84 mGy*cm The dose indicators for CT are the volume Computed Tomography (CT) Dose Index (CTDIvol) and the Dose Length Product (DLP), and are measured in units of mGy and mGy-cm, respectively. These indicators are not patient dose, but values generated from the CT scanner acquisition factors. The report includes radiation exposure data for exposures received during this examination. FINDINGS: Lower neck: Unremarkable. Lungs: No focal consolidation. No suspicious pulmonary nodule. Dependent atelectasis. Heart/Vascular Structures: Cardiomegaly. Coronary artery calcifications. Vascular calcifications of t he aorta. Lymph Nodes: No adenopathy Pleura: No pleural effusion or significant pneumothorax. Musculoskeletal: No acute osseous abnormality. Degenerative changes of the spine. Soft tissues: Normal. Upper abdomen: Cholelithiasis IMPRESSION: No focal airspace consolidation. Dependent atelectasis. Radiation optimization: All CT scans at this facility use at least one of these dose optimization cristal hniques: automated exposure control mA and/or kV adjustment per patient size (includes targeted exam s where dose is matched to clinical indication) or iterative reconstruction.
[2024-11-23 15:27] LABS: Urine Bacteria None Seen /hpf (None Seen)
[2024-11-23 15:47] LABS: Urine Blood Negative /uL (Negative); Urine Clarity Clear (Clear); Urine Color Colorless (Yellow); Urine Protein, UAD Negative (Negative); Urine Specific Gravity 1.007 (1.001-1.035); Urine Squamous Epithelial Cell FEW /hpf (<5); Urine Urobilinogen Normal (Negative); Urine pH 5.5 (5.0-9.0)
[2024-11-23 15:56] LABS: Urine WBC 1 /HPF (0-5)
[2024-11-24] VITALS (13 sets, daily range): BP systolic 125–160; BP diastolic 56–74; PULSE 70–95; RESP 16–22; TEMP 97.5–98.4; O2SAT 91–99
[2024-11-24] MEDS: FUROSEMIDE 40 MG/4 ML VIAL IV SCH (06:37)
[2024-11-24 06:45] LABS: Basophils # (auto) 0 10 ^3/uL (0-0.2); Basophils % (auto) 0.1 % (0.0-2.0); Eosinophils # (auto) 0 10 ^3/uL (0-0.8); Hematocrit 35.6 % (36.0-46.0); Hemoglobin 11.6 g/dL (12.2-16.2); Lymphocytes % (auto) 9.4 % (10.0-50.0); Mean Corpuscular Hemoglobin 28.7 pg (28.0-32.0); Mean Corpuscular Hgb Conc. 32.5 g/dL (32.0-36.0); Mean Corpuscular Volume 88.1 fL (80.0-100.0); Monocytes # (auto) 0.2 10 ^3/uL (0-1.3); Monocytes % (auto) 1.8 % (0.0-12.0); Neutrophils # (auto) 9.9 10 ^3/uL (1.6-8.6); Neutrophils % (auto) 88.7 % (37.0-80.0); Nucleated Red Blood Cells % 0.1 %; Platelet Count (auto) 367 10^3/uL (140-450); Red Blood Cells 4.04 10^6/uL (4.0-5.20); Red Cell Distribution Width 15.3 % (11.8-14.3); White Blood Cell 11.2 10^3/uL (4.4-10.8)
[2024-11-24 06:52] LABS: Anion Gap 11 (5-15); Carbon Dioxide 26 mmol/L (20-31); Potassium 4.4 mmol/L (3.5-5.1)
[2024-11-24 06:58] LABS: Chloride 108 mmol/L (98-107); Glucose 204 mg/dL (74-106); Sodium 145 mmol/L (136-145)
[2024-11-24 06:59] LABS: Magnesium 2.2 mg/dL (1.6-2.6)
[2024-11-24 07:02] LABS: BUN/Creatinine Ratio 25.3 (10.0-20.0); Blood Urea Nitrogen 24 mg/dL (9-23)
[2024-11-24] MEDS: NIFEdipine ER 30 MG TAB PO SCH (09:11)
[2024-11-24] MEDS: AZITHROMYCIN 250 MG TAB PO SCH (09:12)
--- NOTE | 2024-11-24 11:14 | DVHPN2 ---
Reviewed: Care Plan, H&P, Labs, Medications, Previous Orders, Radiology Objective Vitals Vital Signs Date Time Temp Pulse Resp B/P (MAP) Pulse Ox O2 Delivery O2 Flow Rate FiO2 11/24/24 09:23 84 18 96 11/24/24 09:15 Nasal Cannula* 2 28 11/24/24 09:12 160/58 11/24/24 09:00 97.9 97.9 Intake/Output Intake and Output 11/24/24 07:00 Intake Total 1140 ml Balance 1140 ml Intake Oral 1140 ml # Voids 5 # Bowel Movements 1 General Appearance: Alert, Oriented X3, Cooperative HEENT: Atraumatic Lungs: Other (diminished) Cardiovascular: Regular rate, Normal S1, Normal S2, No murmurs Abdomen: Normal bowel sounds, Soft, No tenderness Neuro: Normal speech, Cranial nerves 3-12 NL Psych/Mental Status: Mental status NL, Mood NL Medications Current Medications Medications Dose Ordered Sig/Mary [place] Route Start Time Stop Time Status Last Admin Dose Admin Albuterol 2.5 mg Q2HPRN PRN NEB 11/21/24 18:45 Albuterol 2.5 mg Q4HR NEB 11/21/24 22:00 11/24/24 09:15 2.5 MG Ipratropium [place] 0.5 mg Q4HR NEB 11/21/24 22:00 11/24/24 09:15 0.5 MG Methylprednisolone Sodium Succinate 40 mg BID IV 11/21/24 22:00 11/24/24 09:15 40 MG Enoxaparin Sodium 40 mg DAILY SC 11/22/24 10:00 11/24/24 09:14 40 MG Acetaminophen 650 mg Q6HP PRN PO 11/21/24 19:00 Aspirin 81 mg DAILY PO 11/22/24 10:00 11/24/24 09:10 81 MG Ergocalciferol 50,000 unit QWEEKLY PO 11/21/24 19:00 Losartan Potassium 25 mg BID PO 11/21/24 22:00 11/24/24 09:12 25 MG Metoprolol Tartrate 25 mg BID PO 11/21/24 22:00 11/24/24 09:12 25 MG Montelukast Sodium 10 mg DAILY PO 11/22/24 10:00 11/24/24 09:13 10 MG Atorvastatin Calcium 40 mg DAILY PO 11/22/24 10:00 11/24/24 09:13 40 MG Loratadine 10 mg DAILY PO 11/22/24 10:00 11/24/24 09:13 10 MG Patient Own Medication 1,500 mg BID PO 11/21/24 22:00 Pantoprazole Sodium 40 mg BIDAC PO 11/22/24 07:38 11/24/24 06:36 40 MG Diagnostic Test (Pha) 1 strip ACHS 11/22/24 17:00 11/24/24 06:37 1 STRIP Insulin Human Regular ACHS SC 11/22/24 17:00 11/24/24 06:40 3 UNITS Dextrose 50 ml UD PRN IV 11/22/24 13:15 Azithromycin 500 mg DAILY PO 11/24/24 10:00 11/27/24 09:59 11/24/24 09:12 500 MG Furosemide 40 mg DAILY IV 11/24/24 06:00 11/24/24 06:37 40 MG Nifedipine 90 mg DAILY PO 11/24/24 10:00 11/24/24 09:11 90 MG Laboratory Results Laboratory Tests 11/24/24 04:59 Chemistry Test 11/24/24 04:59 Calcium Level 10.0 mg/dL (8.7-10.4) Magnesium Level 2.2 mg/dL (1.6-2.6) Cardiac Markers Test 11/24/24 04:59 B-Type Natriuretic Peptide 66.86 pg/mL (0-100) Urinalysis Test 11/23/24 15:20 Urine Color Colorless (Yellow) Urine Clarity Clear (Clear) Urine pH 5.5 (5.0-9.0) Urine Specific [place] 1.007 (1.001-1.035) Urine Protein Negative (Negative) Urine Ketones Negative (Negative) Urine Blood Negative /uL (Negative) Urine Nitrite Negative (Negative) Urine Bilirubin Negative (Negative) Urine Urobilinogen Normal mg/dL (Negative) Urine Leukocyte Esterase Negative /uL (Negative) Urine RBC <1 /hpf (0 - 4) Urine Microscopic WBC 1 /HPF (0-5) Urine Squamous Epithelial Cells Few /hpf (<5) Urine Bacteria None seen /hpf (None Seen) Urine Glucose Normal mg/dL (Normal) Blood Gas Results Test 11/23/24 11:59 Arterial Blood pH 7.452 (7.350-7.450) FiO2 % 21.0 Microbiology Microbiology Date/Time Source Procedure Growth Status 11/22/24 05:23 Nose MRSA Screen - Final Complete DMITRIY INIGUEZ MD November 24, 2024 11:14
[2024-11-24] MEDS ORDERED: PRED10TA PO (12:09)
[2024-11-24] MEDS ORDERED: AZIT-185 PO (12:09)
--- NOTE | 2024-11-24 12:10 | DVHDS2 ---
Discharge Summary Date of Admission November 21, 2024 at 18:56 Date of Discharge: November 24, 2024 Labs/Diagnostic Data: Laboratory Results Test 11/24/24 11:08 11/24/24 04:59 11/23/24 15:20 11/23/24 11:59 POC Glucose 187 mg/dl (70-106) White Blood Count 11.2 10^3/uL (4.4-10.8) Red Blood Count 4.04 10^6/uL (4.0-5.20) Hemoglobin 11.6 g/dL (12.2-16.2) Hematocrit 35.6 % (36.0-46.0) Mean Corpuscular Volume 88.1 fL (80.0-100.0) Mean Corpuscular Hemoglobin 28.7 pg (28.0-32.0) Mean Corpuscular Hemoglobin Concent 32.5 g/dL (32.0-36.0) Red Cell Distribution Width 15.3 % (11.8-14.3) Platelet Count 367 10^3/uL (140-450) Mean Platelet Volume 7.8 fL (6.9-10.8) Neutrophils (%) (Auto) 88.7 % (37.0-80.0) Lymphocytes (%) (Auto) 9.4 % (10.0-50.0) Monocytes (%) (Auto) 1.8 % (0.0-12.0) Eosinophils (%) (Auto) 0.0 % (0.0-7.0) Basophils (%) (Auto) 0.1 % (0.0-2.0) Neutrophils # (Auto) 9.9 10 ^3/uL (1.6-8.6) Lymphocytes # (Auto) 1.0 10 ^3/uL (0.4-5.4) Monocytes # (Auto) 0.2 10 ^3/uL (0-1.3) Eosinophils # (Auto) 0 10 ^3/uL (0-0.8) Basophils # (Auto) 0 10 ^3/uL (0-0.2) Nucleated Red Blood Cells 0.1 % Sodium Level 145 mmol/L (136-145) Potassium Level 4.4 mmol/L (3.5-5.1) Chloride Level 108 mmol/L (98-107) Carbon Dioxide Level 26 mmol/L (20-31) Anion Gap 11 (5-15) Blood Urea Nitrogen 24 mg/dL (9-23) Creatinine 0.95 mg/dL (0.550-1.02) Glomerular Filtration Rate Calc 58 mL/min (>90) BUN/Creatinine Ratio 25.3 (10.0-20.0) Serum Glucose 204 mg/dL (74-106) Calcium Level 10.0 mg/dL (8.7-10.4) Magnesium Level 2.2 mg/dL (1.6-2.6) B-Type Natriuretic Peptide 66.86 pg/mL (0-100) Urine Color Colorless (Yellow) Urine Clarity Clear (Clear) Urine pH 5.5 (5.0-9.0) Urine Specific [place] 1.007 (1.001-1.035) Urine Protein Negative (Negative) Urine Ketones Negative (Negative) Urine Blood Negative /uL (Negative) Urine Nitrite Negative (Negative) Urine Bilirubin Negative (Negative) Urine Urobilinogen Normal mg/dL (Negative) Urine Leukocyte Esterase Negative /uL (Negative) Urine RBC <1 /hpf (0 - 4) Urine Microscopic WBC 1 /HPF (0-5) Urine Squamous Epithelial Cells Few /hpf (<5) Urine Bacteria None seen /hpf (None Seen) Urine Glucose Normal mg/dL (Normal) Blood Gas Specimen Type Arterial Blood Gas Sample Site Left radial Blood Gas Patient Temperature 37.0 Arterial Blood Date Drawn [id number] Arterial Blood pH 7.452 (7.350-7.450) Arterial Blood Partial Pressure CO2 36.0 mmHg (32.0-45.0) Arterial Blood Partial Pressure O2 51.3 mmHg (83.0-108.0) Arterial Blood HCO3 24.6 mmol/L (21.0-28.0) Arterial Blood Oxygen Saturation 86.2 % (94.0-98.0) Arterial Blood Base Excess 0.8 mmol/L (-2.0-3.0) Arterial Blood Oxyhemoglobin 85.4 % (94.0-98.0) Arterial Blood Carboxyhemoglobin 0.3 % (0.5-1.5) Arterial Blood Methemoglobin 0.6 % (0.0-1.5) [place]quin Test Yes Blood Gas Total Hemoglobin 11.00 g/dL (12.0-16.0) Blood Gas Modality Room air FiO2 % 21.0 Blood Gas Critical Value Read Back yes Blood Gas Notified Whom opal parada md Blood Gas Notified Time [id number] Blood Gas Notified By fredrick atwood rrt Test 11/22/24 04:31 11/21/24 19:40 11/21/24 18:23 Total Bilirubin 0.2 mg/dL (0.2-1.0) Aspartate Amino Transferase (AST) 10 U/L (13-40) Alanine Aminotransferase (ALT) 10 U/L (7-40) Alkaline Phosphatase 86 U/L (46-116) Total Protein 6.7 g/dL (5.7-8.2) Albumin 4.2 g/dL (3.2-4.8) Influenza Type A Antigen Negative (Negative) Influenza Type B Antigen Negative (Negative) SARS-CoV-2 Antigen (Rapid) Negative (NEGATIVE) Troponin I High Sensitivity < 3 ng/L (</=34) Other Laboratory Tests 11/24/24 04:59 Final Diagnosis/Problems List copd exacerbation Discharge Disposition: Home Discharge Instruct/Medications Diet: Cardiac 2g Na,low cholest Activity: No Restrictions, As Tolerated Follow Up/Referral: 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 Discharge Statement: "Patient was advised to return to the ER or call 911 if any headaches, dizziness, shortness of breath, chest pain, abdominal pain, bleeding, fevers, or worsening of medical condition. Patient was counseled about treatment plan, medications, possible side effects, patientverbalized understanding. All questions were answered to the best of my ability. This discharge took greater then 30 minutes in planning, reviewing documentation, counseling the patient, and discussing with other team members." ASSESSMENT ASSESSMENT Assessment copd exacerbation DMITRIY INIGUEZ MD November 24, 2024 12:10
== END 2024-11-24 14:24 | disposition home or self-care (01) | DRG 871 ==
LOC: ER 12:07 → OVERFLOW 18:56 → CENTRAL 18:58
PROVIDERS: ADMIT Internal Medicine; ATTEND Internal Medicine
DX: A41.9 Sepsis, unspecified organism (principal); J96.01 Acute respiratory failure with hypoxia; J45.901 Unspecified asthma with (acute) exacerbation; I50.32 Chronic diastolic (congestive) heart failure; I13.0 Hypertensive heart and chronic kidney disease with heart failure and stage 1 through stage 4 chronic kidney disease, or unspecified chronic kidney disease; J44.1 Chronic obstructive pulmonary disease with (acute) exacerbation; J44.0 Chronic obstructive pulmonary disease with (acute) lower respiratory infection; J20.9 Acute bronchitis, unspecified; Z20.822 Contact with and (suspected) exposure to COVID-19; N18.9 Chronic kidney disease, unspecified; E11.22 Type 2 diabetes mellitus with diabetic chronic kidney disease; E78.5 Hyperlipidemia, unspecified; E88.810 Metabolic syndrome; E55.9 Vitamin D deficiency, unspecified; E66.01 Morbid (severe) obesity due to excess calories; Z88.5 Allergy status to narcotic agent; Z88.0 Allergy status to penicillin; Z90.710 Acquired absence of both cervix and uterus; Z90.49 Acquired absence of other specified parts of digestive tract; Z68.35 Body mass index [BMI] 35.0-35.9, adult
CPT/HCPCS: 36415; 36600; 71250; 80048; 80053; 81001; 82805; 82962; 83735; 83880; 84484; 85025; 87081; 87426; 87804; 93005; 94640; 96365; 96375; 99291; G0378; J1815

== ENCOUNTER 2025-01-04 07:26 | Outpatient (CLI) | payer OTHER ==
[~2025-01-04 07:26] MED LIST changes: +AZIT-185 PO; +PRED10TA PO; -PRED20TA2 PO
[2025-01-04 07:41] LABS: Urine Bacteria None Seen /hpf (None Seen)
[2025-01-04 08:06] LABS: Urine Blood Negative /uL (Negative); Urine Clarity Clear (Clear); Urine Color Light-Yellow (Yellow); Urine Protein, UAD Negative (Negative); Urine Specific Gravity 1.014 (1.001-1.035); Urine Squamous Epithelial Cell FEW /hpf (<5); Urine Urobilinogen Normal (Negative); Urine WBC 2 /HPF (0-5); Urine pH 5.5 (5.0-9.0)
[2025-01-04 08:36] LABS: Anion Gap 9 (5-15); Carbon Dioxide 28 mmol/L (20-31); Potassium 4.9 mmol/L (3.5-5.1)
[2025-01-04 08:37] LABS: Calcium 10.2 mg/dL (8.7-10.4)
[2025-01-04 08:39] LABS: Creatinine, Urine 95.45 mg/dL (30.0-125.0)
[2025-01-04 08:42] LABS: BUN/Creatinine Ratio 13.3 (10.0-20.0); Blood Urea Nitrogen 14 mg/dL (9-23); Chloride 110 mmol/L (98-107); Glucose 134 mg/dL (74-106); Sodium 147 mmol/L (136-145); Triglycerides 202 mg/dL (< 150)
[2025-01-04 08:44] LABS: Cholesterol 165 mg/dL (< 200)
[2025-01-04 08:46] LABS: HDL Cholesterol 35 mg/dL (40-59); LDL Cholesterol 107 mg/dL (< 100)
== END 2025-01-04 17:00 | disposition home or self-care (01) ==
LOC: LAB 07:26
PROVIDERS: ATTEND Internal Medicine
DX: I13.0 Hypertensive heart and chronic kidney disease with heart failure and stage 1 through stage 4 chronic kidney disease, or unspecified chronic kidney disease (principal); E11.22 Type 2 diabetes mellitus with diabetic chronic kidney disease; N18.31 Chronic kidney disease, stage 3a; I50.32 Chronic diastolic (congestive) heart failure; E11.69 Type 2 diabetes mellitus with other specified complication; E87.1 Hypo-osmolality and hyponatremia; E78.2 Mixed hyperlipidemia
CPT/HCPCS: 36415; 80048; 80061; 81001; 82043; 82570; 83036

== ENCOUNTER 2025-05-07 11:57 | Inpatient (IN) | payer OTHER ==
[~2025-05-07] VITALS: Ht 160 cm; Wt 92.7 kg
[2025-05-07 14:09] LABS: Hematocrit 40.1 % (36.0-46.0); Hemoglobin 12.8 g/dL (12.2-16.2); Mean Corpuscular Hemoglobin 27.9 pg (28.0-32.0); Mean Corpuscular Volume 87.3 fL (80.0-100.0); Nucleated Red Blood Cells % 0.1 %
[2025-05-07 14:14] LABS: Potassium 4.0 mmol/L (3.5-5.1); Sodium 144 mmol/L (136-145)
[2025-05-07 14:15] LABS: Anion Gap 10 (5-15); Carbon Dioxide 23 mmol/L (20-31)
[2025-05-07 14:16] LABS: Calcium 9.5 mg/dL (8.7-10.4); Chloride 111 mmol/L (98-107)
[2025-05-07 14:20] LABS: BUN/Creatinine Ratio 7.0 (10.0-20.0)
[2025-05-07 14:21] LABS: Blood Urea Nitrogen 7 mg/dL (9-23); Glucose 130 mg/dL (74-106)
[2025-05-07] MEDS: ONDANSETRON HCL 4 MG/2 ML VIAL IV ONE (14:35)
[2025-05-07] MEDS: hydrALAZINE HCL 20 MG/ML VL IV ONE (14:38)
[2025-05-07] MEDS: SODIUM CHLORIDE 0.9% 1,000 ML IV ONE (14:45)
--- NOTE | 2025-05-07 14:47 | DVH ---
CLINICAL HISTORY: Abdominal pain, Hx SBO TECHNIQUE: CT of the abdomen and pelvis was performed without IV contrast. This exam was performed according to our departmental dose optimization program. Up-to-date CT equipment and radiation dose reduction techniques are utilized as appropriate. CTDI 23.8 DLP 1161 COMPARISON: CT ABD PELVIS WO CONTRAST on DOS: 08/21/21 FINDINGS: Abdomen/Pelvis: The spleen, liver, kidneys, and bladder are grossly unremarkable. There are numerous calcified stones. Moderate pancreatic parenchymal atrophy. The abdominal aorta is normal in course and caliber. There are moderate atherosclerotic calcifications. There is no free intraperitoneal air or fluid. There is no enlarged abdominal pelvic lymph node. The site of previous small bowel resection of the left lower anterior abdomen/pelvis, there is a dilated 5.3 cm bowel loop at the suture site. There is associated bowel fecalization. There is [id number] surrounding inflammatory change. Small bowel proximal and distal to this bowel appear normal in caliber. There is scattered small bowel wall thickening. There is a small fat containing left anterior abdominal wall hernia. The colon is normal in caliber. There is mild sigmoid colon diverticulosis. Other: The imaged lower thorax demonstrate breathing changes and mild atelectasis. No acute osseous abnormality is evident. Impression: Focal dilated fecalized 5.3 cm small bowel loop at suture site of previous small bowel resection. With [id number] surrounding generalized inflammation. Mild scattered small bowel wall thickening. Given overall normal caliber small and large bowel otherwise, this may represent a poorly functioning bowel loop in the setting of an enteritis. A developing obstruction is not excluded. Cholelithiasis. ER MEAT ANUPAMA
--- NOTE | 2025-05-07 15:07 | ED.PDOC ---
GI ASSESSMENT HPI Comments Kyra Harrell Is a 84-year-old female, with past medical history of DM2, HTN, COPD (without O2 at home), asthma, SBO (2020) and obesity. The patient came to the ED with chief complain of 1 day of abdominal pain in the LLQ, 12/29, continue, cramp-like, no irradiation, associated with nausea and vomit #1 of gastric content. On further questioning the patient report she had a SBO with colostomy reversion and her symptoms are similar this time. Today, the pain persisted and she is unable to pass gases or have a BM, this prompted her visit to the ED. The patient denies fever, chills, diarrhea, constipation, chest pain or other symptoms. In the ED BP: 172/90mmHg, HR: 87bpm. The patient will be further assessed. Chief Complaint: Abdominal Pain Time Seen by MD: 12:24 Reviewed Notes: Nurses Notes, Medications, Allergies Allergies: Coded Allergies: Codeine (Verified Allergy, Mild, 05/20/23) Penicillins (Verified Allergy, Unknown, 05/20/23) Home Meds Active Scripts Prednisone (Prednisone) 10 Mg Tab, 20 MG PO DAILY, #30 MG take 2 tablet for 10 days then 1 tablet until finish. Prov:DMITRIY INIGUEZ MD 11/24/24 Azithromycin (ZITHROMAX TABLET) 250 Mg Tb, 250 MG PO DAILY, #6 TAB take 2 tabs the first day, then one tab daily until finish Prov:DMITRIY INIGUEZ MD 11/24/24 Linezolid (Linezolid) 600 Mg Tab, 600 MG PO BID for 7 Days, #14 TAB Prov:ANUJA CORDOVA RESIDENT 07/24/24 Levofloxacin Hemihydrate (LEVAQUIN 500 MG) 500 Mg Tab, 500 MG PO DAILY@1800 for 5 Days, #5 TAB Prov:ANUJA CORDOVA RESIDENT 07/24/24 Albuterol Sulfate (Albuterol Sulfate Hfa) 108 Mcg/Act Aer, 108 MCG IN Q6HP PRN, #1 AER Prov:STEPHANIE COREA MD 07/18/24 Albuterol Sulfate (Albuterol Sulfate) 0.083 % Neb, 1 VIAL NEB Q4HPRN for 100 Days, #100 VIAL Prov:STEPHANIE COREA MD 07/18/24 Ipratropium [place] (Ipratropium [place]) 0.02 % Myla, 0.5 % HHN Q6HPRN PRN for 30 Days, #120 ML Prov:EVONNE VILLEDA MD 10/30/23 Reported Medications Amlodipine Besylate (Amlodipine Besylate) 5 Mg Tab, 2.5 MG PO DAILY for 30 Days, MG 11/24/24 [id number] (Trelegy Ellipta 100-62.5-25 Mcg/INH) 1 Aer Aer, 1 PUFF IN DAILY for 30 Days, #60 07/20/24 Atorvastatin Calcium (Lipitor) 40 Mg Tab, 1 TAB PO DAILY for 90 Days, #90 07/20/24 Ondansetron HCl (Ondansetron Hydrochloride) 8 Mg Tab, 1 TAB PO BID for 90 Days, #180 07/20/24 Furosemide (Furosemide) 40 Mg Tab, 1 TAB PO DAILY for 30 Days, #30 07/20/24 Amlodipine Besylate (Amlodipine Besylate) 5 Mg Tab, 1 TAB PO DAILY for 30 Days, #30 07/20/24 Metoprolol Tartrate (Metoprolol Tartrate) 25 Mg Tab, 1 TAB PO BID for 30 Days, #60 07/20/24 Omeprazole (Omeprazole Dr) 40 Mg Cap, 1 CAP PO BID for 90 Days, #180 07/20/24 Albuterol Sulfate (Albuterol Sulfate Hfa) 108 Mcg/Act Aer, 1 PUFF INH Q4-6HR PRN 10/28/23 Diltiazem Hcl (Diltiazem Hcl) 60 Mg Tab, 240 MG PO DAILY for 30 Days, MG 10/28/23 Cetirizine Hcl (Kls Aller-Fabian) 10 Mg Tab, 1 TAB PO DAILY for 90 Days, #90 10/28/23 Ergocalciferol (Drisdol) 50,000 Unit Cap, 1 CAP PO QWEEKLY for 97 Days, #13 10/28/23 Losartan Potassium (Losartan Potassium) 25 Mg Tab, 1 TAB PO DAILY 10/07/23 Nifedipine (Nifedipine Er) 60 Mg Tab, 1 TAB PO DAILY for 90 Days, #90 10/07/23 Methylsulfonylmethane (Msm) 1,500 Mg Tab, 1500 MG PO BID, TAB 09/05/21 Montelukast Sodium (Singulair) 10 Mg Tab, 10 MG PO, TAB 09/05/21 Aspirin (Aspir-81) 81 Mg Tab, 81 MG PO DAILY, TAB 09/05/21 Information Source: Patient, Relative (Child) Mode of Arrival: Ambulatory Timing: Days Duration: Since onset Quality: Cramping Vomitus: Food Particles Severity: Moderate Recent: None Associated sign and symptoms: Nausea, Vomiting, Abdominal Pain Past Medical History PAST MEDICAL HISTORY: Asthma, COPD, DM, High Lipids, HTN Past Medical History (Other): SBO in 2020 and revertion 2021 Surgical History: Appendectomy, Hysterectomy BUSINESS TECHNOLOGY ANALYST History: No Pertinent BUSINESS TECHNOLOGY ANALYST History Family History Family History: Reviewed,noncontributory to illness, No family hx of Cancer, No family hx of DM, No family hx of Heart janell, No family hx of HTN, No family hx ofKidney janell, No family hx of Liver janell, No family hx of Lung janell, No family hx of Stroke Social History Smoker: Non-Smoker Alcohol: Denies ETOH Use Drugs: Denies Drug Use Lives In: Home Constitutional: denies: chills, diaphoresis, fatigue, fever, malaise, sweats, weakness, others EENTM: denies: blurred vision, double vision, ear bleeding, ear discharge, ear drainage, ear pain, ear ringing, eye pain, eye redness, hearing loss, mouth pain, mouth swelling, nasal discharge, nose bleeding, nose congestion, nose pain, photophobia, tearing, throat pain, throat swelling, voice changes, others Respiratory: denies: cough, hemoptysis, orthopnea, SOB at rest, shortness of breath, SOB with excertion, stridor, wheezing, others Cardiovascular: denies: chest pain, dizzy spells, diaphoresis, Dyspnea on exertion, edema, irregular heart beat, left arm pain, lightheadedness, palpitations, PND, syncope, others Gastrointestinal: reports: abdominal pain, nausea, vomiting, others (no passing gases or BM. ) Genitourinary: denies: abnormal vagina bleeding, burning, dyspareunia, dysuria, flank pain, frequency, hematuria, incontinence, pain, , vagina discharge, urgency, others Neurological: denies: dizziness, fainting, headache, left sided numbness, left sided weakness, numbness, paresthesia, pre-existing deficit, right sided numbness, right sided weakness, seizure, speech problems, tingling, tremors, weakness, others Musculoskeletal: denies: back pain, gout, joint pain, joint swelling, muscle pain, muscle stiffness, neck pain, others Integumetry: denies: bruises, change in color, change in hair/nails, dryness, laceration, lesions, lumps, rash, wounds, others Allergic/Immunocompromised: denies: Difficulty Healing, Frequent Infections, Hives, Itching, others Hematologic/Lymphatic: denies: anemia, blood clots, easy bleeding, easy bruising, swollen glands, others Endocrine: denies: excessive hunger, excessive sweating, excessive thirst, excessive urination, flushing, intolerance to cold, intolerance to heat, unexplained weight gain, unexplained weight loss, others Psychiatric: denies: anxiety, bipolar disorder, depression, hopeless, panic disorder, schizophrenia, sleepless, suicidal, others Physical Exam Exam Comments Alert, oriented x3 General Appearance: Mild Distress HEENT: Normal ENT Inspection, Pharynx Normal, TMs Normal Neck: Full Range of Motion, Non-Tender, Normal, Normal Inspection Respiratory: Chest Non-Tender, Lungs Clear, No Accessory Muscle Use, No Respiratory Distress, Normal Breath Sounds Cardiovascular: No Edema, No JVD, No Murmur, No Gallop, Normal Peripheral Pulses, Regular Rate/Rhythm Breast Exam: Deferred Gastrointestinal: LLQ, Soft, Tenderness, Other (Inspection: protuberant abdomen, no skin changes; auscultation: reduced bowel movements; palpation: tender to deep palpation in the LLQ. no guarding or rebound. ) Genitalia: Deferred Pelvic: Deferred Rectal: Deferred Extremities: No calf tenderness, Normal capillary refill, Normal inspection, Normal range of motion, Non-tender, No pedal edema Musculoskeletal : Apperance: Normal Neurologic: Alert, process manager II-XII nml as Tested, No Motor Deficits, Normal Affect, Normal Mood, No Sensory Deficits Cerebellar Function: Normal Reflexes: Normal Skin: Dry, Normal Color, Warm Lymphatic: No Adenopathy Was a procedure done? Was a procedure done?: No GI differential Dx Differential Diagnosis: Bowel Obstruction, Constipation, Diverticular disease, Gastroenteritis, Inflammatory BD X-Ray, Labs, Meds, VS Vital Signs Date Time Temp Pulse Resp B/P (MAP) Pulse Ox O2 Delivery O2 Flow Rate FiO2 05/07/25 14:38 163/78 05/07/25 14:28 84 18 163/78 (106) 92 05/07/25 14:06 98.2 92 18 183/96 (125) 93 98.2 05/07/25 11:59 97.9 89 20 172/90 94 97.9 Lab Test 05/07/25 13:50 Range/Units White Blood Count 11.5 H 4.4-10.8 10^3/uL Red Blood Count 4.60 4.0-5.20 10^6/uL Hemoglobin 12.8 12.2-16.2 g/dL Hematocrit 40.1 36.0-46.0 % Mean Corpuscular Volume 87.3 80.0-100.0 fL Mean Corpuscular Hemoglobin 27.9 L 28.0-32.0 pg Mean Corpuscular Hemoglobin Concent 32.0 32.0-36.0 g/dL Red Cell Distribution Width 15.9 H 11.8-14.3 % Platelet Count 394 140-450 10^3/uL Mean Platelet Volume 7.8 6.9-10.8 fL Neutrophils (%) (Auto) 78.4 37.0-80.0 % Lymphocytes (%) (Auto) 15.8 10.0-50.0 % Monocytes (%) (Auto) 3.9 0.0-12.0 % Eosinophils (%) (Auto) 1.2 0.0-7.0 % Basophils (%) (Auto) 0.7 0.0-2.0 % Neutrophils # (Auto) 9.1 H 1.6-8.6 10 ^3/uL Lymphocytes # (Auto) 1.8 0.4-5.4 10 ^3/uL Monocytes # (Auto) 0.5 0-1.3 10 ^3/uL Eosinophils # (Auto) 0.1 0-0.8 10 ^3/uL Basophils # (Auto) 0.1 0-0.2 10 ^3/uL Nucleated Red Blood Cells 0.1 % Sodium Level 144 136-145 mmol/L Potassium Level 4.0 3.5-5.1 mmol/L Chloride Level 111 H 98-107 mmol/L Carbon Dioxide Level 23 20-31 mmol/L Anion Gap 10 5-15 Blood Urea Nitrogen 7 L 9-23 mg/dL Creatinine 1.00 0.550-1.02 mg/dL Glomerular Filtration Rate Calc 55 >90 mL/min BUN/Creatinine Ratio 7.0 L 10.0-20.0 Serum Glucose 130 H 74-106 mg/dL Calcium Level 9.5 8.7-10.4 mg/dL Current Medications Medications (Trade) Dose Ordered Sig/Mary Anne Route Start Time Stop Time Status Last Admin Sodium Chloride 1,000 ml @ 75 mls/hr [id number] ONCE IV 05/07/25 13:00 05/08/25 02:19 05/07/25 14:45 X-Ray, Labs, Meds, VS Comment 14:06 The patient was re-evaluated. BP: 183/96mmHg CBC: WBC: 11.5x10e3/ul Hb: 12.8mg/dl BMP: CL 111mmol/l 1457 The patient was re-evaluated, abdominal pain has improved, but the patient reports she has not passed gases. CT abd/pel report: Focal dilated fecalized 5.3 cm small bowel loop at suture site of previous small bowel resection. With [id number] surrounding generalized inflammation. Mild scattered small bowel wall thickening. Given overall normal caliber small and large bowel otherwise, this may represent a poorly functioning bowel loop in the setting of an enteritis. A developing obstruction is not excluded. The patient will be admitted for further assessment and management. Time of 1ST Reevaluation: 14:06 Reevaluation 1ST: Unchanged Time of 2ND Reevaluation: 14:57 Reevaluation 2ND: Unchanged Patient Education/Counseling: Diagnosis, Treatment, Prognosis Family Education/Counseling: Diagnosis, Treatment SEPSIS Sepsis Screen Date sepsis recognized/suspect: May 07, 2025 Time Sepsis recognized/suspect: 1202 Recent Procedure: No On Antibiotic Therapy: No Respiratory Rate >20: No Heart Rate >90: No Temp<36 C (96.8 F) or >38.3 C: No SBP <90 or MAP <65 mmHG: No New Acute Mental Status Change: No Is the patient on CPAP, BIPAP,: No Physician Orders Urinalysis (05/07/25 12:47) Ct Ab Pel Wo Con-No Oral Or Iv (05/07/25 12:47) Sodium Chloride 0.9% (05/07/25 13:00) Vital Signs Date Time Temp Pulse Resp B/P (MAP) Pulse Ox O2 Delivery O2 Flow Rate FiO2 05/07/25 14:38 163/78 05/07/25 14:28 84 18 163/78 (106) 92 05/07/25 14:06 98.2 92 18 183/96 (125) 93 98.2 05/07/25 11:59 97.9 89 20 172/90 94 97.9 Laboratory Tests Test 05/07/25 13:50 White Blood Count 11.5 10^3/uL (4.4-10.8) H Medications Medications Dose Ordered Sig/Mary Anne Route Start Time Stop Time Status Last Admin Dose Admin Sodium Chloride 1,000 ml @ 75 mls/hr [id number] ONCE IV 05/07/25 13:00 05/08/25 02:19 05/07/25 14:45 Departure 1 Departure Time of Disposition: 14:57 Impression: Primary Impression: Enteritis Additional Impression: Hx SBO Disposition: ADMITTED INPATIENT Admit to: Med Surg Condition: Fair Comments Goals of care discussed with the patient > 35 min. Discussed plan of care with Dr. Mosqueda Code status: Full code PCP: does not recall name Plan discussed with: Patient, the patient agrees with the admission plan. Critical Care Note Critical Care Time?: No Stability Stability form required: No Heart Score Heart Score: Heart Score Response (Comments) Value History N/A 0 EKG N/A 0 Age N/A 0 Risk Factors N/A 0 Troponin N/A 0 Total 0 JENNIFER SILVER RESIDENT May 07, 2025 15:07
[2025-05-07 22:14] LABS: Urine Protein, UAD TRACE (Negative)
[2025-05-07 23:56] VITALS: PULSE 61; RESP 20; O2SAT 94
[2025-05-08] VITALS (13 sets, daily range): BP systolic 101–186; BP diastolic 50–81; PULSE 60–77; RESP 14–87; TEMP 97.8–98.5; O2SAT 2–100
[2025-05-08] MEDS: SODIUM CHLORIDE 0.9% 1,000 ML IV ONE (00:32)
[2025-05-08] MEDS: DEXTROSE (50%) 50ML SYRG IV ONE (00:45)
[2025-05-08] MEDS: ACCU-CHEK COMFORT CURVE STRIP VI ONE (00:45)
[2025-05-08] MEDS: InsuLIN REG 1unit/0.01ml Soln (100units/ml) SC ONE (00:45)
[2025-05-08] MEDS: ENOXAPARIN SOD 40 MG/0.4 ML SYRINGE SC SCH (00:52)
[2025-05-08] MEDS: SODIUM CHLORIDE 0.9% 1,000 ML IV SCH (00:52)
[2025-05-08] MEDS: PANTOPRAZOLE 40 MG/10 ML VIAL INJ IV ONE (00:52)
--- NOTE | 2025-05-08 00:55 | DVHHPRES ---
History of Present Illness Resident Creating Document: RICH CAMPOS RESIDENT History of Present Illness This is an 84-year-old female with past medical history of diabetes mellitus type 2, hypertension, COPD, not requiring home oxygen, asthma, small-bowel obstruction, presented to ER with chief complain of abdominal pain, nausea and vomiting. The pain is located in left lower abdomen, cramp like, 6/10, without radiation. Patient complains of 1 episode of vomiting, described as projectile, vomitus contained only food content, no blood seen. She reported last bowel movement yesterday. She has significant past medical history of SBO and perforation, and underwent surgical repair 3 years back. She denies fever, chills. Previous hospitalization: 11/24/2024 for acute hypoxic respiratory failure due to COPD exacerbation, discharged on Z-Fred, finished course. PMHx: Diabetes mellitus type 2, hypertension, COPD, not requiring home oxygen, asthma, small-bowel obstruction and perforation s/p surgical repair PSHx: Small-bowel resection Social history: Quit smoking 25 years ago; 25 pack per year smoking history. Denies alcohol, recreational drug use. Lives in house with daughter, has signed DNR DNI, next to kin is daughter. Home medication: Losartan, Lasix, nifedipine, Lipitor, metoprolol, cetirizine, aspirin, Singulair, vitamin-D, Prilosec Allergic history: Codeine, penicillin Patient was examined at bedside today. Patient is admitted for further evalu ation and management. Review of Systems Review of Systems ROS: Constitutional: Denies weight loss, fever and chills. HEENT: Denies changes in vision and hearing. Respiratory: Denies shortness of breath and cough Cardiovascular: Denies chest discomfort or palpitations GI: Left lower abdominal pain, nausea, vomiting. : Denies dysuria and urinary frequency. Musculoskeletal: Chronic Right knee pain. Skin: Denies rash and pruritus. Neurological: Denies dizziness, headache, vision or hearing problems Allergies: Coded Allergies: Codeine (Verified Allergy, Mild, 05/20/23) Penicillins (Verified Allergy, Unknown, 05/20/23) Medications Current Medications Medications Dose Ordered Sig/Mary Anne Route Start Time Stop Time Status Last Admin Dose Admin Enoxaparin Sodium 40 mg DAILY SC 05/08/25 00:15 Metronidazole 100 ml @ 100 mls/hr Q8HR IV 05/08/25 06:00 Ceftriaxone Sodium 50 ml @ 100 mls/hr DAILY@09 IV 05/08/25 09:00 Sodium Chloride 1,000 ml @ 75 mls/hr [id number] IV 05/08/25 00:15 Losartan Potassium 50 mg DAILY PO 05/08/25 10:00 Furosemide 40 mg DAILY PO 05/08/25 10:00 Nifedipine 30 mg DAILY PO 05/08/25 10:00 Atorvastatin Calcium 40 mg HS PO 05/08/25 22:00 Metoprolol Succinate 25 mg DAILY PO 05/08/25 10:00 Aspirin 81 mg DAILY PO 05/08/25 10:00 Levalbuterol HCl 1.25 mg Q6HR NEB 05/08/25 06:00 Ipratropium [place] 0.5 mg Q6HWA NEB 05/08/25 06:00 Pantoprazole Sodium 40 mg DAILY IV 05/08/25 10:00 Exam Vital Signs Vital Signs Date Time Temp Pulse Resp B/P (MAP) Pulse Ox O2 Delivery O2 Flow Rate FiO2 05/08/25 00:42 98.0 61 20 176/64 (101) 94 98.0 05/07/25 23:56 Room Air* 0 21 Exam General: Patient alert and oriented in person, place and time. Patient following commands. HEENT: Normocephalic, atraumatic, moist mucous membranes Respiratory/pulmonary: Expiratory wheeze heard in bilateral lung buckner. Cardiovascular: Normal heart sounds S1 and S2 with no associated murmurs Abdomen: Tenderness in left lower abdomen on palpation. Normal bowel sounds heard. Extremities: Grade 3 pitting edema in ankles bilaterally. Peripheral Pulses: 3+ Radial (R). 3+ Radial (L). 3+ Dorsalis pedis (R). 3+ Dorsalis pedis(L) Skin: No rashes or pruritus, there is no sacral edema present at this time. Neurological: Intact cranial nerves with no focal neurologic deficits Labs/Xrays Labs Test 05/07/25 21:28 05/07/25 13:50 Range/Units Urine Color Yellow Yellow Urine Clarity Clear Clear Urine pH 5.5 5.0-9.0 Urine Specific [place] 1.024 1.001-1.035 Urine Protein Trace H Negative Urine Ketones Negative Negative Urine Blood Negative Negative /uL Urine Nitrite Negative Negative Urine Bilirubin Negative Negative Urine Urobilinogen Normal Negative mg/dL Urine Leukocyte Esterase Negative Negative /uL Urine RBC 1 0 - 4 /hpf Urine Microscopic WBC < 1 0-5 /HPF Urine Squamous Epithelial Cells Few <5 /hpf Urine Bacteria None seen None Seen /hpf Urine Hyaline Casts Few 0 - 2 /lpf Urine Mucus Few None Seen Urine Glucose Normal Normal mg/dL White Blood Count 11.5 H 4.4-10.8 10^3/uL Red Blood Count 4.60 4.0-5.20 10^6/uL Hemoglobin 12.8 12.2-16.2 g/dL Hematocrit 40.1 36.0-46.0 % Mean Corpuscular Volume 87.3 80.0-100.0 fL Mean Corpuscular Hemoglobin 27.9 L 28.0-32.0 pg Mean Corpuscular Hemoglobin Concent 32.0 32.0-36.0 g/dL Red Cell Distribution Width 15.9 H 11.8-14.3 % Platelet Count 394 140-450 10^3/uL Mean Platelet Volume 7.8 6.9-10.8 fL Neutrophils (%) (Auto) 78.4 37.0-80.0 % Lymphocytes (%) (Auto) 15.8 10.0-50.0 % Monocytes (%) (Auto) 3.9 0.0-12.0 % Eosinophils (%) (Auto) 1.2 0.0-7.0 % Basophils (%) (Auto) 0.7 0.0-2.0 % Neutrophils # (Auto) 9.1 H 1.6-8.6 10 ^3/uL Lymphocytes # (Auto) 1.8 0.4-5.4 10 ^3/uL Monocytes # (Auto) 0.5 0-1.3 10 ^3/uL Eosinophils # (Auto) 0.1 0-0.8 10 ^3/uL Basophils # (Auto) 0.1 0-0.2 10 ^3/uL Nucleated Red Blood Cells 0.1 % Sodium Level 144 136-145 mmol/L Potassium Level 4.0 3.5-5.1 mmol/L Chloride Level 111 H 98-107 mmol/L Carbon Dioxide Level 23 20-31 mmol/L Anion Gap 10 5-15 Blood Urea Nitrogen 7 L 9-23 mg/dL Creatinine 1.00 0.550-1.02 mg/dL Glomerular Filtration Rate Calc 55 >90 mL/min BUN/Creatinine Ratio 7.0 L 10.0-20.0 Serum Glucose 130 H 74-106 mg/dL Calcium Level 9.5 8.7-10.4 mg/dL SEPSIS Sepsis Screen Date sepsis recognized/suspect: May 08, 2025 Time Sepsis recognized/suspect: 2355 Recent Procedure: No On Antibiotic Therapy: No Respiratory Rate >20: No Heart Rate >90: No Temp<36 C (96.8 F) or >38.3 C: No SBP <90 or MAP <65 mmHG: No New Acute Mental Status Change: No Is the patient on CPAP, BIPAP,: No Physician Orders * Gi Dvh Soap Grinder (05/07/25 17:10) * Surgical Consult (05/07/25 ) Npo Except Ice Chips (05/07/25 17:10) Admit (05/08/25 00:11) Allergies (05/08/25 00:11) Code Status (05/08/25 00:11) Npo (Nothing By Mouth) Diet (05/08/25 Breakfast) Condition: Serious (05/08/25 00:11) Enoxaparin Sodium (Lovenox) (05/08/25 00:15) Oxygen By Nasal Cannula (05/08/25 00:11) Stat Ekg For Chest Pain (05/08/25 00:11) Notify Md Of Changes From Base (05/08/25 00:11) Metronidazole 500mg/100ml (Flagyl 500mg/ (05/08/25 06:00) Metronidazole 500mg/100ml (Flagyl 500mg/ (05/08/25 00:15) Ceftriaxone 1gm/50ml (Rocephin) (05/08/25 09:00) Sodium Chloride 0.9% (05/08/25 00:15) Sodium Chloride 0.9% (05/08/25 00:15) Losartan Tablet (Cozaar Tablet) (05/08/25 10:00) Furosemide Tablet (Lasix Tablet) (05/08/25 10:00) Nifedipine Er (Procardia Xl (Time-Releas (05/08/25 10:00) Atorvastatin (Lipitor) (05/08/25 22:00) Metoprolol Xl Succinate (Toprol Xl) (05/08/25 10:00) Aspirin Tablet (10/18/25 10:00) Levalbuterol Hcl (Xopenex Medneb) (05/08/25 06:00) Ipratropium Medneb (Atrovent Medneb) (05/08/25 06:00) Pantoprazole (Protonix) (05/08/25 10:00) Stool Bacterial Culture (05/08/25 00:22) Stool Wbc (05/08/25 00:22) Stool Occult Blood (05/08/25 00:22) Mrsa Screen (05/08/25 00:22) Rapid Influenza A&B (05/08/25 00:22) Covid19 Antigen Padmini (05/08/25 ) B-Type Natriuretic Peptide (05/08/25 00:22) Basic Metabolic Panel (05/08/25 04:00) Complete Blood Count (05/08/25 04:00) Kub Abdomen Single View (05/08/25 08:00) Vital Signs Date Time Temp Pulse Resp B/P (MAP) Pulse Ox O2 Delivery O2 Flow Rate FiO2 05/08/25 00:42 98.0 61 20 176/64 (101) 94 98.0 05/08/25 00:26 97.8 62 16 156/89 (111) 94 97.8 05/07/25 23:56 61 20 94 Room Air* 0 21 05/07/25 23:56 98.0 61 20 176/64 (101) 94 98.0 177/70 (105) 05/07/25 20:55 98.3 58 14 154/88 (110) 92 98.3 Laboratory Tests Test 05/07/25 13:50 White Blood Count 11.5 10^3/uL (4.4-10.8) H Medications Medications Dose Ordered Sig/Mary Anne Route Start Time Stop Time Status Last Admin Dose Admin Diagnostic Test (Pha) 1 strip ONCE ONCE 05/08/25 00:15 05/08/25 00:31 DC 05/08/25 00:45 1 STRIP Metronidazole 100 ml @ 100 mls/hr ONCE ONCE IV 05/07/25 17:15 05/07/25 18:14 DC 05/08/25 00:06 100 MLS/HR Sodium Chloride 1,000 ml @ 75 mls/hr [id number] ONCE IV 05/07/25 13:00 10/18/25 02:19 05/07/25 14:45 75 MLS/HR Assessment/Plan Assessment/Plan Acute infectious gastroenteritis SBO, ruled out History of small-bowel perforation s/p resection Labs showed neutrophilic leukocytosis CT abdomen revealed inflammation surrounding small-bowel resection site. No acute obstruction reported X-ray abdomen shows nonobstructive bowel gas pattern. IV fluids, ceftriaxone 1 g daily, metronidazole 500 mg t.i.d. NPO for bowel rest; advance as tolerated Monitor bowel sounds, consider KUB if deemed necessary Stool bacterial culture, WBC, occult blood ordered COPD, without exacerbation Asthma without exacerbation Nebulization therapy with albuterol and ipratropium Influenza, COVID serologies negative. MRSA screen ordered Chest x-ray shows no acute cardiopulmonary process Diabetes mellitus type 2 Sliding scale insulin A1c ordered Monitor blood glucose Diabetes education, diet Hypertension Nifedipine ER, metoprolol, losartan Chronic kidney disease GFR-55 Low salt diet, maintain hydration Repeat BMP DIET: NPO DVT PROPHYLAXIS: Lovenox GI PROPHYLAXIS: Protonix CODE STATUS: Goals of care discussed with patient at bedside for more than 36 minutes. Full code DISPOSITION: Med/surge Patient's status and plan discussed with the patient. Case discussed with Dr. Cole. Plan discussed with: Patient, Daughter, Other (Nurses) My Orders Orders - RICH CAMPOS RESIDENT Procedure Category Date Status Time Admit ADMIT 05/08/25 Transmitted 00:11 Allergies JOSE ALEJANDRO 05/08/25 In Process 00:11 Code Status CODE 05/08/25 Transmitted 00:11 Npo (Nothing By DIET 05/08/25 Transmitted Mouth) Diet Breakfast Condition: Serious JOSE ALEJANDRO 05/08/25 In Process 00:11 Enoxaparin Sodium PHA 05/08/25 In Process (Lovenox) 00:15 Oxygen By Nasal RT 05/08/25 Transmitted Cannula 00:11 Stat Ekg For Chest JOSE ALEJANDRO 05/08/25 In Process Pain 00:11 Notify Of Changes JOSE ALEJANDRO 05/08/25 In Process From Base 00:11 Metronidazole PHA 05/08/25 In Process 500mg/100ml (Flagyl 06:00 Metronidazole PHA 05/08/25 In Process 500mg/100ml (Flagyl 00:15 Ceftriaxone 1gm/50ml PHA 05/08/25 In Process (Rocephin) 09:00 Sodium Chloride 0.9% PHA 05/08/25 In Process 00:15 Sodium Chloride 0.9% PHA 05/08/25 In Process 00:15 Losartan Tablet PHA 05/08/25 In Process (Cozaar Tablet) 10:00 Furosemide Tablet PHA 05/08/25 In Process (Lasix Tablet) 10:00 Nifedipine Er PHA 05/08/25 In Process (Procardia Xl 10:00 Atorvastatin (Lipitor) PHA 05/08/25 In Process 22:00 Metoprolol Xl PHA 05/08/25 In Process Succinate (Toprol Xl) 10:00 Aspirin Tablet PHA 05/08/25 In Process 10:00 Levalbuterol Hcl PHA 05/08/25 In Process (Xopenex Medneb) 06:00 Ipratropium Medneb PHA 05/08/25 In Process (Atrovent Medneb) 06:00 Pantoprazole PHA 05/08/25 In Process (Protonix) 10:00 Stool Bacterial KARL 05/08/25 Logged Culture 00:22 Stool Wbc LAB 05/08/25 Logged 00:22 Stool Occult Blood LAB 05/08/25 Logged 00:22 Mrsa Screen KARL 05/08/25 Logged 00:22 Rapid Influenza A&B LAB 05/08/25 Logged 00:22 Covid19 Antigen Padmini LAB 05/08/25 Logged B-Type Natriuretic LAB 05/08/25 In Process Peptide 00:22 Basic Metabolic Panel LAB 05/08/25 Logged 04:00 Complete Blood Count LAB 05/08/25 Logged 04:00 Kub Abdomen Single XY 05/08/25 Taken View 08:00 Date of Service: May 08, 2025 Billing Provider: RICH CAMPOS Common Visit Codes: [id number] INP/OBS CARE (HIGH) Secondary Visit Codes: [id number] CARE PLAN 30 MINUTES RICH CAMPOS RESIDENT May 08, 2025 00:55 LANDON GOMEZ May 08, 2025 06:59
--- NOTE | 2025-05-08 01:20 | DVH ---
Exam: XY KUB ABDOMEN SINGLE VIEW Indication: r/o SBO Comparison: CT CT AB PEL WO CON-NO ORAL OR IV on DOS: 05/07/25, US KIDNEY on DOS: 07/24/23, SMALL BOWEL SERIES-W GASTROGRA on DOS: 10/28/21, CT ABD PELVIS WO CONTRAST on DOS: 08/21/21 Technique: 2 AP radiographic views of the abdomen. Findings: Nonobstructive bowel gas pattern noted. There is no definite evidence for pneumoperitoneum. No abnormal calcifications noted. Impression: Nonobstructive bowel gas pattern noted.
[2025-05-08 02:38] LABS: COVID19 ANTIGEN SOFIA FIA NEGATIVE (NEGATIVE)
[2025-05-08 05:56] LABS: Anion Gap 9 (5-15); Carbon Dioxide 25 mmol/L (20-31); Potassium 3.9 mmol/L (3.5-5.1)
[2025-05-08 05:57] LABS: Calcium 9.0 mg/dL (8.7-10.4); Hematocrit 37.0 % (36.0-46.0); Hemoglobin 11.8 g/dL (12.2-16.2); Mean Corpuscular Hemoglobin 28.0 pg (28.0-32.0); Mean Corpuscular Volume 87.6 fL (80.0-100.0); Nucleated Red Blood Cells % 0.0 %
[2025-05-08 06:01] LABS: Glucose 101 mg/dL (74-106)
[2025-05-08 06:02] LABS: BUN/Creatinine Ratio 10.1 (10.0-20.0); Blood Urea Nitrogen 10 mg/dL (9-23); Chloride 112 mmol/L (98-107); Sodium 146 mmol/L (136-145)
[2025-05-08 06:19] LABS: INR 1.06 (0.9-1.15); Partial Thromboplastin Time 26.5 SEC (24.5-34.5); Prothrombin Time 11.2 sec (9.3-11.8)
[2025-05-08 06:27] LABS: Alanine Aminotransferase 10 U/L (7-40); Albumin 3.9 g/dL (3.2-4.8); Alkaline Phosphatase 71 U/L (46-116); Magnesium 1.9 mg/dL (1.6-2.6); Total Protein 6.5 g/dL (5.7-8.2)
[2025-05-08 06:28] LABS: Cholesterol 130 mg/dL (< 200)
[2025-05-08 06:31] LABS: Bilirubin, Direct < 0.1 mg/dL (<0.3); Bilirubin, Total 0.3 mg/dL (0.2-1.0); HDL Cholesterol 37 mg/dL (40-59); Triglycerides 171 mg/dL (< 150)
[2025-05-08] MEDS: IPRATROPIUM BROM 0.5 MG/2.5ML INH SOL NEB SCH (06:45)
[2025-05-08] MEDS: LEVALBUTEROL HCL 1.25 MG/3 ML NEB NEB SCH (06:45)
[2025-05-08 06:59] LABS: Lipase 26 U/L (12-53)
--- NOTE | 2025-05-08 09:23 | DVHPN2 ---
Subjective Feeling better this morning with decreasing abdominal pain Reviewed: Care Plan, H&P, Labs, Medications, Previous Orders, Radiology Changes from previous H/P or p: Changes Objective Vitals Vital Signs Date Time Temp Pulse Resp B/P (MAP) Pulse Ox O2 Delivery O2 Flow Rate FiO2 05/08/25 09:00 98.0 69 16 101/81 (88) 91 98.0 05/08/25 03:00 0.0 05/07/25 23:56 Room Air* 21 Intake/Output Intake and Output 05/08/25 07:00 Intake Total 1300 ml Balance 1300 ml Intake IV Total 1300 ml General Appearance: Alert, Oriented X3, Cooperative, No acute distress HEENT: Atraumatic Lungs: Clear to auscultation, Other (Decreased air entry bilateral) Cardiovascular: Regular rate, Normal S1, Normal S2 (Ra) Abdomen: Normal bowel sounds, Soft, Other (Diffuse mild tenderness) Neuro: Normal speech, Cranial nerves 3-12 NL Psych/Mental Status: Mental status NL, Mood NL Medications Current Medications Medications Dose Ordered Sig/Mary [place] Route Start Time Stop Time Status Last Admin Dose Admin Enoxaparin Sodium 40 mg DAILY SC 05/08/25 00:15 05/08/25 00:52 40 MG Metronidazole 100 ml @ 100 mls/hr Q8HR IV 05/08/25 06:00 05/08/25 06:23 100 MLS/HR Ceftriaxone Sodium 50 ml @ 100 mls/hr DAILY@09 IV 05/08/25 09:00 Sodium Chloride 1,000 ml @ 75 mls/hr [id number] IV 05/08/25 00:15 05/08/25 00:52 75 MLS/HR Losartan Potassium 50 mg DAILY PO 05/08/25 10:00 Furosemide 40 mg DAILY PO 05/08/25 10:00 Nifedipine 30 mg DAILY PO 05/08/25 10:00 Atorvastatin Calcium 40 mg HS PO 05/08/25 22:00 Metoprolol Succinate 25 mg DAILY PO 05/08/25 10:00 Aspirin 81 mg DAILY PO 05/08/25 10:00 Levalbuterol HCl 1.25 mg Q6HR NEB 05/08/25 06:00 Ipratropium [place] 0.5 mg Q6HWA NEB 05/08/25 06:00 Pantoprazole Sodium 40 mg DAILY IV 05/08/25 10:00 Prednisone 5 mg DAILY PO 05/08/25 10:00 Laboratory Results Laboratory Tests 05/08/25 05:02 Chemistry Test 05/07/25 13:50 05/08/25 05:02 Calcium Level 9.5 mg/dL (8.7-10.4) 9.0 mg/dL (8.7-10.4) Albumin 3.9 g/dL (3.2-4.8) Magnesium Level 1.9 mg/dL (1.6-2.6) Phosphorus Level 2.9 mg/dL (2.4-5.1) Total Protein 6.5 g/dL (5.7-8.2) Coagulation Test 05/08/25 05:02 Prothrombin Time 11.2 sec (9.3-11.8) Prothrombin Time INR 1.06 (0.9-1.15) Activated Partial Thromboplast Time 26.5 SEC (24.5-34.5) Lipid panel Test 05/08/25 05:02 Cholesterol Level 130 mg/dL (< 200) HDL Cholesterol 37 mg/dL (40-59) L Lipase 26 U/L (12-53) Triglycerides Level 171 mg/dL (< 150) H LFT Test 05/08/25 05:02 Alanine Aminotransferase (ALT) 10 U/L (7-40) Alkaline Phosphatase 71 U/L (46-116) Aspartate Amino Transferase (AST) 12 U/L (13-40) L Direct Bilirubin < 0.1 mg/dL (<0.3) Total Bilirubin 0.3 mg/dL (0.2-1.0) HgA1c, TSH Test 05/08/25 05:02 Hemoglobin A1c 6.6 % A1C (<5.7) H Thyroid Stimulating Hormone (TSH) 1.34 uIU/mL (0.55-4.78) Urinalysis Test 05/07/25 21:28 Urine Color Yellow (Yellow) Urine Clarity Clear (Clear) Urine pH 5.5 (5.0-9.0) Urine Specific [place] 1.024 (1.001-1.035) Urine Protein Trace (Negative) H Urine Ketones Negative (Negative) Urine Blood Negative /uL (Negative) Urine Nitrite Negative (Negative) Urine Bilirubin Negative (Negative) Urine Urobilinogen Normal mg/dL (Negative) Urine Leukocyte Esterase Negative /uL (Negative) Urine RBC 1 /hpf (0 - 4) Urine Microscopic WBC < 1 /HPF (0-5) Urine Squamous Epithelial Cells Few /hpf (<5) Urine Bacteria None seen /hpf (None Seen) Urine Hyaline Casts Few /lpf (0 - 2) Urine Mucus Few (None Seen) Urine Glucose Normal mg/dL (Normal) Labs and/or images reviewed: Labs reviewed by me, Image(s) reviewed by me Assessment/Plan Assessment/Plan An 84-year-old female patient with multiple comorbidities; who presented to emergency department with abdominal pain associated with nausea and vomiting. Acute infectious gastroenteritis with the abdominal pain associated with nausea and vomiting Small-bowel obstruction was ruled out in the setting of history of small bowel perforation status post resection Sepsis due to acute infectious gastroenteritis Controlled diabetes mellitus type 2 with hemoglobin A1c of 6.6% Hypertensive kidney disease with chronic kidney disease stage IIIA Hypertensive heart disease with chronic diastolic heart failure; not in exacerbation Chronic hypoxic respiratory failure due to asthma/COPD; on home oxygen 2 L/min via nasal cannula; not in exacerbation Asthma/COPD; not in exacerbation Normocytic anemia; most likely inflammatory in the setting of chronic kidney disease; no symptoms/signs of bleeding Obesity Continue IV antibiotics including ceftriaxone; patient has penicillin allergy but with unclear reaction; so far tolerating well ceftriaxone To advance diet as tolerated; currently on clear liquid diet Reviewed lab work and available imaging studies Continue pain management as indicated Continue antihypertensive medication and adjust setting according to blood pressure monitoring Continue insulin therapy and adjust according to blood glucose monitoring Continue oxygen therapy as indicated along with nebulizers as indicated Continue DVT prophylaxis Counseled the patient importance of adopting healthy lifestyle with diet and exercise in order to lose weight Continue monitoring Goals of care discussed with the patient and her daughter for 20 minutes; DNR/DNI Late Entry. This medical document was created using an electronic medical record system with computerized dictation system. Although this document has been carefully reviewed, there might still be some phonetic and typographical errors. These areas are purely typographical due to imperfections of the software programs, and do not reflect any compromise in the patient's medical care. Plan discussed with: Patient, Daughter, Other (Nurse) Date of Service: May 08, 2025 Billing Provider: TAMRA WILDER MD Common Visit Codes: [id number] INP/OBS CARE(HIGH) Secondary Visit Codes: [id number] CARE PLAN 30 MINUTES (20 minutes) TAMRA WILDER MD May 08, 2025 09:23
[2025-05-08] MEDS: LOSARTAN POTASSIUM 50 MG TAB PO SCH (09:28)
[2025-05-08] MEDS: FUROSEMIDE 40 MG TAB PO SCH (09:29)
[2025-05-08] MEDS: METOPROLOL SUCCINATE XL 50 MG TAB PO SCH (09:30)
[2025-05-08] MEDS: PANTOPRAZOLE 40 MG/10 ML VIAL INJ IV SCH (09:38)
[2025-05-08] MEDS: ATORVASTATIN 20 MG TAB PO SCH (21:57)
[2025-05-09] VITALS (14 sets, daily range): BP systolic 133–169; BP diastolic 35–85; PULSE 52–75; RESP 12–18; TEMP 97–98.6; O2SAT 92–100
[2025-05-09 05:07] LABS: Hematocrit 34.1 % (36.0-46.0); Hemoglobin 11.1 g/dL (12.2-16.2); Mean Corpuscular Hemoglobin 27.9 pg (28.0-32.0); Mean Corpuscular Volume 86.2 fL (80.0-100.0); Nucleated Red Blood Cells % 0.1 %
[2025-05-09 05:40] LABS: Anion Gap 7 (5-15); Calcium 9.0 mg/dL (8.7-10.4); Carbon Dioxide 27 mmol/L (20-31); Potassium 3.5 mmol/L (3.5-5.1)
[2025-05-09 05:50] LABS: BUN/Creatinine Ratio 6.8 (10.0-20.0); Blood Urea Nitrogen < 5 mg/dL (9-23); Chloride 113 mmol/L (98-107); Glucose 111 mg/dL (74-106); Sodium 147 mmol/L (136-145)
--- NOTE | 2025-05-09 11:46 | DVHPN2 ---
Subjective Still with no gas/bowel movement; abdominal pain continues to decrease; no nausea/vomiting Reviewed: Care Plan, H&P, Labs, Medications, Previous Orders, Radiology Changes from previous H/P or p: Changes Objective Vitals Vital Signs Date Time Temp Pulse Resp B/P (MAP) Pulse Ox O2 Delivery O2 Flow Rate FiO2 05/09/25 11:40 61 18 100 05/09/25 11:34 Nasal Cannula* 2 28 05/09/25 09:00 97.9 169/59 (95) 97.9 Intake/Output Intake and Output 05/09/25 07:00 Intake Total 1850 ml Balance 1850 ml Intake Oral 1700 ml IV Total 150 ml # Voids 5 General Appearance: Alert, Oriented X3, Cooperative, No acute distress HEENT: Atraumatic Lungs: Clear to auscultation, Other (Decreased air entry bilateral) Cardiovascular: Regular rate, Normal S1, Normal S2 (Ra) Abdomen: Normal bowel sounds, Soft, Other (Diffuse mild tenderness) Neuro: Normal speech, Cranial nerves 3-12 NL Psych/Mental Status: Mental status NL, Mood NL Medications Current Medications Medications Dose Ordered Sig/[place] Route Start Time Stop Time Status Last Admin Dose Admin Enoxaparin Sodium 40 mg DAILY SC 05/08/25 00:15 05/09/25 08:49 40 MG Metronidazole 100 ml @ 100 mls/hr Q8HR IV 05/08/25 06:00 05/09/25 05:51 100 MLS/HR Ceftriaxone Sodium 50 ml @ 100 mls/hr DAILY@09 IV 05/08/25 09:00 05/09/25 08:16 100 MLS/HR Sodium Chloride 1,000 ml @ 75 mls/hr [id number] IV 05/08/25 00:15 05/08/25 13:35 75 MLS/HR Losartan Potassium 50 mg DAILY PO 05/08/25 10:00 05/09/25 08:47 50 MG Furosemide 40 mg DAILY PO 05/08/25 10:00 05/09/25 08:48 40 MG Nifedipine 30 mg DAILY PO 05/08/25 10:00 05/09/25 08:47 30 MG Atorvastatin Calcium 40 mg HS PO 05/08/25 22:00 05/08/25 21:57 40 MG Metoprolol Succinate 25 mg DAILY PO 05/08/25 10:00 05/09/25 08:48 25 MG Aspirin 81 mg DAILY PO 05/08/25 10:00 05/09/25 08:48 81 MG Levalbuterol HCl 1.25 mg Q6HR NEB 05/08/25 06:00 05/09/25 11:34 1.25 MG Ipratropium [place] 0.5 mg Q6HWA NEB 05/08/25 06:00 05/09/25 11:34 0.5 MG Pantoprazole Sodium 40 mg DAILY IV 05/08/25 10:00 05/09/25 08:49 40 MG Laboratory Results Laboratory Tests 05/09/25 04:39 Chemistry Test 05/09/25 04:39 Calcium Level 9.0 mg/dL (8.7-10.4) Cardiac Markers Test 05/08/25 13:50 B-Type Natriuretic Peptide 53.44 pg/mL (0-100) Urinalysis Test 05/07/25 21:28 Urine Color Yellow (Yellow) Urine Clarity Clear (Clear) Urine pH 5.5 (5.0-9.0) Urine Specific [place] 1.024 (1.001-1.035) Urine Protein Trace (Negative) H Urine Ketones Negative (Negative) Urine Blood Negative /uL (Negative) Urine Nitrite Negative (Negative) Urine Bilirubin Negative (Negative) Urine Urobilinogen Normal mg/dL (Negative) Urine Leukocyte Esterase Negative /uL (Negative) Urine RBC 1 /hpf (0 - 4) Urine Microscopic WBC < 1 /HPF (0-5) Urine Squamous Epithelial Cells Few /hpf (<5) Urine Bacteria None seen /hpf (None Seen) Urine Hyaline Casts Few /lpf (0 - 2) Urine Mucus Few (None Seen) Urine Glucose Normal mg/dL (Normal) Microbiology Microbiology Date/Time Source Procedure Growth Status 05/08/25 00:31 Nose MRSA Screen - Final Complete Labs and/or images reviewed: Labs reviewed by me, Image(s) reviewed by me Assessment/Plan Assessment/Plan An 84-year-old female patient with multiple comorbidities; who presented to emergency department with abdominal pain associated with nausea and vomiting. Acute infectious gastroenteritis with the abdominal pain associated with nausea and vomiting Small-bowel obstruction was ruled out in the setting of history of small bowel perforation status post resection Sepsis due to acute infectious gastroenteritis Controlled diabetes mellitus type 2 with hemoglobin A1c of 6.6% Hypertensive kidney disease with chronic kidney disease stage IIIA Hypertensive heart disease with chronic diastolic heart failure; not in exacerbation Chronic hypoxic respiratory failure due to asthma/COPD; on home oxygen 2 L/min via nasal cannula; not in exacerbation Asthma/COPD; not in exacerbation Normocytic anemia; most likely inflammatory in the setting of chronic kidney disease; no symptoms/signs of bleeding Obesity Continue IV antibiotics including ceftriaxone; patient has penicillin allergy but with unclear reaction; so far tolerating well ceftriaxone To advance diet as tolerated; to advance to soft diet Reviewed lab work and available imaging studies Continue pain management as indicated Continue antihypertensive medication and adjust setting according to blood pressure monitoring Continue insulin therapy and adjust according to blood glucose monitoring Continue oxygen therapy as indicated along with nebulizers as indicated Continue DVT prophylaxis Counseled the patient importance of adopting healthy lifestyle with diet and exercise in order to lose weight Started on MiraLax and Dulcolax Encouraged the patient to ambulate Continue monitoring Possible discharge tomorrow if passing gas/stool, and tolerating soft diet This medical document was created using an electronic medical record system with computerized dictation system. Although this document has been carefully reviewed, there might still be some phonetic and typographical errors. These areas are purely typographical due to imperfections of the software programs, and do not reflect any compromise in the patient's medical care. Plan discussed with: Patient, Daughter, Other (Nurse) My Orders Orders - TAMRA WILDER MD Procedure Category Date Status Time Soft Diet DIET 05/09/25 Transmitted Lunch Date of Service: May 09, 2025 Billing Provider: TAMRA WILDER MD Common Visit Codes: [id number] INP/OBS CARE(HIGH) TAMRA WILDER MD May 09, 2025 11:46
[2025-05-09] MEDS: BISACODYL 5 MG EC TAB PO ONE (13:15)
[2025-05-09] MEDS: POLYETHYLENE GLYCOL 17 GM PWDR PO ONE (13:15)
[2025-05-09] MEDS: BISACODYL 5 MG EC TAB PO SCH (21:09)
[2025-05-10] VITALS (13 sets, daily range): BP systolic 147–189; BP diastolic 52–93; PULSE 58–71; RESP 16–20; TEMP 97.6–98.2; O2SAT 93–100
[2025-05-10 08:09] LABS: Anion Gap 11 (5-15); Carbon Dioxide 28 mmol/L (20-31)
[2025-05-10 08:10] LABS: Calcium 8.8 mg/dL (8.7-10.4)
[2025-05-10 08:14] LABS: Hematocrit 34.1 % (36.0-46.0); Hemoglobin 11.1 g/dL (12.2-16.2); Mean Corpuscular Hemoglobin 27.9 pg (28.0-32.0); Mean Corpuscular Volume 85.9 fL (80.0-100.0); Nucleated Red Blood Cells % 0.0 %
[2025-05-10 08:15] LABS: BUN/Creatinine Ratio 7.1 (10.0-20.0)
[2025-05-10 08:17] LABS: Blood Urea Nitrogen 6 mg/dL (9-23); Chloride 108 mmol/L (98-107); Glucose 121 mg/dL (74-106); Potassium 3.1 mmol/L (3.5-5.1); Sodium 147 mmol/L (136-145)
[2025-05-10] MEDS: POLYETHYLENE GLYCOL 17 GM PWDR PO SCH (09:30)
[2025-05-10] MEDS ORDERED: POLY335015 PO (14:45)
[2025-05-10] MEDS ORDERED: SENN8.6C PO (14:45)
--- NOTE | 2025-05-10 14:49 | DVHDS2 ---
Discharge Summary Date of Admission May 08, 2025 at 00:11 Date of Discharge: May 10, 2025 Labs/Diagnostic Data: Laboratory Results Test 05/10/25 06:47 05/08/25 13:50 05/08/25 05:02 05/08/25 00:42 White Blood Count 8.1 10^3/uL (4.4-10.8) Red Blood Count 3.98 10^6/uL (4.0-5.20) Hemoglobin 11.1 g/dL (12.2-16.2) Hematocrit 34.1 % (36.0-46.0) Mean Corpuscular Volume 85.9 fL (80.0-100.0) Mean Corpuscular Hemoglobin 27.9 pg (28.0-32.0) Mean Corpuscular Hemoglobin Concent 32.5 g/dL (32.0-36.0) Red Cell Distribution Width 15.3 % (11.8-14.3) Platelet Count 350 10^3/uL (140-450) Mean Platelet Volume 8.0 fL (6.9-10.8) Neutrophils (%) (Auto) 64.7 % (37.0-80.0) Lymphocytes (%) (Auto) 21.4 % (10.0-50.0) Monocytes (%) (Auto) 5.3 % (0.0-12.0) Eosinophils (%) (Auto) 7.6 % (0.0-7.0) Basophils (%) (Auto) 1.0 % (0.0-2.0) Neutrophils # (Auto) 5.3 10 ^3/uL (1.6-8.6) Lymphocytes # (Auto) 1.7 10 ^3/uL (0.4-5.4) Monocytes # (Auto) 0.4 10 ^3/uL (0-1.3) Eosinophils # (Auto) 0.6 10 ^3/uL (0-0.8) Basophils # (Auto) 0.1 10 ^3/uL (0-0.2) Nucleated Red Blood Cells 0.0 % Sodium Level 147 mmol/L (136-145) Potassium Level 3.1 mmol/L (3.5-5.1) Chloride Level 108 mmol/L (98-107) Carbon Dioxide Level 28 mmol/L (20-31) Anion Gap 11 (5-15) Blood Urea Nitrogen 6 mg/dL (9-23) Creatinine 0.85 mg/dL (0.550-1.02) Glomerular Filtration Rate Calc 67 mL/min (>90) BUN/Creatinine Ratio 7.1 (10.0-20.0) Serum Glucose 121 mg/dL (74-106) Calcium Level 8.8 mg/dL (8.7-10.4) B-Type Natriuretic Peptide 53.44 pg/mL (0-100) Prothrombin Time 11.2 sec (9.3-11.8) Prothrombin Time INR 1.06 (0.9-1.15) Activated Partial Thromboplast Time 26.5 SEC (24.5-34.5) Hemoglobin A1c 6.6 % A1C (<5.7) Phosphorus Level 2.9 mg/dL (2.4-5.1) Magnesium Level 1.9 mg/dL (1.6-2.6) Total Bilirubin 0.3 mg/dL (0.2-1.0) Direct Bilirubin < 0.1 mg/dL (<0.3) Aspartate Amino Transferase (AST) 12 U/L (13-40) Alanine Aminotransferase (ALT) 10 U/L (7-40) Alkaline Phosphatase 71 U/L (46-116) C-Reactive Protein High Sensitivity 0.74 mg/dL (<1.0) Total Protein 6.5 g/dL (5.7-8.2) Albumin 3.9 g/dL (3.2-4.8) Triglycerides Level 171 mg/dL (< 150) Cholesterol Level 130 mg/dL (< 200) LDL Cholesterol 72 mg/dL (< 100) HDL Cholesterol 37 mg/dL (40-59) Lipase 26 U/L (12-53) Vitamin D 25-Hydroxy 95.2 ng/mL (30.0-100) Thyroid Stimulating Hormone (TSH) 1.34 uIU/mL (0.55-4.78) POC Glucose 112 mg/dl (70-106) Test 05/08/25 00:31 05/07/25 21:28 Influenza Type A Antigen Negative (Negative) Influenza Type B Antigen Negative (Negative) SARS-CoV-2 Antigen (Rapid) Negative (NEGATIVE) Urine Color Yellow (Yellow) Urine Clarity Clear (Clear) Urine pH 5.5 (5.0-9.0) Urine Specific [place] 1.024 (1.001-1.035) Urine Protein Trace (Negative) Urine Ketones Negative (Negative) Urine Blood Negative /uL (Negative) Urine Nitrite Negative (Negative) Urine Bilirubin Negative (Negative) Urine Urobilinogen Normal mg/dL (Negative) Urine Leukocyte Esterase Negative /uL (Negative) Urine RBC 1 /hpf (0 - 4) Urine Microscopic WBC < 1 /HPF (0-5) Urine Squamous Epithelial Cells Few /hpf (<5) Urine Bacteria None seen /hpf (None Seen) Urine Hyaline Casts Few /lpf (0 - 2) Urine Mucus Few (None Seen) Urine Glucose Normal mg/dL (Normal) Other Laboratory Tests 05/10/25 06:47 Final Diagnosis/Problems List partial SBO 2/2 surgery Discharge Disposition: Home Discharge Instruct/Medications Diet: Consistent carbohydrate, Cardiac 2g Na,low cholest Activity: No Restrictions, As Tolerated Follow Up/Referral: [facility] Scheduled Albuterol Sulfate (Albuterol Sulfate Hfa), 1 PUFF INH Q4-6HR PRN, (Reported) Albuterol Sulfate (Albuterol Sulfate), 1 VIAL NEB Q4HPRN Amlodipine Besylate (Amlodipine Besylate), 1 TAB PO DAILY, (Reported) Amlodipine Besylate (Amlodipine Besylate), 2.5 MG PO DAILY, (Reported) Aspirin (Aspir-81), 81 MG PO DAILY, (Reported) Atorvastatin Calcium (Lipitor), 1 TAB PO DAILY, (Reported) Azithromycin (Zithromax Tablet), 250 MG PO DAILY Cetirizine Hcl (Kls Aller-Fabian), 1 TAB PO DAILY, (Reported) Diltiazem Hcl (Diltiazem Hcl), 240 MG PO DAILY, (Reported) Ergocalciferol (Drisdol), 1 CAP PO QWEEKLY, (Reported) Ilytkmkuqjg-Lfdqxsitksdq-Xvrmm (Trelegy Ellipta 100-62.5-25 Mcg/INH), 1 PUFF IN DAILY, (Reported) Furosemide (Furosemide), 1 TAB PO DAILY, (Reported) Levofloxacin Hemihydrate (Levaquin 500 Mg), 500 MG PO DAILY@1800 Linezolid (Linezolid), 600 MG PO BID Losartan Potassium (Losartan Potassium), 1 TAB PO DAILY, (Reported) Methylsulfonylmethane (Msm), 1,500 MG PO BID, (Reported) Metoprolol Tartrate (Metoprolol Tartrate), 1 TAB PO BID, (Reported) Nifedipine (Nifedipine Er), 1 TAB PO DAILY, (Reported) Omeprazole (Omeprazole Dr), 1 CAP PO BID, (Reported) Ondansetron HCl (Ondansetron Hydrochloride), 1 TAB PO BID, (Reported) Prednisone (Prednisone), 20 MG PO DAILY Scheduled PRN Albuterol Sulfate (Albuterol Sulfate Hfa), 108 MCG IN Q6HP PRN Ipratropium [place] (Ipratropium [place]), 0.5 % HHN Q6HPRN PRN Polyethylene Glycol 3350 (Miralax), 17 GM PO DAILYP PRN Sennosides (Senna), 8.6 MG PO DAILY PRN Miscellaneous Medications Montelukast Sodium (Singulair), 10 MG PO, (Reported) Discharge Statement: "Patient was advised to return to the ER or call 911 if any headaches, dizziness, shortness of breath, chest pain, abdominal pain, bleeding, fevers, or worsening of medical condition. Patient was counseled about treatment plan, medications, possible side effects, patientverbalized understanding. All questions were answered to the best of my ability. This discharge took greater then 30 minutes in planning, reviewing documentation, counseling the patient, and discussing with other team members." ASSESSMENT ASSESSMENT Assessment partial SBO 2/2 surgery Date of Service: May 10, 2025 Billing Provider: DULCE MELISSA MD Common Visit Codes: [id number] DISCH DAY >30min DULCE MELISSA MD May 10, 2025 14:49
== END 2025-05-10 17:33 | disposition home or self-care (01) | DRG 872 ==
LOC: ER 11:57 → OVERFLOW 05-08 00:11 → EAST 05-08 17:25
PROVIDERS: ADMIT Student in an Organized Health Care Education/Training Program; ATTEND Student in an Organized Health Care Education/Training Program
DX: A41.9 Sepsis, unspecified organism (principal); A09 Infectious gastroenteritis and colitis, unspecified; I50.32 Chronic diastolic (congestive) heart failure; I13.0 Hypertensive heart and chronic kidney disease with heart failure and stage 1 through stage 4 chronic kidney disease, or unspecified chronic kidney disease; J96.11 Chronic respiratory failure with hypoxia; Z20.822 Contact with and (suspected) exposure to COVID-19; E66.9 Obesity, unspecified; D64.9 Anemia, unspecified; J44.89 Other specified chronic obstructive pulmonary disease; N18.31 Chronic kidney disease, stage 3a; E11.22 Type 2 diabetes mellitus with diabetic chronic kidney disease; Z88.6 Allergy status to analgesic agent; Z88.0 Allergy status to penicillin; Z87.891 Personal history of nicotine dependence; Z93.3 Colostomy status; Z68.34 Body mass index [BMI] 34.0-34.9, adult; Z90.710 Acquired absence of both cervix and uterus; Z79.4 Long term (current) use of insulin; Z79.82 Long term (current) use of aspirin
CPT/HCPCS: 36415; 74018; 74176; 80048; 80061; 80076; 81001; 82306; 82607; 82962; 83036; 83690; 83735; 83880; 84100; 84443; 85025; 85610; 85730; 86141; 87081; 87426; 87804; 94640; 96360; 96361; G0378; J2405; J2470; J3490

== ENCOUNTER 2025-05-19 07:34 | Outpatient (CLI) | payer OTHER ==
[~2025-05-19 07:34] MED LIST changes: -ALBU0.084 NEB; -ALBU108A5 IN; -AZIT-185 PO; -CETI10TA2 PO; -IPR002IS HHN; -LEVO500T91 PO; -LINE1TAB10 PO; -METO25TA5 PO; -MONT10TA23 PO; -ONDA-180 PO; +POLY335015 PO; -PRED10TA PO; +SENN8.6C PO; -[UNRECOGNIZED DRUG - CODE] PO; -[UNRECOGNIZED DRUG - CODE] PO
[2025-05-19 07:56] LABS: Hematocrit 38.7 % (36.0-46.0); Hemoglobin 12.2 g/dL (12.2-16.2); Mean Corpuscular Hemoglobin 27.1 pg (28.0-32.0); Mean Corpuscular Volume 85.9 fL (80.0-100.0); Nucleated Red Blood Cells % 0.1 %
[2025-05-19 08:23] LABS: Urine Protein, UAD Negative (Negative)
[2025-05-19 08:32] LABS: Alanine Aminotransferase 11 U/L (7-40); Albumin 4.4 g/dL (3.2-4.8); Alkaline Phosphatase 76 U/L (46-116); Anion Gap 13 (5-15); BUN/Creatinine Ratio 22.6 (10.0-20.0); Calcium 9.7 mg/dL (8.7-10.4); Carbon Dioxide 26 mmol/L (20-31); Chloride 106 mmol/L (98-107); Glucose 92 mg/dL (74-106); Potassium 4.0 mmol/L (3.5-5.1); Sodium 145 mmol/L (136-145); Total Protein 7.2 g/dL (5.7-8.2)
[2025-05-19 08:34] LABS: Bilirubin, Total 0.3 mg/dL (0.2-1.0); Blood Urea Nitrogen 33 mg/dL (9-23)
[2025-05-19 08:35] LABS: Uric Acid 9.3 mg/dL (3.1-7.8)
== END 2025-05-19 17:00 | disposition home or self-care (01) ==
LOC: LAB 07:34
PROVIDERS: ATTEND Internal Medicine
DX: E11.22 Type 2 diabetes mellitus with diabetic chronic kidney disease (principal); N18.30 Chronic kidney disease, stage 3 unspecified; E11.21 Type 2 diabetes mellitus with diabetic nephropathy; E21.3 Hyperparathyroidism, unspecified; E55.9 Vitamin D deficiency, unspecified; D63.1 Anemia in chronic kidney disease; N39.0 Urinary tract infection, site not specified; M10.9 Gout, unspecified; R80.9 Proteinuria, unspecified
CPT/HCPCS: 36415; 80053; 81001; 82306; 83036; 84550; 85025